=== PATIENT | female | born 1945 | race Caucasian/White ===

== ENCOUNTER 2018-05-23 17:19 | Emergency (ER) | payer MEDICARE, MEDICAID, SELFPAY ==
[2018-05-23 17:25] VITALS: BP 197/94; PULSE 89; RESP 16; TEMP 37; O2SAT 95
--- NOTE | 2018-05-23 18:04 | ED.GENADUL_ITS ---
Disposition Clinical Impression: Abscess of groin, left Disposition: HOME Condition: Stable Instructions: Abscess (ED) Additional Instructions: Leave the left groin dressing in place. If it becomes wet, dry the area and replace with dry gauze and tape. Do not remove the packing inside. Return to the emergency department in 2 days for wound check and packing removal. Take the antibiotics until finished. Return to the emergency department any time if you develop fever, worsening pain , redness or swelling or red streaking in your leg. Prescriptions: Clindamycin [Cleocin] 450 mg PO TID 7 Days cap Medical Decision Making - Medical Decision Making 73-year-old female presents with left groin abscess for 5 days. Admits to a similar history 1 year ago status post catheterization. She states this area completely healed since last year. Area appears fluctuant approximately 2 x 3 cm in the left groin. She has no fever or abdominal tenderness. She appears nontoxic. Will perform an I&D and start antibiotics. Area anesthetized with 8 cc of lidocaine 2% without epi. An approximately 1 cm incision was made in the center of abscess with minimal amount of pus expressed. The approximately 1cm area of pus noted in center of abscess prior to incision is more jelly like and not liquid - this was removed with excision leaving a circular hole in center of incision. Small amount of blood expressed. Area was irrigated with normal saline, packed with 1/4inch iodoform and covered gauze dressing. Pt was given dose of clindamycin here and prescription for home. Pt was instructed to return to the ER in 2 days for wound check and packing removal. She was instructed to return immediately to the ER at any time with signs of worsening infection such as fever, chills, red streaking. History of Present Illness - General Chief complaint: RashLesion Stated complaint: ABSCESS IN GROIN AREA Time Seen by Provider: 05/23/18 17:22 Source: patient Mode of arrival: ambulatory Limitations: no limitations - History of Present Illness Initial comments: Patient is a 73-year-old female presents with left groin abscess with the past 5 days. Patient has a similar episode one year ago after a catheterization through her left groin. She denies any recent antibiotics. She saw her PCP today for this and advised to come to the ED if she may need incision and drainage. She denies known fever or abdominal pain. - Related Data Fluticasone Propionate [Flovent 110MCG] 1 puff IH BID #3 inhaler 09/12/17 Mirtazapine 30 mg PO HS #90 tab-cap 09/12/17 Rosuvastatin [Crestor] 40 mg PO DAILY #90 tab-cap 09/12/17 Ferrous Sulfate [Feosol] 325 mg PO BID #60 tab-cap 09/16/17 Proventil Hfa 1 - 2 puff IH Q6H PRN #3 inhaler 09/16/17 Quetiapine Fumarate 12.5 mg PO DAILY #45 tab-cap 12/03/17 Potassium Chloride 20 meq PO DAILY #90 tab-cap 01/16/18 Apixaban [Eliquis] 5 mg PO BID #60 tab 03/31/18 Clopidogrel Bisulfate [Clopidogrel] 75 mg PO DAILY #90 tab-cap 03/31/18 Metoprolol Succinate 100 mg PO DAILY #90 tab-cap 03/31/18 Pantoprazole Sodium 40 mg PO BID #60 tab-cap 03/31/18 Losartan/Hydrochlorothiazide [Losartan-Hctz 100-12.5 mg Tab] 1 tab-cap PO DAILY #90 tab-cap 04/15/18 Clindamycin [Cleocin] 450 mg PO TID 7 Days cap 05/23/18 Allergies Allergy/AdvReac Type Severity Reaction Status Date / Time lactose AdvReac Severe DIARRHEA Unverified 05/23/18 17:27 mold, mildew AdvReac Unknown ?cough Uncoded 05/23/18 17:27 Review of Systems Constitutional: denies: chills, fever Eyes: denies: eye pain ENT: denies: ear pain, dental pain Respiratory: denies: cough, shortness of breath Cardiovascular: denies: chest pain, dyspnea on exertion Gastrointestinal: denies: abdominal pain, nausea, vomiting Genitourinary: denies: urgency, dysuria, frequency Musculoskeletal: denies: back pain Skin: lesions. denies: rash Neurological: denies: headache, weakness, numbness Past Medical History - Past Medical History Medical history: CAD, COPD, GERD, hyperlipidemia, hypertension hep C, lung ca s/p lobectomy, peripheral vascular disease, NSTEMI, GI bleed Surgical history: other (L lung lobectomy 2013?) Family history: CAD/LA (mother), cancer (mother) - Social History Smoking status: never smoker Alcohol use: none (Former history of heavy alcohol abuse, quit 10 years ago) Drug use: none General Exam - General Limitations: no limitations General appearance: alert, in no apparent distress - Eye Eye exam: Present: EOMI - Respiratory Respiratory exam: Present: normal lung sounds bilaterally. Absent: respiratory distress, wheezes, rales, rhonchi, stridor - Cardiovascular Cardiovascular Exam: Present: regular rate, normal rhythm. Absent: bradycardia , tachycardia - GI/Abdominal GI/Abdominal exam: Present: soft, normal bowel sounds. Absent: distended, tenderness, guarding, rebound, rigid - Neurological Exam Neurological exam: Present: alert, oriented X3 - Psychiatric Psychiatric exam: Present: normal affect - Skin Skin exam: Present: other (Approximately 3 x 2 cm tender fluctuant abscess noted to left groin. There appears to be a draining center with yellow pus. No induration or surrounding erythema extending from abscess.) Course Vital Signs - 24 hr 05/23/18 17:25 Temperature 98.6 F Pulse 89 Respiratory 16 Rate Blood Pressure 197/94 Pulse Oximetry 95 Procedures - Abscess I/D Site: Other (Left groin) Side (if applicable): Left Local Anesthetic: Lidocaine 2% Amount of Anesthesia Used (mL): 8 Technique: Incised with #11 Blade Amount of Fluid: 2 Irrigation: Yes Packing used?: Iodoform
[2018-05-23] MEDS: Clindamycin 150 MG CAP 450 MG PO (18:28)
[2018-05-23] MEDS: Acetaminophen 325 MG TAB 650 MG PO (19:30)
== END 2018-05-23 19:31 | disposition home or self-care (01) ==
PROVIDERS: Emergency Provider Physician Assistant; PCP Family Medicine
DX: L02.214 Cutaneous abscess of groin (principal); J44.9 Chronic obstructive pulmonary disease, unspecified; I10 Essential (primary) hypertension
CPT/HCPCS: 10061 ×2

== ENCOUNTER 2018-05-25 13:22 | Emergency (ER) | payer MEDICARE, MEDICAID, SELFPAY ==
[2018-05-25 13:28] VITALS: BP 116/65; PULSE 68; RESP 18; TEMP 36.5; O2SAT 100
--- NOTE | 2018-05-25 14:56 | ED.GENADUL_ITS ---
Disposition Clinical Impression: Abscess of groin, left, Visit for wound check Disposition: HOME Condition: Stable Instructions: Abscess (ED) Additional Instructions: Follow-up with your scheduled appointment with your primary care doctor on Saturday for reevaluation of your left groin abscess. Continue wet to dry dressings in your left groin twice daily. Take the antibiotics until finished. Return immediately to the emergency department any worsening or new concerning symptoms such as fever, increased pain redness or swelling. Medical Decision Making - Medical Decision Making 73yo F here for wound check and packing removal for L groin abscess. Pt feels better. No fever. Packing was removed. Area appears to be improving but where the gelatinous area of pus in center was removed 2 days ago, there is a hole. The edges appear clean. Pt had a previous cath in this area 1 year ago complicated by abscess after. I suspect the center may have been scar tissue that then recently became infected. Area was covered with wet to dressings and tape. Will not repack wound. Seems to be healing from center and improving. Informed pt that she will likely have another scar. Pt has a f/u appt with her pcp in 3 days. She is instructed to have him evaluate this area for another wound check. Pt instructed to return here with any worsening symptoms such as fever and red streaking. History of Present Illness - General Chief complaint: Recheck Stated complaint: RECHECK Time Seen by Provider: 05/25/18 13:35 Source: patient Mode of arrival: ambulatory Limitations: no limitations - History of Present Illness Initial comments: Pt was seen here 2 days ago for a L groin abscess and is here today for wound check and packing removal. Pt states the pain is improved and she denies fever and otherwise has been feeling better. She is taking the antibiotics as directed. - Related Data Fluticasone Propionate [Flovent 110MCG] 1 puff IH BID #3 inhaler 09/12/17 Mirtazapine 30 mg PO HS #90 tab-cap 09/12/17 Rosuvastatin [Crestor] 40 mg PO DAILY #90 tab-cap 09/12/17 Ferrous Sulfate [Feosol] 325 mg PO BID #60 tab-cap 09/16/17 Proventil Hfa 1 - 2 puff IH Q6H PRN #3 inhaler 09/16/17 Quetiapine Fumarate 12.5 mg PO DAILY #45 tab-cap 12/03/17 Potassium Chloride 20 meq PO DAILY #90 tab-cap 01/16/18 Apixaban [Eliquis] 5 mg PO BID #60 tab 03/31/18 Clopidogrel Bisulfate [Clopidogrel] 75 mg PO DAILY #90 tab-cap 03/31/18 Metoprolol Succinate 100 mg PO DAILY #90 tab-cap 03/31/18 Pantoprazole Sodium 40 mg PO BID #60 tab-cap 03/31/18 Losartan/Hydrochlorothiazide [Losartan-Hctz 100-12.5 mg Tab] 1 tab-cap PO DAILY #90 tab-cap 04/15/18 Clindamycin [Cleocin] 450 mg PO TID 7 Days cap 05/23/18 Allergies Allergy/AdvReac Type Severity Reaction Status Date / Time lactose AdvReac Severe DIARRHEA Unverified 05/25/18 13:33 mold, mildew AdvReac Unknown ?cough Uncoded 05/25/18 13:33 Review of Systems Constitutional: denies: chills, fever Eyes: denies: eye pain ENT: denies: ear pain, dental pain Respiratory: denies: cough, shortness of breath Cardiovascular: denies: chest pain, dyspnea on exertion Gastrointestinal: denies: abdominal pain, nausea, vomiting Genitourinary: denies: urgency, dysuria, frequency Musculoskeletal: denies: back pain Skin: denies: rash, lesions Neurological: denies: headache, weakness, numbness Past Medical History - Past Medical History Medical history: CAD, COPD, GERD, hyperlipidemia, hypertension hep C, lung ca s/p lobectomy, peripheral vascular disease, NSTEMI, GI bleed Surgical history: other (L lung lobectomy 2013?) Family history: CAD/CO (mother), cancer (mother) - Social History Smoking status: former smoker Alcohol use: none (Former history of heavy alcohol abuse, quit 10 years ago) Drug use: none General Exam - General Limitations: no limitations General appearance: alert, in no apparent distress - Eye Eye exam: Present: EOMI - Neck Neck exam: Present: normal inspection - Respiratory Respiratory exam: Present: normal lung sounds bilaterally. Absent: respiratory distress, wheezes, rales, rhonchi, stridor - Cardiovascular Cardiovascular Exam: Present: regular rate, normal rhythm. Absent: bradycardia , tachycardia - GI/Abdominal GI/Abdominal exam: Present: soft, normal bowel sounds. Absent: distended, tenderness, guarding, rebound, rigid - Neurological Exam Neurological exam: Present: alert, oriented X3 - Psychiatric Psychiatric exam: Present: normal affect - Skin Skin exam: Present: other (L groin with area of induration with significant improvement of erythema. The center area notes a hole where previous hardened pus was removed. There is no fluctuance. ) Course Vital Signs - 24 hr 05/25/18 13:28 Temperature 97.7 F Pulse 68 Respiratory 18 Rate Blood Pressure 116/65 Pulse Oximetry 100
[2018-05-25 15:35] VITALS: BP 189/75; PULSE 83; RESP 18; TEMP 36.5; O2SAT 93
== END 2018-05-25 15:37 | disposition home or self-care (01) ==
PROVIDERS: Emergency Provider Physician Assistant; PCP Family Medicine
DX: L02.214 Cutaneous abscess of groin (principal); Z48.01 Encounter for change or removal of surgical wound dressing
CPT/HCPCS: 99281 ×2

== ENCOUNTER 2018-06-25 01:47 | Outpatient (CLI) | payer MEDICARE, MEDICAID, SELFPAY | END 2018-06-25 02:07 | PROVIDERS: PCP Family Medicine; Visit Provider Family Medicine | DX: B19.20 Unspecified viral hepatitis C without hepatic coma (principal) | CPT/HCPCS: 36415; 87522 ==

== ENCOUNTER 2018-09-10 13:26 | Inpatient (IN) | payer MEDICARE, MEDICAID, SELFPAY ==
[2018-09-10] VITALS (95 sets, daily range): BP systolic 102–165; BP diastolic 47–105; PULSE 71–132; RESP 14–33; TEMP 36.6–37.2; O2SAT 79–99
[2018-09-10] MEDS: Normal Saline 1,000 ML 1000 ML IV ×3 (14:00→16:34)
[2018-09-10 14:41] LABS: HCT 33.2 % (36.0-46.0); HGB 11.1 g/dL (12.0-15.5); Lactate-non-spesis 1.9 mmol/L (0.6-1.4); Mean Corp. HGB Concentration 33.4 g/dL (32.0-36.0); Mean Corpuscular Hemoglobin 30.9 pg (27.0-33.0); Mean Corpuscular Volume 92.5 fL (80-95); Mean Platelet Volume 9.8 fL (8.0-11.0); Platelet Count 296 x1000/uL (130-400); RBC 3.59 m/cumm (4.00-5.20); RBC Distribution Width 14.2 % (11.7-14.6); White Blood Cell Count 20.02 k/cumm (4.4-10.8)
[2018-09-10 15:03] LABS: Absolute Neutrophil Count 18.02 k/cumm (1.2-6.7)
[2018-09-10 15:04] LABS: ALT 16 U/L (12-78); AST 18 U/L (15-37); Albumin 3.3 g/dL (3.4-5.0); Alkaline Phosphatase 72 U/L (46-116); Anion Gap 11.9 mmol/L (3-11); BUN 24 mg/dL (7-18); Bilirubin, Total 0.4 mg/dL (0.2-1.0); CO2 26.1 mmol/L (21.0-32.0); CREATININE 2.04 mg/dL (0.55-1.02); Calcium 9.2 mg/dL (8.5-10.1); Chloride 96 mmol/L (98-107); Diff Comment Manual Differential; Estimated GFR 24.01 (mL/min/1.73m2); Glucose 114 mg/dL (70-100); Lipase 102 U/L (73-393); RBC Morphology Normal; Sodium 134 mmol/L (136-145); Total Protein 7.2 g/dL (6.4-8.2)
[2018-09-10 15:06] LABS: Troponin I 0.17 ng/mL (0.00-0.06)
--- NOTE | 2018-09-10 15:09 | ED.GENADUL_ITS ---
Discharge Plan Disposition Patient Disposition: [facility] INPATIENT Condition: Good Discharge Details Chief Complaint: Nausea/Vomit/Diar Clinical Impression: Acute kidney injury, Proctocolitis, Acute non-ST elevation myocardial infarction (NSTEMI), Acute dehydration, Acute hypokalemia, Diarrhea Primary Care Provider: Dharmesh Huizar ED Provider: Stephen Baxter Home Meds and New Rx's Prescriptions: No Action mirtazapine 30 MG tablet 30 mg PO HS Qty: 90 RF: 3 fluticasone [Flovent HFA] 12 GM HFA aerosol inhaler 1 puff Inhalation BID Qty: 3 RF: 3 ferrous sulfate [Feosol] 325 MG tablet 325 mg PO BID Qty: 60 RF: 3 PROVENTIL HFA 18 GM HFA.AER.AD 1 - 2 puff Inhalation Q6H PRN Qty: 3 RF: 3 quetiapine 25 MG tablet 12.5 mg PO DAILY Qty: 45 RF: 3 potassium chloride 20 MEQ tablet extended release 20 meq PO DAILY Qty: 90 RF: 3 metoprolol succinate 100 MG tablet extended release 24 hr 100 mg PO DAILY Qty: 90 RF: 3 clopidogrel 75 MG tablet 75 mg PO DAILY Qty: 90 RF: 3 pantoprazole 40 MG tablet,delayed release (DR/EC) 40 mg PO BID Qty: 60 RF: 11 apixaban [Eliquis] 5 MG tablet 5 mg PO BID Qty: 60 RF: 11 losartan-hydrochlorothiazide 1 EACH tablet 1 tab-cap PO DAILY Qty: 90 RF: 3 rosuvastatin [Crestor] 40 mg tablet 40 mg PO DAILY Qty: 90 RF: 3 losartan 50 mg Tablet 50 mg PO DAILY RF: 0 chlorthalidone 25 mg Tablet 25 mg PO DAILY RF: 0 aspirin 81 mg Tablet,Chewable 81 mg PO DAILY RF: 0 oxycodone 5 mg Tablet 5 tab PO PRN PRNRF: 0 cholecalciferol (vitamin D3) 50,000 unit Capsule 50,000 unit PO DIRECTED RF: 0 cyanocobalamin (vitamin B-12) 1,000 mcg Capsule 1,000 mcg PO DAILY RF: 0 Medical Decision Making This is a pleasant 73-year-old female with a past medical history of being a vasculopath, A. fib, Eliquis use, who presents today for 3 days of vomiting and diarrhea. She has no red flags of foreign travel, or other sick contacts however she did have a fever reported by EMS however she is afebrile here. Physical exam demonstrates mild tenderness throughout the abdomen and notably dry mucous membranes with notable tachycardia, most likely secondary to dehydration. And concerned for potential gastritis versus mesenteric ischemia with her history of being a vasculopath. We will get a CT angios to evaluate for any acute component, rehydrate, perform a cardiac workup as well for an atypical ACS presentation. EKG 13: 36 Rate 134, sinus tachycardia ME 88, QTc 475, QRS 92, sinus tachycardia, no significant ST elevations or depressions, no T wave inversions. Patient's laboratory workup has returned demonstrates a notably elevated white count. As well as a significant acute kidney injury. Because of this will not be able to do the CT angiogram. We will get a CT scan of the chest abdomen pelvis without contrast to evaluate for acute infectious etiology. CT scan returned and demonstrates evidence of proctocolitis, no other acute abnormalities in the chest abdomen or pelvis. Patient does demonstrate mild to moderate hypokalemia as well. We have given her oral, IV potassium as well as oral magnesium. EKG showed evidence of tachycardia, but no ST changes. Patient 's initial troponin came back at 0.17, and then repeat troponin came back at 0.13, with a notable decline. I did contact [facility] cardiology and discussed the case with Dr. Ordoñez, [facility] currently has no room, and their recommendation is serial troponins, and outpatient stress test for further evaluation. They do not recommend starting heparin, however they do recommend continuing the aspirin and Eliquis. Patient did have a notable improvement of her tachycardia with 2 L of rehydration. Because of the patient's evidence of proctocolitis on CT scan we will start Cipro and Flagyl. With normalizing vital signs, notable dehydration with acute kidney injury, as well as evidence of an end STEMI, I feel that she does warrant inpatient admission. I did contact Dr. Francisco, and discussed the case with him. He agrees with the assessment and plan I have extensively reviewed the treatment plan with the patient. I have addressed all patient concerns at this time. I have also discussed the plan with the admitting physician and they agree with the current assessment and plan and have agreed to assume responsibility for the patient. All parties demonstrate verbal understanding and agreement with our assessment and plan at this time. FINDINGS: Lungs: Prominent reticular markings within the superior segment of the left lower lobe and posterior right lower lobe likely chronic interstitial disease. Diffuse bilateral pulmonary emphysema. Pleural space: Normal. No pneumothorax. No pleural effusion. Heart: Coronary atherosclerosis. Findings suggestive of left atrial and left ventricular enlargement. Aorta: Atherosclerosis of the thoracic aorta and great vessels. Great vessels off aortic arch: Left subclavian endoluminal stent graft. Lymph nodes: Unremarkable. No enlarged lymph nodes. Bones/joints: Unremarkable. No acute fracture. Soft tissues: Unremarkable. IMPRESSION: No acute abnormality. ABDOMEN: Liver: Unremarkable. No mass. Gallbladder and bile ducts: Calcified stones within the gallbladder. Pancreas: Unremarkable. No ductal dilation. Spleen: Unremarkable. No splenomegaly. Adrenals: Normal. No mass. Kidneys and ureters: Severe atrophy of the right kidney with compensatory hypertrophy of the left kidney. No renal stone or hydronephrosis. Stomach and bowel: Generalized wall thickening of the mid and distal sigmoid colon and rectum suspicious for proctocolitis. No surrounding inflammatory changes identified. No bowel obstruction. Appendix: No evidence of appendicitis. PELVIS: Bladder: Unremarkable as visualized. Reproductive: Unremarkable as visualized. ABDOMEN and PELVIS: Intraperitoneal space: No free air. No significant fluid collection. Bones/joints: Degenerative spondylosis of the lumbar spine. Soft tissues: Unremarkable. Vasculature: Femoral-femoral artery bypass graft. Severe atherosclerosis of the abdominal aorta and iliac arteries. No aneurysm. Right common and external iliac endoluminal stent graft. Lymph nodes: No enlarged lymph nodes. IMPRESSION: 1. Findings suspicious for mild proctocolitis. 2. No other acute abnormality. HPI General Date/Time Provider Initiated Documentation: 09/10/18 13:38 . HPI Narrative: This is a pleasant 73-year-old female with a past medical history of being a vasculopath, on Eliquis also has atrial fibrillation , recent femoral stenting, as well as hypertension, high cholesterol. Patient presents today for vomiting and diarrhea. She states that over the last 3 days she has had multiple episodes of vomiting and diarrhea. She denies any blood in her emesis or her stool. She denies any dark or tarry stool. She denies any recent foreign travel, any other sick contacts, or any new foods. Upon EMS arrival they did note a temperature of 101 Fahrenheit however she is afebrile here. Patient admits to mild cramping in her abdomen, but denies any severe pain. Pain and cramping appears to be constant. No aggravating or relieving factors. She has not taken any of her medications for the last 3 days because of her vomiting. She denies any associated chest pain, shortness of breath, arm or neck pain. She denies any other associated symptoms. She denies any other complaints at this time. She denies any current IV or illicit drug use. Related Data Home Medications Medication Instructions Recorded Confirmed fluticasone [Flovent HFA] 1 puff INHALATION BID #3 inhaler 09/12/17 09/10/18 mirtazapine 30 mg PO HS #90 tab-cap 09/12/17 09/10/18 ferrous sulfate [Feosol] 325 mg PO BID #60 tab-cap 09/16/17 09/10/18 quetiapine 12.5 mg PO DAILY #45 tab-cap 12/03/17 09/10/18 potassium chloride 20 meq PO DAILY #90 tab-cap 01/16/18 09/10/18 apixaban [Eliquis] 5 mg PO BID #60 tab 03/31/18 09/10/18 clopidogrel 75 mg PO DAILY #90 tab-cap 03/31/18 07/22/18 metoprolol succinate 100 mg PO DAILY #90 tab-cap 03/31/18 09/10/18 pantoprazole 40 mg PO BID #60 tab-cap 03/31/18 09/10/18 losartan-hydrochlorothiazide 1 tab-cap PO DAILY #90 tab-cap 04/15/18 07/22/18 rosuvastatin 40 mg tablet 40 mg PO DAILY #90 tab-cap 08/13/18 09/10/18 aspirin 81 mg PO DAILY 09/10/18 09/10/18 chlorthalidone 25 mg PO DAILY 09/10/18 09/10/18 cholecalciferol (vitamin D3) 50,000 unit PO DIRECTED 09/10/18 09/10/18 cyanocobalamin (vitamin B-12) 1,000 mcg PO DAILY 09/10/18 09/10/18 losartan 50 mg PO DAILY 09/10/18 09/10/18 oxycodone 5 tab PO PRN PRN 09/10/18 09/10/18 Previous Rx's Medication Instructions Recorded fluticasone [Flovent HFA] 1 puff INHALATION BID #3 inhaler 09/12/17 mirtazapine 30 mg PO HS #90 tab-cap 09/12/17 ferrous sulfate [Feosol] 325 mg PO BID #60 tab-cap 09/16/17 quetiapine 12.5 mg PO DAILY #45 tab-cap 12/03/17 potassium chloride 20 meq PO DAILY #90 tab-cap 01/16/18 apixaban [Eliquis] 5 mg PO BID #60 tab 03/31/18 clopidogrel 75 mg PO DAILY #90 tab-cap 03/31/18 metoprolol succinate 100 mg PO DAILY #90 tab-cap 03/31/18 pantoprazole 40 mg PO BID #60 tab-cap 03/31/18 losartan-hydrochlorothiazide 1 tab-cap PO DAILY #90 tab-cap 04/15/18 rosuvastatin 40 mg tablet 40 mg PO DAILY #90 tab-cap 08/13/18 Allergies Allergy/AdvReac Type Severity Reaction Status Date / Time chlorthalidone Allergy Intermediate chest pain Unverified 07/22/18 15:15 lactose AdvReac Severe DIARRHEA Unverified 07/22/18 15:15 mold, mildew AdvReac Unknown ?cough Uncoded 07/22/18 15:15 General Stated Complaint: Nausea/Vomit/Diar ENZO: 2 Review of Systems Review of Systems All systems reviewed & are unremarkable except as noted in HPI and below PFSH Family History Mother Essential hypertension Personal history of malignant neoplasm Heart disease Hyperlipidemia Cerebrovascular accident Father Personal history of malignant neoplasm Brother Personal history of malignant neoplasm Grandfather No problems noted. Grandfather No problems noted. Grandmother No problems noted. Grandmother No problems noted. Medical History ASCVD (arteriosclerotic cardiovascular disease) Alcohol abuse COPD (chronic obstructive pulmonary disease) Essential hypertension Non-ST elevation [place] (NSTEMI) PVD (peripheral vascular disease) Peptic reflux disease SVT (supraventricular tachycardia) Smoker Viral hepatitis C Vitamin D deficiency Social History Smoking/Tobacco Use Status: Former Tobacco Use Surgical History PROCEDURES Exam Narrative Exam Narrative: General appearance: NAD, conversant, no acute distress, no toxic ENT/Neck: FROM, supple, extremely dry mucous membranes Lungs: Clear to auscultation, no wheezes rales or rhonchi CV: Tachycardic, no MRGs; normal carotid upstroke and amplitude without bruits Abdomen: Soft, nondistended, no guarding or rebound. Mild tenderness throughout. Bowel sounds are present. No pain out of proportion. Extremities: No peripheral edema or digital cyanosis, radial pulses +2 bilaterally Skin: no rash, lesions or ulcers Psych: Alert and oriented to person, place and time Course Vital Signs Temperature 36.7 C 09/10/18 13:29 Pulse 129 H 09/10/18 13:29 Respiratory Rate 18 09/10/18 13:29 Pulse Oximetry 94 L 09/10/18 13:29 Temperature 36.7 C 09/10/18 13:29 Pulse 129 H 09/10/18 13:29 Respiratory Rate 18 09/10/18 13:29 Pulse Oximetry 94 L 09/10/18 13:29 Oxygen Delivery Method Room Air 09/10/18 13:29 Oxygen Flow Rate 0 09/10/18 13:29 Pain Level 4 09/10/18 13:29 Lab/Test Results Lab/Test Results: 09/10/18 14:27 Blood Blood Culture - Pending 09/10/18 13:42 Blood Blood Culture - Pending Laboratory Tests Range/Units 09/10/18 14:27 Lactate (0.6-1.4) mmol/L 1.9 H
--- NOTE | 2018-09-10 15:14 | DI.CT_ITS ---
SYMPTOM/DIAGNOSIS: VOMITING, DIARRHEA CT CHEST/ABDOMEN/PELVIS: 09/10 CT examination of the chest, abdomen and pelvis was performed without contrast administration. There are severe pulmonary emphysematous changes which are predominantly central lobular. Tracheobronchial tree is grossly intact. Nonspecific minimal areas of atelectasis and/or scarring may be present particularly in the right lung base. No gross consolidation or mass seen. There is increased prominence of pre-tracheal lymph nodes in comparison with previous chest CT of 07/17/17, largest pretracheal node is about 20 mm in diameter. A 19 mm left axillary lymph node is also noted which was not present on the previous examination. Additionally, although the right hilum is difficult to evaluate fully without contrast administration, there is the possibility of right hilar mass or adenopathy. Left hilum is unremarkable in appearance. No pleural effusion seen. Left subclavian stent graft noted. Liver and spleen are grossly unremarkable in appearance. There is cholelithiasis. There may be gallbladder wall thickening. No biliary dilatation seen. The pancreas is grossly unremarkable. Atrophy of right kidney noted with compensatory hypertrophy left kidney. Abdominal aorta is of normal diameter. Femoral artery bypass graft noted. Severe atherosclerosis of abdominal aorta and iliac arteries noted. Right common and external iliacs graft noted. There is no gross abdominal or pelvic adenopathy seen. However, there is increased size of a sheng-aortic node since the previous examination which now measures about 12 mm in diameter. This is a nonspecific finding. There is apparent wall thickening of the rectum and sigmoid raising the possibility of proctitis or colitis. Please correlate clinically. No evidence of obstruction. No other focal bowel pathology identified. CONCLUSION: 1. Increased prominence of lymph nodes in mediastinum, question increasing right hilar prominence/adenopathy since the previous CT of 07/17/17. The possibility of neoplastic disease would have to be raised. 2. Increased size of left axillary node with abnormal rounded contour, 19 mm. 3. Increased prominence of para aortic lymph nodes, nonspecific 4. Question colitis involving rectosigmoid. Please correlate clinically. Follow up chest CT with contrast administration recommended. Alternatively PET CT may be considered.
[2018-09-10] MEDS: Breeza Beverage 473 ML BTL PO ×2 (15:27→15:28)
[2018-09-10] MEDS: Aspirin 81 MG CHEW 324 MG CH (15:35)
[2018-09-10] MEDS: POTASSIUM CHLORIDE 20 MEQ/100 ML BAG 50 MEQ IVPB (15:45)
[2018-09-10] MEDS: Metoprolol 5 MG/5 ML VIAL 10 MG IVP (16:29)
[2018-09-10 17:49] LABS: Troponin I 0.13 ng/mL (0.00-0.06)
--- NOTE | 2018-09-10 19:03 | DI.VRAD_ITS ---
EXAM: CT Chest Without Contrast EXAM DATE/TIME: 09/10/2018 5:11 PM CLINICAL HISTORY: 73 years old, female; Signs and symptoms; Nausea and vomiting; Prior surgery; Patient HX: Vomiting, diarrhea TECHNIQUE: Axial computed tomography images of the chest without intravenous contrast. Coronal and sagittal reformatted images were created and reviewed. COMPARISON: CT ABD PELVIS WITH CONTRAST 05/23/2017 10:12 PM FINDINGS: Lungs: Prominent reticular markings within the superior segment of the left lower lobe and posterior right lower lobe likely chronic interstitial disease. Diffuse bilateral pulmonary emphysema. Pleural space: Normal. No pneumothorax. No pleural effusion. Heart: Coronary atherosclerosis. Findings suggestive of left atrial and left ventricular enlargement. Aorta: Atherosclerosis of the thoracic aorta and great vessels. Great vessels off aortic arch: Left subclavian endoluminal stent graft. Lymph nodes: Unremarkable. No enlarged lymph nodes. Bones/joints: Unremarkable. No acute fracture. Soft tissues: Unremarkable. IMPRESSION: No acute abnormality. EXAM: CT Abdomen and Pelvis Without Intravenous Contrast EXAM DATE/TIME: 09/10/2018 5:11 PM CLINICAL HISTORY: 73 years old, female; Signs and symptoms; Nausea and vomiting; Prior surgery; Patient HX: Vomiting, diarrhea TECHNIQUE: Axial computed tomography images of the abdomen and pelvis without intravenous contrast. Coronal and sagittal reformatted images were created and reviewed. COMPARISON: CT ABD PELVIS WITH CONTRAST 05/23/2017 10:12 PM FINDINGS: Lower thorax: No acute findings. ABDOMEN: Liver: Unremarkable. No mass. Gallbladder and bile ducts: Calcified stones within the gallbladder. Pancreas: Unremarkable. No ductal dilation. Spleen: Unremarkable. No splenomegaly. Adrenals: Normal. No mass. Kidneys and ureters: Severe atrophy of the right kidney with compensatory hypertrophy of the left kidney. No renal stone or hydronephrosis. Stomach and bowel: Generalized wall thickening of the mid and distal sigmoid colon and rectum suspicious for proctocolitis. No surrounding inflammatory changes identified. No bowel obstruction. Appendix: No evidence of appendicitis. PELVIS: Bladder: Unremarkable as visualized. Reproductive: Unremarkable as visualized. ABDOMEN and PELVIS: Intraperitoneal space: No free air. No significant fluid collection. Bones/joints: Degenerative spondylosis of the lumbar spine. Soft tissues: Unremarkable. Vasculature: Femoral-femoral artery bypass graft. Severe atherosclerosis of the abdominal aorta and iliac arteries. No aneurysm. Right common and external iliac endoluminal stent graft. Lymph nodes: No enlarged lymph nodes. IMPRESSION: 1. Findings suspicious for mild proctocolitis. 2. No other acute abnormality. Dictated and Authenticated by: Joe Ross MD. Ordering:YA GREER MD
[2018-09-10] MEDS: CIPROFLOXACIN 400 MG/200 ML BAG 200 MG IVPB (19:26)
[2018-09-10] MEDS: MetroNIDAZOLE 500 MG/100 ML BAG 100 MG IVPB (19:26)
[2018-09-10] MEDS: Magnesium Oxide 400 MG TAB PO (19:26)
[2018-09-10] MEDS: Potassium Chloride 20 MEQ TABCR 40 MEQ PO (19:26)
[2018-09-10] MEDS: Normal Saline Flush 10 ML SYR IVP (20:58)
[2018-09-10] MEDS: Apixaban 5 MG TAB PO (21:16)
[2018-09-10 21:20] LABS: Bilirubin Negative (Negative); Blood Trace-intact (Negative); Clarity Clear; Glucose Negative (Negative); Ketones Negative (Negative); Leukocyte Esterase Small (Negative); Nitrite Negative (Negative); Specific Gravity <= 1.005 (1.005-1.025); Urobilinogen 0.2 EU/dL (Up TO 0.2); pH 5.5 (5-8)
[2018-09-10 21:27] LABS: Bacteria Negative HPF (Negative); C & S Indicated? Yes; Casts Negative LPF (Negative); Crystals Negative HPF (Negative); Epithelial Cells Negative HPF (Negative); Mucus Negative (Negative); Other Cells Negative (Negative); RBC Negative (0-2)
--- NOTE | 2018-09-10 21:56 | W.PM.HP.N ---
Date of service: 09/10/18 Time of Service: 21:56 Assessment and Plan (1) Enterocolitis: Current visit: Yes Status: Acute continue iv fluid hydration overnight, monitoring her urinary output, replace her electrolytes and repeat her labs in the a.m. continue w/ cipro at renal adjusted doses and flagyl pending results of stool cultures, and c. diff studies; advance diet as tolerated. if worsening abdominal pains then would have to consider ischemic bowel particularly w/ her PAD and abrupt stoppage of her Plavix and Apixaban. (2) Dehydration: Current visit: Yes Status: Acute as above. GLORIA was worsened by poor oral intake along w/ use of her diuretic and losartan although she says she has not been able to keep any meds down for 3 days d/t nausea and vomiting (3) Acute kidney injury (nontraumatic): Current visit: Yes Status: Acute rehydration w/ iv fluids along w/ electrolyte replacement. if no improvement then proceed w/ renal U.S. and check urinary sediment for casts to suggest ATN (4) Hypokalemia: Current visit: Yes Status: Acute continue iv and po replacement. check magnesium level and replace as needed. monitor repeat labs in the a.m. (5) Coronary artery disease: Current visit: No Status: Chronic no ischemic chest pain. troponins are mildly elevated but not at threshold for MD. I suspect she had demand ischemia. Her reports from [facility] indicate her last cath was 12/28/2015 and showed non-hemodynamically significant CAD(lm 10%, LAD long prox 30% calcified, LCX prox 20%, RCA prox and mid calcified 40%). I have resumed her Plavix and Apixaban (at renal adjusted dosing, although this will need to be uptitrated to 5 mg BID once she has renal recovery. She was not on ASA at home despite this being listed as one of her meds. I reviewed her [facility] record and they have her off ASA but continued w/ Plavix and Apixaban. She should continue her Toprol XL for her HTN as well as her CAD. She should cont. her Crestor for her HLD and her CAD and her PAD. (6) Essential hypertension: Current visit: No Status: Chronic hold losartan and chlorthalidone for now d/t GLORIA. cont. Toprol XL 100 mg daily. I corrected her losartan dosing. Her office records just recorded losartan/HCTZ one daily but gave no dosing. Her [facility] records from earlier this month (Aug.21/2018) has her on losartan 50 mg two daily (100 mg daily) and chlorthalidone 25 mg daily. No HCTZ is listed. (7) Peptic reflux disease: Current visit: No Status: Chronic cont. her Protonix at her current dose of 40 mg bid although this should be considered for de-escalation. History of Present Illness Chief Complaint: nausea, vomiting, diarrhea Narrative: 73 yr old female w/ severe PAD, COPD, HTN, CAD (hemodynamically non-obstructive), depression, HLD, HCV, lung CA (s/p lobectomy), PSVT, NSTEMI, PUD, GERD, OA, alcohol abuse who presents to the ER today w/3 days of nausea, vomiting and diarrhea and crampy abdominal pain. No associated fevers, foreign travel or ill contacts. No melena nor hematochezia or hematemesis. Evaluation in the ER by Dr. Baxter revealed diffuse abdominal tenderness and dry mucous membrained and tachycardia. Workup in the ER included elevated WBC 20,000 w/ left shift, stable mild anemia (Hb 11.1), azotemia (BUN 24, creatinine 2.0), normal LFT and normal lipase and mildly elevated lactate 1.9, unremarkable UA. Troponin was mildly elevated at 0.17 w/ repeat level 3 hrs later down to 0.13. EKG demonstrated sinus tachycardia at 76 bpm w/ nonspecific inferolateral ST depression similar to prior EKG's but more prominent compared to one in February 13, 2018. Stool was sent for C diff and stool culture. She underwent CT chest, abdomen and pelvis (non-contrast). Chest CT showed no acute findings. CT of abdomen and pelvis suggested mild proctocolitis. Treatment in the ER included 2 liters of NS, Ciprofloxacin 400 mg and Flagyl 500 mg. Patient is now admitted for treatment of dehydration and GLORIA d/t colits and demand ischemia. Stool has been sent for C. diff screening and stool cultrures and O&P. Of note patient has not taken any of her meds for 3 days d/t nausea and vomiting (including her metoprolol and apixaban and plavix). Review of Systems Constitutional Denies chills, Denies fever(s) and Reports poor appetite Eyes Reports system reviewed and no additional complaints, except as docu ENT Reports system reviewed and no additional complaints, except as docu Cardiovascular Denies chest pain, Denies edema, Denies claudication, Denies palpitations and Denies dyspnea Respiratory Reports system reviewed and no additional complaints, except as docu and Denies dyspnea Gastrointestinal Reports abdominal pain, Denies melena, Denies hematochezia, Reports cramping, Reports diarrhea, Reports nausea, Reports vomiting and Denies hematemesis Comments: crampy diffuse Genitourinary Reports system reviewed and no additional complaints, except as docu Musculoskeletal Reports system reviewed and no additional complaints, except as docu Integumentary/Breasts Reports system reviewed and no additional complaints, except as docu Neurologic Reports system reviewed and no additional complaints, except as docu Psychiatric Reports system reviewed and no additional complaints, except as docu Endocrine Reports system reviewed and no additional complaints, except as docu and Denies palpitations Hematologic/Lymphatic Reports system reviewed and no additional complaints, except as docu Allergic/Immunologic Reports system reviewed and no additional complaints, except as docu PFSH Family History Mother Essential hypertension Personal history of malignant neoplasm Heart disease Hyperlipidemia Cerebrovascular accident Father Personal history of malignant neoplasm Brother Personal history of malignant neoplasm Grandfather No problems noted. Grandfather No problems noted. Grandmother No problems noted. Grandmother No problems noted. Medical History ASCVD (arteriosclerotic cardiovascular disease) Alcohol abuse COPD (chronic obstructive pulmonary disease) Essential hypertension Non-ST elevation MD (NSTEMI) PVD (peripheral vascular disease) Peptic reflux disease SVT (supraventricular tachycardia) Smoker Viral hepatitis C Vitamin D deficiency Social History Smoking/Tobacco Use Status: Former Tobacco Use Surgical History History of angioplasty of peripheral vessel (Resolved 08/20/18) PROCEDURES Meds Home Medications Medication Instructions Recorded Confirmed Type fluticasone [Flovent HFA] 1 puff INHALATION BID #3 inhaler 09/12/17 09/10/18 Rx mirtazapine 30 mg PO HS #90 tab-cap 09/12/17 09/10/18 Rx Proventil Hfa 1 - 2 puff INHALATION Q6H PRN #3 09/16/17 09/10/18 Clinic inhaler ferrous sulfate [Feosol] 325 mg PO BID #60 tab-cap 09/16/17 09/10/18 Rx quetiapine 12.5 mg PO DAILY #45 tab-cap 12/03/17 09/10/18 Rx potassium chloride 20 meq PO DAILY #90 tab-cap 01/16/18 09/10/18 Rx apixaban [Eliquis] 5 mg PO BID #60 tab 03/31/18 09/10/18 Rx clopidogrel 75 mg PO DAILY #90 tab-cap 03/31/18 07/22/18 Rx metoprolol succinate 100 mg PO DAILY #90 tab-cap 03/31/18 09/10/18 Rx pantoprazole 40 mg PO BID #60 tab-cap 03/31/18 09/10/18 Rx rosuvastatin 40 mg tablet 40 mg PO DAILY #90 tab-cap 08/13/18 09/10/18 Rx chlorthalidone 25 mg PO DAILY 09/10/18 09/10/18 History cholecalciferol (vitamin D3) 50,000 unit PO DIRECTED 09/10/18 09/10/18 History cyanocobalamin (vitamin B-12) 1,000 mcg PO DAILY 09/10/18 09/10/18 History losartan 100 mg PO DAILY 09/10/18 09/10/18 History Allergies Allergy/AdvReac Type Severity Reaction Status Date / Time chlorthalidone Allergy Intermediate chest pain Unverified 07/22/18 15:15 lactose AdvReac Severe DIARRHEA Unverified 07/22/18 15:15 mold, mildew AdvReac Unknown ?cough Uncoded 07/22/18 15:15 Exam Const General: cooperative, comfortable, no acute distress, well developed and well groomed Nutritional Appearance: average body habitus Orientation: alert, awake and oriented x3 HENMT Mouth: other (dry mucous membranes) Neck Neck: normal visual inspection, full ROM, no lymphadenopathy and trachea midline Thyroid: thyroid normal Carotids: bruit on the left and other (scar over right supraclavicular area at base of neck) Chest Chest: normal inspection of the chest Resp Effort & Inspection: normal respiratory effort and able to speak in complete sentences Auscultation: clear to auscultation bilaterally Cardio Jugular venous pressure: no JVD Palpation: normal PMI Rate: regular rate Rhythm: regular rhythm Heart Sounds: S1 normal, S2 normal, normal, physiologic split S2, no gallops, no murmurs and no rubs Bruits: no abdominal aortic bruits and no carotid bruits Pulses: posterior tibial pulses present bilaterally 1+ and diminished and dorsalis pedis pulses present bilaterally 1+ and diminished GI Inspection: normal to inspection Palpation: soft, no guarding, no hepatomegaly, no pulsatile masses and tender in the epigastrum; with no rebound tenderness Percussion: normal to percussion Rectal Exam - female: deferred Skin General skin exam: no rashes or lesions noted Neuro General: alert, awake, oriented x3, moves all extremities and no focal motor deficits Cognition: normal cognition Speech: speech normal Motor: muscle tone normal throughout, strength 5/5 throughout and no movement abnormalities noted Sensory Exam: no sensory deficits noted Extrem General: normal to inspection, full ROM, normal capillary refill, no joint enlargement, no clubbing, cyanosis or edema, no pedal edema and no calf tenderness Psych Appearance: grossly normal and well kempt Mental Status: mental status grossly normal Speech and Movement: speech and movement normal Mood: congruent mood Affect: normal affect Attitude: cooperative Thought Process: normal Thought Content: normal Insight: insight good Judgment: judgment good Results Imaging Abdomen CT scan report/results: report reviewed (FINDINGS: Lower thorax: No acute findings. ABDOMEN: Liver: Unremarkable. No mass. Gallbladder and bile ducts: Calcified stones within the gallbladder. Pancreas: Unremarkable. No ductal dilation. Spleen: Unremarkable. No splenomegaly. Adrenals: Normal. No mass. Kidneys and ureters: ) CT scan - chest: report reviewed (FINDINGS: Lungs: Prominent reticular markings within the superior segment of the left lower lobe and posterior right lower lobe likely chronic interstitial disease. Diffuse bilateral pulmonary emphysema. Pleural space: Normal. No pneumothorax. No pleural effusion. Heart: Coronary atheroscl) Labs : 09/10/18 14:27 09/10/18 14:27 Laboratory Results - last 24 hr 09/10/18 09/10/18 09/10/18 14:27 14:27 14:27 WBC 20.02 H RBC 3.59 L Hgb 11.1 L Hct 33.2 L MCV 92.5 MCH 30.9 MCHC 33.4 RDW 14.2 Plt Count 296 MPV 9.8 Immature Gran % 0.0 Neutrophils % 90.0 Lymphocytes % 5.0 Monocytes % 5.0 Eosinophils % 0.0 Basophils % 0.0 Absolute Neutrophils 18.02 H Absolute Lymphocytes 1.00 L Absolute Monocytes 1.00 H Absolute Eosinophils 0.00 Absolute Basophils 0.00 Differential Comment Manual differential RBC Morphology Normal PT INR APTT Sodium 134 L Potassium 3.0 L Chloride 96 L Carbon Dioxide 26.1 Anion Gap 11.9 H BUN 24 H Creatinine 2.04 H Estimated GFR/1.73 m2 24.01 Glucose 114 H Lactate 1.9 H Calcium 9.2 Total Bilirubin 0.4 AST 18 ALT 16 Alkaline Phosphatase 72 Troponin I 0.17 H Total Protein 7.2 Albumin 3.3 L Lipase 102 Urine Color Urine Clarity Urine pH Ur Specific [place] Urine Protein Urine Ketones Urine Blood Urine Nitrite Urine Bilirubin Urine Urobilinogen Ur Leukocyte Esterase Urine RBC Urine WBC Ur Epithelial Cells Urine Crystals Urine Bacteria Urine Casts Urine Mucus Urine Other Ur Culture Indicated? Urine Glucose 09/10/18 09/10/18 09/10/18 14:27 17:20 21:00 WBC RBC Hgb Hct MCV MCH MCHC RDW Plt Count MPV Immature Gran % Neutrophils % Lymphocytes % Monocytes % Eosinophils % Basophils % Absolute Neutrophils Absolute Lymphocytes Absolute Monocytes Absolute Eosinophils Absolute Basophils Differential Comment RBC Morphology PT 10.0 INR 1.0 APTT 23.0 Sodium Potassium Chloride Carbon Dioxide Anion Gap BUN Creatinine Estimated GFR/1.73 m2 Glucose Lactate Calcium Total Bilirubin AST ALT Alkaline Phosphatase Troponin I 0.13 H Total Protein Albumin Lipase Urine Color Yellow Urine Clarity Clear Urine pH 5.5 Ur Specific [place] <= 1.005 Urine Protein Negative Urine Ketones Negative Urine Blood Trace-intact H Urine Nitrite Negative Urine Bilirubin Negative Urine Urobilinogen 0.2 Ur Leukocyte Esterase Small H Urine RBC Negative Urine WBC 10-20 Ur Epithelial Cells Negative Urine Crystals Negative Urine Bacteria Negative Urine Casts Negative Urine Mucus Negative Urine Other Negative Ur Culture Indicated? Yes Urine Glucose Negative Last Vital Signs Temp 36.6 C 09/10/18 20:34 Pulse 91 H 09/10/18 20:34 Resp 18 09/10/18 20:34 BP 114/64 09/10/18 20:34 Pulse Ox 95 09/10/18 20:34
[2018-09-10] MEDS: Mirtazapine 15 MG TAB 30 MG PO (21:57)
--- NOTE | 2018-09-10 22:04 | HPE_ITS ---
Date of service: 09/10/18 Time of Service: 21:56 Assessment and Plan (1) Enterocolitis: Current visit: Yes Status: Acute continue iv fluid hydration overnight, monitoring her urinary output, replace her electrolytes and repeat her labs in the a.m. continue w/ cipro at renal adjusted doses and flagyl pending results of stool cultures, and c. diff studies; advance diet as tolerated. if worsening abdominal pains then would have to consider ischemic bowel particularly w/ her PAD and abrupt stoppage of her Plavix and Apixaban. (2) Dehydration: Current visit: Yes Status: Acute as above. GLORIA was worsened by poor oral intake along w/ use of her diuretic and losartan although she says she has not been able to keep any meds down for 3 days d/t nausea and vomiting (3) Acute kidney injury (nontraumatic): Current visit: Yes Status: Acute rehydration w/ iv fluids along w/ electrolyte replacement. if no improvement then proceed w/ renal U.S. and check urinary sediment for casts to suggest ATN (4) Hypokalemia: Current visit: Yes Status: Acute continue iv and po replacement. check magnesium level and replace as needed. monitor repeat labs in the a.m. (5) Coronary artery disease: Current visit: No Status: Chronic no ischemic chest pain. troponins are mildly elevated but not at threshold for [place]. I suspect she had demand ischemia. [place] [facility] 12/28/2015 and showed non-hemodynamically significant CAD(lm 10%, LAD long prox 30% calcified, LCX prox 20%, RCA prox and mid calcified 40%). I have resumed her Plavix and Apixaban (at renal adjusted dosing , although this will need to be uptitrated to 5 mg BID once she has renal recovery. She was not on ASA at home despite this being listed as one of her meds. I reviewed [place] [facility] [place] have her off ASA but continued w/ Plavix and Apixaban. She should continue her Toprol XL for her HTN as well as her CAD. She should cont. her Crestor for her HLD and her CAD and her PAD. (6) Essential hypertension: Current visit: No Status: Chronic hold losartan and chlorthalidone for now d/t GLORIA. cont. Toprol XL 100 mg daily. I corrected her losartan dosing. Her office records just recorded losartan/HCTZ one daily but gave no dosing. [place] [facility] [place] earlier this month (Aug.21/2018) has her on losartan 50 mg two daily (100 mg daily) and chlorthalidone 25 mg daily. No HCTZ is listed. (7) Peptic reflux disease: Current visit: No Status: Chronic cont. her Protonix at her current dose of 40 mg bid although this should be considered for de-escalation. History of Present Illness Chief Complaint: nausea, vomiting, diarrhea Narrative: 73 yr old female w/ severe PAD, COPD, HTN, CAD (hemodynamically non- obstructive), depression, HLD, HCV, lung CA (s/p lobectomy), PSVT, NSTEMI, PUD, GERD, OA, alcohol abuse who presents to the ER today w/3 days of nausea, vomiting and diarrhea and crampy abdominal pain. No associated fevers, foreign travel or ill contacts. No melena nor hematochezia or hematemesis. Evaluation in the ER by Dr. Baxter revealed diffuse abdominal tenderness and dry mucous membrained and tachycardia. Workup in the ER included elevated WBC 20,000 w/ left shift, stable mild anemia (Hb 11.1), azotemia (BUN 24, creatinine 2.0), normal LFT and normal lipase and mildly elevated lactate 1.9, unremarkable UA. Troponin was mildly elevated at 0.17 w/ repeat level 3 hrs later down to 0.13. EKG demonstrated sinus tachycardia at 76 bpm w/ nonspecific inferolateral ST depression similar to prior EKG's but more prominent compared to one in February 13, 2018. Stool was sent for C diff and stool culture. She underwent CT chest, abdomen and pelvis (non-contrast). Chest CT showed no acute findings. CT of abdomen and pelvis suggested mild proctocolitis. Treatment in the ER included 2 liters of NS, Ciprofloxacin 400 mg and Flagyl 500 mg. Patient is now admitted for treatment of dehydration and GLORIA d/t colits and demand ischemia. Stool has been sent for C. diff screening and stool cultrures and O&P. Of note patient has not taken any of her meds for 3 days d/t nausea and vomiting (including her metoprolol and apixaban and plavix). Review of Systems Constitutional Denies chills, Denies fever(s) and Reports poor appetite Eyes Reports system reviewed and no additional complaints, except as docu ENT Reports system reviewed and no additional complaints, except as docu Cardiovascular Denies chest pain, Denies edema, Denies claudication, Denies palpitations and Denies dyspnea Respiratory Reports system reviewed and no additional complaints, except as docu and Denies dyspnea Gastrointestinal Reports abdominal pain, Denies melena, Denies hematochezia, Reports cramping, Reports diarrhea, Reports nausea, Reports vomiting and Denies hematemesis Comments: crampy diffuse Genitourinary Reports system reviewed and no additional complaints, except as docu Musculoskeletal Reports system reviewed and no additional complaints, except as docu Integumentary/Breasts Reports system reviewed and no additional complaints, except as docu Neurologic Reports system reviewed and no additional complaints, except as docu Psychiatric Reports system reviewed and no additional complaints, except as docu Endocrine Reports system reviewed and no additional complaints, except as docu and Denies palpitations Hematologic/Lymphatic Reports system reviewed and no additional complaints, except as docu Allergic/Immunologic Reports system reviewed and no additional complaints, except as docu PFSH Family History Mother Essential hypertension Personal history of malignant neoplasm Heart disease Hyperlipidemia Cerebrovascular accident Father Personal history of malignant neoplasm Brother Personal history of malignant neoplasm Grandfather No problems noted. Grandfather No problems noted. Grandmother No problems noted. Grandmother No problems noted. Medical History ASCVD (arteriosclerotic cardiovascular disease) Alcohol abuse COPD (chronic obstructive pulmonary disease) Essential hypertension Non-ST elevation [place] (NSTEMI) PVD (peripheral vascular disease) Peptic reflux disease SVT (supraventricular tachycardia) Smoker Viral hepatitis C Vitamin D deficiency Social History Smoking/Tobacco Use Status: Former Tobacco Use Surgical History History of angioplasty of peripheral vessel (Resolved 08/20/18) PROCEDURES Meds Home Medications Medication Instructions Recorded Confirmed Type fluticasone [Flovent HFA] 1 puff INHALATION BID #3 inhaler 09/12/17 09/10/18 Rx mirtazapine 30 mg PO HS #90 tab-cap 09/12/17 09/10/18 Rx Proventil Hfa 1 - 2 puff INHALATION Q6H PRN #3 09/16/17 09/10/18 Clinic inhaler ferrous sulfate [Feosol] 325 mg PO BID #60 tab-cap 09/16/17 09/10/18 Rx quetiapine 12.5 mg PO DAILY #45 tab-cap 12/03/17 09/10/18 Rx potassium chloride 20 meq PO DAILY #90 tab-cap 01/16/18 09/10/18 Rx apixaban [Eliquis] 5 mg PO BID #60 tab 03/31/18 09/10/18 Rx clopidogrel 75 mg PO DAILY #90 tab-cap 03/31/18 07/22/18 Rx metoprolol succinate 100 mg PO DAILY #90 tab-cap 03/31/18 09/10/18 Rx pantoprazole 40 mg PO BID #60 tab-cap 03/31/18 09/10/18 Rx rosuvastatin 40 mg tablet 40 mg PO DAILY #90 tab-cap 08/13/18 09/10/18 Rx chlorthalidone 25 mg PO DAILY 09/10/18 09/10/18 History cholecalciferol (vitamin D3) 50,000 unit PO DIRECTED 09/10/18 09/10/18 History cyanocobalamin (vitamin B-12) 1,000 mcg PO DAILY 09/10/18 09/10/18 History losartan 100 mg PO DAILY 09/10/18 09/10/18 History Allergies Allergy/AdvReac Type Severity Reaction Status Date / Time chlorthalidone Allergy Intermediate chest pain Unverified 07/22/18 15:15 lactose AdvReac Severe DIARRHEA Unverified 07/22/18 15:15 mold, mildew AdvReac Unknown ?cough Uncoded 07/22/18 15:15 Exam Const General: cooperative, comfortable, no acute distress, well developed and well groomed Nutritional Appearance: average body habitus Orientation: alert, awake and oriented x3 HENMT Mouth: other (dry mucous membranes) Neck Neck: normal visual inspection, full ROM, no lymphadenopathy and trachea midline Thyroid: thyroid normal Carotids: bruit on the left and other (scar over right supraclavicular area at base of neck) Chest Chest: normal inspection of the chest Resp Effort & Inspection: normal respiratory effort and able to speak in complete sentences Auscultation: clear to auscultation bilaterally Cardio Jugular venous pressure: no JVD Palpation: normal PMI Rate: regular rate Rhythm: regular rhythm Heart Sounds: S1 normal, S2 normal, normal, physiologic split S2, no gallops, no murmurs and no rubs Bruits: no abdominal aortic bruits and no carotid bruits Pulses: posterior tibial pulses present bilaterally 1+ and diminished and dorsalis pedis pulses present bilaterally 1+ and diminished GI Inspection: normal to inspection Palpation: soft, no guarding, no hepatomegaly, no pulsatile masses and tender in the epigastrum; with no rebound tenderness Percussion: normal to percussion Rectal Exam - female: deferred Skin General skin exam: no rashes or lesions noted Neuro General: alert, awake, oriented x3, moves all extremities and no focal motor deficits Cognition: normal cognition Speech: speech normal Motor: muscle tone normal throughout, strength 5/5 throughout and no movement abnormalities noted Sensory Exam: no sensory deficits noted Extrem General: normal to inspection, full ROM, normal capillary refill, no joint enlargement, no clubbing, cyanosis or edema, no pedal edema and no calf tenderness Psych Appearance: grossly normal and well kempt Mental Status: mental status grossly normal Speech and Movement: speech and movement normal Mood: congruent mood Affect: normal affect Attitude: cooperative Thought Process: normal Thought Content: normal Insight: insight good Judgment: judgment good Results Imaging Abdomen CT scan report/results: report reviewed (FINDINGS: Lower thorax: No acute findings. ABDOMEN: Liver: Unremarkable. No mass. Gallbladder and bile ducts: Calcified stones within the gallbladder. Pancreas: Unremarkable. No ductal dilation. Spleen: Unremarkable. No splenomegaly. Adrenals: Normal. No mass. Kidneys and ureters: ) CT scan - chest: report reviewed ( FINDINGS: Lungs: Prominent reticular markings within the superior segment of the left lower lobe and posterior right lower lobe likely chronic interstitial disease. Diffuse bilateral pulmonary emphysema. Pleural space: Normal. No pneumothorax. No pleural effusion. Heart: Coronary atheroscl) Labs : 09/10/18 14:27 09/10/18 14:27 Laboratory Results - last 24 hr 09/10/18 09/10/18 09/10/18 14:27 14:27 14:27 WBC 20.02 H RBC 3.59 L Hgb 11.1 L Hct 33.2 L MCV 92.5 MCH 30.9 MCHC 33.4 RDW 14.2 Plt Count 296 MPV 9.8 Immature Gran % 0.0 Neutrophils % 90.0 Lymphocytes % 5.0 Monocytes % 5.0 Eosinophils % 0.0 Basophils % 0.0 Absolute Neutrophils 18.02 H Absolute Lymphocytes 1.00 L Absolute Monocytes 1.00 H Absolute Eosinophils 0.00 Absolute Basophils 0.00 Differential Comment Manual differential RBC Morphology Normal PT INR APTT Sodium 134 L Potassium 3.0 L Chloride 96 L Carbon Dioxide 26.1 Anion Gap 11.9 H BUN 24 H Creatinine 2.04 H Estimated GFR/1.73 m2 24.01 Glucose 114 H Lactate 1.9 H Calcium 9.2 Total Bilirubin 0.4 AST 18 ALT 16 Alkaline Phosphatase 72 Troponin I 0.17 H Total Protein 7.2 Albumin 3.3 L Lipase 102 Urine Color Urine Clarity Urine pH Ur Specific [place] Urine Protein Urine Ketones Urine Blood Urine Nitrite Urine Bilirubin Urine Urobilinogen Ur Leukocyte Esterase Urine RBC Urine WBC Ur Epithelial Cells Urine Crystals Urine Bacteria Urine Casts Urine Mucus Urine Other Ur Culture Indicated? Urine Glucose 09/10/18 09/10/18 09/10/18 14:27 17:20 21:00 WBC RBC Hgb Hct MCV MCH MCHC RDW Plt Count MPV Immature Gran % Neutrophils % Lymphocytes % Monocytes % Eosinophils % Basophils % Absolute Neutrophils Absolute Lymphocytes Absolute Monocytes Absolute Eosinophils Absolute Basophils Differential Comment RBC Morphology PT 10.0 INR 1.0 APTT 23.0 Sodium Potassium Chloride Carbon Dioxide Anion Gap BUN Creatinine Estimated GFR/1.73 m2 Glucose Lactate Calcium Total Bilirubin AST ALT Alkaline Phosphatase Troponin I 0.13 H Total Protein Albumin Lipase Urine Color Yellow Urine Clarity Clear Urine pH 5.5 Ur Specific [place] <= 1.005 Urine Protein Negative Urine Ketones Negative Urine Blood Trace-intact H Urine Nitrite Negative Urine Bilirubin Negative Urine Urobilinogen 0.2 Ur Leukocyte Esterase Small H Urine RBC Negative Urine WBC 10-20 Ur Epithelial Cells Negative Urine Crystals Negative Urine Bacteria Negative Urine Casts Negative Urine Mucus Negative Urine Other Negative Ur Culture Indicated? Yes Urine Glucose Negative Last Vital Signs Temp 36.6 C 09/10/18 20:34 Pulse 91 H 09/10/18 20:34 Resp 18 09/10/18 20:34 BP 114/64 09/10/18 20:34 Pulse Ox 95 09/10/18 20:34
[2018-09-10 22:23] LABS: Lactate-non-spesis 2.8 mmol/L (0.6-1.4)
--- NOTE | 2018-09-10 22:25 | NUR.NOTE ---
Nursing Note: At 20:15 hrs., Patient brought up by ER staff to room 217, admitted with presenting problems of diarrhea and vomiting started 3 days ago. Alert and oriented . Has occasional cough with yellowish thick sputum in scanty amount as reported. Lung sounds with crackles on lower bases. Unable to lie down flat, had difficulty breathing. 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
[2018-09-10 22:42] LABS: Troponin I 0.11 ng/mL (0.00-0.06)
[2018-09-10] MEDS: Clopidogrel 75 MG TAB PO (23:55)
[2018-09-11 00:02] VITALS: BP 128/67; PULSE 93; PULSE 97; RESP 16; TEMP 36.4; O2SAT 91
[2018-09-11] MEDS: Normal Saline Flush 10 ML SYR IVP ×3 (02:03→15:35)
[2018-09-11] MEDS: MetroNIDAZOLE 500 MG/100 ML BAG 100 MG IVPB ×3 (02:03→20:32)
[2018-09-11 04:11] VITALS: BP 136/84; PULSE 116; RESP 17; TEMP 36.2; O2SAT 94
[2018-09-11 07:27] LABS: Abs Immature Grans 0.03 k/cumm (0.0-0.09); Absolute Basophil Count 0.02 k/cumm (0.0-0.2); Absolute Eosinophil Count 0.21 k/cumm (0.0-0.7); Absolute Lymphocyte Count 0.91 k/cumm (1.2-3.4); Absolute Monocyte Count 1.12 k/cumm (0.11-0.7); Basophils % 0.2; Eosinophils % 2.4; HGB 9.6 g/dL (12.0-15.5); Immature Grans % 0.3; Lymphocytes % 10.4; Mean Corp. HGB Concentration 33.1 g/dL (32.0-36.0); Mean Corpuscular Hemoglobin 30.5 pg (27.0-33.0); Mean Corpuscular Volume 92.1 fL (80-95); Mean Platelet Volume 9.7 fL (8.0-11.0); Monocytes % 12.8; Neutrophils % 73.9; Platelet Count 210 x1000/uL (130-400); RBC 3.15 m/cumm (4.00-5.20); White Blood Cell Count 8.73 k/cumm (4.4-10.8)
[2018-09-11 07:31] VITALS: PULSE 98
[2018-09-11 07:32] LABS: Absolute Neutrophil Count 6.45 k/cumm (1.2-6.7)
[2018-09-11 07:44] LABS: Anion Gap 8.8 mmol/L (3-11); BUN 14 mg/dL (7-18); CO2 25.2 mmol/L (21.0-32.0); CREATININE 0.93 mg/dL (0.55-1.02); Calcium 8.2 mg/dL (8.5-10.1); Chloride 103 mmol/L (98-107); Estimated GFR 59.43 (mL/min/1.73m2); Glucose 110 mg/dL (70-100); Sodium 137 mmol/L (136-145)
[2018-09-11 08:07] LABS: Magnesium 1.7 mg/dL (1.8-2.4)
[2018-09-11] MEDS: Mometasone 220 MCG 14 DOSE INHALER 1 PUFF IH ×2 (08:07→20:02)
[2018-09-11] MEDS: Pantoprazole 40 MG TABCR PO ×2 (08:56→20:04)
[2018-09-11] MEDS: Potassium Chloride 20 MEQ TABCR PO (08:56)
[2018-09-11] MEDS: Clopidogrel 75 MG TAB PO (08:56)
[2018-09-11] MEDS: Metoprolol CR 100 MG TABCR PO (08:56)
[2018-09-11 09:50] LABS: Anion Gap 11.8 mmol/L (3-11); BUN 12 mg/dL (7-18); CO2 22.2 mmol/L (21.0-32.0); CREATININE 1.09 mg/dL (0.55-1.02); Calcium 8.4 mg/dL (8.5-10.1); Chloride 100 mmol/L (98-107); Estimated GFR 49.48 (mL/min/1.73m2); Glucose 121 mg/dL (70-100); Potassium 3.3 mmol/L (3.5-5.1); Sodium 134 mmol/L (136-145)
[2018-09-11] MEDS: MAGNESIUM SULFATE 1 GM/100 ML BAG IVPB (10:15)
[2018-09-11] MEDS: Ferrous Sulfate 325 MG TAB PO ×2 (10:17→20:04)
[2018-09-11] MEDS: QUEtiapine 25 MG TAB 12.5 MG PO (10:18)
[2018-09-11] MEDS: Cyanocobalamin 500 MCG TAB 1000 MCG PO (10:18)
[2018-09-11] MEDS: Potassium Chloride 20 MEQ TABCR 40 MEQ PO ×2 (10:20→15:33)
[2018-09-11 11:31] VITALS: BP 149/82; PULSE 89; RESP 18; TEMP 37.1; O2SAT 95
[2018-09-11] MEDS: POTASSIUM CHLORIDE 10 MEQ/100 ML BAG 100 MEQ IVPB (11:35)
--- NOTE | 2018-09-11 11:43 | PHARADMIT ---
Addendum entered by Tip Lee III 09/12/18 16:03: Pharmacy Note Subjective No MD note yet today. No diarrhea Objective VS-OK Lytes,SCr,H&H, WBC,Plts-OK BM 09/10 Wgt- 56.3 kg Assessment Cipro Flagyl IV continue for now. Head lice treated with Lindane. Plan Thought was to possibly send her home today. Original Note: Admission Pharmacy Clinical Review DIARRHEA, ? Colitis, (h/o Vascular disease, smoke) Code Status DNR/DNI Current Weight Wgt- 56.1 kg Renally Cleared and Narrow Therapeutic Index Meds CrCl~ 34 mL/min Meds-OK QTc Value / Action Taken QTc-475 (Cipro, Flagyl, Seroquel, Protonix) BP Control, Fever BP- 149/82 Tmax- 37.1C Electrolytes reviewed Na- 134 K+3.3 Mag-1.7 DVT Prophylaxis Apixaban Opiate Usage / Scheduled Bowel Regimen Ordered No Yes Plt/SCr for Heparin / Enoxaparin Plts-210 SCr-1.09 INR for Warfarin inr-1.0 H/H stable, WBC/Bands H&H- 9.6/29.0 WBC- 8.73 Antibiotic appropriateness Cipro IV Flagyl-IV Cultures and Sensitivities Blood- pending, Urine- Gram+ Surgical ABX d/c within 24 hr na DM control / Insulin Dosing BG- 121 Heart Failure (Check EF%) (ROMEL's, B-Block, Diuretics) Toprol-XL, IV to PO Switch No Home Meds Reviewed Yes Home Meds Not Ordered Losartan, Flovent subst ASMNAEX Comments
[2018-09-11] MEDS: CIPROFLOXACIN 400 MG/200 ML BAG 200 MG IVPB (13:31)
--- NOTE | 2018-09-11 13:48 | W.PM.PROGNOT ---
Date of Service Date of service: 09/11/18 Time of Service: 13:49 Assessment and Plan (1) Enterocolitis: Current visit: Yes Status: Acute CT with mild proctocolitis. C. Diff negative with stool cultures pending. Appears to be improving with antibiotic therapy and IVFs, but still significantly symptomatic. Renal function improved - monitor electrolytes and readjust renaly dosed Cipro. Advance diet as tolerated. if worsening abdominal pains then would have to consider ischemic bowel particularly w history of PAD and abrupt stoppage of her Plavix and Apixaban (Patient intolerant at home), but current labs without evidence of significant acidosis or anion gap. (2) Dehydration: Current visit: Yes Status: Acute as above. GLORIA was worsened by poor oral intake along w concurrent use of home thiazide and ARB, both currently on hold. Appears improved. (3) Acute kidney injury (nontraumatic): Current visit: Yes Status: Acute Vastly improved with IVF resuscitation. Continue to hold thiazide and ARB. Monitor creatinine and lytes carefully. (4) Coronary artery disease: Current visit: No Status: Chronic Minimal elevation in troponin that appears equivocal and downtrended likely represents demand ischemia. Patient with a C 12/2015 showing nonobstructive CAD (LM 10%, LAD long prox 30% calcified, LCX prox 20%, RCA prox and mid calcified 40%). Continue antiplatet therapy and anticoagulation, high potency statin, and BB therapy. (5) Essential hypertension: Current visit: No Status: Chronic Continue BB. ARB and Thiazide on hold as above. (6) Peptic reflux disease: Current visit: No Status: Chronic Continue home PPI therapy. (7) Pediculosis: Current visit: Yes Status: Acute Head lice noted by nursing. Attempt treatment with topical Lindane - contact precautions in place. (8) DVT prophylaxis: Current visit: Yes Status: Acute On chronic anticoagulation with apixaban. Subjective Interval history since last seen: 73 yr old woman with a past medical history significant for severe PAD, Non-obstructive CAD, COPD, HTN, HCV, lung CA s/p lobectomy, PSVT, NSTEMI, PUD, GERD, and former alcohol abuse admitted from [facility] Emergency Department on 09/10 with a diagnosis of Colitis. Mrs. Arrington presented to the ED with 3 days of nausea, vomiting and diarrhea, along with crampy abdominal pain. No associated fevers were reported, along with no foreign travel or ill contacts. Evaluation in the ER revealed evidence of diffuse abdominal tenderness, elevated WBC 20,000 w/ left shift, stable mild anemia, Acute Kidney Injury, mildly elevated lactate, tachycardia and Dry Mucous Membranes. She was however noted to have normal LFT and lipase. Patient's Troponin was mildly elevated at 0.17 and quickly downtrended. Her urinalysis showed a potential UTI, but with culture results so far with <10,000 colonies/ml of a mixed gram positive gayla. CT of her abdomen and pelvis suggested mild proctocolitis. She was referred for admission for further evaluation and treatment. The patient was admitted and started on antibiotic therapy. Stool was negative for C. diff, and stool culture are pending at this time. Her blood cultures are also pending. She has received IVFs as well. Today she reports perhaps mild improvement in her symptoms - her leukocytosis has resolved, as has her GLORIA. She is tolerating her diet but has some nausea associated with it. Per nursing report the patient has been noted to have head lice. No overnight events reported. She remains afebrile. Exam Narrative Exam Narrative: General: Patient appears comfortable sitting up in bed, AAOX3, NAD. Neck: Supple CV: Regular, nontachycardic, S1S2, No rubs, murmurs, or gallops. Pulmonary: Clear to auscultation bilaterally, no crackles, wheezing, or rhonchi Abdomen: + Bowel Sounds - mildly hyperactive, soft, nondistended. Mild tenderness in the LLQ Vascular: No lower extremity edema Psych: Normal mood and affect. Objective Objective Clinical Data: Abnormal lab results 09/10/18 09/10/18 09/10/18 Range/Units 14:27 14:27 14:27 WBC 20.02 H (4.4-10.8) k/cumm RBC 3.59 L (4.00-5.20) m/cumm Hgb 11.1 L (12.0-15.5) g/dL Hct 33.2 L (36.0-46.0) % Absolute Neutrophils 18.02 H (1.2-6.7) k/cumm Absolute Lymphocytes 1.00 L (1.2-3.4) k/cumm Absolute Monocytes 1.00 H (0.11-0.7) k/cumm Sodium 134 L (136-145) mmol/L Potassium 3.0 L (3.5-5.1) mmol/L Chloride 96 L (98-107) mmol/L Anion Gap 11.9 H (3-11) mmol/L BUN 24 H (7-18) mg/dL Creatinine 2.04 H (0.55-1.02) mg/dL Glucose 114 H (70-100) mg/dL Lactate 1.9 H (0.6-1.4) mmol/L Calcium (8.5-10.1) mg/dL Magnesium (1.8-2.4) mg/dL Troponin I 0.17 H (0.00-0.06) ng/mL Albumin 3.3 L (3.4-5.0) g/dL Urine Blood (Negative) Ur Leukocyte Esterase (Negative) 09/10/18 09/10/18 09/10/18 Range/Units 17:20 21:00 22:15 WBC (4.4-10.8) k/cumm RBC (4.00-5.20) m/cumm Hgb (12.0-15.5) g/dL Hct (36.0-46.0) % Absolute Neutrophils (1.2-6.7) k/cumm Absolute Lymphocytes (1.2-3.4) k/cumm Absolute Monocytes (0.11-0.7) k/cumm Sodium (136-145) mmol/L Potassium (3.5-5.1) mmol/L Chloride (98-107) mmol/L Anion Gap (3-11) mmol/L BUN (7-18) mg/dL Creatinine (0.55-1.02) mg/dL Glucose (70-100) mg/dL Lactate (0.6-1.4) mmol/L Calcium (8.5-10.1) mg/dL Magnesium (1.8-2.4) mg/dL Troponin I 0.13 H 0.11 H (0.00-0.06) ng/mL Albumin (3.4-5.0) g/dL Urine Blood Trace-intact H (Negative) Ur Leukocyte Esterase Small H (Negative) 09/10/18 09/11/18 09/11/18 Range/Units 22:15 07:03 07:03 WBC (4.4-10.8) k/cumm RBC 3.15 L (4.00-5.20) m/cumm Hgb 9.6 L (12.0-15.5) g/dL Hct 29.0 L (36.0-46.0) % Absolute Neutrophils (1.2-6.7) k/cumm Absolute Lymphocytes 0.91 L (1.2-3.4) k/cumm Absolute Monocytes 1.12 H (0.11-0.7) k/cumm Sodium (136-145) mmol/L Potassium 3.0 L (3.5-5.1) mmol/L Chloride (98-107) mmol/L Anion Gap (3-11) mmol/L BUN (7-18) mg/dL Creatinine (0.55-1.02) mg/dL Glucose 110 H (70-100) mg/dL Lactate 2.8 H (0.6-1.4) mmol/L Calcium 8.2 L (8.5-10.1) mg/dL Magnesium (1.8-2.4) mg/dL Troponin I 0.10 H (0.00-0.06) ng/mL Albumin (3.4-5.0) g/dL Urine Blood (Negative) Ur Leukocyte Esterase (Negative) 09/11/18 09/11/18 Range/Units 07:03 09:14 WBC (4.4-10.8) k/cumm RBC (4.00-5.20) m/cumm Hgb (12.0-15.5) g/dL Hct (36.0-46.0) % Absolute Neutrophils (1.2-6.7) k/cumm Absolute Lymphocytes (1.2-3.4) k/cumm Absolute Monocytes (0.11-0.7) k/cumm Sodium 134 L (136-145) mmol/L Potassium 3.3 L (3.5-5.1) mmol/L Chloride (98-107) mmol/L Anion Gap 11.8 H (3-11) mmol/L BUN (7-18) mg/dL Creatinine 1.09 H (0.55-1.02) mg/dL Glucose 121 H (70-100) mg/dL Lactate (0.6-1.4) mmol/L Calcium 8.4 L (8.5-10.1) mg/dL Magnesium 1.7 L (1.8-2.4) mg/dL Troponin I (0.00-0.06) ng/mL Albumin (3.4-5.0) g/dL Urine Blood (Negative) Ur Leukocyte Esterase (Negative) Vital Signs Temperature 37.1 C 09/11/18 11:31 Temperature Source Tympanic 09/11/18 11:31 Pulse 89 09/11/18 11:31 Pulse Rhythm Irregular 09/11/18 09:18 Pulse 97 H 09/10/18 20:00 Respiratory Rate 18 09/11/18 11:31 Respiratory Effort Non-Labored 09/11/18 09:18 Respiratory Depth Normal 09/11/18 09:18 Respiratory Pattern Normal 09/11/18 09:18 Blood Pressure 149/82 H 09/11/18 11:31 Blood Pressure Mean 74 09/10/18 19:46 Pulse Oximetry 95 09/11/18 11:31 Oxygen Delivery Method Room Air 09/11/18 11:31 Oxygen Flow Rate 0 09/11/18 11:31 Pain Level 2 09/10/18 20:34 Intake & Output 09/10/18 09/11/18 09/11/18 23:59 11:59 23:59 Intake Total 3350 / 3350 1093.334 / 1093.334 Output Total 300 / 300 950 / 950 Balance 3050 / 3050 143.334 / 143.334 Weight 56.336 kg 56.1 kg Intake: IV 3350 / 3350 853.334 / 853.334 Oral 240 / 240 Output: Urine 300 / 300 950 / 950 Other: Urine Color Yellow Urine Appearance Cloudy Urine Odor Normal Comment mixed with liquidy stools. Stool Size Small Stool Characteristics Soft Formed Emesis Description None Voiding Methods Toilet Laboratory Results WBC 8.73 k/cumm (4.4-10.8) D 09/11/18 07:03 RBC 3.15 m/cumm (4.00-5.20) L 09/11/18 07:03 Hgb 9.6 g/dL (12.0-15.5) L 09/11/18 07:03 Hct 29.0 % (36.0-46.0) L 09/11/18 07:03 MCV 92.1 fL (80-95) 09/11/18 07:03 MCH 30.5 pg (27.0-33.0) 09/11/18 07:03 MCHC 33.1 g/dL (32.0-36.0) 09/11/18 07:03 RDW 14.0 % (11.7-14.6) 09/11/18 07:03 Plt Count 210 x1000/uL (130-400) 09/11/18 07:03 MPV 9.7 fL (8.0-11.0) 09/11/18 07:03 Immature Gran % 0.3 09/11/18 07:03 Neutrophils % 73.9 09/11/18 07:03 Lymphocytes % 10.4 09/11/18 07:03 Monocytes % 12.8 09/11/18 07:03 Eosinophils % 2.4 09/11/18 07:03 Basophils % 0.2 09/11/18 07:03 Absolute Neutrophils 6.45 k/cumm (1.2-6.7) 09/11/18 07:03 Absolute Lymphocytes 0.91 k/cumm (1.2-3.4) L 09/11/18 07:03 Absolute Monocytes 1.12 k/cumm (0.11-0.7) H 09/11/18 07:03 Absolute Eosinophils 0.21 k/cumm (0.0-0.7) 09/11/18 07:03 Absolute Basophils 0.02 k/cumm (0.0-0.2) 09/11/18 07:03 Differential Comment Manual differential 09/10/18 14:27 RBC Morphology Normal 09/10/18 14:27 PT 10.0 sec (9.3-10.8) 09/10/18 14:27 INR 1.0 (1.0-3.5) 09/10/18 14:27 APTT 23.0 sec (21.0-31.4) 09/10/18 14:27 Sodium 134 mmol/L (136-145) L 09/11/18 09:14 Potassium 3.3 mmol/L (3.5-5.1) L 09/11/18 09:14 Chloride 100 mmol/L (98-107) 11/29/18 09:14 Carbon Dioxide 22.2 mmol/L (21.0-32.0) 09/11/18 09:14 Anion Gap 11.8 mmol/L (3-11) H 09/11/18 09:14 BUN 12 mg/dL (7-18) 09/11/18 09:14 Creatinine 1.09 mg/dL (0.55-1.02) H 09/11/18 09:14 Estimated GFR/1.73 m2 49.48 (mL/min/1.73m2) 09/11/18 09:14 Glucose 121 mg/dL (70-100) H 09/11/18 09:14 Lactate 2.8 mmol/L (0.6-1.4) H 09/10/18 22:15 Calcium 8.4 mg/dL (8.5-10.1) L 09/11/18 09:14 Magnesium 1.7 mg/dL (1.8-2.4) L 09/11/18 07:03 Total Bilirubin 0.4 mg/dL (0.2-1.0) 09/10/18 14:27 AST 18 U/L (15-37) 09/10/18 14:27 ALT 16 U/L (12-78) 09/10/18 14:27 Alkaline Phosphatase 72 U/L (46-116) 09/10/18 14:27 Troponin I 0.10 ng/mL (0.00-0.06) H 09/11/18 07:03 Total Protein 7.2 g/dL (6.4-8.2) 09/10/18 14:27 Albumin 3.3 g/dL (3.4-5.0) L 09/10/18 14:27 Lipase 102 U/L (73-393) 09/10/18 14:27 Urine Color Yellow (Yellow) 09/10/18 21:00 Urine Clarity Clear 09/10/18 21:00 Urine pH 5.5 (5-8) 09/10/18 21:00 Ur Specific [place] <= 1.005 (1.005-1.025) 09/10/18 21:00 Urine Protein Negative mg/dL (Negative) 09/10/18 21:00 Urine Ketones Negative mg/dL (Negative) 09/10/18 21:00 Urine Blood Trace-intact (Negative) H 09/10/18 21:00 Urine Nitrite Negative (Negative) 09/10/18 21:00 Urine Bilirubin Negative (Negative) 09/10/18 21:00 Urine Urobilinogen 0.2 EU/dL (Up TO 0.2) 09/10/18 21:00 Ur Leukocyte Esterase Small (Negative) H 09/10/18 21:00 Urine RBC Negative (0-2) 09/10/18 21:00 Urine WBC 10-20 HPF (0-5) 09/10/18 21:00 Ur Epithelial Cells Negative HPF (Negative) 09/10/18 21:00 Urine Crystals Negative HPF (Negative) 09/10/18 21:00 Urine Bacteria Negative HPF (Negative) 09/10/18 21:00 Urine Casts Negative LPF (Negative) 09/10/18 21:00 Urine Mucus Negative (Negative) 09/10/18 21:00 Urine Other Negative (Negative) 09/10/18 21:00 Ur Culture Indicated? Yes 09/10/18 21:00 Urine Glucose Negative mg/dL (Negative) 09/10/18 21:00
[2018-09-11 15:00] VITALS: PULSE 91
[2018-09-11] MEDS: Acetaminophen 325 MG TAB 650 MG PO ×2 (15:32→23:14)
[2018-09-11] MEDS: Ondansetron 4 MG/2 ML VIAL IVP (15:35)
--- NOTE | 2018-09-11 16:47 | PDOC.CMIN ---
Care Management Initial Assess REASON FOR HOSPITALIZATION:: Diarrhea PAST MEDICAL HISTORY/PAST SURGICAL HISTORY:: CAD, hypoxemic respiratory failure, cardiomyopathy, CHF, HTN, hyperlipidemia, severe carotid atherosclerosis, subclavian arterial stenosis, COPD, lung Ca, iron deficiency anemia, hep A/B/C, depression. Surgical: cardiac catheterization, R iliac stent, R carotid endarterectomy, s/p L upper lobectomy for lung Ca, cervical biopsy, EGD, ORIF cervical fx. PREVIOUS FUNCTIONAL STATUS/SOCIAL/FAMILY SUPPORTS:: Resides with her son Juan and his Kenia. Joselin is able to care for herself with assistance from her family she states she is independent with ADL's. She states that she no longer has any home services. CURRENT FUNCTIONAL STATUS:: Joselin was out of the room when CM attempted to meet with her. CM will continue to attempt to connect with Joselin. ADVANCE DIRECTIVES:: On file at [facility] agent Kanu (son) Has patient been provided with information about the portal?: Yes Did the patient sign up for the portal?: No CODE STATUS:: DNR/DNI INSURANCE COVERAGE / FINANCIAL ISSUES:: Medicare CURRENT HOME/COMMUNITY SERVICES/EQUIPMENT:: FWW, cane, shower chair. PRIMARY CARE PHYSICIAN:: Dr. Dharmesh Huizar POTENTIAL DISCHARGE NEEDS:: Follow-up appointment with primary care provider, treatment for head lice, evaluation for further needs PATIENT/FAMILY EDUCATION NEEDS:: Discharge instructions, Asked Me Three and self-management discussion. ANTICIPATED BARRIERS TO DISCHARGE:: No identified barriers at this time. TRANSPORTATION:: Via private vehicle with her son. PLAN:: Joselin will return home when ready per MD. Undetermined level of services at this time; CM will monitor clinical status and support discharge planning considerations. Joselin will transport via private vehicle with her son.
--- NOTE | 2018-09-11 16:55 | INITIAL_ITS ---
Care Management Initial Assess REASON FOR HOSPITALIZATION:: Diarrhea PAST MEDICAL HISTORY/PAST SURGICAL HISTORY:: CAD, hypoxemic respiratory failure , cardiomyopathy, CHF, HTN, hyperlipidemia, severe carotid atherosclerosis, subclavian arterial stenosis, COPD, lung Ca, iron deficiency anemia, hep A/B/C, depression. Surgical: cardiac catheterization, R iliac stent, R carotid endarterectomy, s/p L upper lobectomy for lung Ca, cervical biopsy, EGD, ORIF cervical fx. PREVIOUS FUNCTIONAL STATUS/SOCIAL/FAMILY SUPPORTS:: Resides with her son Juan and his Kenia. Joselin is able to care for herself with assistance from her family she states she is independent with ADL's. She states that she no longer has any home services. CURRENT FUNCTIONAL STATUS:: Joselin was out of the room when CM attempted to meet with her. CM will continue to attempt to connect with Joselin. ADVANCE DIRECTIVES:: On file at [facility] agent Kanu (son) Has patient been provided with information about the portal?: Yes Did the patient sign up for the portal?: No CODE STATUS:: DNR/DNI INSURANCE COVERAGE / FINANCIAL ISSUES:: Medicare CURRENT HOME/COMMUNITY SERVICES/EQUIPMENT:: FWW, cane, shower chair. PRIMARY CARE PHYSICIAN:: Dr. Dharmesh Huizar POTENTIAL DISCHARGE NEEDS:: Follow-up appointment with primary care provider, treatment for head lice, evaluation for further needs PATIENT/FAMILY EDUCATION NEEDS:: Discharge instructions, Asked Me Three and self-management discussion. ANTICIPATED BARRIERS TO DISCHARGE:: No identified barriers at this time. TRANSPORTATION:: Via private vehicle with her son. PLAN:: Joselin will return home when ready per MD. Undetermined level of services at this time; CM will monitor clinical status and support discharge planning considerations. Joselin will transport via private vehicle with her son.
[2018-09-11] MEDS: POTASSIUM CHLORIDE 10 MEQ/100 ML BAG 50 MEQ IVPB (18:36)
[2018-09-11 20:00] VITALS: BP 137/77; PULSE 81; RESP 18; TEMP 36.2; O2SAT 81
[2018-09-11] MEDS: ROSUVASTATIN 20 MG TAB 40 MG PO (20:04)
[2018-09-11] MEDS: Apixaban 5 MG TAB PO (20:04)
[2018-09-11] MEDS: Mirtazapine 15 MG TAB 30 MG PO (21:57)
[2018-09-12] VITALS (7 sets, daily range): BP systolic 118–171; BP diastolic 61–92; PULSE 73–94; RESP 16–19; TEMP 36.3–38; O2SAT 93–97
[2018-09-12] MEDS: Normal Saline Flush 10 ML SYR IVP ×2 (01:58→20:10)
[2018-09-12] MEDS: MetroNIDAZOLE 500 MG/100 ML BAG 100 MG IVPB ×4 (02:28→20:10)
[2018-09-12] MEDS: CIPROFLOXACIN 400 MG/200 ML BAG 200 MG IVPB ×2 (02:30→13:54)
--- NOTE | 2018-09-12 03:16 | NUR.NOTE ---
Nursing Note:, Pt received happy after hair treatment done by day shift and good shower. Saline lock on right arm was leaking and skin vey sensitive. charge coordinator put new IV site on left wrist but when flushed she cried out of pain. Unable to run IVFluid of D5LR w/ K. Waited and Nurse gas well drilling manager inserted midline on left upper arm, hooked up with IVF and observed, site with visible bloody discharge and appears swollen. Flushed and pt cried that burning sensation on the site. RN rechecked the sites and measured, education was provided by LEEANN ZEE and good insight on it. Will continue to observe.Call lights within reach.
[2018-09-12 07:46] LABS: Abs Immature Grans 0.02 k/cumm (0.0-0.09); Absolute Basophil Count 0.03 k/cumm (0.0-0.2); Absolute Eosinophil Count 0.23 k/cumm (0.0-0.7); Absolute Lymphocyte Count 1.07 k/cumm (1.2-3.4); Absolute Monocyte Count 1.38 k/cumm (0.11-0.7); Absolute Neutrophil Count 3.89 k/cumm (1.2-6.7); Basophils % 0.5; Eosinophils % 3.5; HCT 28.8 % (36.0-46.0); HGB 9.1 g/dL (12.0-15.5); Immature Grans % 0.3; Lymphocytes % 16.2; Mean Corp. HGB Concentration 31.6 g/dL (32.0-36.0); Mean Corpuscular Hemoglobin 29.8 pg (27.0-33.0); Mean Corpuscular Volume 94.4 fL (80-95); Mean Platelet Volume 9.7 fL (8.0-11.0); Monocytes % 20.8; Neutrophils % 58.7; Platelet Count 219 x1000/uL (130-400); RBC 3.05 m/cumm (4.00-5.20); RBC Distribution Width 14.3 % (11.7-14.6); White Blood Cell Count 6.62 k/cumm (4.4-10.8)
[2018-09-12 08:00] LABS: Anion Gap 6.2 mmol/L (3-11); BUN 7 mg/dL (7-18); CO2 27.8 mmol/L (21.0-32.0); CREATININE 0.83 mg/dL (0.55-1.02); Calcium 7.9 mg/dL (8.5-10.1); Chloride 103 mmol/L (98-107); Glucose 96 mg/dL (70-100); Potassium 3.7 mmol/L (3.5-5.1); Sodium 137 mmol/L (136-145)
[2018-09-12] MEDS: Apixaban 5 MG TAB PO ×2 (08:53→20:09)
[2018-09-12] MEDS: Potassium Chloride 20 MEQ TABCR PO (08:53)
[2018-09-12] MEDS: Metoprolol CR 100 MG TABCR PO (08:53)
[2018-09-12] MEDS: QUEtiapine 25 MG TAB 12.5 MG PO (08:53)
[2018-09-12] MEDS: Pantoprazole 40 MG TABCR PO ×2 (08:53→20:08)
[2018-09-12] MEDS: Ferrous Sulfate 325 MG TAB PO ×2 (08:54→20:08)
[2018-09-12] MEDS: Cyanocobalamin 500 MCG TAB 1000 MCG PO (08:54)
[2018-09-12] MEDS: Clopidogrel 75 MG TAB PO (08:54)
[2018-09-12] MEDS: Mometasone 220 MCG 14 DOSE INHALER 1 PUFF IH ×2 (11:02→21:05)
--- NOTE | 2018-09-12 14:41 | PDOC.CMPRO ---
Care Management Progress Note S/O: Joselin shared concerns around having lice at [facility] and feeling guilty around this. She processed difficulties around managing the ongoing issue and reported she felt the three teenagers living with her were re-infecting her home. She reports her son, Kanu and Kenia Houston are attempting to clean the home again. CM provided validation to Joselin for her struggles. Joselin reported not feeling confident about returning home tomorrow and reported she was still struggling with nausea and diarrhea; CM encouraged Joselni to discuss this with the provider as well. CM will continue to follow. A: 73 year old female admitted to [facility] for diarrhea P: Joselin will return home when ready per MD. Undetermined level of services at this time; CM will monitor clinical status and support discharge planning considerations. Joselin will transport via private vehicle with her son.
--- NOTE | 2018-09-12 15:10 | CMPROGNOTE_ITS ---
Care Management Progress Note S/O: Joselin shared concerns around having lice at [facility] and feeling guilty around this. She processed difficulties around managing the ongoing issue and reported she felt the three teenagers living with her were re-infecting her home. She reports her son, Kanu and Kenia Houston are attempting to clean the home again. CM provided validation to Joselin for her struggles. Joselin reported not feeling confident about returning home tomorrow and reported she was still struggling with nausea and diarrhea; CM encouraged Joselin to discuss this with the provider as well. CM will continue to follow. A: 73 year old female admitted to [facility] for diarrhea P: Joselin will return home when ready per MD. Undetermined level of services at this time; CM will monitor clinical status and support discharge planning considerations. Joselin will transport via private vehicle with her son.
--- NOTE | 2018-09-12 15:24 | PT.INNT ---
Date of service: 09/12/18 Time of Service: 15:24 PT Notes PHYSICAL THERAPY NOTE 09/12/18 PT Consult received, chart reviewed, attempted to see patient for PT eval, pt in bed, refused, wanting to rest. Agreeable to consult in am Jeannie Julio PT
[2018-09-12] MEDS: Acetaminophen 325 MG TAB 650 MG PO (17:03)
--- NOTE | 2018-09-12 18:15 | W.PM.PROGNOT ---
Date of Service Date of service: 09/12/18 Time of Service: 18:21 Assessment and Plan (1) Enterocolitis: Current visit: Yes Status: Acute CT with mild proctocolitis. C. Diff negative with stool cultures pending. Appears to be improving with antibiotic therapy and IVFs, with mild residual nausea remaining. Renal function improved. Advanced diet as tolerated. if worsening abdominal pains then would have to consider ischemic bowel particularly w history of PAD and abrupt stoppage of her Plavix and Apixaban (Patient intolerant at home), but current labs without evidence of significant acidosis or anion gap. Mild drop again in hemoglobin may be related to GI blood loss in setting of mild but acute colitis. Monitor carefully. (2) Dehydration: Current visit: Yes Status: Acute as above. GLORIA was worsened by poor oral intake along w concurrent use of home thiazide and ARB, both currently on hold. Appears improved. (3) Acute kidney injury (nontraumatic): Current visit: Yes Status: Acute Vastly improved with IVF resuscitation. Continue to hold thiazide and ARB. Monitor creatinine and lytes carefully. (4) Coronary artery disease: Current visit: No Status: Chronic Minimal elevation in troponin that appears equivocal and downtrended likely represents demand ischemia. Patient with a C 12/2015 showing nonobstructive CAD (LM 10%, LAD long prox 30% calcified, LCX prox 20%, RCA prox and mid calcified 40%). Continue antiplatet therapy and anticoagulation, high potency statin, and BB therapy. (5) Essential hypertension: Current visit: No Status: Chronic Continue BB. ARB and Thiazide on hold as above. (6) Peptic reflux disease: Current visit: No Status: Chronic Continue home PPI therapy. (7) Pediculosis: Current visit: Yes Status: Acute Head lice noted by nursing. S/p treatment with topical Lindane - contact precautions in place. (8) Chronic obstructive lung disease: Current visit: No Status: Chronic With mild but pronounced wheezing this morning. Initiate oral prednisone and ensure duoneb therapy. (9) DVT prophylaxis: Current visit: Yes Status: Acute On chronic anticoagulation with apixaban. Subjective Interval history since last seen: 73 yr old woman with a past medical history significant for severe PAD, Non-obstructive CAD, COPD, HTN, HCV, lung CA s/p lobectomy, PSVT, NSTEMI, PUD, GERD, and former alcohol abuse admitted from [facility] Emergency Department on 09/10 with a diagnosis of Colitis. Mrs. Arrington presented to the ED with 3 days of nausea, vomiting and diarrhea, along with crampy abdominal pain. No associated fevers were reported, along with no foreign travel or ill contacts. Evaluation in the ER revealed evidence of diffuse abdominal tenderness, elevated WBC 20,000 w/ left shift, stable mild anemia, Acute Kidney Injury, mildly elevated lactate, tachycardia and Dry Mucous Membranes. She was however noted to have normal LFT and lipase. Patient's Troponin was mildly elevated at 0.17 and quickly downtrended. Her urinalysis showed a potential UTI, but with culture results so far with <10,000 colonies/ml of a mixed gram positive gayla. CT of her abdomen and pelvis suggested mild proctocolitis. She was referred for admission for further evaluation and treatment. The patient was admitted and started on antibiotic therapy. Stool was negative for C. diff, and stool culture are pending at this time. Her blood cultures are also pending. She has received IVFs as well. Today she reports vast improvement in her symptoms - her leukocytosis has resolved, as has her GLORIA, and her diarrhea has resolved as well. She is tolerating her diet but has some mild but continued nausea associated with it. Her hemoglobin has dropped mildly again this morning.Per nursing report the patient has been noted to have head lice, now treated. No overnight events reported. She remains afebrile. Exam Narrative Exam Narrative: General: Patient appears comfortable sitting up in bed, AAOX3, NAD. Neck: Supple CV: Regular, nontachycardic, S1S2, No rubs, murmurs, or gallops. Pulmonary: Clear to auscultation bilaterally, mild but diffuse wheezing. Abdomen: + Bowel Sounds, soft, nondistended. No further abdominal tenderness by exam today Vascular: No lower extremity edema Psych: Normal mood and affect. Objective Objective Clinical Data: Abnormal lab results 09/12/18 09/12/18 Range/Units 06:50 06:50 RBC 3.05 L (4.00-5.20) m/cumm Hgb 9.1 L (12.0-15.5) g/dL Hct 28.8 L (36.0-46.0) % MCHC 31.6 L (32.0-36.0) g/dL Absolute Lymphocytes 1.07 L (1.2-3.4) k/cumm Absolute Monocytes 1.38 H (0.11-0.7) k/cumm Calcium 7.9 L (8.5-10.1) mg/dL Vital Signs Temperature 38.0 C H 09/12/18 17:52 Temperature Source Tympanic 09/12/18 17:52 Pulse 85 09/12/18 17:52 Pulse Rhythm Irregular 09/12/18 11:16 Pulse 97 H 09/10/18 20:00 Respiratory Rate 18 09/12/18 17:52 Respiratory Effort Non-Labored 09/12/18 11:16 Respiratory Depth Normal 09/12/18 11:16 Respiratory Pattern Normal 09/12/18 11:16 Blood Pressure 152/74 H 09/12/18 17:52 Blood Pressure Mean 74 09/10/18 19:46 Pulse Oximetry 97 09/12/18 17:52 Oxygen Delivery Method Room Air 09/12/18 17:52 Oxygen Flow Rate 0 09/12/18 17:52 Pain Level 0 09/12/18 18:03 Intake & Output 09/11/18 09/12/18 09/12/18 23:59 11:59 23:59 Intake Total 283.333 / 262.494 6135.333 / 6761.729 5345.25 / 1036.25 Output Total 450 / 450 500 / 500 Balance -166.667 / -166.667 893.333 / 515.384 0772.25 / 1036.25 Weight 56.3 kg Intake: IV 283.333 / 283.333 673.333 / 051.575 8782.25 / 1036.25 Oral 720 / 720 Output: Urine 450 / 450 500 / 500 Other: Urine Color Yellow Pale Yellow Urine Appearance Clear Voiding Methods Toilet Toilet Toilet Laboratory Results WBC 6.62 k/cumm (4.4-10.8) 09/12/18 06:50 RBC 3.05 m/cumm (4.00-5.20) L 09/12/18 06:50 Hgb 9.1 g/dL (12.0-15.5) L 09/12/18 06:50 Hct 28.8 % (36.0-46.0) L 09/12/18 06:50 MCV 94.4 fL (80-95) 09/12/18 06:50 MCH 29.8 pg (27.0-33.0) 09/12/18 06:50 MCHC 31.6 g/dL (32.0-36.0) L 09/12/18 06:50 RDW 14.3 % (11.7-14.6) 09/12/18 06:50 Plt Count 219 x1000/uL (130-400) 09/12/18 06:50 MPV 9.7 fL (8.0-11.0) 09/12/18 06:50 Immature Gran % 0.3 09/12/18 06:50 Neutrophils % 58.7 09/12/18 06:50 Lymphocytes % 16.2 09/12/18 06:50 Monocytes % 20.8 09/12/18 06:50 Eosinophils % 3.5 09/12/18 06:50 Basophils % 0.5 09/12/18 06:50 Absolute Neutrophils 3.89 k/cumm (1.2-6.7) 09/12/18 06:50 Absolute Lymphocytes 1.07 k/cumm (1.2-3.4) L 09/12/18 06:50 Absolute Monocytes 1.38 k/cumm (0.11-0.7) H 09/12/18 06:50 Absolute Eosinophils 0.23 k/cumm (0.0-0.7) 09/12/18 06:50 Absolute Basophils 0.03 k/cumm (0.0-0.2) 09/12/18 06:50 Differential Comment Manual differential 09/10/18 14:27 RBC Morphology Normal 09/10/18 14:27 PT 10.0 sec (9.3-10.8) 09/10/18 14:27 INR 1.0 (1.0-3.5) 09/10/18 14:27 APTT 23.0 sec (21.0-31.4) 09/10/18 14:27 Sodium 137 mmol/L (136-145) 09/12/18 06:50 Potassium 3.7 mmol/L (3.5-5.1) 09/12/18 06:50 Chloride 103 mmol/L (98-107) 09/12/18 06:50 Carbon Dioxide 27.8 mmol/L (21.0-32.0) 09/12/18 06:50 Anion Gap 6.2 mmol/L (3-11) 09/12/18 06:50 BUN 7 mg/dL (7-18) 09/12/18 06:50 Creatinine 0.83 mg/dL (0.55-1.02) 09/12/18 06:50 Estimated GFR/1.73 m2 >= 60.00 (mL/min/1.73m2) 09/12/18 06:50 Glucose 96 mg/dL (70-100) 09/12/18 06:50 Lactate 2.8 mmol/L (0.6-1.4) H 09/10/18 22:15 Calcium 7.9 mg/dL (8.5-10.1) L 09/12/18 06:50 Magnesium 2.0 mg/dL (1.8-2.4) 09/12/18 06:50 Total Bilirubin 0.4 mg/dL (0.2-1.0) 09/10/18 14:27 AST 18 U/L (15-37) 09/10/18 14:27 ALT 16 U/L (12-78) 09/10/18 14:27 Alkaline Phosphatase 72 U/L (46-116) 09/10/18 14:27 Troponin I 0.10 ng/mL (0.00-0.06) H 09/11/18 07:03 Total Protein 7.2 g/dL (6.4-8.2) 09/10/18 14:27 Albumin 3.3 g/dL (3.4-5.0) L 09/10/18 14:27 Lipase 102 U/L (73-393) 09/10/18 14:27 Urine Color Yellow (Yellow) 09/10/18 21:00 Urine Clarity Clear 09/10/18 21:00 Urine pH 5.5 (5-8) 09/10/18 21:00 Ur Specific [place] <= 1.005 (1.005-1.025) 09/10/18 21:00 Urine Protein Negative mg/dL (Negative) 09/10/18 21:00 Urine Ketones Negative mg/dL (Negative) 09/10/18 21:00 Urine Blood Trace-intact (Negative) H 09/10/18 21:00 Urine Nitrite Negative (Negative) 09/10/18 21:00 Urine Bilirubin Negative (Negative) 09/10/18 21:00 Urine Urobilinogen 0.2 EU/dL (Up TO 0.2) 09/10/18 21:00 Ur Leukocyte Esterase Small (Negative) H 09/10/18 21:00 Urine RBC Negative (0-2) 09/10/18 21:00 Urine WBC 10-20 HPF (0-5) 09/10/18 21:00 Ur Epithelial Cells Negative HPF (Negative) 09/10/18 21:00 Urine Crystals Negative HPF (Negative) 09/10/18 21:00 Urine Bacteria Negative HPF (Negative) 09/10/18 21:00 Urine Casts Negative LPF (Negative) 09/10/18 21:00 Urine Mucus Negative (Negative) 09/10/18 21:00 Urine Other Negative (Negative) 09/10/18 21:00 Ur Culture Indicated? Yes 09/10/18 21:00 Urine Glucose Negative mg/dL (Negative) 09/10/18 21:00 Stool Source (see note) 09/10/18 19:41 Cryptosporidium/Giardia (see note) 09/10/18 19:41 Parasite Rprt Status (see note) 09/10/18 19:41
--- NOTE | 2018-09-12 18:28 | PGE_ITS ---
Date of Service Date of service: 09/12/18 Time of Service: 18:21 Assessment and Plan (1) Enterocolitis: Current visit: Yes Status: Acute CT with mild proctocolitis. C. Diff negative with stool cultures pending. Appears to be improving with antibiotic therapy and IVFs, with mild residual nausea remaining. Renal function improved. Advanced diet as tolerated. if worsening abdominal pains then would have to consider ischemic bowel particularly w history of PAD and abrupt stoppage of her Plavix and Apixaban ( Patient intolerant at home), but current labs without evidence of significant acidosis or anion gap. Mild drop again in hemoglobin may be related to GI blood loss in setting of mild but acute colitis. Monitor carefully. (2) Dehydration: Current visit: Yes Status: Acute as above. GLORIA was worsened by poor oral intake along w concurrent use of home thiazide and ARB, both currently on hold. Appears improved. (3) Acute kidney injury (nontraumatic): Current visit: Yes Status: Acute Vastly improved with IVF resuscitation. Continue to hold thiazide and ARB. Monitor creatinine and lytes carefully. (4) Coronary artery disease: Current visit: No Status: Chronic Minimal elevation in troponin that appears equivocal and downtrended likely represents demand ischemia. Patient with a C 12/2015 showing nonobstructive CAD (LM 10%, LAD long prox 30% calcified, LCX prox 20%, RCA prox and mid calcified 40%). Continue antiplatet therapy and anticoagulation, high potency statin, and BB therapy. (5) Essential hypertension: Current visit: No Status: Chronic Continue BB. ARB and Thiazide on hold as above. (6) Peptic reflux disease: Current visit: No Status: Chronic Continue home PPI therapy. (7) Pediculosis: Current visit: Yes Status: Acute Head lice noted by nursing. S/p treatment with topical Lindane - contact precautions in place. (8) Chronic obstructive lung disease: Current visit: No Status: Chronic With mild but pronounced wheezing this morning. Initiate oral prednisone and ensure duoneb therapy. (9) DVT prophylaxis: Current visit: Yes Status: Acute On chronic anticoagulation with apixaban. Subjective Interval history since last seen: 73 yr old woman with a past medical history significant for severe PAD, Non-obstructive CAD, COPD, HTN, HCV, lung CA s/p lobectomy, PSVT, NSTEMI, PUD, GERD, and former alcohol abuse admitted from [facility] Emergency Department on 09/10 with a diagnosis of Colitis. Mrs. Arrington presented to the ED with 3 days of nausea, vomiting and diarrhea, along with crampy abdominal pain. No associated fevers were reported, along with no foreign travel or ill contacts. Evaluation in the ER revealed evidence of diffuse abdominal tenderness, elevated WBC 20,000 w/ left shift, stable mild anemia, Acute Kidney Injury, mildly elevated lactate, tachycardia and Dry Mucous Membranes. She was however noted to have normal LFT and lipase. Patient' s Troponin was mildly elevated at 0.17 and quickly downtrended. Her urinalysis showed a potential UTI, but with culture results so far with <10,000 colonies/ ml of a mixed gram positive gayla. CT of her abdomen and pelvis suggested mild proctocolitis. She was referred for admission for further evaluation and treatment. The patient was admitted and started on antibiotic therapy. Stool was negative for C. diff, and stool culture are pending at this time. Her blood cultures are also pending. She has received IVFs as well. Today she reports vast improvement in her symptoms - her leukocytosis has resolved, as has her GLORIA, and her diarrhea has resolved as well. She is tolerating her diet but has some mild but continued nausea associated with it. Her hemoglobin has dropped mildly again this morning.Per nursing report the patient has been noted to have head lice, now treated. No overnight events reported. She remains afebrile. Exam Narrative Exam Narrative: General: Patient appears comfortable sitting up in bed, AAOX3, NAD. Neck: Supple CV: Regular, nontachycardic, S1S2, No rubs, murmurs, or gallops. Pulmonary: Clear to auscultation bilaterally, mild but diffuse wheezing. Abdomen: + Bowel Sounds, soft, nondistended. No further abdominal tenderness by exam today Vascular: No lower extremity edema Psych: Normal mood and affect. Objective Objective Clinical Data: Abnormal lab results 09/12/18 09/12/18 Range/Units 06:50 06:50 RBC 3.05 L (4.00-5.20) m/cumm Hgb 9.1 L (12.0-15.5) g/dL Hct 28.8 L (36.0-46.0) % MCHC 31.6 L (32.0-36.0) g/dL Absolute Lymphocytes 1.07 L (1.2-3.4) k/cumm Absolute Monocytes 1.38 H (0.11-0.7) k/cumm Calcium 7.9 L (8.5-10.1) mg/dL Vital Signs Temperature 38.0 C H 09/12/18 17:52 Temperature Source Tympanic 09/12/18 17:52 Pulse 85 09/12/18 17:52 Pulse Rhythm Irregular 09/12/18 11:16 Pulse 97 H 09/10/18 20:00 Respiratory Rate 18 09/12/18 17:52 Respiratory Effort Non-Labored 09/12/18 11:16 Respiratory Depth Normal 09/12/18 11:16 Respiratory Pattern Normal 09/12/18 11:16 Blood Pressure 152/74 H 09/12/18 17:52 Blood Pressure Mean 74 09/10/18 19:46 Pulse Oximetry 97 09/12/18 17:52 Oxygen Delivery Method Room Air 09/12/18 17:52 Oxygen Flow Rate 0 09/12/18 17:52 Pain Level 0 09/12/18 18:03 Intake & Output 09/11/18 09/12/18 09/12/18 23:59 11:59 23:59 Intake Total 283.333 / 820.049 4613.333 / 6514.419 8917.25 / 1036.25 Output Total 450 / 450 500 / 500 Balance -166.667 / -166.667 893.333 / 890.619 1150.25 / 1036.25 Weight 56.3 kg Intake: IV 283.333 / 283.333 673.333 / 181.036 0362.25 / 1036.25 Oral 720 / 720 Output: Urine 450 / 450 500 / 500 Other: Urine Color Yellow Pale Yellow Urine Appearance Clear Voiding Methods Toilet Toilet Toilet Laboratory Results WBC 6.62 k/cumm (4.4-10.8) 09/12/18 06:50 RBC 3.05 m/cumm (4.00-5.20) L 09/12/18 06:50 Hgb 9.1 g/dL (12.0-15.5) L 09/12/18 06:50 Hct 28.8 % (36.0-46.0) L 09/12/18 06:50 MCV 94.4 fL (80-95) 09/12/18 06:50 MCH 29.8 pg (27.0-33.0) 09/12/18 06:50 MCHC 31.6 g/dL (32.0-36.0) L 09/12/18 06:50 RDW 14.3 % (11.7-14.6) 09/12/18 06:50 Plt Count 219 x1000/uL (130-400) 09/12/18 06:50 MPV 9.7 fL (8.0-11.0) 09/12/18 06:50 Immature Gran % 0.3 09/12/18 06:50 Neutrophils % 58.7 09/12/18 06:50 Lymphocytes % 16.2 09/12/18 06:50 Monocytes % 20.8 09/12/18 06:50 Eosinophils % 3.5 09/12/18 06:50 Basophils % 0.5 09/12/18 06:50 Absolute Neutrophils 3.89 k/cumm (1.2-6.7) 09/12/18 06:50 Absolute Lymphocytes 1.07 k/cumm (1.2-3.4) L 09/12/18 06:50 Absolute Monocytes 1.38 k/cumm (0.11-0.7) H 09/12/18 06:50 Absolute Eosinophils 0.23 k/cumm (0.0-0.7) 09/12/18 06:50 Absolute Basophils 0.03 k/cumm (0.0-0.2) 09/12/18 06:50 Differential Comment Manual differential 09/10/18 14:27 RBC Morphology Normal 09/10/18 14:27 PT 10.0 sec (9.3-10.8) 09/10/18 14:27 INR 1.0 (1.0-3.5) 09/10/18 14:27 APTT 23.0 sec (21.0-31.4) 09/10/18 14:27 Sodium 137 mmol/L (136-145) 09/12/18 06:50 Potassium 3.7 mmol/L (3.5-5.1) 09/12/18 06:50 Chloride 103 mmol/L (98-107) 09/12/18 06:50 Carbon Dioxide 27.8 mmol/L (21.0-32.0) 09/12/18 06:50 Anion Gap 6.2 mmol/L (3-11) 09/12/18 06:50 BUN 7 mg/dL (7-18) 09/12/18 06:50 Creatinine 0.83 mg/dL (0.55-1.02) 09/12/18 06:50 Estimated GFR/1.73 m2 >= 60.00 (mL/min/1.73m2) 09/12/18 06:50 Glucose 96 mg/dL (70-100) 09/12/18 06:50 Lactate 2.8 mmol/L (0.6-1.4) H 09/10/18 22:15 Calcium 7.9 mg/dL (8.5-10.1) L 09/12/18 06:50 Magnesium 2.0 mg/dL (1.8-2.4) 09/12/18 06:50 Total Bilirubin 0.4 mg/dL (0.2-1.0) 09/10/18 14:27 AST 18 U/L (15-37) 09/10/18 14:27 ALT 16 U/L (12-78) 09/10/18 14:27 Alkaline Phosphatase 72 U/L (46-116) 09/10/18 14:27 Troponin I 0.10 ng/mL (0.00-0.06) H 09/11/18 07:03 Total Protein 7.2 g/dL (6.4-8.2) 09/10/18 14:27 Albumin 3.3 g/dL (3.4-5.0) L 09/10/18 14:27 Lipase 102 U/L (73-393) 09/10/18 14:27 Urine Color Yellow (Yellow) 09/10/18 21:00 Urine Clarity Clear 09/10/18 21:00 Urine pH 5.5 (5-8) 09/10/18 21:00 Ur Specific [place] <= 1.005 (1.005-1.025) 09/10/18 21:00 Urine Protein Negative mg/dL (Negative) 09/10/18 21:00 Urine Ketones Negative mg/dL (Negative) 09/10/18 21:00 Urine Blood Trace-intact (Negative) H 09/10/18 21:00 Urine Nitrite Negative (Negative) 09/10/18 21:00 Urine Bilirubin Negative (Negative) 09/10/18 21:00 Urine Urobilinogen 0.2 EU/dL (Up TO 0.2) 09/10/18 21:00 Ur Leukocyte Esterase Small (Negative) H 09/10/18 21:00 Urine RBC Negative (0-2) 09/10/18 21:00 Urine WBC 10-20 HPF (0-5) 09/10/18 21:00 Ur Epithelial Cells Negative HPF (Negative) 09/10/18 21:00 Urine Crystals Negative HPF (Negative) 09/10/18 21:00 Urine Bacteria Negative HPF (Negative) 09/10/18 21:00 Urine Casts Negative LPF (Negative) 09/10/18 21:00 Urine Mucus Negative (Negative) 09/10/18 21:00 Urine Other Negative (Negative) 09/10/18 21:00 Ur Culture Indicated? Yes 09/10/18 21:00 Urine Glucose Negative mg/dL (Negative) 09/10/18 21:00 Stool Source (see note) 09/10/18 19:41 Cryptosporidium/Giardia (see note) 09/10/18 19:41 Parasite Rprt Status (see note) 09/10/18 19:41
[2018-09-12] MEDS: ROSUVASTATIN 20 MG TAB 40 MG PO (20:09)
[2018-09-12] MEDS: predniSONE 20 MG TAB 40 MG PO (20:09)
[2018-09-12] MEDS: Mirtazapine 15 MG TAB 30 MG PO (21:41)
[2018-09-13] MEDS: MetroNIDAZOLE 500 MG/100 ML BAG 100 MG IVPB ×4 (01:08→19:42)
[2018-09-13] MEDS: CIPROFLOXACIN 400 MG/200 ML BAG 200 MG IVPB ×2 (01:10→15:06)
[2018-09-13 03:42] VITALS: BP 138/66; PULSE 77; RESP 18; TEMP 36.8; O2SAT 96
[2018-09-13 08:00] VITALS: BP 167/86; PULSE 82; RESP 20; TEMP 35.9; O2SAT 95
[2018-09-13 08:01] LABS: Abs Immature Grans 0.03 k/cumm (0.0-0.09); Absolute Basophil Count 0.01 k/cumm (0.0-0.2); Absolute Monocyte Count 0.79 k/cumm (0.11-0.7); Anion Gap 7.7 mmol/L (3-11); BUN 5 mg/dL (7-18); Basophils % 0.1; CO2 26.3 mmol/L (21.0-32.0); CREATININE 0.75 mg/dL (0.55-1.02); Calcium 8.6 mg/dL (8.5-10.1); Chloride 104 mmol/L (98-107); Glucose 155 mg/dL (70-100); HCT 30.6 % (36.0-46.0); HGB 9.7 g/dL (12.0-15.5); Immature Grans % 0.4; Magnesium 1.8 mg/dL (1.8-2.4); Mean Corp. HGB Concentration 31.7 g/dL (32.0-36.0); Mean Corpuscular Hemoglobin 29.8 pg (27.0-33.0); Mean Corpuscular Volume 94.2 fL (80-95); Mean Platelet Volume 9.7 fL (8.0-11.0); Monocytes % 11.4; Neutrophils % 75.1; Platelet Count 262 x1000/uL (130-400); Potassium 3.8 mmol/L (3.5-5.1); RBC 3.25 m/cumm (4.00-5.20); Sodium 138 mmol/L (136-145); White Blood Cell Count 6.93 k/cumm (4.4-10.8)
--- NOTE | 2018-09-13 08:19 | PT.INIE ---
Date of service: 09/13/18 Time of Service: 08:30 PT Notes Inpatient Physical Therapy Evaluation Date: 09/13/18 Referring Doctor: Dr. Seth Stephen PT Orders: PT CONSULT: Mangae/follow per spec. - weakness Precautions: Lice, fall risk Patient Profile/Admitting Diagnosis: enterocolitis, dehydration, acute kidney injury, hypokalemia PMHX: [PAD, COPD, CAD, CHF, HTN, atherosclerosis, right iliac stent, right endartectomy, lung cancer s/p lobectomy, hyperlipidemia, iron deficiency anemia, Hep A/B/C, depression, ORIF cervical fracture Social History/Home Situation: lives with son. 10 steps with rail bilaterally to enter. Equipment Owned/DME: F[employer], cane, shower chair Subjective: I'm feeling much better today. I think I'm going home today or tomorrow. Patient sitting up on side of bed eating breakfast. PAtient reports that she has walked to the bathroom earlier in the morning. Objective: General Observation: IV antecubital fossa left upper extremity. Mental Status: A & O x3 Pain: 0/10 ROM: Right Upper Extremity: WFL Left Upper Extremity: WFL Right Lower Extremity: WFL Left Lower Extremity: WFL Strength: Right Upper Extremity: 4/5 throughout shoulder flexion, abduction, internal and external rotation. 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 Able to do SLR with no lag Left Lower Extremity: Hip flexion, quads and hamstring 4+/5, hip abduction 4/5, ankle inversion and eversion 4/5, PF and DF 5/5. Able to do SLR with no lag Sensation: Reports intact sensation to light touch bilateral UE and LE. Bed Mobility/Transfers: Supine - Sit: Independent Sit to Stand: Independent no device Stand to Sit: Independent no device Bed Mobility: Independent Sit to Supine: Independent Gait: Patient ambulated 100 feet x2 with supervision and no assistive device with supervision. Required one rest in standing on return walk to her room. Returned to bed and she assumed a supine position with HOB 40 degrees. She negotiated five stairs x2 with use of railing with supervision. Balance: Static Sitting: Good Dynamic Sitting: Good Static Standing: Good Dynamic Standing: Good Special Tests: Mobility Limitations Standardized Measure [facility] AM-PAC 6 clicks Basic Mobility Inpatient Short Form: Raw Score: 24 Standardized Score: 61.14 CMS Score: 0% [facility] Modifier: Informed Consent/Education: Patient instructed in purpose of PT consult and plan of care. Assessment: Patient is a 73 year old female referred to physical therapy services with the diagnosis of enterocolitis, dehydration, hypokalemia and acute kidney injury. Patient presents with no significant impairments requiring PT. She is independent with functional mobility, gait and has good strength. She is not a fall risk and can ambulte with no assistive device. She does not require skilled PT at this time. AMPAC score 0%. Patient is [place] a x Low [id number] History: as per PMH Examination: see above Presentation: uncomplicated Decision Making: low. AMPAC score CMS Score: 0% Plan of Care/Treatment Plan: Patient does not require PT services at this time. DISCHARGE RECOMMENDATIONS: Discharge to home. TREATMENT CODE/TIME: 30 minutes IE. 8:30 G Codes in the area mobility of walking and moving around: current status [id number] ; projected status GP [id number]. Discharge status (if discharging) GP [id number] .
--- NOTE | 2018-09-13 08:24 | IN_ITS ---
Date of service: 09/13/18 Time of Service: 08:30 PT Notes Inpatient Physical Therapy Evaluation Date: 09/13/18 Referring Doctor: Dr. Seth Stephen PT Orders: PT CONSULT: Mangae/follow per spec. - weakness Precautions: Lice, fall risk Patient Profile/Admitting Diagnosis: enterocolitis, dehydration, acute kidney injury, hypokalemia PMHX: [PAD, COPD, CAD, CHF, HTN, atherosclerosis, right iliac stent, right endartectomy, lung cancer s/p lobectomy, hyperlipidemia, iron deficiency anemia , Hep A/B/C, depression, ORIF cervical fracture Social History/Home Situation: lives with son. 10 steps with rail bilaterally to enter. Equipment Owned/DME: FWW, cane, shower chair Subjective: I'm feeling much better today. I think I'm going home today or tomorrow. Patient sitting up on side of bed eating breakfast. PAtient reports that she has walked to the bathroom earlier in the morning. Objective: General Observation: IV antecubital fossa left upper extremity. Mental Status: A & O x3 Pain: 0/10 ROM: Right Upper Extremity: WFL Left Upper Extremity: WFL Right Lower Extremity: WFL Left Lower Extremity: WFL Strength: Right Upper Extremity: 4/5 throughout shoulder flexion, abduction, internal and external rotation. Bicep and tricep 5/5, visual education teacher WNL Left Upper Extremity: 4/5 throughout shoulder flexion, abduction, internal and external rotation. Bicep and tricep 5/5, visual education teacher WNL Right Lower Extremity: Hip flexion, quads and hamstring 4+/5, hip abduction 4/5 , ankle inversion and eversion 4/5, PF and DF 5/5. Able to do SLR with no lag Left Lower Extremity: Hip flexion, quads and hamstring 4+/5, hip abduction 4/5, ankle inversion and eversion 4/5, PF and DF 5/5. Able to do SLR with no lag Sensation: Reports intact sensation to light touch bilateral UE and LE. Bed Mobility/Transfers: Supine - Sit: Independent Sit to Stand: Independent no device Stand to Sit: Independent no device Bed Mobility: Independent Sit to Supine: Independent Gait: Patient ambulated 100 feet x2 with supervision and no assistive device with supervision. Required one rest in standing on return walk to her room. Returned to bed and she assumed a supine position with HOB 40 degrees. She negotiated five stairs x2 with use of railing with supervision. Balance: Static Sitting: Good Dynamic Sitting: Good Static Standing: Good Dynamic Standing: Good Special Tests: Mobility Limitations Standardized Measure [facility] AM-PAC 6 clicks Basic Mobility Inpatient Short Form: Raw Score: 24 Standardized Score: 61.14 CMS Score: 0% [facility] Modifier: Informed Consent/Education: Patient instructed in purpose of PT consult and plan of care. Assessment: Patient is a 73 year old female referred to physical therapy services with the diagnosis of enterocolitis, dehydration, hypokalemia and acute kidney injury. Patient presents with no significant impairments requiring PT. She is independent with functional mobility, gait and has good strength. She is not a fall risk and can ambulte with no assistive device. She does not require skilled PT at this time. AMPAC score 0%. Patient is [place] [id number] History: as per PMH Examination: see above Presentation: uncomplicated Decision Making: low. AMPAC score CMS Score: 0% Plan of Care/Treatment Plan: Patient does not require PT services at this time. DISCHARGE RECOMMENDATIONS: Discharge to home. TREATMENT CODE/TIME: 30 minutes IE. 8:30 G Codes in the area mobility of walking and moving around: current status [id number] ; projected status GP [id number]. Discharge status (if discharging) GP [id number] .
[2018-09-13] MEDS: predniSONE 20 MG TAB 40 MG PO ×2 (09:29→19:42)
[2018-09-13] MEDS: QUEtiapine 25 MG TAB 12.5 MG PO (09:29)
[2018-09-13] MEDS: Metoprolol CR 100 MG TABCR PO (09:29)
[2018-09-13] MEDS: Cyanocobalamin 500 MCG TAB 1000 MCG PO (09:29)
[2018-09-13] MEDS: Pantoprazole 40 MG TABCR PO ×2 (09:29→19:42)
[2018-09-13] MEDS: Apixaban 5 MG TAB PO ×2 (09:29→19:42)
[2018-09-13] MEDS: Clopidogrel 75 MG TAB PO (09:29)
[2018-09-13] MEDS: Ferrous Sulfate 325 MG TAB PO ×2 (09:29→19:42)
[2018-09-13] MEDS: Potassium Chloride 20 MEQ TABCR PO (09:29)
[2018-09-13] MEDS: Mometasone 220 MCG 14 DOSE INHALER 1 PUFF IH ×2 (09:34→19:40)
[2018-09-13 11:04] VITALS: BP 191/92; PULSE 76; RESP 20; TEMP 36.1; O2SAT 97
[2018-09-13 11:27] LABS: Bilirubin Negative (Negative); Blood Trace-intact (Negative); Clarity Clear; Glucose 250 mg/dL (Negative); Ketones Negative (Negative); Leukocyte Esterase Negative (Negative); Nitrite Negative (Negative); Specific Gravity 1.025 (1.005-1.025); Urobilinogen 0.2 EU/dL (Up TO 0.2)
--- NOTE | 2018-09-13 11:32 | PDOC.CMPRO ---
- If Service Date Differs Date of service: 09/13/18 Time of Service: 11:32 Care Management Progress Note S/O:Joselin is lying in bed when this senior grant writer visits this morning, she is pleasant and receptive to discussion. Joselin states that she has worked with physical therapy today and feels as though this went well. CM discussed DC planning with Joselin and the possibility of home health assisting with cleaning the home due to the lice. Joselin was receptive to this idea, though states that she believes her family is cleaning the home at this time. A: 73 year old female admitted to [facility] for diarrhea P: Joselin will return home when ready per MD. Undetermined level of services at this time; CM will monitor clinical status and support discharge planning considerations. Joselin will transport via private vehicle with her son.
--- NOTE | 2018-09-13 11:49 | CMPROGNOTE_ITS ---
- If Service Date Differs Date of service: 09/13/18 Time of Service: 11:32 Care Management Progress Note S/O:Joselin is lying in bed when this investigative writer visits this morning, she is pleasant and receptive to discussion. Joselin states that she has worked with physical therapy today and feels as though this went well. CM discussed DC planning with Joselin and the possibility of home health assisting with cleaning the home due to the lice. Joselin was receptive to this idea, though states that she believes her family is cleaning the home at this time. A: 73 year old female admitted to [facility] for diarrhea P: Joselin will return home when ready per MD. Undetermined level of services at this time; CM will monitor clinical status and support discharge planning considerations. Joselin will transport via private vehicle with her son.
[2018-09-13] MEDS: Acetaminophen 325 MG TAB 650 MG PO (11:54)
[2018-09-13 13:16] LABS: WBC Negative HPF (0-5)
[2018-09-13 13:17] LABS: Bacteria Rare HPF (Negative); C & S Indicated? C&S Done As Ordered; Casts Negative LPF (Negative); Crystals Few Amorphous HPF (Negative); Epithelial Cells Rare HPF (Negative); Mucus Negative (Negative); RBC 0-2 (0-2)
[2018-09-13] MEDS: Ondansetron 4 MG/2 ML VIAL IVP ×2 (14:44→19:44)
[2018-09-13] MEDS: Normal Saline Flush 10 ML SYR IVP ×3 (14:45→19:44)
[2018-09-13 15:30] VITALS: BP 180/88; PULSE 78; RESP 20; TEMP 35.9; O2SAT 96
--- NOTE | 2018-09-13 17:59 | W.PM.PROGNOT ---
Date of Service Date of service: 09/13/18 Time of Service: 15:40 Assessment and Plan (1) Enterocolitis: Current visit: Yes Status: Acute Improving with cipro/flagyl - noted a temp of 38.0 today. Continue to monitor. Continue IVF. n (2) Dehydration: Current visit: Yes Status: Acute GLORIA resolved. Continue IVF. (3) Acute kidney injury (nontraumatic): Current visit: Yes Status: Acute Resolved. Hold ARB/diuretics for now. (4) Coronary artery disease: Current visit: No Status: Chronic With mild demand ischemia on this admission. No ischemic workup indicated at this time. Continue rosuvastatin, plavix, beta blockers. Patient with a LHC 12/2015 showing nonobstructive CAD (LM 10%, LAD long prox 30% calcified, LCX prox 20%, RCA prox and mid calcified 40%). (5) Essential hypertension: Current visit: No Status: Chronic Continue BB. ARB and Thiazide on hold due to GLORIA. Will start norvasc for now - eventually with hopes to transition back to ARB/Thiazide. (6) Peptic reflux disease: Current visit: No Status: Chronic Continue home PPI therapy. (7) Pediculosis: Current visit: Yes Status: Acute s/p topical Lindane - contact precautions in place. Recurrent with likely reservoir at home (?grandson). Home health is being considered to help fix the situation at home. (8) Chronic obstructive lung disease: Current visit: No Status: Chronic Wheezing resolved with prednisone therapy. Continue duoneb. Depending on respiratory exam tomorrow, may be able to stop prednisone. (9) DVT prophylaxis: Current visit: Yes Status: Acute On therapeutic eliquis. Subjective Interval history since last seen: Had nausea earlier today, but already feels better. Denies dizziness, chest pain, shortness of breath. Abdominal pain better. Stools are getting firmer. Exam Narrative Exam Narrative: General: A&Ox3, NAD HEENT: EOMI, MMM Heart: RRR, tachycardic Lungs: CTAB Abdomen: Soft, nontender, nondistended Extremities: no e/c/c BLE's. Objective Objective Clinical Data: Abnormal lab results 09/13/18 09/13/18 09/13/18 Range/Units 07:10 07:10 11:15 RBC 3.25 L (4.00-5.20) m/cumm Hgb 9.7 L (12.0-15.5) g/dL Hct 30.6 L (36.0-46.0) % MCHC 31.7 L (32.0-36.0) g/dL Absolute Lymphocytes 0.90 L (1.2-3.4) k/cumm Absolute Monocytes 0.79 H (0.11-0.7) k/cumm BUN 5 L (7-18) mg/dL Glucose 155 H (70-100) mg/dL Urine Blood Trace-intact H (Negative) Urine Glucose 250 H (Negative) mg/dL Vital Signs Temperature 35.9 C L 09/13/18 15:30 Temperature Source Tympanic 09/13/18 15:30 Pulse 78 09/13/18 15:30 Pulse Rhythm Regular 09/13/18 15:56 Pulse 97 H 09/10/18 20:00 Respiratory Rate 20 09/13/18 15:30 Respiratory Effort Non-Labored 09/13/18 15:56 Respiratory Depth Normal 09/13/18 15:56 Respiratory Pattern Normal 09/13/18 15:56 Blood Pressure 180/88 H 09/13/18 15:30 Blood Pressure Mean 74 09/10/18 19:46 Pulse Oximetry 96 09/13/18 15:30 Oxygen Delivery Method Room Air 09/13/18 15:30 Oxygen Flow Rate 0 09/13/18 15:30 Pain Level 0 09/13/18 15:30 Comment 09/13/18 15:30 Intake & Output 09/12/18 09/13/18 09/13/18 23:59 11:59 23:59 Intake Total 1640.00 / 1640.00 992.5 / 992.5 Output Total 300 / 300 Balance 1640.00 / 1640.00 692.5 / 692.5 Weight 56 kg Intake: IV 1400.00 / 1400.00 552.5 / 552.5 Oral 240 / 240 440 / 440 Output: Urine 300 / 300 Other: Urine Color Yellow [place] Urine Appearance Clear Cloudy Cloudy Urine Odor Normal Comment Void x1 in the toilet. Voiding Methods Toilet Toilet Laboratory Results WBC 6.93 k/cumm (4.4-10.8) 09/13/18 07:10 RBC 3.25 m/cumm (4.00-5.20) L 09/13/18 07:10 Hgb 9.7 g/dL (12.0-15.5) L 09/13/18 07:10 Hct 30.6 % (36.0-46.0) L 09/13/18 07:10 MCV 94.2 fL (80-95) 09/13/18 07:10 MCH 29.8 pg (27.0-33.0) 09/13/18 07:10 MCHC 31.7 g/dL (32.0-36.0) L 09/13/18 07:10 RDW 14.0 % (11.7-14.6) 09/13/18 07:10 Plt Count 262 x1000/uL (130-400) 09/13/18 07:10 MPV 9.7 fL (8.0-11.0) 09/13/18 07:10 Immature Gran % 0.4 09/13/18 07:10 Neutrophils % 75.1 09/13/18 07:10 Lymphocytes % 13.0 09/13/18 07:10 Monocytes % 11.4 09/13/18 07:10 Eosinophils % 0.0 09/13/18 07:10 Basophils % 0.1 09/13/18 07:10 Absolute Neutrophils 5.20 k/cumm (1.2-6.7) 09/13/18 07:10 Absolute Lymphocytes 0.90 k/cumm (1.2-3.4) L 09/13/18 07:10 Absolute Monocytes 0.79 k/cumm (0.11-0.7) H 09/13/18 07:10 Absolute Eosinophils 0.00 k/cumm (0.0-0.7) 09/13/18 07:10 Absolute Basophils 0.01 k/cumm (0.0-0.2) 09/13/18 07:10 Differential Comment Manual differential 09/10/18 14:27 RBC Morphology Normal 09/10/18 14:27 PT 10.0 sec (9.3-10.8) 09/10/18 14:27 INR 1.0 (1.0-3.5) 09/10/18 14:27 APTT 23.0 sec (21.0-31.4) 09/10/18 14:27 Sodium 138 mmol/L (136-145) 09/13/18 07:10 Potassium 3.8 mmol/L (3.5-5.1) 09/13/18 07:10 Chloride 104 mmol/L (98-107) 09/13/18 07:10 Carbon Dioxide 26.3 mmol/L (21.0-32.0) 09/13/18 07:10 Anion Gap 7.7 mmol/L (3-11) 09/13/18 07:10 BUN 5 mg/dL (7-18) L 09/13/18 07:10 Creatinine 0.75 mg/dL (0.55-1.02) 09/13/18 07:10 Estimated GFR/1.73 m2 >= 60.00 (mL/min/1.73m2) 09/13/18 07:10 Glucose 155 mg/dL (70-100) H 09/13/18 07:10 Lactate 2.8 mmol/L (0.6-1.4) H 09/10/18 22:15 Calcium 8.6 mg/dL (8.5-10.1) 09/13/18 07:10 Magnesium 1.8 mg/dL (1.8-2.4) 09/13/18 07:10 Total Bilirubin 0.4 mg/dL (0.2-1.0) 09/10/18 14:27 AST 18 U/L (15-37) 09/10/18 14:27 ALT 16 U/L (12-78) 09/10/18 14:27 Alkaline Phosphatase 72 U/L (46-116) 09/10/18 14:27 Troponin I 0.10 ng/mL (0.00-0.06) H 09/11/18 07:03 Total Protein 7.2 g/dL (6.4-8.2) 09/10/18 14:27 Albumin 3.3 g/dL (3.4-5.0) L 09/10/18 14:27 Lipase 102 U/L (73-393) 09/10/18 14:27 Urine Color Yellow (Yellow) 09/13/18 11:15 Urine Clarity Clear 09/13/18 11:15 Urine pH 7.0 (5-8) 09/13/18 11:15 Ur Specific [place] 1.025 (1.005-1.025) 09/13/18 11:15 Urine Protein Negative mg/dL (Negative) 09/13/18 11:15 Urine Ketones Negative mg/dL (Negative) 09/13/18 11:15 Urine Blood Trace-intact (Negative) H 09/13/18 11:15 Urine Nitrite Negative (Negative) 09/13/18 11:15 Urine Bilirubin Negative (Negative) 09/13/18 11:15 Urine Urobilinogen 0.2 EU/dL (Up TO 0.2) 09/13/18 11:15 Ur Leukocyte Esterase Negative (Negative) 09/13/18 11:15 Urine RBC 0-2 (0-2) 09/13/18 11:15 Urine WBC Negative HPF (0-5) 09/13/18 11:15 Ur Epithelial Cells Rare HPF (Negative) 09/13/18 11:15 Urine Crystals Few amorphous HPF (Negative) 09/13/18 11:15 Urine Bacteria Rare HPF (Negative) 09/13/18 11:15 Urine Casts Negative LPF (Negative) 09/13/18 11:15 Urine Mucus Negative (Negative) 09/13/18 11:15 Urine Other Negative (Negative) 09/10/18 21:00 Ur Culture Indicated? C&s done as ordered 09/13/18 11:15 Urine Glucose 250 mg/dL (Negative) H 09/13/18 11:15 Stool Source (see note) 09/10/18 19:41 Cryptosporidium/Giardia (see note) 09/10/18 19:41 Parasite Rprt Status (see note) 09/10/18 19:41
[2018-09-13] MEDS: amLODIPine 5 MG TAB PO (18:23)
[2018-09-13] MEDS: ROSUVASTATIN 20 MG TAB 40 MG PO (19:42)
[2018-09-13 20:07] VITALS: BP 170/77; PULSE 73; RESP 18; TEMP 35.9; O2SAT 94
[2018-09-13] MEDS: Mirtazapine 15 MG TAB 30 MG PO (21:49)
[2018-09-13 23:49] VITALS: BP 182/83; PULSE 77; RESP 19; TEMP 36.2; O2SAT 97
[2018-09-14] MEDS: CIPROFLOXACIN 400 MG/200 ML BAG 200 MG IVPB ×2 (01:20→14:17)
[2018-09-14] MEDS: MetroNIDAZOLE 500 MG/100 ML BAG 100 MG IVPB ×4 (03:00→20:09)
[2018-09-14 04:00] VITALS: BP 177/74; PULSE 76; RESP 18; TEMP 36.6; O2SAT 95
[2018-09-14 07:09] LABS: Abs Immature Grans 0.08 k/cumm (0.0-0.09); Absolute Basophil Count 0.01 k/cumm (0.0-0.2); Absolute Lymphocyte Count 0.91 k/cumm (1.2-3.4); Absolute Neutrophil Count 9.28 k/cumm (1.2-6.7); Basophils % 0.1; HCT 28.3 % (36.0-46.0); HGB 9.1 g/dL (12.0-15.5); Immature Grans % 0.7; Lymphocytes % 8.3; Mean Corp. HGB Concentration 32.2 g/dL (32.0-36.0); Mean Corpuscular Hemoglobin 30.2 pg (27.0-33.0); Mean Platelet Volume 9.7 fL (8.0-11.0); Monocytes % 6.4; Neutrophils % 84.5; Platelet Count 304 x1000/uL (130-400); RBC 3.01 m/cumm (4.00-5.20); RBC Distribution Width 14.1 % (11.7-14.6); White Blood Cell Count 10.98 k/cumm (4.4-10.8)
[2018-09-14 07:25] LABS: Anion Gap 7.9 mmol/L (3-11); BUN 8 mg/dL (7-18); CO2 28.1 mmol/L (21.0-32.0); CREATININE 0.66 mg/dL (0.55-1.02); Calcium 8.4 mg/dL (8.5-10.1); Chloride 105 mmol/L (98-107); Glucose 150 mg/dL (70-100); Magnesium 1.7 mg/dL (1.8-2.4); Potassium 3.5 mmol/L (3.5-5.1); Sodium 141 mmol/L (136-145)
[2018-09-14 08:09] VITALS: BP 177/88; PULSE 81; RESP 16; TEMP 35.9; O2SAT 96
[2018-09-14] MEDS: Mometasone 220 MCG 14 DOSE INHALER 1 PUFF IH ×2 (08:53→20:05)
[2018-09-14] MEDS: QUEtiapine 25 MG TAB 12.5 MG PO (08:59)
[2018-09-14] MEDS: amLODIPine 5 MG TAB PO (08:59)
[2018-09-14] MEDS: Pantoprazole 40 MG TABCR PO ×2 (08:59→20:05)
[2018-09-14] MEDS: Cyanocobalamin 500 MCG TAB 1000 MCG PO (08:59)
[2018-09-14] MEDS: Clopidogrel 75 MG TAB PO (08:59)
[2018-09-14] MEDS: Apixaban 5 MG TAB PO ×2 (08:59→20:06)
[2018-09-14] MEDS: Ferrous Sulfate 325 MG TAB PO ×2 (08:59→20:06)
[2018-09-14] MEDS: Potassium Chloride 20 MEQ TABCR PO (08:59)
[2018-09-14] MEDS: Metoprolol CR 100 MG TABCR PO (08:59)
[2018-09-14] MEDS: predniSONE 20 MG TAB 40 MG PO (09:00)
[2018-09-14] MEDS: Acetaminophen 325 MG TAB 650 MG PO ×3 (09:05→18:39)
[2018-09-14] MEDS: MAGNESIUM SULFATE 1 GM/100 ML BAG IVPB (10:11)
[2018-09-14] MEDS: Magnesium Chloride 64 MG TABCR PO ×2 (10:11→20:06)
[2018-09-14] MEDS: Losartan 50 MG TAB 100 MG PO (10:12)
[2018-09-14 11:27] VITALS: BP 166/80; PULSE 88; RESP 24; TEMP 35.7; O2SAT 95
--- NOTE | 2018-09-14 12:33 | CMPROGNOTE_ITS ---
- If Service Date Differs Date of service: 09/14/18 Time of Service: 12:31 Care Management Progress Note S/O: Joselin is sitting up in her chair when this marine underwriter visits this morning. CM discussed DC plans with Joselin and she states that she is hopeful to return home soon. CM discussed home health RN services with Joselin again this morning , she states that she believes having home health to assist with Lice treatment would be beneficial, however she would like to speak with her DIL first, as they are working on treating the home and other family members at this time. A: 73 year old female admitted to [facility] for diarrhea P: Joselin will return home when ready per MD, ? home health RN services. CM will monitor clinical status and support discharge planning considerations. Joselin will transport via private vehicle with her son.
--- NOTE | 2018-09-14 13:09 | W.PM.PROGNOT ---
Date of Service Date of service: 09/14/18 Time of Service: 13:09 Assessment and Plan (1) Enterocolitis: Current visit: Yes Status: Acute Continues to improve on cipro/flagyl. Afebrile. Can likely be discharged home tomorrow to complete antibiotics. (2) Dehydration: Current visit: Yes Status: Acute GLORIA resolved. D/c IVF. (3) Acute kidney injury (nontraumatic): Current visit: Yes Status: Acute Resolved. Resume ARB. D/c IVF. (4) Coronary artery disease: Current visit: No Status: Chronic With mild demand ischemia on this admission. No ischemic workup indicated at this time. Continue rosuvastatin, plavix, beta blockers. Follow up as outpatient. Patient with a C 12/2015 showing nonobstructive CAD (LM 10%, LAD long prox 30% calcified, LCX prox 20%, RCA prox and mid calcified 40%). (5) Essential hypertension: Current visit: No Status: Chronic Continue BB and norvasc. ARB resumed. IVF d/c'ed. Prednisone dose decreased. (6) Peptic reflux disease: Current visit: No Status: Chronic Continue home PPI therapy. (7) Pediculosis: Current visit: Yes Status: Acute s/p topical Lindane. Continue contact precautions in the hospital. Recurrent bouts are likely due to a reservoir at home (?grandson). Home health on discharge help evaluate the situation at home. (8) Chronic obstructive lung disease: Current visit: No Status: Chronic Wheezing resolved with prednisone therapy. Continue duoneb. Decrease prednisone to 40 mg PO daily today. Would not taper on discharge. (9) DVT prophylaxis: Current visit: Yes Status: Acute On therapeutic eliquis. Subjective Interval history since last seen: Ms Arrington states she feels better today. She describes almost no nausea, and her stools are getting firmer. She states that her breathing is not quite back to normal and she has a dry cough, but it is better. She denies dizziness, chest pain, abdominal pain. She feels she will be ready to go home tomorrow. Exam Narrative Exam Narrative: General: A&Ox3, NAD HEENT: EOMI, MMM Heart: RRR, tachycardic Lungs: coarse breah sounds B Abdomen: Soft, nontender, nondistended Extremities: no e/c/c BLE's. Objective Objective Clinical Data: Abnormal lab results 09/13/18 09/14/18 09/14/18 Range/Units 11:15 06:47 06:47 WBC 10.98 H D (4.4-10.8) k/cumm RBC 3.01 L (4.00-5.20) m/cumm Hgb 9.1 L (12.0-15.5) g/dL Hct 28.3 L (36.0-46.0) % Absolute Neutrophils 9.28 H (1.2-6.7) k/cumm Absolute Lymphocytes 0.91 L (1.2-3.4) k/cumm Glucose 150 H (70-100) mg/dL Calcium 8.4 L (8.5-10.1) mg/dL Magnesium 1.7 L (1.8-2.4) mg/dL Urine Blood Trace-intact H (Negative) Urine Glucose 250 H (Negative) mg/dL Vital Signs Temperature 35.7 C L 09/14/18 11:27 Temperature Source Tympanic 09/14/18 11:27 Pulse 88 09/14/18 11:27 Pulse Rhythm Regular 09/14/18 09:24 Pulse 97 H 09/10/18 20:00 Respiratory Rate 24 09/14/18 11:27 Respiratory Effort Non-Labored 09/14/18 09:24 Respiratory Depth Normal 09/14/18 09:24 Respiratory Pattern Normal 09/14/18 09:24 Blood Pressure 166/80 H 09/14/18 11:27 Blood Pressure Mean 74 09/10/18 19:46 Pulse Oximetry 95 09/14/18 11:27 Oxygen Delivery Method Room Air 09/14/18 11:27 Oxygen Flow Rate 0 09/14/18 11:27 Pain Level 4 09/14/18 11:27 Comment 09/14/18 11:27 Intake & Output 09/13/18 09/14/18 09/14/18 23:59 11:59 23:59 Intake Total 640 / 640 963 / 963 Output Total 1100 / 1100 1250 / 1250 Balance -460 / -460 -287 / -287 Weight 55.3 kg Intake: IV 400 / 400 300 / 300 Oral 240 / 240 663 / 663 Output: Urine 1100 / 1100 1250 / 1250 Other: Urine Color Yellow St[place] Urine Appearance Clear Clear Urine Odor Normal Normal Comment per pT x2 Stool Size Moderate Stool Characteristics Soft Voiding Methods Toilet Toilet Laboratory Results WBC 10.98 k/cumm (4.4-10.8) H D 09/14/18 06:47 RBC 3.01 m/cumm (4.00-5.20) L 09/14/18 06:47 Hgb 9.1 g/dL (12.0-15.5) L 09/14/18 06:47 Hct 28.3 % (36.0-46.0) L 09/14/18 06:47 MCV 94.0 fL (80-95) 09/14/18 06:47 MCH 30.2 pg (27.0-33.0) 09/14/18 06:47 MCHC 32.2 g/dL (32.0-36.0) 09/14/18 06:47 RDW 14.1 % (11.7-14.6) 09/14/18 06:47 Plt Count 304 x1000/uL (130-400) 09/14/18 06:47 MPV 9.7 fL (8.0-11.0) 09/14/18 06:47 Immature Gran % 0.7 09/14/18 06:47 Neutrophils % 84.5 09/14/18 06:47 Lymphocytes % 8.3 09/14/18 06:47 Monocytes % 6.4 09/14/18 06:47 Eosinophils % 0.0 09/14/18 06:47 Basophils % 0.1 09/14/18 06:47 Absolute Neutrophils 9.28 k/cumm (1.2-6.7) H 09/14/18 06:47 Absolute Lymphocytes 0.91 k/cumm (1.2-3.4) L 09/14/18 06:47 Absolute Monocytes 0.70 k/cumm (0.11-0.7) 09/14/18 06:47 Absolute Eosinophils 0.00 k/cumm (0.0-0.7) 09/14/18 06:47 Absolute Basophils 0.01 k/cumm (0.0-0.2) 09/14/18 06:47 Differential Comment Manual differential 09/10/18 14:27 RBC Morphology Normal 09/10/18 14:27 PT 10.0 sec (9.3-10.8) 09/10/18 14:27 INR 1.0 (1.0-3.5) 09/10/18 14:27 APTT 23.0 sec (21.0-31.4) 09/10/18 14:27 Sodium 141 mmol/L (136-145) 09/14/18 06:47 Potassium 3.5 mmol/L (3.5-5.1) 09/14/18 06:47 Chloride 105 mmol/L (98-107) 09/14/18 06:47 Carbon Dioxide 28.1 mmol/L (21.0-32.0) 09/14/18 06:47 Anion Gap 7.9 mmol/L (3-11) 09/14/18 06:47 BUN 8 mg/dL (7-18) 09/14/18 06:47 Creatinine 0.66 mg/dL (0.55-1.02) 09/14/18 06:47 Estimated GFR/1.73 m2 >= 60.00 (mL/min/1.73m2) 09/14/18 06:47 Glucose 150 mg/dL (70-100) H 09/14/18 06:47 Lactate 2.8 mmol/L (0.6-1.4) H 09/10/18 22:15 Calcium 8.4 mg/dL (8.5-10.1) L 09/14/18 06:47 Magnesium 1.7 mg/dL (1.8-2.4) L 09/14/18 06:47 Total Bilirubin 0.4 mg/dL (0.2-1.0) 09/10/18 14:27 AST 18 U/L (15-37) 09/10/18 14:27 ALT 16 U/L (12-78) 09/10/18 14:27 Alkaline Phosphatase 72 U/L (46-116) 09/10/18 14:27 Troponin I 0.10 ng/mL (0.00-0.06) H 09/11/18 07:03 Total Protein 7.2 g/dL (6.4-8.2) 09/10/18 14:27 Albumin 3.3 g/dL (3.4-5.0) L 09/10/18 14:27 Lipase 102 U/L (73-393) 09/10/18 14:27 Urine Color Yellow (Yellow) 09/13/18 11:15 Urine Clarity Clear 09/13/18 11:15 Urine pH 7.0 (5-8) 09/13/18 11:15 Ur Specific [place] 1.025 (1.005-1.025) 09/13/18 11:15 Urine Protein Negative mg/dL (Negative) 09/13/18 11:15 Urine Ketones Negative mg/dL (Negative) 09/13/18 11:15 Urine Blood Trace-intact (Negative) H 09/13/18 11:15 Urine Nitrite Negative (Negative) 09/13/18 11:15 Urine Bilirubin Negative (Negative) 09/13/18 11:15 Urine Urobilinogen 0.2 EU/dL (Up TO 0.2) 09/13/18 11:15 Ur Leukocyte Esterase Negative (Negative) 09/13/18 11:15 Urine RBC 0-2 (0-2) 09/13/18 11:15 Urine WBC Negative HPF (0-5) 09/13/18 11:15 Ur Epithelial Cells Rare HPF (Negative) 09/13/18 11:15 Urine Crystals Few amorphous HPF (Negative) 09/13/18 11:15 Urine Bacteria Rare HPF (Negative) 09/13/18 11:15 Urine Casts Negative LPF (Negative) 09/13/18 11:15 Urine Mucus Negative (Negative) 09/13/18 11:15 Urine Other Negative (Negative) 09/10/18 21:00 Ur Culture Indicated? C&s done as ordered 09/13/18 11:15 Urine Glucose 250 mg/dL (Negative) H 09/13/18 11:15 Stool Source (see note) 09/10/18 19:41 Cryptosporidium/Giardia (see note) 09/10/18 19:41 Parasite Rprt Status (see note) 09/10/18 19:41
[2018-09-14 17:05] VITALS: BP 163/75; PULSE 72; RESP 18; TEMP 35.8; O2SAT 95
[2018-09-14 19:30] VITALS: BP 158/74; PULSE 68; RESP 18; TEMP 35.6; O2SAT 93
[2018-09-14] MEDS: Lidocaine 5% Patch 1 PATCH TP (20:01)
[2018-09-14] MEDS: Normal Saline Flush 10 ML SYR IVP (20:03)
[2018-09-14] MEDS: ROSUVASTATIN 20 MG TAB 40 MG PO (20:06)
[2018-09-14] MEDS: Normal Saline 500 ML IV (20:09)
[2018-09-14] MEDS: Mirtazapine 15 MG TAB 30 MG PO (20:21)
[2018-09-15] MEDS: Normal Saline Flush 10 ML SYR IVP ×2 (01:40→07:40)
[2018-09-15] MEDS: CIPROFLOXACIN 400 MG/200 ML BAG 200 MG IVPB (01:40)
[2018-09-15 01:43] VITALS: BP 178/80; PULSE 70; RESP 18; TEMP 35.8; O2SAT 93
[2018-09-15] MEDS: MetroNIDAZOLE 500 MG/100 ML BAG 100 MG IVPB ×2 (02:54→07:41)
[2018-09-15 04:39] VITALS: BP 155/67; PULSE 67; RESP 16; TEMP 35.8; O2SAT 93
[2018-09-15 07:11] LABS: Abs Immature Grans 0.09 k/cumm (0.0-0.09); Absolute Basophil Count 0.01 k/cumm (0.0-0.2); Absolute Eosinophil Count 0.18 k/cumm (0.0-0.7); Absolute Lymphocyte Count 1.36 k/cumm (1.2-3.4); Absolute Monocyte Count 1.71 k/cumm (0.11-0.7); Absolute Neutrophil Count 8.41 k/cumm (1.2-6.7); Basophils % 0.1; Eosinophils % 1.5; HCT 31.3 % (36.0-46.0); HGB 9.8 g/dL (12.0-15.5); Immature Grans % 0.8; Lymphocytes % 11.6; Mean Corp. HGB Concentration 31.3 g/dL (32.0-36.0); Mean Corpuscular Hemoglobin 29.7 pg (27.0-33.0); Mean Corpuscular Volume 94.8 fL (80-95); Mean Platelet Volume 9.7 fL (8.0-11.0); Monocytes % 14.5; Neutrophils % 71.5; Platelet Count 359 x1000/uL (130-400); RBC Distribution Width 14.5 % (11.7-14.6); White Blood Cell Count 11.76 k/cumm (4.4-10.8)
[2018-09-15 07:20] LABS: Anion Gap 6.7 mmol/L (3-11); BUN 12 mg/dL (7-18); CO2 29.3 mmol/L (21.0-32.0); CREATININE 0.75 mg/dL (0.55-1.02); Calcium 8.3 mg/dL (8.5-10.1); Chloride 106 mmol/L (98-107); Glucose 91 mg/dL (70-100); Potassium 3.7 mmol/L (3.5-5.1); Sodium 142 mmol/L (136-145)
[2018-09-15] MEDS: Mometasone 220 MCG 14 DOSE INHALER 1 PUFF IH (07:29)
[2018-09-15 07:35] VITALS: BP 180/90; PULSE 78; RESP 18; TEMP 36.5; O2SAT 95
[2018-09-15] MEDS: Acetaminophen 325 MG TAB 650 MG PO (07:39)
[2018-09-15] MEDS: Losartan 50 MG TAB 100 MG PO (09:18)
[2018-09-15] MEDS: Metoprolol CR 100 MG TABCR PO (09:18)
[2018-09-15] MEDS: Magnesium Chloride 64 MG TABCR PO (09:18)
[2018-09-15] MEDS: Potassium Chloride 20 MEQ TABCR PO (09:18)
[2018-09-15] MEDS: Clopidogrel 75 MG TAB PO (09:18)
[2018-09-15] MEDS: QUEtiapine 25 MG TAB 12.5 MG PO (09:18)
[2018-09-15] MEDS: amLODIPine 5 MG TAB PO (09:18)
[2018-09-15] MEDS: Cyanocobalamin 500 MCG TAB 1000 MCG PO (09:19)
[2018-09-15] MEDS: Pantoprazole 40 MG TABCR PO (09:19)
[2018-09-15] MEDS: Ferrous Sulfate 325 MG TAB PO (09:19)
[2018-09-15] MEDS: Apixaban 5 MG TAB PO (09:19)
[2018-09-15] MEDS: predniSONE 20 MG TAB 40 MG PO (09:21)
[2018-09-15] MEDS: Patch Removal 1 EACH TP (09:52)
--- NOTE | 2018-09-15 11:13 | DSE_ITS ---
Date of service: 09/15/18 Time of Service: 11:09 DS: Diagnosis Discharge Diagnosis (1) Enterocolitis: Status: Acute (2) Dehydration: Status: Acute (3) Acute kidney injury (nontraumatic): Status: Acute (4) Coronary artery disease: Status: Chronic (5) Essential hypertension: Status: Chronic (6) Peptic reflux disease: Status: Chronic (7) Pediculosis: Status: Acute (8) Chronic obstructive lung disease: Status: Chronic (9) DVT prophylaxis: Status: Acute Discharge Plan Disposition Patient Disposition: HOME Condition: Good Discharge Details Reason For Visit: DIARRHEA Admit Date/Time: 09/12/18 10:26 Admit Provider: Juan Francisco Attending Provider: Juan Francisco Primary Care Provider: Dharmesh Huizar Hospital Course Hospital Course: Joselin is a 73-year-old woman with severe PAD, COPD, hypertension, nonobstructive coronary artery disease, depression, hyperlipidemia, HCV, lung cancer status post lobectomy, PSVT, and STEMI, PUD, GERD, OA, alcohol abuse who presented to the emergency department on 09/12/2018 with 3 days of ongoing nausea, vomiting, diarrhea and crampy abdominal pain. Workup in the ER showed leukocytosis with a white blood cell count of 20,000 and evidence of left shift , stable mild anemia, azotemia, normal LFTs and normal lipase, mildly elevated lactate of 1.9 and unremarkable UA. Troponin was mildly elevated at 0.17, however repeat was down to 0.13. Twelve-lead EKG showed normal sinus rhythm with a heart rate of 76 bpm and nonspecific inferolateral ST depression similar to past EKGs. CT of the chest, abdomen and pelvis showed no acute findings. She was admitted to the hospitalist service for further management of acute onset diarrhea/colitis. She was started on ciprofloxacin and Flagyl and is tolerated well. Has complete resolution of her diarrhea. Has no further complaints of abdominal discomfort. Is eating and drinking well. Was treated for pediculosis again this admission. Family is currently declining home health. Developed wheezing that responded well to prednisone therapy. Will be discharged home today with 5 days of antibiotics to complete a 10-day course Home Meds and New Rx's Prescriptions: New prednisone 20 mg Tablet 40 mg PO DAILY 2 Days Qty: 2 RF: 0 lidocaine [Lidoderm] 5 % Adhesive Patch,Medicated 1 patch Topical HS 30 Days Qty: 30 RF: 0 magnesium chloride [Mag 64] 64 mg Tablet,Delayed Release (Dr/Ec) 64 mg PO BID 30 Days Qty: 60 RF: 0 Patch Removal [Remove Patch] 1 ea Topical DAILY@1000 Qty: 0 RF: 0 amlodipine 5 mg Tablet 5 mg PO DAILY 30 Days Qty: 30 RF: 0 ciprofloxacin HCl 500 mg tablet 500 mg PO BID 5 Days Qty: 10 RF: 0 metronidazole [Flagyl] 500 mg tablet 500 mg PO TID 5 Days Qty: 15 RF: 0 Continue mirtazapine 30 MG tablet 30 mg PO HS Qty: 90 RF: 3 fluticasone [Flovent HFA] 12 GM HFA aerosol inhaler 1 puff Inhalation BID Qty: 3 RF: 3 ferrous sulfate [Feosol] 325 MG tablet 325 mg PO BID Qty: 60 RF: 3 PROVENTIL HFA 18 GM HFA.AER.AD 1 - 2 puff Inhalation Q6H PRN Qty: 3 RF: 3 quetiapine 25 MG tablet 12.5 mg PO DAILY Qty: 45 RF: 3 potassium chloride 20 MEQ tablet extended release 20 meq PO DAILY Qty: 90 RF: 3 metoprolol succinate 100 MG tablet extended release 24 hr 100 mg PO DAILY Qty: 90 RF: 3 clopidogrel 75 MG tablet 75 mg PO DAILY Qty: 90 RF: 3 pantoprazole 40 MG tablet,delayed release (DR/EC) 40 mg PO BID Qty: 60 RF: 11 apixaban [Eliquis] 5 MG tablet 5 mg PO BID Qty: 60 RF: 11 rosuvastatin [Crestor] 40 mg tablet 40 mg PO DAILY Qty: 90 RF: 3 losartan 50 mg Tablet 100 mg PO DAILY RF: 0 chlorthalidone 25 mg Tablet 25 mg PO DAILY RF: 0 cholecalciferol (vitamin D3) 50,000 unit Capsule 50,000 unit PO DIRECTED RF: 0 cyanocobalamin (vitamin B-12) 1,000 mcg Capsule 1,000 mcg PO DAILY RF: 0 Discharge Instructions Instructions: Pediculosis (DC), Acute Diarrhea (GEN) Stand Alone Forms: Nursing Discharge Form Referrals: Dharmesh Huizar [Primary Care Provider] - Activity:: Activity as Tolerated Equipment/Supplies:: No Equipment Needed Diet:: As Tolerated Discharge Orders Discharge Orders: Discharge Order (Routine); Ordered 09/15/18 Ordered By: Brenda Bassett Exam Narrative Exam Narrative: General: 73 yo female. Pleasant and cooperative. A&Ox3 , NAD. HEENT: NC/AT. Conjunctiva clear, sclera non-icteric. EOMI, MMM. Oropharynx clear. Heart: RRR, tachycardic Lungs: Chest expansion symmetrical, respirations unlabored. Scattered expiratory wheezing, overall diminished. Abdomen: Soft, nontender, nondistended Extremities: no e/c/c BLE's. DS: Data Vitals/I&O Vitals and I&O: Vital Signs Temperature 36.5 C 09/15/18 07:35 Temperature Source Tympanic 09/15/18 07:35 Pulse 78 09/15/18 07:35 Pulse Rhythm Regular 09/15/18 07:35 Pulse 97 H 09/10/18 20:00 Respiratory Rate 18 09/15/18 07:35 Respiratory Effort Non-Labored 09/15/18 07:35 Respiratory Depth Normal 09/15/18 07:35 Respiratory Pattern Normal 09/15/18 07:35 Blood Pressure 180/90 H 09/15/18 07:35 Blood Pressure Mean 74 09/10/18 19:46 Pulse Oximetry 95 09/15/18 07:35 Oxygen Delivery Method Room Air 09/15/18 07:35 Oxygen Flow Rate 0 09/15/18 07:35 Pain Level 7 09/15/18 07:39 Comment 09/14/18 11:27 Intake & Output 09/14/18 09/14/18 09/15/18 11:59 23:59 11:59 Intake Total 1063 / 1063 1183.335 / 1183.335 460 / 460 Output Total 1250 / 1250 Balance -187 / -187 1183.335 / 1183.335 460 / 460 Weight 55.3 kg 57.8 kg Intake: IV 400 / 400 943.335 / 943.335 460 / 460 Oral 663 / 663 240 / 240 Output: Urine 1250 / 1250 Other: Urine Color Straw Urine Appearance Clear Urine Odor Normal Comment per pT x2 pt voiding independently in the bathroom Void x1 per Pt. Stool Size Moderate Small Stool Characteristics Soft Soft Formed Brown Voiding Methods Toilet Toilet Toilet Labs on day of discharge: Labs from last 24 hours 09/15/18 09/15/18 06:30 06:30 WBC 11.76 H RBC 3.30 L Hgb 9.8 L Hct 31.3 L MCV 94.8 MCH 29.7 MCHC 31.3 L RDW 14.5 Plt Count 359 MPV 9.7 Immature Gran % 0.8 Neutrophils % 71.5 Lymphocytes % 11.6 Monocytes % 14.5 Eosinophils % 1.5 Basophils % 0.1 Absolute Neutrophils 8.41 H Absolute Lymphocytes 1.36 Absolute Monocytes 1.71 H Absolute Eosinophils 0.18 Absolute Basophils 0.01 Sodium 142 Potassium 3.7 Chloride 106 Carbon Dioxide 29.3 Anion Gap 6.7 BUN 12 Creatinine 0.75 Estimated GFR/1.73 m2 >= 60.00 Glucose 91 D Calcium 8.3 L Magnesium 2.0 Preliminary micro results at discharge 09/10/18 15:45 Blood Culture - Preliminary Blood NO GROWTH 96 HOURS 09/10/18 14:27 Blood Culture - Preliminary Blood NO GROWTH 96 HOURS PFS ASCVD (arteriosclerotic cardiovascular disease) Alcohol abuse COPD (chronic obstructive pulmonary disease) Essential hypertension Non-ST elevation [place] (NSTEMI) PVD (peripheral vascular disease) Peptic reflux disease SVT (supraventricular tachycardia) Smoker Viral hepatitis C Vitamin D deficiency Family History Mother Essential hypertension Personal history of malignant neoplasm Heart disease Hyperlipidemia Cerebrovascular accident Father Personal history of malignant neoplasm Brother Personal history of malignant neoplasm Grandfather No problems noted. Grandfather No problems noted. Grandmother No problems noted. Grandmother No problems noted. History of angioplasty of peripheral vessel (Resolved 08/20/18) PROCEDURES Family History Mother Essential hypertension Personal history of malignant neoplasm Heart disease Hyperlipidemia Cerebrovascular accident Father Personal history of malignant neoplasm Brother Personal history of malignant neoplasm Grandfather No problems noted. Grandfather No problems noted. Grandmother No problems noted. Grandmother No problems noted. Medical History ASCVD (arteriosclerotic cardiovascular disease) Alcohol abuse COPD (chronic obstructive pulmonary disease) Essential hypertension Non-ST elevation [place] (NSTEMI) PVD (peripheral vascular disease) Peptic reflux disease SVT (supraventricular tachycardia) Smoker Viral hepatitis C Vitamin D deficiency Social History Smoking/Tobacco Use Status: Former Tobacco Use Surgical History History of angioplasty of peripheral vessel (Resolved 08/20/18) PROCEDURES Social History Smoking/Tobacco Use Status: Former Tobacco Use
--- NOTE | 2018-09-15 11:14 | PDOC.CMDIS ---
- If Service Date Differs Date of service: 09/15/18 Time of Service: 11:14 LACE Index Scoring Tool - Questions: Length of Stay (in days): 4 - 6 Acuity (Admit via E.D.?): Yes Comorbidities: Previous M.I., Chronic Pulmonary Disease E.D. Visits: 4 - Answers: Total Score: 14 Risk of Readmission: High Risk Care Management Discharge Reason for Hospitalization: Diarrhea Discharge Plan: Joselin will discharge home when medically ready per MD. Anticipate patient will discharge with no services and follow up with her PCP. Joselin will transport via private vehicle with her daughter in , . Patient/Family Education Needs: Discharge education, any limitations, and follow up plan of care. Ask Me Three discussion.
[2018-09-15] MEDS: Bacitracin 1 PACKET (12:00)
== END 2018-09-15 13:05 | disposition home or self-care (01) | DRG 392 ==
LOC: ER 19:38 → MS 20:13
PROVIDERS: Internal Medicine; Admitting Provider Internal Medicine; Emergency Provider Student in an Organized Health Care Education/Training Program; PCP Family Medicine; Visit Provider Internal Medicine
DX: K52.9 Noninfective gastroenteritis and colitis, unspecified; I47.1 Supraventricular tachycardia; I73.9 Peripheral vascular disease, unspecified; E78.5 Hyperlipidemia, unspecified; D50.9 Iron deficiency anemia, unspecified; F32.9 Major depressive disorder, single episode, unspecified; Z87.891 Personal history of nicotine dependence
CPT/HCPCS: 36415; 36569; 71250; 80048; 80053; 83690; 87040; 87329; 93005; 94640; 96361; 96365; 96366; 96367; 96368; 96375; 97161; 99220; 99232; 99233; 99239; 99285; 74176; 81003; 81015; 83605; 83735; 84484; 85025; 85610; 85730; 87086; 87324; 93010; 99226; G0378; J0744; J2405; J3475; J3480; J3490; J7512

== ENCOUNTER 2018-09-22 06:13 | Inpatient (IN) | payer MEDICARE, MEDICAID, SELFPAY ==
[2018-09-22] VITALS (34 sets, daily range): BP systolic 98–209; BP diastolic 54–116; PULSE 60–125; RESP 14–32; TEMP 36.4–38; O2SAT 80–97
--- NOTE | 2018-09-22 06:41 | DI.RAD_ITS ---
SYMPTOM/DIAGNOSIS: COUGH PA AND LATERAL CHEST: Comparison is made with 13 Feb 2018. The heart size is normal. The aorta is mildly tortuous The lungs appear hyperinflated. The lungs appear clear. A left subclavian artery stent is again noted. There are old left upper rib fractures. IMPRESSION: COPD, no acute abnormality.
[2018-09-22] MEDS: Lactated Ringers 1,000 ML 1000 ML IV (07:15)
--- NOTE | 2018-09-22 07:24 | ED.GENADUL_ITS ---
Discharge Plan Disposition Patient Disposition: [facility] INPATIENT Discharge Details Chief Complaint: Nausea/Vomit/Diar Clinical Impression: Acute hypokalemia, Hypomagnesemia, Diarrhea Reason For Visit: GM Primary Care Provider: Dharmesh Huizar ED Provider: Evaristo Burns Home Meds and New Rx's Prescriptions: No Action mirtazapine 30 MG tablet 30 mg PO HS Qty: 90 RF: 3 fluticasone [Flovent HFA] 12 GM HFA aerosol inhaler 1 puff Inhalation BID Qty: 3 RF: 3 ferrous sulfate [Feosol] 325 MG tablet 325 mg PO BID Qty: 60 RF: 3 PROVENTIL HFA 18 GM HFA.AER.AD 1 - 2 puff Inhalation Q6H PRN Qty: 3 RF: 3 quetiapine 25 MG tablet 12.5 mg PO DAILY Qty: 45 RF: 3 potassium chloride 20 MEQ tablet extended release 20 meq PO DAILY Qty: 90 RF: 3 metoprolol succinate 100 MG tablet extended release 24 hr 100 mg PO DAILY Qty: 90 RF: 3 clopidogrel 75 MG tablet 75 mg PO DAILY Qty: 90 RF: 3 pantoprazole 40 MG tablet,delayed release (DR/EC) 40 mg PO BID Qty: 60 RF: 11 apixaban [Eliquis] 5 MG tablet 5 mg PO BID Qty: 60 RF: 11 rosuvastatin [Crestor] 40 mg tablet 40 mg PO DAILY Qty: 90 RF: 3 losartan 50 mg Tablet 100 mg PO DAILY RF: 0 chlorthalidone 25 mg Tablet 25 mg PO DAILY RF: 0 cholecalciferol (vitamin D3) 50,000 unit Capsule 50,000 unit PO DIRECTED RF: 0 cyanocobalamin (vitamin B-12) 1,000 mcg Capsule 1,000 mcg PO DAILY RF: 0 lidocaine [Lidoderm] 5 % Adhesive Patch,Medicated 1 patch Topical HS 30 Days Qty: 30 RF: 0 magnesium chloride [Mag 64] 64 mg Tablet,Delayed Release (Dr/Ec) 64 mg PO BID 30 Days Qty: 60 RF: 0 Patch Removal [Remove Patch] 1 ea Topical DAILY@1000 Qty: 0 RF: 0 metronidazole 500 mg Tablet 500 mg PO TID RF: 0 ciprofloxacin HCl 500 mg Tablet 500 mg PO BID RF: 0 Medical Decision Making 7:00 --73-year-old female recently discharged after being treated for colitis, here with nausea, diarrhea and generalized weakness. Abdominal exam benign. Patient tachycardic and appears dehydrated on initial exam. Plan to continue normal saline liter from EMS and will give an additional liter of LR. Consider C. difficile. I will send C. difficile screen on her stool sample. ECG reviewed and interpreted by me: Sinus tachycardia 112 bpm, PACs noted, I disagree with computer read of atrial flutter/fibrillation. Consider atypical presentation of ACS. Will check trop. Patient has had recent cough. She is saturating well in no respiratory distress and is afebrile. Will check chest x-ray. 8:06 -- Hypomag noted. Moderate hypokalemia noted. Will give mag IV 2g and then replace potassium Patient reassessed and remains tachycardic despite 2L crystaloid. Will continue IVF. Plan to admit. Hospitalist paged. 8:12 -- Spoke with Dr. Stephen who will admit. Discussed case presentation, diagnostics and ED treatment. Requests bridging orders to floor on telemetry. cxr pending at time of admission. cdiff negative. HPI General Mode of arrival: EMS . Date/Time Provider Initiated Documentation: 09/22/18 06:23 . Limitations to Documentation: no limitations . Information obtained by: patient and EMS . HPI Narrative: 73-year-old female with history of COPD, hypertension, coronary artery disease, PAD, hyperlipidemia, lung cancer status post lobectomy, PSVT, GERD, recently admitted for diarrhea and colitis, discharged on Cipro and Flagyl , presents today with chief complaint of nausea. Patient notes severe nausea with no modifiers over the past 24 hours. She has associated loose stool over this time. She notes she feels sick to her stomach. She denies pain. She does have associated generalized weakness. She also notes some cough. No fevers. Patient notes she has not eaten or drinking anything for a couple days and has not taken her medications -including prescribed antibiotics - for 2 days. Related Data Home Medications Medication Instructions Recorded Confirmed fluticasone [Flovent HFA] 1 puff INHALATION BID #3 inhaler 09/12/17 09/22/18 mirtazapine 30 mg PO HS #90 tab-cap 09/12/17 09/22/18 ferrous sulfate [Feosol] 325 mg PO BID #60 tab-cap 09/16/17 09/22/18 quetiapine 12.5 mg PO DAILY #45 tab-cap 12/03/17 09/22/18 potassium chloride 20 meq PO DAILY #90 tab-cap 01/16/18 09/22/18 apixaban [Eliquis] 5 mg PO BID #60 tab 03/31/18 09/22/18 clopidogrel 75 mg PO DAILY #90 tab-cap 03/31/18 09/22/18 metoprolol succinate 100 mg PO DAILY #90 tab-cap 03/31/18 09/22/18 pantoprazole 40 mg PO BID #60 tab-cap 03/31/18 09/22/18 rosuvastatin 40 mg tablet 40 mg PO DAILY #90 tab-cap 08/13/18 09/22/18 chlorthalidone 25 mg PO DAILY 09/10/18 09/10/18 cholecalciferol (vitamin D3) 50,000 unit PO DIRECTED 09/10/18 09/22/18 cyanocobalamin (vitamin B-12) 1,000 mcg PO DAILY 09/10/18 09/22/18 losartan 100 mg PO DAILY 09/10/18 09/22/18 Patch Removal [Remove Patch] 1 ea TOPICAL DAILY@1000 #0 09/15/18 09/22/18 lidocaine [Lidoderm] 1 patch TOPICAL HS 30 Days #30 each 09/15/18 09/22/18 magnesium chloride [Mag 64] 64 mg PO BID 30 Days #60 tab 09/15/18 09/22/18 ciprofloxacin HCl 500 mg PO BID 09/22/18 09/22/18 metronidazole 500 mg PO TID 09/22/18 09/22/18 Previous Rx's Medication Instructions Recorded fluticasone [Flovent HFA] 1 puff INHALATION BID #3 inhaler 09/12/17 mirtazapine 30 mg PO HS #90 tab-cap 09/12/17 ferrous sulfate [Feosol] 325 mg PO BID #60 tab-cap 09/16/17 quetiapine 12.5 mg PO DAILY #45 tab-cap 12/03/17 potassium chloride 20 meq PO DAILY #90 tab-cap 01/16/18 apixaban [Eliquis] 5 mg PO BID #60 tab 03/31/18 clopidogrel 75 mg PO DAILY #90 tab-cap 03/31/18 metoprolol succinate 100 mg PO DAILY #90 tab-cap 03/31/18 pantoprazole 40 mg PO BID #60 tab-cap 03/31/18 rosuvastatin 40 mg tablet 40 mg PO DAILY #90 tab-cap 08/13/18 Patch Removal [Remove Patch] 1 ea TOPICAL DAILY@1000 #0 09/15/18 lidocaine [Lidoderm] 1 patch TOPICAL HS 30 Days #30 each 09/15/18 magnesium chloride [Mag 64] 64 mg PO BID 30 Days #60 tab 09/15/18 Allergies Allergy/AdvReac Type Severity Reaction Status Date / Time chlorthalidone Allergy Intermediate chest pain Unverified 09/22/18 06:29 lactose AdvReac Severe DIARRHEA Unverified 09/22/18 06:29 mold, mildew AdvReac Unknown ?cough Uncoded 09/22/18 06:29 General Stated Complaint: Nausea/Vomit/Diar ENZO: 3 Review of Systems Review of Systems All systems reviewed & are unremarkable except as noted in HPI and below PFSH ASCVD (arteriosclerotic cardiovascular disease) Alcohol abuse COPD (chronic obstructive pulmonary disease) Essential hypertension Non-ST elevation [place] (NSTEMI) PVD (peripheral vascular disease) Peptic reflux disease SVT (supraventricular tachycardia) Smoker Viral hepatitis C Vitamin D deficiency Family History Mother Essential hypertension Personal history of malignant neoplasm Heart disease Hyperlipidemia Stroke Father Personal history of malignant neoplasm Brother Personal history of malignant neoplasm Grandfather No problems noted. Grandfather No problems noted. Grandmother No problems noted. Grandmother No problems noted. History of angioplasty of peripheral vessel (Resolved 08/20/18) PROCEDURES Family History Mother Essential hypertension Personal history of malignant neoplasm Heart disease Hyperlipidemia Stroke Father Personal history of malignant neoplasm Brother Personal history of malignant neoplasm Grandfather No problems noted. Grandfather No problems noted. Grandmother No problems noted. Grandmother No problems noted. Medical History ASCVD (arteriosclerotic cardiovascular disease) Alcohol abuse COPD (chronic obstructive pulmonary disease) Essential hypertension Non-ST elevation [place] (NSTEMI) PVD (peripheral vascular disease) Peptic reflux disease SVT (supraventricular tachycardia) Smoker Viral hepatitis C Vitamin D deficiency Social History Smoking/Tobacco Use Status: Former Tobacco Use Surgical History History of angioplasty of peripheral vessel (Resolved 08/20/18) PROCEDURES Social History Smoking/Tobacco Use Status: Former Tobacco Use Exam Const General: cooperative and no acute distress HENMT Head: normocephalic Mouth: mucous membranes dry Eyes Conjunctivae: normal conjunctivae Sclera: normal sclerae Neck Neck: trachea midline Resp Auscultation: no rales, rhonchi lower bilaterally and no wheezes Cardio Jugular venous pressure: no JVD Rate: regular rate and not tachycardic Rhythm: regular rhythm GI Palpation: soft, not firm, no guarding, no masses, not rigid and nontender Skin General skin exam: no rashes or lesions noted Neuro General: alert, awake, oriented x3 and tone normal Extrem General: no edema Psych Appearance: grossly normal Mental Status: mental status grossly normal Speech and Movement: speech and movement normal Course Vital Signs Temperature 36.6 C 09/22/18 06:22 Pulse 116 H 09/22/18 06:22 Respiratory Rate 32 H 09/22/18 06:22 Blood Pressure 187/99 H 09/22/18 06:22 Pulse Oximetry 95 09/22/18 06:22 Temperature 36.6 C 09/22/18 06:22 Temperature Source Skin 09/22/18 06:22 Pulse 116 H 09/22/18 06:22 Respiratory Rate 32 H 09/22/18 06:22 Respiratory Effort Non-Labored 09/22/18 06:27 Blood Pressure 187/99 H 09/22/18 06:22 Pulse Oximetry 95 09/22/18 06:22 Oxygen Delivery Method Room Air 09/22/18 06:22 Oxygen Flow Rate 0 09/22/18 06:22
[2018-09-22 07:27] LABS: Abs Immature Grans 0.04 k/cumm (0.0-0.09); Absolute Basophil Count 0.03 k/cumm (0.0-0.2); Absolute Eosinophil Count 0.15 k/cumm (0.0-0.7); Absolute Lymphocyte Count 1.06 k/cumm (1.2-3.4); Absolute Neutrophil Count 7.52 k/cumm (1.2-6.7); Basophils % 0.3; Eosinophils % 1.4; HCT 33.1 % (36.0-46.0); HGB 10.9 g/dL (12.0-15.5); Immature Grans % 0.4; Lymphocytes % 9.9; Mean Corp. HGB Concentration 32.9 g/dL (32.0-36.0); Mean Corpuscular Hemoglobin 29.7 pg (27.0-33.0); Mean Corpuscular Volume 90.2 fL (80-95); Mean Platelet Volume 9.4 fL (8.0-11.0); Monocytes % 17.8; Neutrophils % 70.2; Platelet Count 327 x1000/uL (130-400); RBC 3.67 m/cumm (4.00-5.20); RBC Distribution Width 13.4 % (11.7-14.6)
[2018-09-22 07:43] LABS: ALT 16 U/L (12-78); AST 19 U/L (15-37); Albumin 2.8 g/dL (3.4-5.0); Alkaline Phosphatase 59 U/L (46-116); Anion Gap 12.6 mmol/L (3-11); BUN 4 mg/dL (7-18); Bilirubin, Total 0.4 mg/dL (0.2-1.0); CO2 24.4 mmol/L (21.0-32.0); CREATININE 0.68 mg/dL (0.55-1.02); Calcium 7.8 mg/dL (8.5-10.1); Chloride 99 mmol/L (98-107); Glucose 132 mg/dL (70-100); Magnesium 1.5 mg/dL (1.8-2.4); Sodium 136 mmol/L (136-145); Total Protein 6.7 g/dL (6.4-8.2); Troponin I 0.06 ng/mL (0.00-0.06)
[2018-09-22 07:48] LABS: Potassium 2.6 mmol/L (3.5-5.1)
[2018-09-22 08:00] LABS: Diff Comment Diff Reviewed; RBC Morphology Normal
[2018-09-22] MEDS: Normal Saline 1,000 ML 200 ML IV (08:34)
[2018-09-22] MEDS: MAGNESIUM SULFATE 2 GM/50 ML BAG IVPB (08:35)
[2018-09-22] MEDS: POTASSIUM CHLORIDE 20 MEQ/100 ML BAG 50 MEQ IVPB (10:58)
[2018-09-22] MEDS: POTASSIUM CHLORIDE/D5-0.9%NACL 1,000 ML 125 MEQ IV (14:08)
[2018-09-22] MEDS: Potassium Chloride 20 MEQ TABCR 40 MEQ PO ×2 (14:09→20:50)
[2018-09-22] MEDS: Acetaminophen 325 MG TAB PO (14:09)
[2018-09-22] MEDS: Normal Saline Flush 10 ML SYR IVP (14:38)
[2018-09-22] MEDS: Ondansetron 4 MG/2 ML VIAL IVP (14:38)
[2018-09-22] MEDS: Chlorthalidone 25 MG TAB PO (15:24)
[2018-09-22] MEDS: Losartan 50 MG TAB 100 MG PO (15:25)
[2018-09-22] MEDS: ROSUVASTATIN 20 MG TAB 40 MG PO (15:25)
[2018-09-22] MEDS: Metoprolol CR 100 MG TABCR PO (15:25)
[2018-09-22] MEDS: Clopidogrel 75 MG TAB PO (15:33)
[2018-09-22] MEDS: QUEtiapine 25 MG TAB 12.5 MG PO (15:33)
[2018-09-22] MEDS: Mylanta Suspension 30 ML CUP PO (15:36)
--- NOTE | 2018-09-22 15:43 | W.PM.HP.N ---
Date of service: 09/22/18 Time of Service: 15:44 Assessment and Plan (1) Diarrhea: Current visit: Yes Status: Acute Recent CT with mild proctocolitis. C. Diff negative and stool cultures at that time pending. Appeared to improve with antibiotic therapy and IVFs. Current presentation appears to be slightly different in that the patient is not ill appearing, lacking leukocytosis, Lactic Acidosis, or evidence of significant dehydration. Given recent antibiotic therapy will check C.Diff by PCR despite negative current result. Last stool studies negative for infection. Potential for ischemic bowel particularly w history of PAD and abrupt stoppage of her Plavix and Apixaban (Patient intolerant at home), but current labs without evidence of significant acidosis or anion gap, and exam inconsistent with diagnosis. Surgery consulted for potential Flex Sig vs. Colonoscopy. Continue IVFs, anti-emetics. (2) Pediculosis: Current visit: Yes Status: Acute Head lice noted by nursing. S/p treatment with topical Lindane - contact precautions in place. (3) Coronary artery disease: Current visit: No Status: Chronic Noted. Patient with a [facility] 12/2015 showing nonobstructive CAD (LM 10%, LAD long prox 30% calcified, LCX prox 20%, RCA prox and mid calcified 40%). Asymptomatic with current troponin negative. Continue Clopidogrel, BB, high potency statin. Also on Apixiban given underlying Afib. (4) PVD (peripheral vascular disease): Current visit: Yes Status: Chronic Continue Plavix, statin. Also on BB and ARB. (5) Atrial fibrillation: Current visit: Yes Status: Chronic Current rate is uncontrolled as patient has been off her medications for 2-3 days. Reinitiate BB, maintain on telemetry, and continue anticoagulation with apixaban. (6) Chronic obstructive lung disease: Current visit: Yes Status: Chronic Noted. Appears quiescent. Duonebs prn. (7) Essential hypertension: Current visit: Yes Status: Chronic Elevated due to noncompliance with home medication due to nausea. Reinitiate ARB, BB and evaluate. (8) Hyperlipidemia: Current visit: Yes Status: Chronic Continue Rosuvastatin. (9) DVT prophylaxis: Current visit: Yes Status: Acute On anticoagulation with Apixaban. PPI therapy as well given history of PUD and GERD. History of Present Illness Chief Complaint: Diarrhea, Nausea Narrative: 73 yr old woman with just recently hospitalized on 09/10 to 09/15 at [facility] and treated for colitis, presents to [facility] Emergency Department today with complaint of recurrence of diarrhea and nausea. Ms. Arrington has a history significant for severe PAD, Non-obstructive CAD, COPD, HTN, HCV, lung CA s/p lobectomy, PSVT, NSTEMI, PUD, GERD, and former alcohol abuse. She had previously presented to the ED in late August with 3 days of nausea, vomiting and diarrhea, along with crampy abdominal pain. No associated fevers were reported at that time. Evaluation at that time was relevant for diffuse abdominal tenderness, elevated WBC, Acute Kidney Injury, mildly elevated lactate, and tachycardia. A subsequent CT of her abdomen and pelvis suggested a rectosigmoid colitis. Of note, the patient also had evidence of some abnormal lymph nodes in the mediastinum, right hilum, and Left Axilla raising the possibility of neoplastic disease. Following her admission she was started on antibiotic therapy. Stool was negative for C. diff, and stool culture were negative as well. As her symptoms improved significantly she was discharged to complete her antibiotic course. The patient then reports recurrence of diarrhea with one day of antibiotics left at home, approximately 3 days prior to her presentation here. She reports only a few bouts daily of diarrhea, but describes it as 'liquid'. She is referred for admission for further evaluation and treatment. Review of Systems Review of Systems All systems reviewed & are unremarkable except as noted in HPI and below PFSH ASCVD (arteriosclerotic cardiovascular disease) Alcohol abuse COPD (chronic obstructive pulmonary disease) Essential hypertension Non-ST elevation [place] (NSTEMI) PVD (peripheral vascular disease) Peptic reflux disease SVT (supraventricular tachycardia) Smoker Viral hepatitis C Vitamin D deficiency Family History Mother Essential hypertension Personal history of malignant neoplasm Heart disease Hyperlipidemia Stroke Father Personal history of malignant neoplasm Brother Personal history of malignant neoplasm Grandfather No problems noted. Grandfather No problems noted. Grandmother No problems noted. Grandmother No problems noted. History of angioplasty of peripheral vessel (Resolved 08/20/18) PROCEDURES Family History Mother Essential hypertension Personal history of malignant neoplasm Heart disease Hyperlipidemia Stroke Father Personal history of malignant neoplasm Brother Personal history of malignant neoplasm Grandfather No problems noted. Grandfather No problems noted. Grandmother No problems noted. Grandmother No problems noted. Medical History ASCVD (arteriosclerotic cardiovascular disease) Alcohol abuse COPD (chronic obstructive pulmonary disease) Essential hypertension Non-ST elevation [place] (NSTEMI) PVD (peripheral vascular disease) Peptic reflux disease SVT (supraventricular tachycardia) Smoker Viral hepatitis C Vitamin D deficiency Social History Smoking/Tobacco Use Status: Former Tobacco Use Surgical History History of angioplasty of peripheral vessel (Resolved 08/20/18) PROCEDURES Social History Smoking/Tobacco Use Status: Former Tobacco Use Meds Home Medications Medication Instructions Recorded Confirmed Type fluticasone [Flovent HFA] 1 puff INHALATION BID #3 inhaler 09/12/17 09/22/18 Rx mirtazapine 30 mg PO HS #90 tab-cap 09/12/17 09/22/18 Rx Proventil Hfa 1 - 2 puff INHALATION Q6H PRN #3 09/16/17 09/22/18 Clinic inhaler ferrous sulfate [Feosol] 325 mg PO BID #60 tab-cap 09/16/17 09/22/18 Rx quetiapine 12.5 mg PO DAILY #45 tab-cap 12/03/17 09/22/18 Rx potassium chloride 20 meq PO DAILY #90 tab-cap 01/16/18 09/22/18 Rx apixaban [Eliquis] 5 mg PO BID #60 tab 03/31/18 09/22/18 Rx clopidogrel 75 mg PO DAILY #90 tab-cap 03/31/18 09/22/18 Rx metoprolol succinate 100 mg PO DAILY #90 tab-cap 03/31/18 09/22/18 Rx pantoprazole 40 mg PO BID #60 tab-cap 03/31/18 09/22/18 Rx rosuvastatin 40 mg tablet 40 mg PO DAILY #90 tab-cap 08/13/18 09/22/18 Rx chlorthalidone 25 mg PO DAILY 09/10/18 09/10/18 History cholecalciferol (vitamin D3) 50,000 unit PO DIRECTED 09/10/18 09/22/18 History cyanocobalamin (vitamin B-12) 1,000 mcg PO DAILY 09/10/18 09/22/18 History losartan 100 mg PO DAILY 09/10/18 09/22/18 History Patch Removal [Remove Patch] 1 ea TOPICAL DAILY@1000 #0 09/15/18 09/22/18 Rx lidocaine [Lidoderm] 1 patch TOPICAL HS 30 Days #30 each 09/15/18 09/22/18 Rx magnesium chloride [Mag 64] 64 mg PO BID 30 Days #60 tab 09/15/18 09/22/18 Rx ciprofloxacin HCl 500 mg PO BID 09/22/18 09/22/18 History metronidazole 500 mg PO TID 09/22/18 09/22/18 History Allergies Allergy/AdvReac Type Severity Reaction Status Date / Time chlorthalidone Allergy Intermediate chest pain Unverified 09/22/18 06:29 lactose AdvReac Severe DIARRHEA Unverified 09/22/18 06:29 mold, mildew AdvReac Unknown ?cough Uncoded 09/22/18 06:29 Exam Narrative Exam Narrative: General: Patient appears comfortable, AAOX3, NAD Neck: Supple CV: Irregular and tachycardic, S1S2, No rubs, murmurs, or gallops. Pulmonary: Clear to auscultation bilaterally, no crackles, wheezing, or rhonchi Abdomen: + Bowel Sounds, soft, nontender, nondistended at time of exam. Vascular: No lower extremity edema Neurologic: CN II-XII grossly intact. No focal deficits. Psych: Normal mood and affect. Results Imaging Chest x-ray: report reviewed Additional studies: Exam(s) a RAD:XR chest 2V PA & lateral SYMPTOM/DIAGNOSIS: COUGH PA AND LATERAL CHEST: Comparison is made with 13 Feb 2018. The heart size is normal. The aorta is mildly tortuous The lungs appear hyperinflated. The lungs appear clear. A left subclavian artery stent is again noted. There are old left upper rib fractures. IMPRESSION: COPD, no acute abnormality. Labs : 09/22/18 07:15 09/22/18 07:15 Laboratory Results - last 24 hr 09/22/18 09/22/18 07:15 07:15 WBC 10.70 RBC 3.67 L Hgb 10.9 L Hct 33.1 L MCV 90.2 MCH 29.7 MCHC 32.9 RDW 13.4 Plt Count 327 MPV 9.4 Immature Gran % 0.4 Neutrophils % 70.2 Lymphocytes % 9.9 Monocytes % 17.8 Eosinophils % 1.4 Basophils % 0.3 Absolute Neutrophils 7.52 H Absolute Lymphocytes 1.06 L Absolute Monocytes 1.90 H Absolute Eosinophils 0.15 Absolute Basophils 0.03 Differential Comment Diff reviewed RBC Morphology Normal Sodium 136 Potassium 2.6 L* Chloride 99 Carbon Dioxide 24.4 Anion Gap 12.6 H BUN 4 L Creatinine 0.68 Estimated GFR/1.73 m2 >= 60.00 Glucose 132 H Calcium 7.8 L Magnesium 1.5 L Total Bilirubin 0.4 AST 19 ALT 16 Alkaline Phosphatase 59 Troponin I 0.06 Total Protein 6.7 Albumin 2.8 L Last Vital Signs Temp 37.2 C 09/22/18 13:45 Pulse 117 H 09/22/18 15:38 Resp 17 09/22/18 13:45 BP 191/116 H 09/22/18 13:45 Pulse Ox 97 09/22/18 13:45
--- NOTE | 2018-09-22 15:57 | SCONE_ITS ---
Date of service: 09/22/18 Time of Service: 15:55 Assessment and Plan (1) Diarrhea: Current visit: Yes Status: Acute A\\ Mrs. Arrington is a pleasant 73 year old female who was recently treated for presumed infectious colitis and was re-admitted for mild nausea and continued liquid stools. She is only having two BM's per day. No blood. This may be post-infectious diarrhea but other diagnosis could be inflammatory vs ischemic colitis. P\\ Flexible sigmoidoscopy tomorrow with biopsies to rule out inflammatory vs ischemic colitis. Risks, benefits and complications were reviewed with the patient. Complications include but are not limited to bleeding, pain, perforation, and adverse reaction to the medications. Questions were entertained and answered to their satisfaction and they wished to proceed. No guarantees were given or implied. History of Present Illness Chief Complaint: Diarrhea, colitis Narrative: I was asked by Dr. Stephen to see this 73 yr old woman who was readmitted to [facility] after recently being hospitalized on 09/10 to 09/15 at [facility] and treated for colitis. She presented to [facility] Emergency Department today with complaint of recurrence of diarrhea and nausea. Ms. Arrington has a history significant for severe PAD, Non-obstructive CAD, COPD, HTN, HCV, lung CA s/p lobectomy, PSVT, NSTEMI, PUD, GERD, and former alcohol abuse. She had previously presented to the ED in late August with 3 days of nausea, vomiting and diarrhea, along with crampy abdominal pain. No associated fevers were reported at that time. Evaluation at that time was relevant for diffuse abdominal tenderness, elevated WBC, Acute Kidney Injury, mildly elevated lactate, and tachycardia. A subsequent CT of her abdomen and pelvis suggested a rectosigmoid colitis. Of note, the patient also had evidence of some abnormal lymph nodes in the mediastinum, right hilum, and Left Axilla raising the possibility of neoplastic disease. On her prior admission she was started on antibiotic therapy. Stool was negative for C. diff, and stool culture were negative as well. As her symptoms improved significantly she was discharged to complete her antibiotic course. The patient then reports recurrence of diarrhea with one day of antibiotics left at home, . Her blood cultures are also pending. She has received IVFs as well. Today she reports vast improvement in her symptoms - her leukocytosis has resolved, as has her GLORIA, and her diarrhea has resolved as well. She is tolerating her diet but has some mild but continued nausea associated with it. Consults Consult date: 09/22/18 Requesting physician: Seth Stephen Review of Systems Constitutional Reports system reviewed and no additional complaints, except as docu and Denies fever(s) Cardiovascular Reports system reviewed and no additional complaints, except as docu Respiratory Reports system reviewed and no additional complaints, except as docu Gastrointestinal Reports as per HPI Genitourinary Reports system reviewed and no additional complaints, except as docu PFSH Vitamin D deficiency (Chronic 09/07/14) Vitamin B 12 deficiency (Chronic 09/10/14) Viral hepatitis C (Chronic) SVT (supraventricular tachycardia) (Chronic 01/10/16) Peptic reflux disease (Chronic) Hyperlipidemia (Chronic) Essential hypertension (Chronic 07/27/13) Chronic obstructive lung disease (Chronic) ASCVD (arteriosclerotic cardiovascular disease) (Chronic) Anemia (Chronic) PVD (peripheral vascular disease) (Chronic) Atrial fibrillation (Chronic) ASCVD (arteriosclerotic cardiovascular disease) Alcohol abuse COPD (chronic obstructive pulmonary disease) Essential hypertension Non-ST elevation [place] (NSTEMI) PVD (peripheral vascular disease) Peptic reflux disease SVT (supraventricular tachycardia) Smoker Viral hepatitis C Vitamin D deficiency Family History Mother Essential hypertension Personal history of malignant neoplasm Heart disease Hyperlipidemia Stroke Father Personal history of malignant neoplasm Brother Personal history of malignant neoplasm Grandfather No problems noted. Grandfather No problems noted. Grandmother No problems noted. Grandmother No problems noted. History of angioplasty of peripheral vessel (Resolved 08/20/18) PROCEDURES Family History Mother Essential hypertension Personal history of malignant neoplasm Heart disease Hyperlipidemia Stroke Father Personal history of malignant neoplasm Brother Personal history of malignant neoplasm Grandfather No problems noted. Grandfather No problems noted. Grandmother No problems noted. Grandmother No problems noted. Medical History ASCVD (arteriosclerotic cardiovascular disease) Alcohol abuse COPD (chronic obstructive pulmonary disease) Essential hypertension Non-ST elevation [place] (NSTEMI) PVD (peripheral vascular disease) Peptic reflux disease SVT (supraventricular tachycardia) Smoker Viral hepatitis C Vitamin D deficiency Social History Smoking/Tobacco Use Status: Former Tobacco Use Surgical History History of angioplasty of peripheral vessel (Resolved 08/20/18) PROCEDURES Social History Smoking/Tobacco Use Status: Former Tobacco Use Exam Const General: cooperative, healthy appearing, comfortable and no acute distress Eyes Pupils: PERRL Resp Effort & Inspection: normal respiratory effort Auscultation: clear to auscultation bilaterally Cardio Rate: regular rate Rhythm: regular rhythm Heart Sounds: no gallops, no murmurs and no rubs GI Inspection: normal to inspection Palpation: soft, no hepatosplenomegaly and tender (mild suprapubic tenderness. No guarding or rebound) Auscultation: normal bowel sounds Rectal Exam - female: deferred Results Last Vital Signs Temp 99.0 F 09/22/18 13:45 Pulse 117 H 09/22/18 15:38 Resp 17 09/22/18 13:45 BP 191/116 H 09/22/18 13:45 Pulse Ox 97 09/22/18 13:45 Labs : 09/22/18 07:15 09/22/18 07:15 Laboratory Results - last 24 hr 09/22/18 09/22/18 07:15 07:15 WBC 10.70 RBC 3.67 L Hgb 10.9 L Hct 33.1 L MCV 90.2 MCH 29.7 MCHC 32.9 RDW 13.4 Plt Count 327 MPV 9.4 Immature Gran % 0.4 Neutrophils % 70.2 Lymphocytes % 9.9 Monocytes % 17.8 Eosinophils % 1.4 Basophils % 0.3 Absolute Neutrophils 7.52 H Absolute Lymphocytes 1.06 L Absolute Monocytes 1.90 H Absolute Eosinophils 0.15 Absolute Basophils 0.03 Differential Comment Diff reviewed RBC Morphology Normal Sodium 136 Potassium 2.6 L* Chloride 99 Carbon Dioxide 24.4 Anion Gap 12.6 H BUN 4 L Creatinine 0.68 Estimated GFR/1.73 m2 >= 60.00 Glucose 132 H Calcium 7.8 L Magnesium 1.5 L Total Bilirubin 0.4 AST 19 ALT 16 Alkaline Phosphatase 59 Troponin I 0.06 Total Protein 6.7 Albumin 2.8 L
[2018-09-22] MEDS: Apixaban 5 MG TAB PO (20:44)
[2018-09-22] MEDS: Ferrous Sulfate 325 MG TAB PO (20:45)
[2018-09-22] MEDS: Pantoprazole 40 MG TABCR PO (20:46)
[2018-09-22] MEDS: Mirtazapine 15 MG TAB 30 MG PO (22:29)
[2018-09-22] MEDS: Magnesium Chloride 64 MG TABCR PO (22:29)
[2018-09-22] MEDS: Lidocaine 5% Patch 1 PATCH TP (22:30)
[2018-09-23] VITALS (12 sets, daily range): BP systolic 125–168; BP diastolic 64–87; PULSE 68–93; RESP 17–20; TEMP 37.2–38.2; O2SAT 94–98
[2018-09-23] MEDS: Acetaminophen 325 MG TAB PO ×3 (00:11→22:45)
[2018-09-23] MEDS: POTASSIUM CHLORIDE/D5-0.9%NACL 1,000 ML 125 MEQ IV ×2 (05:20→12:49)
[2018-09-23] MEDS: Mometasone 220 MCG 14 DOSE INHALER 1 PUFF IH (08:21)
[2018-09-23 08:31] LABS: Abs Immature Grans 0.02 k/cumm (0.0-0.09); Absolute Basophil Count 0.03 k/cumm (0.0-0.2); Absolute Eosinophil Count 0.43 k/cumm (0.0-0.7); Absolute Lymphocyte Count 1.08 k/cumm (1.2-3.4); Absolute Monocyte Count 1.32 k/cumm (0.11-0.7); Basophils % 0.4; Eosinophils % 5.9; HCT 33.2 % (36.0-46.0); HGB 10.1 g/dL (12.0-15.5); Immature Grans % 0.3; Lymphocytes % 14.8; Mean Corp. HGB Concentration 30.4 g/dL (32.0-36.0); Mean Corpuscular Hemoglobin 28.4 pg (27.0-33.0); Mean Corpuscular Volume 93.3 fL (80-95); Mean Platelet Volume 9.7 fL (8.0-11.0); Monocytes % 18.1; Neutrophils % 60.5; Platelet Count 319 x1000/uL (130-400); RBC 3.56 m/cumm (4.00-5.20); RBC Distribution Width 14.2 % (11.7-14.6); White Blood Cell Count 7.28 k/cumm (4.4-10.8)
[2018-09-23 08:39] LABS: Anion Gap 5.4 mmol/L (3-11); BUN 4 mg/dL (7-18); CO2 25.6 mmol/L (21.0-32.0); CREATININE 0.79 mg/dL (0.55-1.02); Calcium 8.2 mg/dL (8.5-10.1); Chloride 111 mmol/L (98-107); Glucose 113 mg/dL (70-100); Magnesium 1.9 mg/dL (1.8-2.4); Potassium 4.9 mmol/L (3.5-5.1); Sodium 142 mmol/L (136-145)
[2018-09-23] MEDS: Cyanocobalamin 500 MCG TAB 1000 MCG PO (09:31)
[2018-09-23] MEDS: Potassium Chloride 20 MEQ TABCR PO (09:31)
[2018-09-23] MEDS: ROSUVASTATIN 20 MG TAB 40 MG PO (09:31)
[2018-09-23] MEDS: Ferrous Sulfate 325 MG TAB PO ×2 (09:32→19:33)
[2018-09-23] MEDS: Metoprolol CR 100 MG TABCR PO (09:32)
[2018-09-23] MEDS: Losartan 50 MG TAB 100 MG PO (09:33)
[2018-09-23] MEDS: Pantoprazole 40 MG TABCR PO ×2 (09:33→19:33)
[2018-09-23] MEDS: Lidocaine Patch Removal 1 EACH TP (10:49)
--- NOTE | 2018-09-23 11:03 | PHARADMIT ---
Addendum entered by Tip Lee III 10/02/18 14:42: Pharmacy Note Subjective MD notes that patients nausea continues despite reduction of meds. Further tests ordred to determine cause, ? undiagnosed malignancy, adrenal issue Head CT ordered Objective VS-OK Temp-37.3C K+3.2 Na-132 Diarrhea neg for C-diff. Assessment Levaquin IV changes to Rocephin IV for CAP Plan MD will contact [facility] Original Note: Addendum entered by Rosario Montoya 09/30/18 14:28: Pharmacy Note Subjective attempt to place a midline was unsuccessful today per anesthesia note; pt still nauseous but not complaining of pain per morning report Objective BP-146/78 HR-111 other VS okay K+2.8 Cl-96 Assessment levofloxacin continues (day #2), metronidazole discontinued PO potassium increased from 20 mEq daily to 20 mEq TID Plan continue to watch VS, labs and for med changes Original Note: Addendum entered by Rosario Montoya 09/29/18 17:12: Pharmacy Note Subjective pt not feeling well today per CM note Objective VS-okay no labs Assessment ciprofloxacin changed to levofloxacin (dosing is okay based on Crcl w/adjusted body weight) metronidazole continues (day#2) another dose of Lindane was given today PRN ondansetron order was discontinued Plan continue to watch VS, labs and for med changes Original Note: Addendum entered by Rosario Montoya 09/28/18 12:57: Pharmacy Note Subjective Objective BP-144/81 HR-94 Tmax-37.6 this morning WBC-6.75(down) Assessment IV cipro and metronidazole ordered empirically for infectious colitis 1 time dose of PO ondansetron given Pt's QTc was 497 09/22/18- has cipro and ondansetron ordered, MD aware Plan continue to watch VS, labs and for med changes Original Note: Addendum entered by Rosario Montoya 09/27/18 14:14: Pharmacy Note Subjective pt had a fever overnight per morning report Tmax-39.1 Objective HR-92 other VS okay K+3.3 WBC-10.99 Assessment no med changes so far today clopidogrel still on hold Plan continue to watch VS, labs and for med changes Original Note: Addendum entered by Selma Draper 09/26/18 13:36: Pharmacy Note Subjective EGD today Objective vs ok, Mag 1.5, H/H up to 11.3/34.7, Cdiff - by PCR, awaiting stool culture Assessment apixaban and clopidogrel continue on hold, IV mag bolus ordered Plan expect apixaban and clopidogrel to restart after EGD, watch for labs Original Note: Addendum entered by Tip Lee III 09/25/18 14:36: Pharmacy Note Subjective flexible sigmoidoscopy ordered for later today. [facility] discovered Apixaban was given this morning. Procedure stopped for today Objective VS-OK Lytes,SCr, Plts-OK H&H-up 10.5/33.2 Assessment Apixaban and Plavix back on hold. Plan RESCHEDULING OF PROCEDURE Original Note: Addendum entered by Selma Draper 09/24/18 12:47: Pharmacy Note Subjective flexible sigmoidoscopy ordered for today. pt is now reporting intermittent non compliance with home antibiotic regimen Objective vs ok, Mag 1.5 Assessment Mag bolus ordered, apixaban and clopidogrel continue on hold, vit D3, mometasone, albuterol from home list ordered, lindane shampoo used on 09/22 Plan follow labs, med changes, Original Note: Admission Pharmacy Clinical Review Hypomagnesium, Hypokalemia, Colitis Code Status DNR/DNI Current Weight 56.699 kg Renally Cleared and Narrow Therapeutic Index Meds Crcl ~46.32 mL/min; current meds are okay QTc Value / Action Taken QTc 497; current QT prolonging meds = mirtazapine, ondansetron, cipro (completed course 09/21) BP Control, Fever BP 135/68 tmax 37.8 C Electrolytes reviewed Cl 111 DVT Prophylaxis Eliquis ordered but on hold Opiate Usage / Scheduled Bowel Regimen Ordered n/a Plt/SCr for Heparin / Enoxaparin n/a INR for Warfarin n/a H/H stable, WBC/Bands H/H 10.1/33.2 WBC 7.28 Antibiotic appropriateness n/a Cultures and Sensitivities cdiff negative, lactoferrin pending Surgical ABX d/c within 24 hr n/a DM control / Insulin Dosing BG 113 n/a Heart Failure (Check EF%) (ROMEL's, B-Block, Diuretics) Losartan, metoprolol succ, IV to PO Switch n/a Home Meds Reviewed -combination of oral potassium chloride and seroquel not recommended due to delayed gastric emptying causes by anticholinergic agents -separate admin of cipro from iron and magnesium -combination of clopidogrel and pantoprazole may decrease effectiveness of clopidogrel -[employer] depressants: mirtazepine and quetiapine -risk of increased toxicity of rosuvastatin in combo with clopidogrel Home Meds Not Ordered cholecalciferol 50,000u; flovent, asmanex, and proventil inhalers; clindamycin, metronidazole, and cipro but most likely completed courses Comments quetiapine on hold due to drug interactions eliquis and clopidogrel are on hold due to OR tomorrow finished course of cipro 09/21 prior to this admission
[2018-09-23] MEDS: Mylanta Suspension 30 ML CUP PO (11:09)
[2018-09-23] MEDS: Magnesium Chloride 64 MG TABCR PO ×2 (12:19→21:04)
--- NOTE | 2018-09-23 15:35 | PDOC.CMIN ---
- If Service Date Differs Date of service: 09/23/18 Time of Service: 15:35 Care Management Initial Assess REASON FOR HOSPITALIZATION:: Watery stool, hypomagnesium, hypokalemia, and colitis. PAST MEDICAL HISTORY/PAST SURGICAL HISTORY:: CAD, hypoxemic respiratory failure, cardiomyopathy, CHF, HTN, hyperlipidemia, severe carotid atherosclerosis, subclavian arterial stenosis, COPD, lung Ca, iron deficiency anemia, hep A/B/C, depression. Surgical: cardiac catheterization, R iliac stent, R carotid endarterectomy, s/p L upper lobectomy for lung Ca, cervical biopsy, EGD, ORIF cervical fx. PREVIOUS FUNCTIONAL STATUS/SOCIAL/FAMILY SUPPORTS:: Resides with her son Juan and his Kenia. Joselin is able to care for herself with assistance from her family she states she is independent with ADL's. She states that she no longer has any home services. ADVANCE DIRECTIVES:: On file at [facility] agent Kanu (son) Has patient been provided with information about the portal?: Yes Did the patient sign up for the portal?: No CODE STATUS:: DNR/DNI INSURANCE COVERAGE / FINANCIAL ISSUES:: Medicare CURRENT HOME/COMMUNITY SERVICES/EQUIPMENT:: FWW, Cane, Shower chair and cane. PRIMARY CARE PHYSICIAN:: POTENTIAL DISCHARGE NEEDS:: Follow-up appointment scheduled with primary care prior to discharge. Bee reports that she does have a appointment scheduled on Saturday of this week with her primary care. PATIENT/FAMILY EDUCATION NEEDS:: Discharge education, limitations, medication management, follow-up plan of care, ask me 3 education and self-management. ANTICIPATED BARRIERS TO DISCHARGE:: Patient states she has difficulty taking her medications related to GI upset. Education related to medication management ongoing prior to discharge. TRANSPORTATION:: Via private car with family at time of discharge PLAN:: Joselin will have a sigmoid scope on Saturday with Dr. Skinner. Anticipate cystoscopy will be discharged home when medically ready per provider. She has declined home health services. CM to continue to provide support to patient, family, care team ongoing discharge planning. Readmission - Within the Past 30 Days Yes or No: Y - Date of First Admission Date of 1st Admission: 09/15/18 - Date of this Admission Date of Admission: 09/22/18 This admission was: Through ED - Office Visit Since 1st Admission Have you seen your PCP in the office since discharge?: No Had an appointment Been Scheduled?: Yes Date of Scheduled Appointment: 09/26/18 Describe barriers for scheduling or getting an appointment: Hospital discharge appointment scheduled prior to [facility] discharge last admission - I. Interview patient and/or Family Difficulty reaching your doctor or getting an office appt?: No Have you had trouble purchasing/ or taking medication?: Yes Describe barriers fpr purchasing or taking medication: Patient states I was unable to take my antibiotic due to stomach upset. Last time I had to take antibiotic I was on Carafate to protect my stomach. Have you had trouble with getting meals at home?: No Did you feel ready for discharge when you left the last time: Yes Were services received that you thought were set up on disch: No Why weren't services received?: Patient declined home health services that was suggested during her last admission If patient did not receive services, were there orders at: No Did you call your physician beore you came to the ED?: No Did your physician tell you to come in?: No How do you think you became sick enough to come back?: Patient states, I was doing fine for a few days and then all of a sudden started to have loose bowel movements and nausea. - ED visits How many ED visits in the past 12 months: 6 - Assessment for Readmission Summary of readmission circumstances, based upon interviews: Sincerely states she was ready to be discharged home upon her last discharge. She reports that she had difficulty taking her antibiotic due to stomach upset she reports she missed several doses. Patient was discharged home without home health services although it was recommended at last time of discharge she declined. Patient reports in the past that she was on Carafate when she was on medications that caused her upset stomach and that was helpful. Patient did not contact primary care prior to coming to the emergency room, in hindsight she feels that that would have been helpful.
[2018-09-23 17:12] LABS: Bilirubin Negative (Negative); Blood Trace-intact (Negative); Clarity Clear; Glucose Negative (Negative); Ketones Negative (Negative); Leukocyte Esterase Negative (Negative); Nitrite Negative (Negative); Specific Gravity 1.015 (1.005-1.025); Urobilinogen 0.2 EU/dL (Up TO 0.2)
--- NOTE | 2018-09-23 17:46 | PGE_ITS ---
Date of Service Date of service: 09/23/18 Time of Service: 17:42 Assessment and Plan (1) Diarrhea: Current visit: Yes Status: Acute Recent CT with mild proctocolitis. C. Diff negative and stool cultures at that time pending. Appeared to improve with antibiotic therapy and IVFs. Current presentation appears to be slightly different in that the patient is not ill appearing, lacking leukocytosis, Lactic Acidosis, or evidence of significant dehydration. Given recent antibiotic therapy will check C.Diff by PCR despite negative current result. Last stool studies negative for infection. Potential for ischemic bowel particularly w history of PAD and abrupt stoppage of her Plavix and Apixaban (Patient intolerant at home), but current labs without evidence of significant acidosis or anion gap, and exam inconsistent with diagnosis. Surgery consulted for potential Flex Sig vs. Colonoscopy - NPO after midnight tonight for testing tomorrow. Continue IVFs, anti-emetics. (2) Pediculosis: Current visit: Yes Status: Acute Head lice noted again by nursing. S/p treatment with topical Lindane - contact precautions in place. (3) Coronary artery disease: Current visit: No Status: Chronic Noted. Patient with a [facility] 12/2015 showing nonobstructive CAD (LM 10%, LAD long prox 30% calcified, LCX prox 20%, RCA prox and mid calcified 40%). Asymptomatic with current troponin negative. Continue Clopidogrel, BB, high potency statin. Also on Apixiban given underlying Afib. (4) PVD (peripheral vascular disease): Current visit: Yes Status: Chronic Continue Plavix, statin. Also on BB and ARB. (5) Atrial fibrillation: Current visit: Yes Status: Chronic Initial rate uncontrolled as patient had been off her medications for 2-3 days. Reinitiated BB with good control currently. Maintain on telemetry, and continue anticoagulation with apixaban. (6) Chronic obstructive lung disease: Current visit: Yes Status: Chronic Noted. Appears quiescent. Duonebs prn. (7) Essential hypertension: Current visit: Yes Status: Chronic Elevated due to noncompliance with home medication due to nausea. Reinitiate ARB, BB and evaluate. (8) Hyperlipidemia: Current visit: Yes Status: Chronic Continue Rosuvastatin. (9) DVT prophylaxis: Current visit: Yes Status: Acute On anticoagulation with Apixaban. PPI therapy as well given history of PUD and GERD. Subjective Interval history since last seen: 73 yr old woman with just recently hospitalized on 09/10 to 09/15 at [facility] and treated for colitis, admitted from [facility] Emergency Department on 09/22 with complaint of recurrence of diarrhea and nausea. Ms. Arrington has a history significant for severe PAD, Non-obstructive CAD, COPD, HTN, HCV, lung CA s/p lobectomy, PSVT, NSTEMI, PUD, GERD, and former alcohol abuse. She had previously presented to the ED in late August with 3 days of nausea, vomiting and diarrhea, along with crampy abdominal pain. No associated fevers were reported at that time. Evaluation at that time was relevant for diffuse abdominal tenderness, elevated WBC, Acute Kidney Injury, mildly elevated lactate, and tachycardia. A subsequent CT of her abdomen and pelvis suggested a rectosigmoid colitis. Of note, the patient also had evidence of some abnormal lymph nodes in the mediastinum, right hilum, and Left Axilla raising the possibility of neoplastic disease. Following her admission she was started on antibiotic therapy. Stool was negative for C. diff, and stool culture were negative as well. As her symptoms improved significantly she was discharged to complete her antibiotic course. The patient then reported recurrence of diarrhea with one day of antibiotics left at home, approximately 3 days prior to her presentation here. However, further questioning reveals that she had been intermittently noncompliant with her antibiotics at home. She reported only a few bouts daily of diarrhea, currently 3-4 times, but describes them as 'liquid'. Her C. Diff was checked and negative, with PCR ordered and pending. She is scheduled for a flexible Sigmoidoscopy tomorrow morning via Surgery. No other events reported. She remains febirle. Exam Narrative Exam Narrative: General: Patient appears comfortable, AAOX3, NAD Neck: Supple CV: Irregular and tachycardic, S1S2, No rubs, murmurs, or gallops. Pulmonary: Clear to auscultation bilaterally, no crackles, wheezing, or rhonchi Abdomen: + Bowel Sounds, soft, nontender, nondistended at time of exam. Vascular: No lower extremity edema Psych: Normal mood and affect. Objective Objective Clinical Data: Abnormal lab results 09/23/18 09/23/18 Range/Units 08:05 08:05 RBC 3.56 L (4.00-5.20) m/cumm Hgb 10.1 L (12.0-15.5) g/dL Hct 33.2 L (36.0-46.0) % MCHC 30.4 L (32.0-36.0) g/dL Absolute Lymphocytes 1.08 L (1.2-3.4) k/cumm Absolute Monocytes 1.32 H (0.11-0.7) k/cumm Chloride 111 H (98-107) mmol/L BUN 4 L (7-18) mg/dL Glucose 113 H (70-100) mg/dL Calcium 8.2 L (8.5-10.1) mg/dL Vital Signs Temperature 37.2 C 09/23/18 17:00 Temperature Source Tympanic 09/23/18 17:00 Pulse 73 09/23/18 17:00 Pulse Rhythm Regular 09/23/18 17:00 Pulse 113 H 09/22/18 09:20 Respiratory Rate 20 09/23/18 17:00 Respiratory Effort Non-Labored 09/23/18 17:00 Respiratory Depth Normal 09/23/18 17:00 Respiratory Pattern Normal 09/23/18 17:00 Blood Pressure 125/64 09/23/18 17:00 Blood Pressure Mean 117 09/22/18 09:16 Pulse Oximetry 96 09/23/18 17:00 Oxygen Delivery Method Room Air 09/23/18 17:00 Oxygen Flow Rate 0 09/23/18 17:00 Pain Level 0 09/23/18 17:00 Comment 09/22/18 17:46 Intake & Output 09/22/18 09/23/18 09/23/18 23:59 11:59 23:59 Intake Total 3410 / 3410 760 / 760 1175.417 / 1175.417 Output Total 1400 / 1400 800 / 800 700 / 700 Balance 2009 / 2009 -40 / -40 475.417 / 475.417 Intake: IV 2120 / 2120 935.417 / 935.417 Oral 1290 / 1290 760 / 760 240 / 240 Output: Urine 1400 / 1400 800 / 800 700 / 700 Other: Urine Color Yellow Yellow Yellow Urine Appearance Clear Sediment Clear Urine Odor None Normal None Comment Void x1 in the toilet. Stool Size Small Moderate Stool Characteristics Soft Soft Formed Voiding Methods Toilet Toilet Toilet Laboratory Results WBC 7.28 k/cumm (4.4-10.8) D 09/23/18 08:05 RBC 3.56 m/cumm (4.00-5.20) L 09/23/18 08:05 Hgb 10.1 g/dL (12.0-15.5) L 09/23/18 08:05 Hct 33.2 % (36.0-46.0) L 09/23/18 08:05 MCV 93.3 fL (80-95) 09/23/18 08:05 MCH 28.4 pg (27.0-33.0) 09/23/18 08:05 MCHC 30.4 g/dL (32.0-36.0) L 09/23/18 08:05 RDW 14.2 % (11.7-14.6) 09/23/18 08:05 Plt Count 319 x1000/uL (130-400) 09/23/18 08:05 MPV 9.7 fL (8.0-11.0) 09/23/18 08:05 Immature Gran % 0.3 09/23/18 08:05 Neutrophils % 60.5 09/23/18 08:05 Lymphocytes % 14.8 09/23/18 08:05 Monocytes % 18.1 09/23/18 08:05 Eosinophils % 5.9 09/23/18 08:05 Basophils % 0.4 09/23/18 08:05 Absolute Neutrophils 4.40 k/cumm (1.2-6.7) 09/23/18 08:05 Absolute Lymphocytes 1.08 k/cumm (1.2-3.4) L 09/23/18 08:05 Absolute Monocytes 1.32 k/cumm (0.11-0.7) H 09/23/18 08:05 Absolute Eosinophils 0.43 k/cumm (0.0-0.7) 09/23/18 08:05 Absolute Basophils 0.03 k/cumm (0.0-0.2) 09/23/18 08:05 Differential Comment Diff reviewed 09/22/18 07:15 RBC Morphology Normal 09/22/18 07:15 Sodium 142 mmol/L (136-145) 09/23/18 08:05 Potassium 4.9 mmol/L (3.5-5.1) D 09/23/18 08:05 Chloride 111 mmol/L (98-107) H 09/23/18 08:05 Carbon Dioxide 25.6 mmol/L (21.0-32.0) 09/23/18 08:05 Anion Gap 5.4 mmol/L (3-11) 09/23/18 08:05 BUN 4 mg/dL (7-18) L 09/23/18 08:05 Creatinine 0.79 mg/dL (0.55-1.02) 09/23/18 08:05 Estimated GFR/1.73 m2 >= 60.00 (mL/min/1.73m2) 09/23/18 08:05 Glucose 113 mg/dL (70-100) H 09/23/18 08:05 Calcium 8.2 mg/dL (8.5-10.1) L 09/23/18 08:05 Magnesium 1.9 mg/dL (1.8-2.4) 09/23/18 08:05 Total Bilirubin 0.4 mg/dL (0.2-1.0) 09/22/18 07:15 AST 19 U/L (15-37) 09/22/18 07:15 ALT 16 U/L (12-78) 09/22/18 07:15 Alkaline Phosphatase 59 U/L (46-116) 09/22/18 07:15 Troponin I 0.06 ng/mL (0.00-0.06) 09/22/18 07:15 Total Protein 6.7 g/dL (6.4-8.2) 09/22/18 07:15 Albumin 2.8 g/dL (3.4-5.0) L 09/22/18 07:15 Objective Narrative Objective Narrative: C Difficile Screen Final 09/22/18-1687 C Difficile Antigen Negative C Difficile Toxin Negative Interpretation Negative for toxigenic Clostridium difficile
[2018-09-23] MEDS: Normal Saline 1,000 ML 75 ML IV (18:11)
[2018-09-23 19:21] LABS: Bacteria Rare HPF (Negative); C & S Indicated? No; Casts Negative LPF (Negative); Crystals Negative HPF (Negative); Epithelial Cells Rare HPF (Negative); Mucus Negative (Negative); Other Cells Negative (Negative); RBC 0-2 (0-2); WBC Negative HPF (0-5)
[2018-09-23] MEDS: Lidocaine 5% Patch 1 PATCH TP (21:05)
[2018-09-23] MEDS: Mirtazapine 15 MG TAB 30 MG PO (22:45)
[2018-09-24] VITALS (12 sets, daily range): BP systolic 119–175; BP diastolic 66–84; PULSE 68–82; RESP 18–19; TEMP 37–38.2; O2SAT 94–96
[2018-09-24] MEDS: Normal Saline 1,000 ML 75 ML IV (06:07)
[2018-09-24 07:16] LABS: Abs Immature Grans 0.03 k/cumm (0.0-0.09); Absolute Basophil Count 0.04 k/cumm (0.0-0.2); Absolute Eosinophil Count 0.43 k/cumm (0.0-0.7); Absolute Lymphocyte Count 1.06 k/cumm (1.2-3.4); Absolute Monocyte Count 1.12 k/cumm (0.11-0.7); Absolute Neutrophil Count 3.87 k/cumm (1.2-6.7); Basophils % 0.6; Eosinophils % 6.6; HCT 31.6 % (36.0-46.0); HGB 9.7 g/dL (12.0-15.5); Immature Grans % 0.5; Lymphocytes % 16.2; Mean Corp. HGB Concentration 30.7 g/dL (32.0-36.0); Mean Corpuscular Hemoglobin 28.7 pg (27.0-33.0); Mean Corpuscular Volume 93.5 fL (80-95); Mean Platelet Volume 9.7 fL (8.0-11.0); Monocytes % 17.1; Platelet Count 270 x1000/uL (130-400); RBC 3.38 m/cumm (4.00-5.20); RBC Distribution Width 14.5 % (11.7-14.6); White Blood Cell Count 6.55 k/cumm (4.4-10.8)
[2018-09-24 07:28] LABS: Anion Gap 6.7 mmol/L (3-11); BUN 2 mg/dL (7-18); CO2 25.3 mmol/L (21.0-32.0); CREATININE 0.73 mg/dL (0.55-1.02); Calcium 8.5 mg/dL (8.5-10.1); Chloride 106 mmol/L (98-107); Glucose 86 mg/dL (70-100); Magnesium 1.5 mg/dL (1.8-2.4); Potassium 4.6 mmol/L (3.5-5.1); Sodium 138 mmol/L (136-145)
[2018-09-24] MEDS: Mometasone 220 MCG 14 DOSE INHALER 1 PUFF IH (08:36)
[2018-09-24] MEDS: Potassium Chloride 20 MEQ TABCR PO (08:39)
[2018-09-24] MEDS: Metoprolol CR 100 MG TABCR PO (08:39)
[2018-09-24] MEDS: ROSUVASTATIN 20 MG TAB 40 MG PO (08:39)
[2018-09-24] MEDS: Pantoprazole 40 MG TABCR PO ×2 (08:39→19:58)
[2018-09-24] MEDS: Cyanocobalamin 500 MCG TAB 1000 MCG PO (08:40)
[2018-09-24] MEDS: Losartan 50 MG TAB 100 MG PO (08:40)
[2018-09-24] MEDS: Ferrous Sulfate 325 MG TAB PO ×2 (08:40→19:58)
[2018-09-24] MEDS: MAGNESIUM SULFATE 1 GM/100 ML BAG IVPB (09:00)
[2018-09-24] MEDS: Lidocaine Patch Removal 1 EACH TP (10:05)
[2018-09-24] MEDS: Magnesium Chloride 64 MG TABCR PO ×2 (10:05→21:23)
[2018-09-24] MEDS: Acetaminophen 325 MG TAB PO (13:27)
--- NOTE | 2018-09-24 13:40 | PDOC.CMPRO ---
- If Service Date Differs Date of service: 09/24/18 Time of Service: 13:40 Care Management Progress Note S/O: CM met with the Pt at the bedside she is currently NPO for procedure this afternoon. Plan will be for her to return home when medically stable per provider. She continues to receive antibiotics. A:Watery stool, hypomagnesium, hypokalemia, and colitis. P: Joselin will be discharged home when medically ready per provider. Her family to transport home when medically ready. CM to review resources [facility] and community connections to assist with resources in the community r/t chronic lice.
--- NOTE | 2018-09-24 14:52 | W.PM.PROGNOT ---
Date of Service Date of service: 09/24/18 Time of Service: 14:53 Assessment and Plan (1) Diarrhea: Current visit: Yes Status: Acute Recent CT with mild proctocolitis. C. Diff negative and stool cultures at that time negative. Appeared to improve with antibiotic therapy and IVFs. Current presentation appears to be slightly different in that the patient is not ill appearing, lacking leukocytosis, Lactic Acidosis, or evidence of significant dehydration. Given recent antibiotic therapy will check C.Diff by PCR despite negative current result - still pending. Last stool studies negative for infection. Potential for ischemic bowel particularly w history of PAD and abrupt stoppage of her Plavix and Apixaban (Patient intolerant at home), but current labs without evidence of significant acidosis or anion gap, and exam inconsistent with diagnosis. Surgery consulted - for Flex Sig later today. Continue IVFs, anti-emetics, and await results of testing. Patient remains febrile with CXR and urinalysis negative. (2) Pediculosis: Current visit: Yes Status: Acute Head lice noted again by nursing. S/p treatment with topical Lindane - contact precautions in place. (3) Coronary artery disease: Current visit: No Status: Chronic Noted. Patient with a C 12/2015 showing nonobstructive CAD (LM 10%, LAD long prox 30% calcified, LCX prox 20%, RCA prox and mid calcified 40%). Asymptomatic with current troponin negative. Continue Clopidogrel, BB, high potency statin. Also on Apixiban given underlying Afib - currently on hold for procedure. (4) PVD (peripheral vascular disease): Current visit: Yes Status: Chronic Continue Plavix, statin. Also on BB and ARB. (5) Atrial fibrillation: Current visit: Yes Status: Chronic Initial rate uncontrolled as patient had been off her medications for 2-3 days. Reinitiated BB with good control currently. Maintain on telemetry, and continue anticoagulation with apixaban once clear following scheduled procedure. (6) Chronic obstructive lung disease: Current visit: Yes Status: Chronic Noted. Appears quiescent. Duonebs prn. (7) Essential hypertension: Current visit: Yes Status: Chronic Elevated due to noncompliance with home medication due to nausea. Reinitiate ARB, BB and evaluate. (8) Hyperlipidemia: Current visit: Yes Status: Chronic Continue Rosuvastatin. (9) DVT prophylaxis: Current visit: Yes Status: Acute On anticoagulation with Apixaban - on hold as above. PPI therapy as well given history of PUD and GERD. Subjective Interval history since last seen: 73 yr old woman with just recently hospitalized on 09/10 to 09/15 at [facility] and treated for colitis, admitted from [facility] Emergency Department on 09/22 with complaint of recurrence of diarrhea and nausea. Ms. Arrington has a history significant for severe PAD, Non-obstructive CAD, COPD, HTN, HCV, lung CA s/p lobectomy, PSVT, NSTEMI, PUD, GERD, and former alcohol abuse. She had previously presented to the ED in late August with 3 days of nausea, vomiting and diarrhea, along with crampy abdominal pain. No associated fevers were reported at that time. Evaluation at that time was relevant for diffuse abdominal tenderness, elevated WBC, Acute Kidney Injury, mildly elevated lactate, and tachycardia. A subsequent CT of her abdomen and pelvis suggested a rectosigmoid colitis. Of note, the patient also had evidence of some abnormal lymph nodes in the mediastinum, right hilum, and Left Axilla raising the possibility of neoplastic disease. Following her admission she was started on antibiotic therapy. Stool was negative for C. diff, and stool culture were negative as well. As her symptoms improved significantly she was discharged to complete her antibiotic course. The patient then reported recurrence of diarrhea with one day of antibiotics left at home, approximately 3 days prior to her presentation here. However, further questioning reveals that she had been intermittently noncompliant with her antibiotics at home. She reported only a few bouts daily of diarrhea, currently 3-4 times, but describes them as 'liquid'. Her C. Diff was checked and negative, with PCR ordered and still pending. She is scheduled for a flexible Sigmoidoscopy later this afternoon by Surgery. No other events reported. She remains febirle. Exam Narrative Exam Narrative: General: Patient appears comfortable, AAOX3, NAD Neck: Supple CV: Irregular, not tachycardic, S1S2, No rubs, murmurs, or gallops. Pulmonary: Clear to auscultation bilaterally, no crackles, wheezing, or rhonchi Abdomen: + Bowel Sounds, soft, nontender, nondistended at time of exam. Vascular: No lower extremity edema Psych: Normal mood and affect. Objective Objective Clinical Data: Abnormal lab results 09/23/18 09/24/18 09/24/18 Range/Units 14:45 06:40 06:40 RBC 3.38 L (4.00-5.20) m/cumm Hgb 9.7 L (12.0-15.5) g/dL Hct 31.6 L (36.0-46.0) % MCHC 30.7 L (32.0-36.0) g/dL Absolute Lymphocytes 1.06 L (1.2-3.4) k/cumm Absolute Monocytes 1.12 H (0.11-0.7) k/cumm BUN 2 L (7-18) mg/dL Magnesium 1.5 L (1.8-2.4) mg/dL Urine Blood Trace-intact H (Negative) Vital Signs Temperature 38.2 C H 09/24/18 13:27 Temperature Source Tympanic 09/24/18 13:15 Pulse 80 09/24/18 13:15 Pulse Rhythm Regular 09/24/18 08:40 Pulse 113 H 09/22/18 09:20 Respiratory Rate 18 09/24/18 13:15 Respiratory Effort Non-Labored 09/24/18 08:40 Respiratory Depth Normal 09/24/18 08:40 Respiratory Pattern Normal 09/24/18 08:40 Blood Pressure 152/80 H 09/24/18 13:15 Blood Pressure Mean 117 09/22/18 09:16 Pulse Oximetry 94 L 09/24/18 13:15 Oxygen Delivery Method Room Air 09/24/18 13:15 Oxygen Flow Rate 0 09/24/18 13:15 Pain Level 0 09/24/18 08:40 Comment 09/22/18 17:46 Intake & Output 09/23/18 09/24/18 09/24/18 23:59 11:59 23:59 Intake Total 3013.417 / 3013.417 1236.25 / 1236.25 Output Total 1500 / 1500 1000 / 1000 1300 / 1300 Balance 1513.417 / 1513.417 236.25 / 236.25 -1300 / -1300 Intake: IV 2533.417 / 2533.417 1111.25 / 1111.25 Oral 480 / 480 125 / 125 Output: Urine 1500 / 1500 1000 / 1000 1300 / 1300 Other: Urine Color Yellow Yellow Yellow Urine Appearance Clear Clear Clear Urine Odor Normal Normal Comment mixed with stool Stool Size Small Stool Characteristics Liquid Voiding Methods Bedside Commode Bedside Commode Bedside Commode Laboratory Results WBC 6.55 k/cumm (4.4-10.8) 09/24/18 06:40 RBC 3.38 m/cumm (4.00-5.20) L 09/24/18 06:40 Hgb 9.7 g/dL (12.0-15.5) L 09/24/18 06:40 Hct 31.6 % (36.0-46.0) L 09/24/18 06:40 MCV 93.5 fL (80-95) 09/24/18 06:40 MCH 28.7 pg (27.0-33.0) 09/24/18 06:40 MCHC 30.7 g/dL (32.0-36.0) L 09/24/18 06:40 RDW 14.5 % (11.7-14.6) 09/24/18 06:40 Plt Count 270 x1000/uL (130-400) 09/24/18 06:40 MPV 9.7 fL (8.0-11.0) 09/24/18 06:40 Immature Gran % 0.5 09/24/18 06:40 Neutrophils % 59.0 09/24/18 06:40 Lymphocytes % 16.2 09/24/18 06:40 Monocytes % 17.1 09/24/18 06:40 Eosinophils % 6.6 09/24/18 06:40 Basophils % 0.6 09/24/18 06:40 Absolute Neutrophils 3.87 k/cumm (1.2-6.7) 09/24/18 06:40 Absolute Lymphocytes 1.06 k/cumm (1.2-3.4) L 09/24/18 06:40 Absolute Monocytes 1.12 k/cumm (0.11-0.7) H 09/24/18 06:40 Absolute Eosinophils 0.43 k/cumm (0.0-0.7) 09/24/18 06:40 Absolute Basophils 0.04 k/cumm (0.0-0.2) 09/24/18 06:40 Differential Comment Diff reviewed 09/22/18 07:15 RBC Morphology Normal 09/22/18 07:15 Sodium 138 mmol/L (136-145) 09/24/18 06:40 Potassium 4.6 mmol/L (3.5-5.1) 09/24/18 06:40 Chloride 106 mmol/L (98-107) 09/24/18 06:40 Carbon Dioxide 25.3 mmol/L (21.0-32.0) 09/24/18 06:40 Anion Gap 6.7 mmol/L (3-11) 09/24/18 06:40 BUN 2 mg/dL (7-18) L 09/24/18 06:40 Creatinine 0.73 mg/dL (0.55-1.02) 09/24/18 06:40 Estimated GFR/1.73 m2 >= 60.00 (mL/min/1.73m2) 09/24/18 06:40 Glucose 86 mg/dL (70-100) 09/24/18 06:40 Calcium 8.5 mg/dL (8.5-10.1) 09/24/18 06:40 Magnesium 1.5 mg/dL (1.8-2.4) L 09/24/18 06:40 Total Bilirubin 0.4 mg/dL (0.2-1.0) 09/22/18 07:15 AST 19 U/L (15-37) 09/22/18 07:15 ALT 16 U/L (12-78) 09/22/18 07:15 Alkaline Phosphatase 59 U/L (46-116) 09/22/18 07:15 Troponin I 0.06 ng/mL (0.00-0.06) 09/22/18 07:15 Total Protein 6.7 g/dL (6.4-8.2) 09/22/18 07:15 Albumin 2.8 g/dL (3.4-5.0) L 09/22/18 07:15 Urine Color Yellow (Yellow) 09/23/18 14:45 Urine Clarity Clear 09/23/18 14:45 Urine pH 6.0 (5-8) 09/23/18 14:45 Ur Specific [place] 1.015 (1.005-1.025) 09/23/18 14:45 Urine Protein Negative mg/dL (Negative) 09/23/18 14:45 Urine Ketones Negative mg/dL (Negative) 09/23/18 14:45 Urine Blood Trace-intact (Negative) H 09/23/18 14:45 Urine Nitrite Negative (Negative) 09/23/18 14:45 Urine Bilirubin Negative (Negative) 09/23/18 14:45 Urine Urobilinogen 0.2 EU/dL (Up TO 0.2) 09/23/18 14:45 Ur Leukocyte Esterase Negative (Negative) 09/23/18 14:45 Urine RBC 0-2 (0-2) 09/23/18 14:45 Urine WBC Negative HPF (0-5) 09/23/18 14:45 Ur Epithelial Cells Rare HPF (Negative) 09/23/18 14:45 Urine Crystals Negative HPF (Negative) 09/23/18 14:45 Urine Bacteria Rare HPF (Negative) 09/23/18 14:45 Urine Casts Negative LPF (Negative) 09/23/18 14:45 Urine Mucus Negative (Negative) 09/23/18 14:45 Urine Other Negative (Negative) 09/23/18 14:45 Ur Culture Indicated? No 09/23/18 14:45 Urine Glucose Negative mg/dL (Negative) 09/23/18 14:45
[2018-09-24] MEDS: Mirtazapine 15 MG TAB 30 MG PO (21:23)
[2018-09-24] MEDS: Lidocaine 5% Patch 1 PATCH TP (21:25)
--- NOTE | 2018-09-25 00:40 | NUR.NOTE ---
Nursing Note: 7P to 7A shift: Pt remains on bed, alert and oriented x 3. Denied of unbearable pain when asked. Instructed for NPO after midnight. During HS med pass, she refused lidocaine patch but education provided and with poor insight. Pt stated that she no more pain. Apixaban po held for procedure to be done today. Call lights within reach.
[2018-09-25 07:10] VITALS: PULSE 73
[2018-09-25 07:37] LABS: Abs Immature Grans 0.02 k/cumm (0.0-0.09); Absolute Basophil Count 0.05 k/cumm (0.0-0.2); Absolute Eosinophil Count 0.33 k/cumm (0.0-0.7); Absolute Lymphocyte Count 1.33 k/cumm (1.2-3.4); Absolute Monocyte Count 1.23 k/cumm (0.11-0.7); Absolute Neutrophil Count 4.72 k/cumm (1.2-6.7); Basophils % 0.7; Eosinophils % 4.3; HCT 33.2 % (36.0-46.0); HGB 10.5 g/dL (12.0-15.5); Immature Grans % 0.3; Lymphocytes % 17.3; Mean Corp. HGB Concentration 31.6 g/dL (32.0-36.0); Mean Corpuscular Hemoglobin 28.8 pg (27.0-33.0); Mean Platelet Volume 9.8 fL (8.0-11.0); Neutrophils % 61.4; Platelet Count 327 x1000/uL (130-400); RBC 3.65 m/cumm (4.00-5.20); RBC Distribution Width 13.9 % (11.7-14.6); White Blood Cell Count 7.68 k/cumm (4.4-10.8)
[2018-09-25 07:43] LABS: Anion Gap 12.3 mmol/L (3-11); BUN 6 mg/dL (7-18); CO2 24.7 mmol/L (21.0-32.0); CREATININE 0.65 mg/dL (0.55-1.02); Calcium 8.8 mg/dL (8.5-10.1); Chloride 100 mmol/L (98-107); Glucose 90 mg/dL (70-100); Magnesium 1.7 mg/dL (1.8-2.4); Potassium 4.1 mmol/L (3.5-5.1); Sodium 137 mmol/L (136-145)
[2018-09-25 07:45] VITALS: O2SAT 95
[2018-09-25 07:46] VITALS: BP 138/78; PULSE 81; RESP 16; TEMP 37; O2SAT 95
[2018-09-25] MEDS: Mometasone 220 MCG 14 DOSE INHALER 1 PUFF IH (08:14)
[2018-09-25] MEDS: Clopidogrel 75 MG TAB PO (09:40)
[2018-09-25] MEDS: Ferrous Sulfate 325 MG TAB PO ×2 (09:40→19:49)
[2018-09-25] MEDS: Normal Saline Flush 10 ML SYR IVP (09:40)
[2018-09-25] MEDS: ROSUVASTATIN 20 MG TAB 40 MG PO (09:40)
[2018-09-25] MEDS: Pantoprazole 40 MG TABCR PO ×2 (09:40→19:49)
[2018-09-25] MEDS: Magnesium Chloride 64 MG TABCR PO ×2 (09:41→21:23)
[2018-09-25] MEDS: Losartan 50 MG TAB 100 MG PO (09:41)
[2018-09-25] MEDS: Chlorthalidone 25 MG TAB PO (09:41)
[2018-09-25] MEDS: Cyanocobalamin 500 MCG TAB 1000 MCG PO (09:41)
[2018-09-25] MEDS: Metoprolol CR 100 MG TABCR PO (09:42)
[2018-09-25] MEDS: Apixaban 5 MG TAB PO (09:42)
[2018-09-25] MEDS: Potassium Chloride 20 MEQ TABCR PO (09:42)
[2018-09-25] MEDS: Lidocaine Patch Removal 1 EACH TP (09:43)
[2018-09-25 10:42] LABS: Result Negative; Specimen Description Feces
[2018-09-25 11:00] VITALS: BP 155/78; PULSE 79; RESP 16; TEMP 36.6; O2SAT 96
--- NOTE | 2018-09-25 12:01 | W.PM.PROGNOT ---
Date of Service Date of service: 09/25/18 Time of Service: 12:02 Assessment and Plan (1) Diarrhea: Current visit: Yes Status: Acute Recent CT from last hospitalization with mild proctocolitis. C. Diff negative and stool cultures at that time negative. Appeared to improve with antibiotic therapy and IVFs. Current presentation appears to be slightly different in that the patient is not ill appearing, lacking leukocytosis, Lactic Acidosis, or evidence of significant dehydration. Given recent antibiotic therapy checked C.Diff by PCR - now resulting as negative. Last stool studies negative for infection. Potential for ischemic bowel particularly w history of PAD and abrupt stoppage of her Plavix and Apixaban (Patient intolerant at home), but current labs without evidence of significant acidosis or anion gap, and exam inconsistent with diagnosis. Surgery consulted - for Flex Sig scheduled for later today. Continue IVFs, anti-emetics, and await results of testing. Patient remains febrile, with last fever of 38.2 yesterday afternoon. CXR and urinalysis negative for infection. (2) Pediculosis: Current visit: Yes Status: Acute Head lice noted by nursing again this hospitalization. S/p treatment with topical Lind[place] - contact precautions in place. (3) Coronary artery disease: Current visit: No Status: Chronic Noted. Patient with a [facility] 12/2015 showing nonobstructive CAD (LM 10%, LAD long prox 30% calcified, LCX prox 20%, RCA prox and mid calcified 40%). Asymptomatic with current troponin negative. Continue Clopidogrel, BB, high potency statin. Also on Apixiban given underlying Afib - currently on hold for procedure. (4) PVD (peripheral vascular disease): Current visit: Yes Status: Chronic Continue Plavix (on hold as above), statin. Also on BB and ARB. (5) Atrial fibrillation: Current visit: Yes Status: Chronic Initial rate uncontrolled as patient had been off her medications for 2-3 days. Reinitiated BB with good subsequent control. Continue anticoagulation with apixaban once clear following scheduled procedure. (6) Chronic obstructive lung disease: Current visit: Yes Status: Chronic Noted. Appears quiescent. Duonebs prn. (7) Essential hypertension: Current visit: Yes Status: Chronic Elevated due to noncompliance with home medication due to nausea. Reinitiated ARB, BB with good results. (8) Hyperlipidemia: Current visit: Yes Status: Chronic Continue Rosuvastatin. (9) DVT prophylaxis: Current visit: Yes Status: Acute On anticoagulation with Apixaban - on hold as above. PPI therapy as well given history of PUD and GERD. Ensure scd's. Subjective Interval history since last seen: 73 yr old woman with just recently hospitalized on 09/10 to 09/15 at [facility] and treated for colitis, admitted from [facility] Emergency Department on 09/22 with complaint of recurrence of diarrhea and nausea. Ms. Arrington has a history significant for severe PAD, Non-obstructive CAD, COPD, HTN, HCV, lung CA s/p lobectomy, PSVT, NSTEMI, PUD, GERD, and former alcohol abuse. She had previously presented to the ED in late August with 3 days of nausea, vomiting and diarrhea, along with crampy abdominal pain. No associated fevers were reported at that time. Evaluation at that time was relevant for diffuse abdominal tenderness, elevated WBC, Acute Kidney Injury, mildly elevated lactate, and tachycardia. A subsequent CT of her abdomen and pelvis suggested a rectosigmoid colitis. Of note, the patient also had evidence of some abnormal lymph nodes in the mediastinum, right hilum, and Left Axilla raising the possibility of neoplastic disease. Following her admission she was started on antibiotic therapy. Stool was negative for C. diff, and stool culture were negative as well. As her symptoms improved significantly she was discharged to complete her antibiotic course. The patient then reported recurrence of diarrhea with one day of antibiotics left at home, approximately 3 days prior to her presentation here. However, further questioning reveals that she had been intermittently noncompliant with her antibiotics at home. She reported only a few bouts daily of diarrhea, currently 3-4 times, but describes them as 'liquid'. Her C. Diff was checked and negative, with PCR ordered and still pending. She is scheduled for a flexible Sigmoidoscopy later this afternoon by Surgery. No other events reported. She remains febirle. Exam Narrative Exam Narrative: General: Patient appears comfortable, AAOX3, NAD Neck: Supple CV: Irregular, not tachycardic, S1S2, No rubs, murmurs, or gallops. Pulmonary: Clear to auscultation bilaterally, no crackles, wheezing, or rhonchi Abdomen: + Bowel Sounds, soft, nontender, nondistended at time of exam. Vascular: No lower extremity edema Psych: Normal mood and affect. Objective Objective Clinical Data: Abnormal lab results 09/25/18 09/25/18 Range/Units 07:00 07:00 RBC 3.65 L (4.00-5.20) m/cumm Hgb 10.5 L (12.0-15.5) g/dL Hct 33.2 L (36.0-46.0) % MCHC 31.6 L (32.0-36.0) g/dL Absolute Monocytes 1.23 H (0.11-0.7) k/cumm Anion Gap 12.3 H (3-11) mmol/L BUN 6 L (7-18) mg/dL Magnesium 1.7 L (1.8-2.4) mg/dL Vital Signs Temperature 37 C 09/25/18 07:46 Temperature Source Temporal Artery Scan 09/25/18 07:46 Pulse 81 09/25/18 07:46 Pulse Rhythm Regular 09/24/18 20:31 Pulse 113 H 09/22/18 09:20 Respiratory Rate 16 09/25/18 07:46 Respiratory Effort Non-Labored 09/24/18 20:31 Respiratory Depth Normal 09/24/18 20:31 Respiratory Pattern Normal 09/24/18 20:31 Blood Pressure 138/78 09/25/18 07:46 Blood Pressure Mean 117 09/22/18 09:16 Pulse Oximetry 95 09/25/18 07:46 Oxygen Delivery Method Room Air 09/25/18 07:46 Oxygen Flow Rate 0 09/25/18 07:46 Pain Level 0 09/25/18 07:46 Comment 09/22/18 17:46 Intake & Output 09/24/18 09/25/18 09/25/18 23:59 11:59 23:59 Intake Total 100 / 1561.25 225 / 225 Output Total 1300 / 2300 Balance -1200 / -738.75 225 / 225 Intake: IV 100 / 1211.25 Oral 225 / 225 Output: Urine 1300 / 2300 Other: Urine Color Yellow Urine Appearance Clear Urine Odor Normal Voiding Methods Bedside Commode Laboratory Results WBC 7.68 k/cumm (4.4-10.8) 09/25/18 07:00 RBC 3.65 m/cumm (4.00-5.20) L 09/25/18 07:00 Hgb 10.5 g/dL (12.0-15.5) L 09/25/18 07:00 Hct 33.2 % (36.0-46.0) L 09/25/18 07:00 MCV 91.0 fL (80-95) 09/25/18 07:00 MCH 28.8 pg (27.0-33.0) 09/25/18 07:00 MCHC 31.6 g/dL (32.0-36.0) L 09/25/18 07:00 RDW 13.9 % (11.7-14.6) 09/25/18 07:00 Plt Count 327 x1000/uL (130-400) 09/25/18 07:00 MPV 9.8 fL (8.0-11.0) 09/25/18 07:00 Immature Gran % 0.3 09/25/18 07:00 Neutrophils % 61.4 09/25/18 07:00 Lymphocytes % 17.3 09/25/18 07:00 Monocytes % 16.0 09/25/18 07:00 Eosinophils % 4.3 09/25/18 07:00 Basophils % 0.7 09/25/18 07:00 Absolute Neutrophils 4.72 k/cumm (1.2-6.7) 09/25/18 07:00 Absolute Lymphocytes 1.33 k/cumm (1.2-3.4) 09/25/18 07:00 Absolute Monocytes 1.23 k/cumm (0.11-0.7) H 09/25/18 07:00 Absolute Eosinophils 0.33 k/cumm (0.0-0.7) 09/25/18 07:00 Absolute Basophils 0.05 k/cumm (0.0-0.2) 09/25/18 07:00 Differential Comment Diff reviewed 09/22/18 07:15 RBC Morphology Normal 09/22/18 07:15 Sodium 137 mmol/L (136-145) 09/25/18 07:00 Potassium 4.1 mmol/L (3.5-5.1) 09/25/18 07:00 Chloride 100 mmol/L (98-107) 09/25/18 07:00 Carbon Dioxide 24.7 mmol/L (21.0-32.0) 09/25/18 07:00 Anion Gap 12.3 mmol/L (3-11) H 09/25/18 07:00 BUN 6 mg/dL (7-18) L 09/25/18 07:00 Creatinine 0.65 mg/dL (0.55-1.02) 09/25/18 07:00 Estimated GFR/1.73 m2 >= 60.00 (mL/min/1.73m2) 09/25/18 07:00 Glucose 90 mg/dL (70-100) 09/25/18 07:00 Calcium 8.8 mg/dL (8.5-10.1) 09/25/18 07:00 Magnesium 1.7 mg/dL (1.8-2.4) L 09/25/18 07:00 Total Bilirubin 0.4 mg/dL (0.2-1.0) 09/22/18 07:15 AST 19 U/L (15-37) 09/22/18 07:15 ALT 16 U/L (12-78) 09/22/18 07:15 Alkaline Phosphatase 59 U/L (46-116) 09/22/18 07:15 Troponin I 0.06 ng/mL (0.00-0.06) 09/22/18 07:15 Total Protein 6.7 g/dL (6.4-8.2) 09/22/18 07:15 Albumin 2.8 g/dL (3.4-5.0) L 09/22/18 07:15 Urine Color Yellow (Yellow) 09/23/18 14:45 Urine Clarity Clear 09/23/18 14:45 Urine pH 6.0 (5-8) 09/23/18 14:45 Ur Specific [place] 1.015 (1.005-1.025) 09/23/18 14:45 Urine Protein Negative mg/dL (Negative) 09/23/18 14:45 Urine Ketones Negative mg/dL (Negative) 09/23/18 14:45 Urine Blood Trace-intact (Negative) H 09/23/18 14:45 Urine Nitrite Negative (Negative) 09/23/18 14:45 Urine Bilirubin Negative (Negative) 09/23/18 14:45 Urine Urobilinogen 0.2 EU/dL (Up TO 0.2) 09/23/18 14:45 Ur Leukocyte Esterase Negative (Negative) 09/23/18 14:45 Urine RBC 0-2 (0-2) 09/23/18 14:45 Urine WBC Negative HPF (0-5) 09/23/18 14:45 Ur Epithelial Cells Rare HPF (Negative) 09/23/18 14:45 Urine Crystals Negative HPF (Negative) 09/23/18 14:45 Urine Bacteria Rare HPF (Negative) 09/23/18 14:45 Urine Casts Negative LPF (Negative) 09/23/18 14:45 Urine Mucus Negative (Negative) 09/23/18 14:45 Urine Other Negative (Negative) 09/23/18 14:45 Ur Culture Indicated? No 09/23/18 14:45 Urine Glucose Negative mg/dL (Negative) 09/23/18 14:45 Stl C.difficile Tox PCR Negative 09/22/18 07:05 C.difficile Tox Source Feces 09/22/18 07:05
--- NOTE | 2018-09-25 13:28 | PDOC.CMPRO ---
- If Service Date Differs Date of service: 09/25/18 Time of Service: 13:28 Care Management Progress Note S/O: Joselin is doing well this afternoon, she will be going for a a flex sigmoidoscopy today. Joselin was previously on telemetry which has been discontinued at this time. No change in plan. A:Watery stool, hypomagnesium, hypokalemia, and colitis. P: Joselin will be discharged home when medically ready per provider. Her family to transport home when medically ready. CM to review resources COA and community connections to assist with resources in the community r/t chronic lice.
[2018-09-25 16:05] VITALS: BP 117/64; PULSE 77; RESP 18; TEMP 36.7; O2SAT 97
[2018-09-25] MEDS: Mirtazapine 15 MG TAB 30 MG PO (21:23)
[2018-09-25] MEDS: Lidocaine 5% Patch 1 PATCH TP (21:23)
[2018-09-25 23:31] VITALS: BP 147/72; PULSE 77; RESP 20; TEMP 37.5; O2SAT 93
[2018-09-26] VITALS (12 sets, daily range): BP systolic 114–153; BP diastolic 72–84; PULSE 71–91; RESP 17–28; TEMP 36.7–39.1; O2SAT 92–100
[2018-09-26 07:16] LABS: Abs Immature Grans 0.03 k/cumm (0.0-0.09); Absolute Basophil Count 0.07 k/cumm (0.0-0.2); Absolute Eosinophil Count 0.27 k/cumm (0.0-0.7); Absolute Monocyte Count 1.45 k/cumm (0.11-0.7); Absolute Neutrophil Count 4.88 k/cumm (1.2-6.7); Basophils % 0.9; Eosinophils % 3.4; HCT 34.7 % (36.0-46.0); HGB 11.3 g/dL (12.0-15.5); Immature Grans % 0.4; Lymphocytes % 16.3; Mean Corp. HGB Concentration 32.6 g/dL (32.0-36.0); Mean Corpuscular Hemoglobin 29.1 pg (27.0-33.0); Mean Corpuscular Volume 89.4 fL (80-95); Mean Platelet Volume 9.4 fL (8.0-11.0); Monocytes % 18.1; Neutrophils % 60.9; Platelet Count 344 x1000/uL (130-400); RBC 3.88 m/cumm (4.00-5.20); RBC Distribution Width 13.6 % (11.7-14.6)
[2018-09-26 07:21] LABS: Anion Gap 12.7 mmol/L (3-11); BUN 9 mg/dL (7-18); CO2 26.3 mmol/L (21.0-32.0); CREATININE 0.72 mg/dL (0.55-1.02); Calcium 8.9 mg/dL (8.5-10.1); Chloride 96 mmol/L (98-107); Glucose 100 mg/dL (70-100); Magnesium 1.5 mg/dL (1.8-2.4); Potassium 3.4 mmol/L (3.5-5.1); Sodium 135 mmol/L (136-145)
[2018-09-26] MEDS: Pantoprazole 40 MG TABCR PO ×2 (07:42→19:20)
[2018-09-26] MEDS: Metoprolol CR 100 MG TABCR PO (07:42)
[2018-09-26] MEDS: Chlorthalidone 25 MG TAB PO (07:42)
[2018-09-26] MEDS: ROSUVASTATIN 20 MG TAB 40 MG PO (07:42)
[2018-09-26] MEDS: Losartan 50 MG TAB 100 MG PO (07:43)
[2018-09-26] MEDS: MAGNESIUM SULFATE 2 GM/50 ML BAG IVPB (09:45)
--- NOTE | 2018-09-26 10:16 | W.PM.PROGNOT ---
Date of Service Date of service: 09/26/18 Time of Service: 10:17 Assessment and Plan (1) Enterocolitis: Current visit: No Status: Acute 73 y/o female with a history of diarrhea, ? rectosigmoid colitis on recent CT. Chart reviewed. Discussed with Dr. Skinner. Awaiting flex sig with biopsies to rule out IBD. Anticoagulation now on hold. Reviewed procedure for flex sig with patient. Risks, benefits, and alternatives including but not limited to risks with anesthesia sedation, bleeding, biopsy, perforation, and possible additional procedures all discussed. All questions answered. Patient wishes to proceed. Subjective Interval history since last seen: Patient denies any complaints this am. Had an enema yesterday with results. No BM today. Exam Const General: cooperative, comfortable and no acute distress Orientation: alert and oriented x3 Resp Effort & Inspection: normal respiratory effort and able to speak in complete sentences Objective Objective Clinical Data: Abnormal lab results 09/26/18 09/26/18 Range/Units 06:50 06:50 RBC 3.88 L (4.00-5.20) m/cumm Hgb 11.3 L (12.0-15.5) g/dL Hct 34.7 L (36.0-46.0) % Absolute Monocytes 1.45 H (0.11-0.7) k/cumm Sodium 135 L (136-145) mmol/L Potassium 3.4 L (3.5-5.1) mmol/L Chloride 96 L (98-107) mmol/L Anion Gap 12.7 H (3-11) mmol/L Magnesium 1.5 L (1.8-2.4) mg/dL Vital Signs Temperature 37.2 C 09/26/18 07:29 Temperature Source Tympanic 09/26/18 07:29 Pulse 81 09/26/18 07:29 Pulse Rhythm Regular 09/25/18 20:02 Pulse 113 H 09/22/18 09:20 Respiratory Rate 18 09/26/18 07:29 Respiratory Effort Non-Labored 09/25/18 20:02 Respiratory Depth Normal 09/25/18 20:02 Respiratory Pattern Normal 09/25/18 20:02 Blood Pressure 153/80 H 09/26/18 07:29 Blood Pressure Mean 117 09/22/18 09:16 Pulse Oximetry 94 L 09/26/18 07:29 Oxygen Delivery Method Room Air 09/26/18 07:29 Oxygen Flow Rate 0 09/26/18 07:29 Pain Level 5 09/26/18 07:29 Comment 09/26/18 07:29 Intake & Output 09/25/18 09/25/18 09/26/18 11:59 23:59 11:59 Intake Total 225 / 225 Output Total 1400 / 1400 Balance 225 / -1175 -1400 / -1175 Intake: Oral 225 / 225 Output: Urine 1400 / 1400 Other: Urine Color Pale Urine Appearance Clear Comment in comode Stool Characteristics Liquid Liquid Voiding Methods Bedside Commode Laboratory Results WBC 8.00 k/cumm (4.4-10.8) 09/26/18 06:50 RBC 3.88 m/cumm (4.00-5.20) L 09/26/18 06:50 Hgb 11.3 g/dL (12.0-15.5) L 09/26/18 06:50 Hct 34.7 % (36.0-46.0) L 09/26/18 06:50 MCV 89.4 fL (80-95) 09/26/18 06:50 MCH 29.1 pg (27.0-33.0) 09/26/18 06:50 MCHC 32.6 g/dL (32.0-36.0) 09/26/18 06:50 RDW 13.6 % (11.7-14.6) 09/26/18 06:50 Plt Count 344 x1000/uL (130-400) 09/26/18 06:50 MPV 9.4 fL (8.0-11.0) 09/26/18 06:50 Immature Gran % 0.4 09/26/18 06:50 Neutrophils % 60.9 09/26/18 06:50 Lymphocytes % 16.3 09/26/18 06:50 Monocytes % 18.1 09/26/18 06:50 Eosinophils % 3.4 09/26/18 06:50 Basophils % 0.9 09/26/18 06:50 Absolute Neutrophils 4.88 k/cumm (1.2-6.7) 09/26/18 06:50 Absolute Lymphocytes 1.30 k/cumm (1.2-3.4) 09/26/18 06:50 Absolute Monocytes 1.45 k/cumm (0.11-0.7) H 09/26/18 06:50 Absolute Eosinophils 0.27 k/cumm (0.0-0.7) 09/26/18 06:50 Absolute Basophils 0.07 k/cumm (0.0-0.2) 09/26/18 06:50 Differential Comment Diff reviewed 09/22/18 07:15 RBC Morphology Normal 09/22/18 07:15 Sodium 135 mmol/L (136-145) L 09/26/18 06:50 Potassium 3.4 mmol/L (3.5-5.1) L 09/26/18 06:50 Chloride 96 mmol/L (98-107) L 09/26/18 06:50 Carbon Dioxide 26.3 mmol/L (21.0-32.0) 09/26/18 06:50 Anion Gap 12.7 mmol/L (3-11) H 09/26/18 06:50 BUN 9 mg/dL (7-18) 09/26/18 06:50 Creatinine 0.72 mg/dL (0.55-1.02) 09/26/18 06:50 Estimated GFR/1.73 m2 >= 60.00 (mL/min/1.73m2) 09/26/18 06:50 Glucose 100 mg/dL (70-100) 09/26/18 06:50 Calcium 8.9 mg/dL (8.5-10.1) 09/26/18 06:50 Magnesium 1.5 mg/dL (1.8-2.4) L 09/26/18 06:50 Total Bilirubin 0.4 mg/dL (0.2-1.0) 09/22/18 07:15 AST 19 U/L (15-37) 09/22/18 07:15 ALT 16 U/L (12-78) 09/22/18 07:15 Alkaline Phosphatase 59 U/L (46-116) 09/22/18 07:15 Troponin I 0.06 ng/mL (0.00-0.06) 09/22/18 07:15 Total Protein 6.7 g/dL (6.4-8.2) 09/22/18 07:15 Albumin 2.8 g/dL (3.4-5.0) L 09/22/18 07:15 Urine Color Yellow (Yellow) 09/23/18 14:45 Urine Clarity Clear 09/23/18 14:45 Urine pH 6.0 (5-8) 09/23/18 14:45 Ur Specific [place] 1.015 (1.005-1.025) 09/23/18 14:45 Urine Protein Negative mg/dL (Negative) 09/23/18 14:45 Urine Ketones Negative mg/dL (Negative) 09/23/18 14:45 Urine Blood Trace-intact (Negative) H 09/23/18 14:45 Urine Nitrite Negative (Negative) 09/23/18 14:45 Urine Bilirubin Negative (Negative) 09/23/18 14:45 Urine Urobilinogen 0.2 EU/dL (Up TO 0.2) 09/23/18 14:45 Ur Leukocyte Esterase Negative (Negative) 09/23/18 14:45 Urine RBC 0-2 (0-2) 09/23/18 14:45 Urine WBC Negative HPF (0-5) 09/23/18 14:45 Ur Epithelial Cells Rare HPF (Negative) 09/23/18 14:45 Urine Crystals Negative HPF (Negative) 09/23/18 14:45 Urine Bacteria Rare HPF (Negative) 09/23/18 14:45 Urine Casts Negative LPF (Negative) 09/23/18 14:45 Urine Mucus Negative (Negative) 09/23/18 14:45 Urine Other Negative (Negative) 09/23/18 14:45 Ur Culture Indicated? No 09/23/18 14:45 Urine Glucose Negative mg/dL (Negative) 09/23/18 14:45 Stl C.difficile Tox PCR Negative 09/22/18 07:05 C.difficile Tox Source Feces 09/22/18 07:05
[2018-09-26] MEDS: Lidocaine Patch Removal 1 EACH TP (10:54)
--- NOTE | 2018-09-26 11:45 | BOWEL_PTH ---
PATIENT: ADOLFO AGGARWAL LOC: U#:[id number] AGE/SX: 73/F ROOM: RE09/22/[address]: Vlad Morrow : 1945 BED: A DIS: 10/03/2018 SPEC #: [id number] RECD: 09/26/18 12:52 STATUS: BAR REBarrett #: [id number] ESTHER: 09/26/18 11:[address]: Seth Stephen DEPT: Surgical Specimen RECD BY: Myrna Iverson ENTERED: 09/26/18 12:54 SP TYPE: Bowel OTHR DR: THU Jeff MD Patrick Fitzpatrick, DO [place], Patricia Kaplin, Aviva W Annick Kaufman, MD [place], Kevin Terry Larsen, DO Pham, Quynhanh H Deane Rankin, MD [place], Russell G Mitchell J. Sullivan, MD Tissues: 1 - BIOPSY BOWEL Procedures: GROSS AND MICRO LEVEL 4 Comments: [id number]
--- NOTE | 2018-09-26 12:36 | ROE_ITS ---
Date of service: 09/26/18 Time of Service: 12:34 Operative Note DATE OF PROCEDURE: 09/26/18 PRE-OP DIAGNOSIS: Colitis POST-OP DIAGNOSIS: same PROCEDURE: Flexible sigmoidoscopy with biopsies SURGEON: Noam Zhang ANESTHESIA: MAC ESTIMATED BLOOD LOSS: 1 PATHOLOGY: other (Random rectosigmoid biopsies) COMPLICATIONS: None Patient was transported to: PACU Patient's condition: stable Indications: 73 y/o female admitted with diarrhea and findings on CT suggestive of rectosigmoid colitis. Patient presents at this time for a flexible sigmoidoscopy. Endoscopic proceudre with risks, benefits, and alternatives discussed with patient and informed consent obtained prior to endoscopy. Findings: Residual loose, solid stool in rectal vault and sigmoid colon. Minimal mucosal erythema. Random biopsies obtained. Procedure Description: Patient was brought to the operating room and placed in the left lateral decubitus position. Patient was placed under monitored anesthesia care. Time out performed per protocol. Digital rectal exam performed. No hemorrhoids or masses noted. Normal rectal tone. Colonoscope was introduced and advanced up to 40 cm. There was still a large amount of soft, loose, solid green stool in the rectosigmoid colon. This was irrigated to inspect the underlying mucosa. A small polyp could be missed due to the residual stool but no obvious polyps or masses seen. There was minimal erythema of the mucosa. Random biopsies of the mucosa from 40 cm to the rectum were ob tained as the scope was withdrawn. The scope was retroflexed in the distal rectum. No anorectal abnormality noted. Scope was straightened and withdrawn. The patient tolerated the procedure well, was awakened from anesthesia, and transferred to recovery in satisfactory condition.
[2018-09-26] MEDS: POTASSIUM CHLORIDE 10 MEQ/100 ML BAG 100 MEQ IVPB (12:42)
--- NOTE | 2018-09-26 13:47 | PDOC.CMPRO ---
- If Service Date Differs Date of service: 09/26/18 Time of Service: 13:47 Care Management Progress Note S/O: Joselin is lying in bed this morning when this proposal lead writer visits. She reports feeling well this morning. Joselin is scheduled to have a flex sigmoidoscopy today. Her C Diff PCR came back as negative as of this morning. Joselin's plan remains unchanged at this time. A:Watery stool, hypomagnesium, hypokalemia, and colitis. P: Joselin will be discharged home when medically ready per provider. Her family to transport home when medically ready. CM to review resources COA and community connections to assist with resources in the community r/t chronic lice.
--- NOTE | 2018-09-26 13:55 | CMPROGNOTE_ITS ---
- If Service Date Differs Date of service: 09/26/18 Time of Service: 13:47 Care Management Progress Note S/O: Joselin is lying in bed this morning when this staff writer visits. She reports feeling well this morning. Joselin is scheduled to have a flex sigmoidoscopy today. Her C Diff PCR came back as negative as of this morning. Joselin's plan remains unchanged at this time. A:Watery stool, hypomagnesium, hypokalemia, and colitis. P: Joselin will be discharged home when medically ready per provider. Her family to transport home when medically ready. CM to review resources COA and community connections to assist with resources in the community r/t chronic lice.
[2018-09-26] MEDS: POTASSIUM CHLORIDE 10 MEQ/100 ML BAG 50 MEQ IVPB ×2 (14:46→17:25)
[2018-09-26] MEDS: Mylanta Suspension 30 ML CUP PO (14:53)
--- NOTE | 2018-09-26 16:15 | PGE_ITS ---
Date of Service Date of service: 09/26/18 Time of Service: 16:10 Assessment and Plan (1) Diarrhea: Current visit: Yes Status: Acute Recent CT from last hospitalization with mild proctocolitis. C. Diff negative and stool cultures at that time negative. Appeared to improve with antibiotic therapy and IVFs. Current presentation appears to be slightly different in that the patient is not ill appearing, lacking leukocytosis, Lactic Acidosis, or evidence of significant dehydration. Given recent antibiotic therapy checked C.Diff by PCR - now resulting as negative. Last stool studies negative for infection. Potential for ischemic bowel particularly w history of PAD and abrupt stoppage of her Plavix and Apixaban (Patient intolerant at home), but current labs without evidence of si gnificant acidosis or anion gap, and exam inconsistent with diagnosis. Surgery consulted - Flex Sig with minimal erythema, biopsied. Patient had been febrile until 2 days ago, with last fever of 38.2 in the afternoon /. CXR and urinalysis negative for infection. Unsure of etiology of diarrhea, but appears vastly improved. Patient at this time reporting 1-2 movements a day. Discussed discharge home with follow-up with surgery for review of pathology/biopsy, but patient prefers to wait until tomorrow. Also reports ongoing nausea - something she has been experiencing for 'months'. May benefit from outpatient GI follow-up as well. (2) Abnormal CT scan, chest: Current visit: Yes Status: Acute Evidence of potential mediastinal lymphadenopathy with potentially increasing right hilar adenopathy raising potential for neoplastic disease. Needs follow-up and further evaluation as an outpatient. (3) Pediculosis: Current visit: Yes Status: Acute Head lice noted by nursing again this hospitalization. S/p treatment with topical Lindane - contact precautions in place. (4) Coronary artery disease: Current visit: No Status: Chronic Noted. Patient with a [facility] 12/2015 showing nonobstructive CAD (LM 10%, LAD long prox 30% calcified, LCX prox 20%, RCA prox and mid calcified 40%). Asymptomatic with current troponin negative. Continue Clopidogrel, BB, high potency statin. Also on Apixiban given underlying Afib - currently on hold for procedure. (5) PVD (peripheral vascular disease): Current visit: Yes Status: Chronic Continue Plavix (on hold as above), statin. Also on BB and ARB. (6) Atrial fibrillation: Current visit: Yes Status: Chronic Initial rate uncontrolled as patient had been off her medications for 2-3 days. Reinitiated BB with good subsequent control. Continue anticoagulation with apixaban once clear following scheduled procedure. (7) Chronic obstructive lung disease: Current visit: Yes Status: Chronic Noted. Appears quiescent. Duonebs prn. (8) Essential hypertension: Current visit: Yes Status: Chronic Elevated due to noncompliance with home medication due to nausea. Reinitiated ARB, BB with good results. (9) Hyperlipidemia: Current visit: Yes Status: Chronic Continue Rosuvastatin. (10) DVT prophylaxis: Current visit: Yes Status: Acute On anticoagulation with Apixaban - resume tomorrow morning. PPI therapy as well given history of PUD and GERD. Subjective Interval history since last seen: 73 yr old woman with just recently hospitalized on 09/10 to 09/15 at [facility] and treated for colitis, admitted from [facility] Emergency Department on 09/22 with complaint of recurrence of diarrhea and nausea. Ms. Arrington has a history significant for severe PAD, Non-obstructive CAD, COPD, HTN, HCV, lung CA s/p lobectomy, PSVT, NSTEMI, PUD, GERD, and former alcohol abuse. She had previously presented to the ED in late August with 3 days of nausea, vomiting and diarrhea, along with crampy abdominal pain. No associated fevers were reported at that time. Evaluation at that time was relevant for diffuse abdominal tenderness, elevated WBC, Acute Kidney Injury, mildly elevated lactate, and tachycardia. A subsequent CT of her abdomen and pelvis suggested a rectosigmoid colitis. Of note, the patient also had evidence of some abnormal lymph nodes in the mediastinum, right hilum, and Left Axilla raising the possibility of neoplastic disease. Following her prior admission she was started on antibiotic therapy. Stool was negative for C. diff, and stool culture were negative as well. As her symptoms improved significantly she was discharged to complete her antibiotic course. The patient then reported recurrence of diarrhea with one day of antibiotics left at home, approximately 3 days prior to her presentation here. However, further questioning revealed that she had been intermittently noncompliant with her antibiotics at home. She reported only a few bouts daily of diarrhea, currently 3-4 times, but describes them as 'liquid'. Her C. Diff was checked and negative, with PCR ordered and negative as well. Her fecal leukocytes were positive. She underwent a flexible Sigmoidoscopy this morning. No other events reported. She remains febirle. Exam Narrative Exam Narrative: General: Patient appears comfortable, AAOX3, NAD Neck: Supple CV: Irregular, not tachycardic, S1S2, No rubs, murmurs, or gallops. Pulmonary: Clear to auscultation bilaterally, no crackles, wheezing, or rhonchi Abdomen: + Bowel Sounds, soft, nontender, nondistended at time of exam. Vascular: No lower extremity edema Psych: Normal mood and affect. Objective Objective Clinical Data: Abnormal lab results 09/26/18 09/26/18 Range/Units 06:50 06:50 RBC 3.88 L (4.00-5.20) m/cumm Hgb 11.3 L (12.0-15.5) g/dL Hct 34.7 L (36.0-46.0) % Absolute Monocytes 1.45 H (0.11-0.7) k/cumm Sodium 135 L (136-145) mmol/L Potassium 3.4 L (3.5-5.1) mmol/L Chloride 96 L (98-107) mmol/L Anion Gap 12.7 H (3-11) mmol/L Magnesium 1.5 L (1.8-2.4) mg/dL Vital Signs Temperature 36.7 C 09/26/18 12:50 Temperature Source Tympanic 09/26/18 12:50 Pulse 71 09/26/18 12:50 Pulse Rhythm Regular 09/26/18 10:59 Pulse 113 H 09/22/18 09:20 Respiratory Rate 17 09/26/18 12:50 Respiratory Effort 09/26/18 10:59 Respiratory Depth Normal 09/26/18 10:59 Respiratory Pattern Normal 09/26/18 10:59 Blood Pressure 135/80 09/26/18 12:50 Blood Pressure Mean 117 09/22/18 09:16 Pulse Oximetry 96 09/26/18 12:50 Oxygen Delivery Method Room Air 09/26/18 12:50 Oxygen Flow Rate 0 09/26/18 12:50 Pain Level 1 09/26/18 12:19 Comment 09/26/18 12:19 Intake & Output 09/25/18 09/26/18 09/26/18 23:59 11:59 23:59 Intake Total 100 / 100 Output Total 1400 / 1400 400 / 400 Balance -1400 / -1175 -400 / -300 100 / -300 Intake: IV 100 / 100 Output: Urine 1400 / 1400 400 / 400 Other: Urine Color Pale Yellow Urine Appearance Clear Clear Urine Odor None Comment in comode Stool Size Moderate Stool Characteristics Liquid Soft Voiding Methods Bedside Commode Bedside Commode Laboratory Results WBC 8.00 k/cumm (4.4-10.8) 09/26/18 06:50 RBC 3.88 m/cumm (4.00-5.20) L 09/26/18 06:50 Hgb 11.3 g/dL (12.0-15.5) L 09/26/18 06:50 Hct 34.7 % (36.0-46.0) L 09/26/18 06:50 MCV 89.4 fL (80-95) 09/26/18 06:50 MCH 29.1 pg (27.0-33.0) 09/26/18 06:50 MCHC 32.6 g/dL (32.0-36.0) 09/26/18 06:50 RDW 13.6 % (11.7-14.6) 09/26/18 06:50 Plt Count 344 x1000/uL (130-400) 09/26/18 06:50 MPV 9.4 fL (8.0-11.0) 09/26/18 06:50 Immature Gran % 0.4 09/26/18 06:50 Neutrophils % 60.9 09/26/18 06:50 Lymphocytes % 16.3 09/26/18 06:50 Monocytes % 18.1 09/26/18 06:50 Eosinophils % 3.4 09/26/18 06:50 Basophils % 0.9 09/26/18 06:50 Absolute Neutrophils 4.88 k/cumm (1.2-6.7) 09/26/18 06:50 Absolute Lymphocytes 1.30 k/cumm (1.2-3.4) 09/26/18 06:50 Absolute Monocytes 1.45 k/cumm (0.11-0.7) H 09/26/18 06:50 Absolute Eosinophils 0.27 k/cumm (0.0-0.7) 09/26/18 06:50 Absolute Basophils 0.07 k/cumm (0.0-0.2) 09/26/18 06:50 Differential Comment Diff reviewed 09/22/18 07:15 RBC Morphology Normal 09/22/18 07:15 Sodium 135 mmol/L (136-145) L 09/26/18 06:50 Potassium 3.4 mmol/L (3.5-5.1) L 09/26/18 06:50 Chloride 96 mmol/L (98-107) L 09/26/18 06:50 Carbon Dioxide 26.3 mmol/L (21.0-32.0) 09/26/18 06:50 Anion Gap 12.7 mmol/L (3-11) H 09/26/18 06:50 BUN 9 mg/dL (7-18) 09/26/18 06:50 Creatinine 0.72 mg/dL (0.55-1.02) 09/26/18 06:50 Estimated GFR/1.73 m2 >= 60.00 (mL/min/1.73m2) 09/26/18 06:50 Glucose 100 mg/dL (70-100) 09/26/18 06:50 Calcium 8.9 mg/dL (8.5-10.1) 09/26/18 06:50 Magnesium 1.5 mg/dL (1.8-2.4) L 09/26/18 06:50 Total Bilirubin 0.4 mg/dL (0.2-1.0) 09/22/18 07:15 AST 19 U/L (15-37) 09/22/18 07:15 ALT 16 U/L (12-78) 09/22/18 07:15 Alkaline Phosphatase 59 U/L (46-116) 09/22/18 07:15 Troponin I 0.06 ng/mL (0.00-0.06) 09/22/18 07:15 Total Protein 6.7 g/dL (6.4-8.2) 09/22/18 07:15 Albumin 2.8 g/dL (3.4-5.0) L 09/22/18 07:15 Urine Color Yellow (Yellow) 09/23/18 14:45 Urine Clarity Clear 09/23/18 14:45 Urine pH 6.0 (5-8) 09/23/18 14:45 Ur Specific [place] 1.015 (1.005-1.025) 09/23/18 14:45 Urine Protein Negative mg/dL (Negative) 09/23/18 14:45 Urine Ketones Negative mg/dL (Negative) 09/23/18 14:45 Urine Blood Trace-intact (Negative) H 09/23/18 14:45 Urine Nitrite Negative (Negative) 09/23/18 14:45 Urine Bilirubin Negative (Negative) 09/23/18 14:45 Urine Urobilinogen 0.2 EU/dL (Up TO 0.2) 09/23/18 14:45 Ur Leukocyte Esterase Negative (Negative) 09/23/18 14:45 Urine RBC 0-2 (0-2) 09/23/18 14:45 Urine WBC Negative HPF (0-5) 09/23/18 14:45 Ur Epithelial Cells Rare HPF (Negative) 09/23/18 14:45 Urine Crystals Negative HPF (Negative) 09/23/18 14:45 Urine Bacteria Rare HPF (Negative) 09/23/18 14:45 Urine Casts Negative LPF (Negative) 09/23/18 14:45 Urine Mucus Negative (Negative) 09/23/18 14:45 Urine Other Negative (Negative) 09/23/18 14:45 Ur Culture Indicated? No 09/23/18 14:45 Urine Glucose Negative mg/dL (Negative) 09/23/18 14:45 Stl C.difficile Tox PCR Negative 09/22/18 07:05 C.difficile Tox Source Feces 09/22/18 07:05
[2018-09-26] MEDS: Acetaminophen 325 MG TAB PO (17:43)
--- NOTE | 2018-09-26 18:53 | NUR.NOTE ---
Nursing Note: patient appears to be more relaxed, the shivering has stopped, abdomen is still the same size, patient still c/o just cramping at this time. temperature had reduced to 38 with the administration of the Tylenol. She felt that she was breathing heavy but was reassured that her sat was improving and her rate of respiration had decreased, this in itself comforted the patient, next shift will be updated
[2018-09-26] MEDS: Ferrous Sulfate 325 MG TAB PO (19:21)
[2018-09-26] MEDS: POTASSIUM CHLORIDE 10 MEQ/100 ML BAG IVPB (19:24)
[2018-09-26] MEDS: Mirtazapine 15 MG TAB 30 MG PO (21:39)
[2018-09-26] MEDS: Lidocaine 5% Patch 1 PATCH TP (21:40)
[2018-09-26] MEDS: Magnesium Chloride 64 MG TABCR PO (21:40)
--- NOTE | 2018-09-26 22:41 | NUR.NOTE ---
Nursing Note: 7P to 7A shift: Pt received fully awake on bed. with Temp of 39.1. Cold compress and ice pack applied on forehead and arms.Iv Potassium rate adjusted to 5cc/hr with NS drip running due to burning sensation on IV site. Temp rechecked after an hour was 37.9. Has mild abdominal pain, refused to get pain med, lidoderm patch applied on the back as scheduled. Pt had semi liquid moderate amount of stools. Continue to monitor.
[2018-09-27 07:11] LABS: Anion Gap 9.5 mmol/L (3-11); BUN 10 mg/dL (7-18); CO2 27.5 mmol/L (21.0-32.0); CREATININE 0.69 mg/dL (0.55-1.02); Calcium 8.7 mg/dL (8.5-10.1); Chloride 99 mmol/L (98-107); Glucose 88 mg/dL (70-100); Magnesium 2.1 mg/dL (1.8-2.4); Potassium 3.3 mmol/L (3.5-5.1); Sodium 136 mmol/L (136-145)
[2018-09-27 07:17] LABS: Abs Immature Grans 0.02 k/cumm (0.0-0.09); Absolute Basophil Count 0.03 k/cumm (0.0-0.2); Absolute Eosinophil Count 0.11 k/cumm (0.0-0.7); Absolute Monocyte Count 1.16 k/cumm (0.11-0.7); Basophils % 0.3; HCT 34.1 % (36.0-46.0); Immature Grans % 0.2; Mean Corp. HGB Concentration 32.3 g/dL (32.0-36.0); Mean Corpuscular Hemoglobin 28.9 pg (27.0-33.0); Mean Corpuscular Volume 89.5 fL (80-95); Mean Platelet Volume 9.7 fL (8.0-11.0); Monocytes % 10.6; Neutrophils % 77.9; Platelet Count 335 x1000/uL (130-400); RBC 3.81 m/cumm (4.00-5.20); RBC Distribution Width 13.6 % (11.7-14.6); White Blood Cell Count 10.99 k/cumm (4.4-10.8)
[2018-09-27 07:35] LABS: Absolute Neutrophil Count 8.56 k/cumm (1.2-6.7)
[2018-09-27 08:21] VITALS: BP 106/74; PULSE 92; RESP 20; TEMP 37; O2SAT 93
[2018-09-27] MEDS: Ferrous Sulfate 325 MG TAB PO ×2 (08:52→20:38)
[2018-09-27] MEDS: Pantoprazole 40 MG TABCR PO ×2 (08:52→20:37)
[2018-09-27] MEDS: Apixaban 5 MG TAB PO ×2 (08:52→20:37)
[2018-09-27] MEDS: ROSUVASTATIN 20 MG TAB 40 MG PO (08:52)
[2018-09-27] MEDS: Cyanocobalamin 500 MCG TAB 1000 MCG PO (08:53)
[2018-09-27] MEDS: Metoprolol CR 100 MG TABCR PO (08:53)
[2018-09-27] MEDS: Potassium Chloride 20 MEQ TABCR PO (08:53)
[2018-09-27] MEDS: Chlorthalidone 25 MG TAB PO (08:53)
[2018-09-27] MEDS: Losartan 50 MG TAB 100 MG PO (08:53)
[2018-09-27] MEDS: Mometasone 220 MCG 14 DOSE INHALER 1 PUFF IH (09:09)
[2018-09-27] MEDS: Magnesium Chloride 64 MG TABCR PO ×2 (11:30→22:19)
[2018-09-27] MEDS: Normal Saline Flush 10 ML SYR IVP (11:30)
[2018-09-27] MEDS: Lidocaine Patch Removal 1 EACH TP (11:31)
--- NOTE | 2018-09-27 13:50 | PGE_ITS ---
Date of Service Date of service: 09/27/18 Time of Service: 11:21 Assessment and Plan (1) Diarrhea: Current visit: Yes Status: Acute Recent CT from last hospitalization with mild proctocolitis. C. Diff negative and stool cultures at that time negative. Appeared to improve with antibiotic therapy and IVFs. Current presentation appears to be slightly different in that the patient is not ill appearing, lacking leukocytosis, Lactic Acidosis, or evidence of significant dehydration. Given recent antibiotic therapy checked C.Diff by PCR - now resulting as negative. Last stool studies negative for infection. Potential for ischemic bowel particularly w history of PAD and abrupt stoppage of her Plavix and Apixaban (Patient intolerant at home), but labs without evidence of significant acidosis or anion gap, and exam inconsistent with diagnosis. Surgery consulted - Flex Sig with minimal erythema, biopsied. Patient had been febrile until 09/24, now with recurrence of fevers just after the sigmoidoscopy with biopsies. CXR and urinalysis negative for infection at initial evaluation, now that the fever has resolved I do not think that repeating cultures or chest x-ray would be helpful. The procedure may have caused some local inflammation. Possibility of perforation must be considered, but given she has had weeks of pain and intermittent fevers before the procedure, I will monitor her to her clinically before repeating CT scan. Unsure of etiology of diarrhea. Symptoms appeared vastly improved for 2 days until after the procedure. Biopsies are pending, may help us with the diagnosis if this is a case of ulcerative or infectious colitis. For now, continue supportive care. If she is feeling better, we can discharge her home in the next few days. If not, we will continue diagnostic assessment. (2) Abnormal CT scan, chest: Current visit: Yes Status: Acute Evidence of potential mediastinal lymphadenopathy with potentially increasing right hilar adenopathy raising potential for neoplastic disease or other conditions such as sarcoidosis. Unclear with there is connection to recurrent colitis. Needs follow-up and further evaluation as an outpatient. (3) Pediculosis: Current visit: Yes Status: Acute Head lice noted by nursing again this hospitalization. S/p treatment with topical Lindane - contact precautions in place. (4) Coronary artery disease: Current visit: No Status: Chronic Noted. Patient with a C 12/2015 showing nonobstructive CAD (LM 10%, LAD long prox 30% calcified, LCX prox 20%, RCA prox and mid calcified 40%). Asymptomatic with current troponin negative. Continue Clopidogrel, BB, high potency statin. (5) PVD (peripheral vascular disease): Current visit: Yes Status: Chronic Continue Plavix, statin. Also on BB and ARB. (6) Atrial fibrillation: Current visit: Yes Status: Chronic Initial rate uncontrolled as patient had been off her medications for 2-3 days. Reinitiated BB with good subsequent control. Continue anticoagulation with apixaban. (7) Chronic obstructive lung disease: Current visit: Yes Status: Chronic Noted. Appears quiescent. Duonebs prn. (8) Essential hypertension: Current visit: Yes Status: Chronic Initially elevated due to noncompliance with home medication due to nausea. Reinitiated ARB, BB with good results, well controlled. (9) Hyperlipidemia: Current visit: Yes Status: Chronic Continue Rosuvastatin. (10) DVT prophylaxis: Current visit: Yes Status: Acute On anticoagulation with Apixaban. PPI therapy as well given history of PUD and GERD. Subjective Patient reports: still having pain, voiding w/o difficulty and fever; denies vomiting and shortness of breath Interval history since last seen: 24 hours: Sigmoidoscopy with biopsies performed by Dr. Zhang 09/26 Per nursing, patient had fever last night after procedure up to 39.1 C in the evening. Not since. Patient states she feels about the same. She confirms she felt feverish last night after the procedure, but has not had any fevers today. She continues to have some left-sided abdominal pain and bloating. She did have soft stool this morning without blood. He is urinating normally without pain. She denies shortness of breath, though does have intermittent wet sounding cough that is not new. She ate this morning, but not much. Exam Narrative Exam Narrative: General: Patient appears comfortable, AAOX3, NAD CV: Irregular, not tachycardic, S1S2, No rubs, murmurs, or gallops. Pulmonary: Clear to auscultation bilaterally, no crackles, wheezing, or rhonchi Abdomen: + Hypoactive sounds, soft, nondistended at time of exam, but diffusely tender to deep palpation, more so in the left lower quadrant. Vascular: No lower extremity edema Psych: Normal mood and affect. Objective Objective Clinical Data: Abnormal lab results 09/27/18 09/27/18 Range/Units 06:38 06:38 WBC 10.99 H D (4.4-10.8) k/cumm RBC 3.81 L (4.00-5.20) m/cumm Hgb 11.0 L (12.0-15.5) g/dL Hct 34.1 L (36.0-46.0) % Absolute Neutrophils 8.56 H (1.2-6.7) k/cumm Absolute Lymphocytes 1.10 L (1.2-3.4) k/cumm Absolute Monocytes 1.16 H (0.11-0.7) k/cumm Potassium 3.3 L (3.5-5.1) mmol/L Vital Signs Temperature 37 C 09/27/18 08:21 Temperature Source Temporal Artery Scan 09/27/18 08:21 Pulse 92 H 09/27/18 08:21 Pulse Rhythm Regular 09/26/18 19:51 Pulse 113 H 09/22/18 09:20 Respiratory Rate 20 09/27/18 08:21 Respiratory Effort 09/27/18 10:41 Respiratory Depth Normal 09/27/18 10:41 Respiratory Pattern Normal 09/27/18 10:41 Blood Pressure 106/74 09/27/18 08:21 Blood Pressure Mean 117 09/22/18 09:16 Pulse Oximetry 93 L 09/27/18 08:21 Oxygen Delivery Method Room Air 09/27/18 08:21 Oxygen Flow Rate 0 09/27/18 08:21 Pain Level 1 09/26/18 12:19 Comment 09/26/18 16:43 Intake & Output 09/26/18 09/27/18 09/27/18 23:59 11:59 23:59 Intake Total 200 / 200 Output Total 575 / 975 1100 / 1100 Balance -375 / -775 -1100 / -1100 Intake: IV 200 / 200 Output: Urine 575 / 975 1100 / 1100 Other: Urine Color Yellow [place] Urine Appearance Clear Clear Urine Odor None Comment in the hat when assesed this morning Stool Size Moderate Small Stool Characteristics Foamy Soft Voiding Methods Toilet Toilet Laboratory Results WBC 10.99 k/cumm (4.4-10.8) H D 09/27/18 06:38 RBC 3.81 m/cumm (4.00-5.20) L 09/27/18 06:38 Hgb 11.0 g/dL (12.0-15.5) L 09/27/18 06:38 Hct 34.1 % (36.0-46.0) L 09/27/18 06:38 MCV 89.5 fL (80-95) 09/27/18 06:38 MCH 28.9 pg (27.0-33.0) 09/27/18 06:38 MCHC 32.3 g/dL (32.0-36.0) 09/27/18 06:38 RDW 13.6 % (11.7-14.6) 09/27/18 06:38 Plt Count 335 x1000/uL (130-400) 09/27/18 06:38 MPV 9.7 fL (8.0-11.0) 09/27/18 06:38 Immature Gran % 0.2 09/27/18 06:38 Neutrophils % 77.9 09/27/18 06:38 Lymphocytes % 10.0 09/27/18 06:38 Monocytes % 10.6 09/27/18 06:38 Eosinophils % 1.0 09/27/18 06:38 Basophils % 0.3 09/27/18 06:38 Absolute Neutrophils 8.56 k/cumm (1.2-6.7) H 09/27/18 06:38 Absolute Lymphocytes 1.10 k/cumm (1.2-3.4) L 09/27/18 06:38 Absolute Monocytes 1.16 k/cumm (0.11-0.7) H 09/27/18 06:38 Absolute Eosinophils 0.11 k/cumm (0.0-0.7) 09/27/18 06:38 Absolute Basophils 0.03 k/cumm (0.0-0.2) 09/27/18 06:38 Differential Comment Diff reviewed 09/22/18 07:15 RBC Morphology Normal 09/22/18 07:15 Sodium 136 mmol/L (136-145) 09/27/18 06:38 Potassium 3.3 mmol/L (3.5-5.1) L 09/27/18 06:38 Chloride 99 mmol/L (98-107) 09/27/18 06:38 Carbon Dioxide 27.5 mmol/L (21.0-32.0) 09/27/18 06:38 Anion Gap 9.5 mmol/L (3-11) 09/27/18 06:38 BUN 10 mg/dL (7-18) 09/27/18 06:38 Creatinine 0.69 mg/dL (0.55-1.02) 09/27/18 06:38 Estimated GFR/1.73 m2 >= 60.00 (mL/min/1.73m2) 09/27/18 06:38 Glucose 88 mg/dL (70-100) 09/27/18 06:38 Calcium 8.7 mg/dL (8.5-10.1) 09/27/18 06:38 Magnesium 2.1 mg/dL (1.8-2.4) 09/27/18 06:38 Total Bilirubin 0.4 mg/dL (0.2-1.0) 09/22/18 07:15 AST 19 U/L (15-37) 09/22/18 07:15 ALT 16 U/L (12-78) 09/22/18 07:15 Alkaline Phosphatase 59 U/L (46-116) 09/22/18 07:15 Troponin I 0.06 ng/mL (0.00-0.06) 09/22/18 07:15 Total Protein 6.7 g/dL (6.4-8.2) 09/22/18 07:15 Albumin 2.8 g/dL (3.4-5.0) L 09/22/18 07:15 Urine Color Yellow (Yellow) 09/23/18 14:45 Urine Clarity Clear 09/23/18 14:45 Urine pH 6.0 (5-8) 09/23/18 14:45 Ur Specific [place] 1.015 (1.005-1.025) 09/23/18 14:45 Urine Protein Negative mg/dL (Negative) 09/23/18 14:45 Urine Ketones Negative mg/dL (Negative) 09/23/18 14:45 Urine Blood Trace-intact (Negative) H 09/23/18 14:45 Urine Nitrite Negative (Negative) 09/23/18 14:45 Urine Bilirubin Negative (Negative) 09/23/18 14:45 Urine Urobilinogen 0.2 EU/dL (Up TO 0.2) 09/23/18 14:45 Ur Leukocyte Esterase Negative (Negative) 09/23/18 14:45 Urine RBC 0-2 (0-2) 09/23/18 14:45 Urine WBC Negative HPF (0-5) 09/23/18 14:45 Ur Epithelial Cells Rare HPF (Negative) 09/23/18 14:45 Urine Crystals Negative HPF (Negative) 09/23/18 14:45 Urine Bacteria Rare HPF (Negative) 09/23/18 14:45 Urine Casts Negative LPF (Negative) 09/23/18 14:45 Urine Mucus Negative (Negative) 09/23/18 14:45 Urine Other Negative (Negative) 09/23/18 14:45 Ur Culture Indicated? No 09/23/18 14:45 Urine Glucose Negative mg/dL (Negative) 09/23/18 14:45 Stl C.difficile Tox PCR Negative 09/22/18 07:05 C.difficile Tox Source Feces 09/22/18 07:05
--- NOTE | 2018-09-27 15:46 | PDOC.CMPRO ---
Care Management Progress Note S/O: Joselin is lying in bed and has been sipping liquids. She has been afebrile and expects to go home tomorrow. Remains on contact precautions for head lice. She has been treated again with topical Lindane. Joselin's plan remains unchanged at this time. A: 73 yo female admitted for hypomagnesium, hypokalemia,colitis. P: Joselin will be discharged home when medically ready per provider. Her family to transport home when medically ready. She lives with her son and DIL.
[2018-09-27 16:01] VITALS: BP 141/73; PULSE 84; RESP 16; TEMP 37; O2SAT 93
[2018-09-27 20:42] VITALS: BP 132/72; PULSE 86; RESP 18; TEMP 37.6; O2SAT 96
[2018-09-27] MEDS: Acetaminophen 325 MG TAB PO (22:19)
[2018-09-27] MEDS: Mylanta Suspension 30 ML CUP PO (22:19)
[2018-09-27] MEDS: Lidocaine 5% Patch 1 PATCH TP (22:19)
[2018-09-27] MEDS: Mirtazapine 15 MG TAB 30 MG PO (22:19)
[2018-09-28 07:32] LABS: Abs Immature Grans 0.02 k/cumm (0.0-0.09); Absolute Basophil Count 0.05 k/cumm (0.0-0.2); Absolute Eosinophil Count 0.34 k/cumm (0.0-0.7); Absolute Lymphocyte Count 1.08 k/cumm (1.2-3.4); Absolute Monocyte Count 1.22 k/cumm (0.11-0.7); Absolute Neutrophil Count 4.04 k/cumm (1.2-6.7); Basophils % 0.7; HCT 34.9 % (36.0-46.0); HGB 11.2 g/dL (12.0-15.5); Immature Grans % 0.3; Mean Corp. HGB Concentration 32.1 g/dL (32.0-36.0); Mean Corpuscular Hemoglobin 28.8 pg (27.0-33.0); Mean Corpuscular Volume 89.7 fL (80-95); Mean Platelet Volume 9.4 fL (8.0-11.0); Monocytes % 18.1; Neutrophils % 59.9; Platelet Count 355 x1000/uL (130-400); RBC 3.89 m/cumm (4.00-5.20); RBC Distribution Width 13.4 % (11.7-14.6); White Blood Cell Count 6.75 k/cumm (4.4-10.8)
[2018-09-28 07:55] VITALS: BP 144/81; PULSE 94; RESP 18; TEMP 37.6; O2SAT 94
[2018-09-28 08:00] VITALS: BP 144/81; PULSE 94; RESP 18; O2SAT 94
[2018-09-28] MEDS: Clopidogrel 75 MG TAB PO (08:23)
[2018-09-28] MEDS: Apixaban 5 MG TAB PO ×2 (08:23→20:27)
[2018-09-28] MEDS: Metoprolol CR 100 MG TABCR PO (08:24)
[2018-09-28] MEDS: Cyanocobalamin 500 MCG TAB 1000 MCG PO (08:24)
[2018-09-28] MEDS: ROSUVASTATIN 20 MG TAB 40 MG PO (08:24)
[2018-09-28] MEDS: Chlorthalidone 25 MG TAB PO (08:24)
[2018-09-28] MEDS: Pantoprazole 40 MG TABCR PO ×2 (08:24→20:28)
[2018-09-28] MEDS: Ferrous Sulfate 325 MG TAB PO ×2 (08:24→20:27)
[2018-09-28] MEDS: Losartan 50 MG TAB 100 MG PO (08:24)
[2018-09-28] MEDS: Mometasone 220 MCG 14 DOSE INHALER 1 PUFF IH (08:35)
[2018-09-28] MEDS: Lidocaine Patch Removal 1 EACH TP (09:15)
[2018-09-28] MEDS: Mylanta Suspension 30 ML CUP PO (09:19)
[2018-09-28 10:45] VITALS: TEMP 36.8
--- NOTE | 2018-09-28 10:48 | PGE_ITS ---
Date of Service Date of service: 09/28/18 Time of Service: 10:46 Assessment and Plan (1) Enterocolitis: Current visit: No Status: Acute s/p flex sig with biopsies on 09/26/18. Fever, abd pain - ? related to procedure. Fever resolved. WBC ~11k post-procedure and normalized to 6.75 today. Abdomen mildly tender diffusely. Will check AXR to r/o free air/ perforation. Will follow-up. Subjective Interval history since last seen: Patient s/p flex sig with biopsies on 09/26/18. Patient had fevers in the evening on 09/26/18 and on 09/27/18. Afebrile today. Patient c/o feeling weak and tired. (+) nausea with reported emesis last night. Loose BM. c/o abdominal cramping. WBC - 6.75 this am. Exam Const General: cooperative, no acute distress and well developed Nutritional Appearance: well nourished Orientation: alert Resp Effort & Inspection: normal respiratory effort and able to speak in complete sentences GI Inspection: non-distended Palpation: soft, not firm, no guarding and tender (mildly tender diffusely) Auscultation: normal bowel sounds Skin General skin exam: no rashes or lesions noted and no jaundice Objective Objective Clinical Data: Abnormal lab results 09/28/18 Range/Units 07:05 RBC 3.89 L (4.00-5.20) m/cumm Hgb 11.2 L (12.0-15.5) g/dL Hct 34.9 L (36.0-46.0) % Absolute Lymphocytes 1.08 L (1.2-3.4) k/cumm Absolute Monocytes 1.22 H (0.11-0.7) k/cumm Vital Signs Temperature 36.8 C 09/28/18 10:45 Temperature Source Tympanic 09/27/18 20:42 Pulse 86 09/27/18 20:42 Pulse Rhythm Regular 09/28/18 08:33 Pulse 113 H 09/22/18 09:20 Respiratory Rate 18 09/27/18 20:42 Respiratory Effort 09/28/18 08:33 Respiratory Depth Normal 09/28/18 08:33 Respiratory Pattern Normal 09/28/18 08:33 Blood Pressure 132/72 09/27/18 20:42 Blood Pressure Mean 117 09/22/18 09:16 Pulse Oximetry 96 09/27/18 20:42 Oxygen Delivery Method Room Air 09/27/18 20:42 Oxygen Flow Rate 0 09/27/18 20:42 Pain Level 7 09/27/18 22:19 Comment 09/26/18 16:43 Intake & Output 09/27/18 09/27/18 09/28/18 11:59 23:59 11:59 Intake Total 850 / 850 Output Total 1100 / 1500 400 / 1500 Balance -1100 / -1500 -400 / -1500 850 / 850 Intake: Oral 850 / 850 Output: Urine 1100 / 1500 400 / 1500 Other: Urine Color Light Spring Light Spring Light [place] Urine Appearance Clear Clear Clear Urine Odor None Normal Normal Comment in the hat when assesed this morning Stool Size Small Stool Characteristics Soft Voiding Methods Toilet Toilet Toilet Laboratory Results WBC 6.75 k/cumm (4.4-10.8) D 09/28/18 07:05 RBC 3.89 m/cumm (4.00-5.20) L 09/28/18 07:05 Hgb 11.2 g/dL (12.0-15.5) L 09/28/18 07:05 Hct 34.9 % (36.0-46.0) L 09/28/18 07:05 MCV 89.7 fL (80-95) 09/28/18 07:05 MCH 28.8 pg (27.0-33.0) 09/28/18 07:05 MCHC 32.1 g/dL (32.0-36.0) 09/28/18 07:05 RDW 13.4 % (11.7-14.6) 09/28/18 07:05 Plt Count 355 x1000/uL (130-400) 09/28/18 07:05 MPV 9.4 fL (8.0-11.0) 09/28/18 07:05 Immature Gran % 0.3 09/28/18 07:05 Neutrophils % 59.9 09/28/18 07:05 Lymphocytes % 16.0 09/28/18 07:05 Monocytes % 18.1 09/28/18 07:05 Eosinophils % 5.0 09/28/18 07:05 Basophils % 0.7 09/28/18 07:05 Absolute Neutrophils 4.04 k/cumm (1.2-6.7) 09/28/18 07:05 Absolute Lymphocytes 1.08 k/cumm (1.2-3.4) L 09/28/18 07:05 Absolute Monocytes 1.22 k/cumm (0.11-0.7) H 09/28/18 07:05 Absolute Eosinophils 0.34 k/cumm (0.0-0.7) 09/28/18 07:05 Absolute Basophils 0.05 k/cumm (0.0-0.2) 09/28/18 07:05 Differential Comment Diff reviewed 09/22/18 07:15 RBC Morphology Normal 09/22/18 07:15 Sodium 136 mmol/L (136-145) 09/27/18 06:38 Potassium 3.3 mmol/L (3.5-5.1) L 09/27/18 06:38 Chloride 99 mmol/L (98-107) 09/27/18 06:38 Carbon Dioxide 27.5 mmol/L (21.0-32.0) 09/27/18 06:38 Anion Gap 9.5 mmol/L (3-11) 09/27/18 06:38 BUN 10 mg/dL (7-18) 09/27/18 06:38 Creatinine 0.69 mg/dL (0.55-1.02) 09/27/18 06:38 Estimated GFR/1.73 m2 >= 60.00 (mL/min/1.73m2) 09/27/18 06:38 Glucose 88 mg/dL (70-100) 09/27/18 06:38 Calcium 8.7 mg/dL (8.5-10.1) 09/27/18 06:38 Magnesium 2.1 mg/dL (1.8-2.4) 09/27/18 06:38 Total Bilirubin 0.4 mg/dL (0.2-1.0) 09/22/18 07:15 AST 19 U/L (15-37) 09/22/18 07:15 ALT 16 U/L (12-78) 09/22/18 07:15 Alkaline Phosphatase 59 U/L (46-116) 09/22/18 07:15 Troponin I 0.06 ng/mL (0.00-0.06) 09/22/18 07:15 Total Protein 6.7 g/dL (6.4-8.2) 09/22/18 07:15 Albumin 2.8 g/dL (3.4-5.0) L 09/22/18 07:15 Urine Color Yellow (Yellow) 09/23/18 14:45 Urine Clarity Clear 09/23/18 14:45 Urine pH 6.0 (5-8) 09/23/18 14:45 Ur Specific [place] 1.015 (1.005-1.025) 09/23/18 14:45 Urine Protein Negative mg/dL (Negative) 09/23/18 14:45 Urine Ketones Negative mg/dL (Negative) 09/23/18 14:45 Urine Blood Trace-intact (Negative) H 09/23/18 14:45 Urine Nitrite Negative (Negative) 09/23/18 14:45 Urine Bilirubin Negative (Negative) 09/23/18 14:45 Urine Urobilinogen 0.2 EU/dL (Up TO 0.2) 09/23/18 14:45 Ur Leukocyte Esterase Negative (Negative) 09/23/18 14:45 Urine RBC 0-2 (0-2) 09/23/18 14:45 Urine WBC Negative HPF (0-5) 09/23/18 14:45 Ur Epithelial Cells Rare HPF (Negative) 09/23/18 14:45 Urine Crystals Negative HPF (Negative) 09/23/18 14:45 Urine Bacteria Rare HPF (Negative) 09/23/18 14:45 Urine Casts Negative LPF (Negative) 09/23/18 14:45 Urine Mucus Negative (Negative) 09/23/18 14:45 Urine Other Negative (Negative) 09/23/18 14:45 Ur Culture Indicated? No 09/23/18 14:45 Urine Glucose Negative mg/dL (Negative) 09/23/18 14:45 Stl C.difficile Tox PCR Negative 09/22/18 07:05 C.difficile Tox Source Feces 09/22/18 07:05
--- NOTE | 2018-09-28 11:45 | DI.CT_ITS ---
SYMPTOM/DIAGNOSIS: CHEST, ABDOMEN AND PELVIC CT: ABDOMEN AND PELVIS: Comparison is made with 09/10/18 and 09/18/17. The liver is normal in size. No hepatic mass is seen. There is a stone seen within the gallbladder. No biliary ductal dilatation is seen. There are multiple hypodense lesions seen within the spleen, the largest measuring .8 cm. 100 haunsfield units are noted. The pancreas and spleen are unremarkable. There is again seen atrophy of the right kidney with compensatory hypertrophy of the left kidney. No suspicious renal mass, calculus or obstruction is identified. The urinary bladder is intact. The reproductive organs are unremarkable. The bowel shows no evidence of obstruction or inflammation. No findings to suggest an acute appendicitis are present. The abdominal aorta shows atherosclerosis but no aneurysmal dilatation. There is a femoral femoral artery bypass again noted. There has been no change in size of the retroperitoneal lymph nodes. No significant abdominal or pelvic adenopathy is appreciated. The bones show no acute abnormality. There is grade I spondylolisthesis of L 4 on L 5. IMPRESSION: 1. Multiple low attenuation lesions in the spleen. These are nonspecific. The differential considerations include infection, lymphoma, leukemia, hematomas or hemangiomas. Follow up is recommended. This may include MRI and/or ultrasound. CHEST: There is atherosclerosis of the thoracic aorta but no aneurysmal dilatation is seen. Heart size is within normal limits. No significant pericardial effusion is seen. Coronary artery calcifications are present. There is thoracic adenopathy present. Subcarinal mass measures 2.8 by 2.1 cm. In the right hilum, there is a 2.8 by 1.9 cm. mass. There are several small lymph nodes seen in the mediastinum including some calcified lymph nodes. No pleural effusion or pneumothorax is identified. Moderately severe emphysematous changes are present in the lungs. There is scarring or atelectasis seen in the lung bases. There is an area of consolidation involving the medial aspect of the right upper lobe. There is a 5 mm. nodule in the lateral aspect of the left lingula. No aggressive osseous lesion is identified. IMPRESSION: 1. 2.8 by 1.9 cm. right hilar mass. Neoplasm cannot be excluded. 2. Subcarinal soft tissue density measuring 2.8 by 2.1 cm. suspicious for metastatic disease. 3. Consolidation in the left upper lobe. This may represent atelectasis or pneumonia. 4. Pulmonary emphysema.
[2018-09-28] MEDS: Ondansetron O.D.T. 4 MG TABEF PO (11:55)
--- NOTE | 2018-09-28 12:29 | PGE_ITS ---
Date of Service Date of service: 09/28/18 Time of Service: 12:37 Assessment and Plan (1) Enterocolitis: Current visit: No Status: Acute Patient has had abdominal pain associated with fevers, diarrhea, and nausea and vomiting for the past several weeks. She has been diagnosed with colitis based on CT scan done 09/11/2018. Dr. Zhang from surgery performed a sigmoidoscopy, and saw only mild inflammation that was not consistent with ischemic colitis, ear infection, or ulcerative colitis. Biopsies are pending. Will studies for infection including C. difficile if not been fruitful. Her first admission, she did improve with ciprofloxacin and metronidazole. On this admission, she did improve for 2 days prior to the sigmoid endoscopy, but the symptoms have now returned and are significant. White blood cell count not consistent with severe active inflammation. After reviewing her history, I will recheck her liver function and lipase. I discussed the case with Dr. Zhang and will repeat the CT scan. See if we can get the chest as well as a follow-up scan including contrast was recommended to evaluate the mediastinal lymphadenopathy. Given her previous response, I think I will start her back on the metronidazole and ciprofloxacin empirically for infectious colitis. (2) Abnormal CT scan, chest: Current visit: Yes Status: Acute Repeat CT scan as above with contrast. (3) Pediculosis: Current visit: Yes Status: Acute Head lice noted by nursing again this hospitalization. S/p treatment with topical Lindane - contact precautions in place. (4) Coronary artery disease: Current visit: No Status: Chronic Noted. Patient with a [facility] 12/2015 showing nonobstructive CAD (LM 10%, LAD long prox 30% calcified, LCX prox 20%, RCA prox and mid calcified 40%). Asymptomatic with troponin negative admission. Continue Clopidogrel, BB, high potency statin. (5) PVD (peripheral vascular disease): Current visit: Yes Status: Chronic Continue Plavix, statin. Also on BB and ARB. (6) Atrial fibrillation: Current visit: Yes Status: Chronic Initial rate uncontrolled as patient had been off her medications for 2-3 days. Reinitiated BB with good subsequent control. Continue anticoagulation with apixaban. (7) Chronic obstructive lung disease: Current visit: Yes Status: Chronic Noted. Appears quiescent. Duonebs prn. (8) DVT prophylaxis: Current visit: Yes Status: Acute On anticoagulation with Apixaban. PPI therapy as well given history of PUD and GERD.
[2018-09-28] MEDS: Omnipaque 350 MG/ML 100 ML BTL IJ (13:08)
[2018-09-28] MEDS: MetroNIDAZOLE 500 MG/100 ML BAG 100 MG IVPB ×3 (13:26→23:47)
[2018-09-28] MEDS: Normal Saline Flush 10 ML SYR IVP ×3 (13:27→23:47)
--- NOTE | 2018-09-28 13:51 | DI.VRAD_ITS ---
EXAM: CT Chest With Contrast EXAM DATE/TIME: 09/28/2018 12:57 PM CLINICAL HISTORY: 73 years old, female; Pain; Abdominal pain; Generalized; Other: Evaluated mediastinal abnormalities; Patient HX: Abdominal pain, evaluated mediastinal abnormalities; Additional info: PT unable to finish oral contrast, causing nausea TECHNIQUE: Axial computed tomography images of the chest with intravenous contrast. Coronal and sagittal reformatted images were created and reviewed. COMPARISON: CT chest/abd/pel wo 09/10/2018 5:27 PM FINDINGS: Lungs: Consolidation in the medial aspect of the left upper lobe 3.4 x 1.5 x 4 cm. It was not present on the prior study September 10. Findings most likely represent atelectasis or pneumonia. Moderate panlobular emphysematous changes 5 mm nodule in the lingula. Mild opacities in the lower lobes may represent minimal atelectasis or pneumonia. Pleural space: Normal. No pneumothorax. No pleural effusion. Heart: Coronary artery calcifications may indicate coronary artery disease. There is calcification of the aortic valve annulus. There is calcification of the mitral valve annulus. Mediastinum: Subcarinal soft tissue density 2.8 x 2.1 cm. Right hilar mass 2.8 x 1.9 cm. Aorta: Normal. No aortic aneurysm. Lymph nodes: Pathologic post caval/precarinal node 2.2 x 1 cm. Multiple small nodes in the anterior mediastinum Bones/joints: Healed left rib fractures Soft tissues: Unremarkable. IMPRESSION: 1. Subcarinal soft tissue density 2.8 x 2.1 cm. rule out malignancy 2. Right hilar mass 2.8 x 1.9 cm. rule out malignancy 3. Pathologic post caval/precarinal node 2.2 x 1 cm. 4. Consolidation in the medial aspect of the left upper lobe 3.4 x 1.5 x 4 cm. It was not present on the prior study September 10. Findings most likely represent atelectasis or pneumonia. 5. Mild opacities in the lower lobes may represent minimal atelectasis or pneumonia. EXAM: CT Abdomen and Pelvis With Contrast EXAM DATE/TIME: 09/28/2018 12:57 PM CLINICAL HISTORY: 73 years old, female; Pain; Abdominal pain; Generalized; Other: Evaluated mediastinal abnormalities; Patient HX: Abdominal pain, evaluated mediastinal abnormalities; Additional info: PT unable to finish oral contrast, causing nausea TECHNIQUE: Axial computed tomography images of the abdomen and pelvis with intravenous contrast. Coronal and sagittal reformatted images were created and reviewed. COMPARISON: CT chest/abd/pel wo 09/10/2018 5:27 PM FINDINGS: Lower thorax: See report for CT chest ABDOMEN: Liver: Normal. No mass. Gallbladder and bile ducts: Gallstone in the gallbladder Pancreas: Pancreatic atrophy. Dilatation of the pancreatic duct Spleen: Multiple low attenuation areas in the spleen. Largest 8 mm. 100 Hounsfield units. Nonspecific lesion. Adrenals: Normal. No mass. Kidneys and ureters: Atrophy of the right kidney Stomach and bowel: Normal. No obstruction. No mucosal thickening. Appendix: No evidence of appendicitis. PELVIS: Bladder: Unremarkable as visualized. Reproductive: Vascular structures around the uterus may represent vascular congestion. ABDOMEN and PELVIS: Intraperitoneal space: Normal. No free air. No significant fluid collection. Bones/joints: No acute fracture. No dislocation. Soft tissues: Unremarkable. Vasculature: Bifemoral bypass Lymph nodes: Normal. No enlarged lymph nodes. IMPRESSION: Multiple low attenuation areas in the spleen. Largest 8 mm. 100 Hounsfield units. Nonspecific lesion. Differential includes hemangiomas, hematomas, infection, lymphoma/leukemia. Recommend further evaluation Dictated and Authenticated by: Filipe Alvarez MD. Ordering:SHERLY Santacruz MD
[2018-09-28] MEDS: CIPROFLOXACIN 400 MG/200 ML BAG 200 MG IVPB (15:06)
--- NOTE | 2018-09-28 17:04 | PDOC.CMPRO ---
Care Management Progress Note S/O: Joselin was not able to return home today. More tests will need to be completed. She is now completing day 7 in an acute level of care. A: 73 yo female admitted for hypomagnesium, hypokalemia, colitis and currently being treated for head lice. P: Return to home with Son, DIL and 4 grandchildren when medically cleared for discharge.
[2018-09-28 17:11] LABS: ALT 24 U/L (12-78); AST 31 U/L (15-37); Albumin 2.6 g/dL (3.4-5.0); Alkaline Phosphatase 99 U/L (46-116); Bilirubin, Total 0.2 mg/dL (0.2-1.0); Lipase 121 U/L (73-393); Total Protein 6.8 g/dL (6.4-8.2)
[2018-09-28 20:31] VITALS: BP 133/64; PULSE 81; RESP 17; TEMP 37.6; O2SAT 92
[2018-09-28] MEDS: Magnesium Chloride 64 MG TABCR PO (20:49)
[2018-09-28] MEDS: Mirtazapine 15 MG TAB 30 MG PO (20:49)
[2018-09-28] MEDS: Ondansetron 4 MG/2 ML VIAL IVP (22:00)
[2018-09-29] MEDS: CIPROFLOXACIN 400 MG/200 ML BAG 200 MG IVPB (01:48)
[2018-09-29 01:58] VITALS: BP 138/72; PULSE 88; RESP 18; TEMP 37.7; O2SAT 95
[2018-09-29] MEDS: MetroNIDAZOLE 500 MG/100 ML BAG 100 MG IVPB ×4 (06:10→23:28)
[2018-09-29] MEDS: Ondansetron 4 MG/2 ML VIAL IVP (06:49)
[2018-09-29] MEDS: Normal Saline Flush 10 ML SYR IVP ×5 (06:49→23:29)
[2018-09-29 07:57] VITALS: BP 126/77; PULSE 80; RESP 18; TEMP 36.6; O2SAT 99
[2018-09-29] MEDS: Pantoprazole 40 MG TABCR PO ×2 (08:02→20:59)
[2018-09-29] MEDS: Metoprolol CR 100 MG TABCR PO (08:03)
[2018-09-29] MEDS: Ferrous Sulfate 325 MG TAB PO ×2 (08:03→20:59)
[2018-09-29] MEDS: Acetaminophen 325 MG TAB PO (08:04)
[2018-09-29 08:35] VITALS: O2SAT 94
[2018-09-29] MEDS: Mometasone 220 MCG 14 DOSE INHALER 1 PUFF IH (08:35)
--- NOTE | 2018-09-29 08:53 | W.PM.PROGNOT ---
Date of Service Date of service: 09/29/18 Time of Service: 08:53 Assessment and Plan (1) Enterocolitis: Current visit: No Status: Acute s/p flex sig with biopsies on 09/26/18. Fever, abd pain - ? related to procedure. No lymphadenopathy on exam. She will need further evaluation for biospies of her CT scan findings from 09/28/18- soft tissue density and right hilar mass. Subjective Interval history since last seen: Mrs. Meyers reports that she is not feeling very well today. She reports that she not hungry and continues to have abdominal discomfort. Exam GI Palpation: soft, no guarding and nontender Skin General skin exam: no rashes or lesions noted Other: No lymphadenopathy Objective Objective Clinical Data: Abnormal lab results 09/28/18 Range/Units 16:35 Albumin 2.6 L (3.4-5.0) g/dL Vital Signs Temperature 36.6 C 09/29/18 07:57 Temperature Source Tympanic 09/29/18 07:57 Pulse 80 09/29/18 07:57 Pulse Rhythm Regular 09/28/18 21:16 Pulse 113 H 09/22/18 09:20 Respiratory Rate 18 09/29/18 07:57 Respiratory Effort 09/28/18 21:16 Respiratory Depth Normal 09/28/18 21:16 Respiratory Pattern Normal 09/28/18 21:16 Blood Pressure 126/77 09/29/18 07:57 Blood Pressure Mean 117 09/22/18 09:16 Pulse Oximetry 99 09/29/18 07:57 Oxygen Delivery Method Room Air 09/29/18 07:57 Oxygen Flow Rate 0 09/29/18 07:57 Pain Level 6 09/29/18 08:04 Comment 09/26/18 16:43 Intake & Output 09/28/18 09/28/18 09/29/18 11:59 23:59 11:59 Intake Total 850 / 1630 780 / 1630 540 / 540 Balance 850 / 1630 780 / 1630 540 / 540 Intake: IV 410 / 410 300 / 300 Oral 850 / 1220 370 / 1220 240 / 240 Other: Urine Color [place] Yellow Urine Appearance Clear Clear Urine Odor Normal Comment pt gets up to void AD MARCELA. Stool Size Moderate Stool Characteristics Brown Voiding Methods Toilet Toilet Toilet Laboratory Results WBC 6.75 k/cumm (4.4-10.8) D 09/28/18 07:05 RBC 3.89 m/cumm (4.00-5.20) L 09/28/18 07:05 Hgb 11.2 g/dL (12.0-15.5) L 09/28/18 07:05 Hct 34.9 % (36.0-46.0) L 09/28/18 07:05 MCV 89.7 fL (80-95) 09/28/18 07:05 MCH 28.8 pg (27.0-33.0) 09/28/18 07:05 MCHC 32.1 g/dL (32.0-36.0) 09/28/18 07:05 RDW 13.4 % (11.7-14.6) 09/28/18 07:05 Plt Count 355 x1000/uL (130-400) 09/28/18 07:05 MPV 9.4 fL (8.0-11.0) 09/28/18 07:05 Immature Gran % 0.3 09/28/18 07:05 Neutrophils % 59.9 09/28/18 07:05 Lymphocytes % 16.0 09/28/18 07:05 Monocytes % 18.1 09/28/18 07:05 Eosinophils % 5.0 09/28/18 07:05 Basophils % 0.7 09/28/18 07:05 Absolute Neutrophils 4.04 k/cumm (1.2-6.7) 09/28/18 07:05 Absolute Lymphocytes 1.08 k/cumm (1.2-3.4) L 09/28/18 07:05 Absolute Monocytes 1.22 k/cumm (0.11-0.7) H 09/28/18 07:05 Absolute Eosinophils 0.34 k/cumm (0.0-0.7) 09/28/18 07:05 Absolute Basophils 0.05 k/cumm (0.0-0.2) 09/28/18 07:05 Differential Comment Diff reviewed 09/22/18 07:15 RBC Morphology Normal 09/22/18 07:15 Sodium 136 mmol/L (136-145) 09/27/18 06:38 Potassium 3.3 mmol/L (3.5-5.1) L 09/27/18 06:38 Chloride 99 mmol/L (98-107) 09/27/18 06:38 Carbon Dioxide 27.5 mmol/L (21.0-32.0) 09/27/18 06:38 Anion Gap 9.5 mmol/L (3-11) 09/27/18 06:38 BUN 10 mg/dL (7-18) 09/27/18 06:38 Creatinine 0.69 mg/dL (0.55-1.02) 09/27/18 06:38 Estimated GFR/1.73 m2 >= 60.00 (mL/min/1.73m2) 09/27/18 06:38 Glucose 88 mg/dL (70-100) 09/27/18 06:38 Calcium 8.7 mg/dL (8.5-10.1) 09/27/18 06:38 Magnesium 2.1 mg/dL (1.8-2.4) 09/27/18 06:38 Total Bilirubin 0.2 mg/dL (0.2-1.0) 09/28/18 16:35 Conjugated Bilirubin 0.10 mg/dL (0.00-0.20) 09/28/18 16:35 AST 31 U/L (15-37) 09/28/18 16:35 ALT 24 U/L (12-78) 09/28/18 16:35 Alkaline Phosphatase 99 U/L (46-116) 09/28/18 16:35 Troponin I 0.06 ng/mL (0.00-0.06) 09/22/18 07:15 Total Protein 6.8 g/dL (6.4-8.2) 09/28/18 16:35 Albumin 2.6 g/dL (3.4-5.0) L 09/28/18 16:35 Lipase 121 U/L (73-393) 09/28/18 16:35 Urine Color Yellow (Yellow) 09/23/18 14:45 Urine Clarity Clear 09/23/18 14:45 Urine pH 6.0 (5-8) 09/23/18 14:45 Ur Specific [place] 1.015 (1.005-1.025) 09/23/18 14:45 Urine Protein Negative mg/dL (Negative) 09/23/18 14:45 Urine Ketones Negative mg/dL (Negative) 09/23/18 14:45 Urine Blood Trace-intact (Negative) H 09/23/18 14:45 Urine Nitrite Negative (Negative) 09/23/18 14:45 Urine Bilirubin Negative (Negative) 09/23/18 14:45 Urine Urobilinogen 0.2 EU/dL (Up TO 0.2) 09/23/18 14:45 Ur Leukocyte Esterase Negative (Negative) 09/23/18 14:45 Urine RBC 0-2 (0-2) 09/23/18 14:45 Urine WBC Negative HPF (0-5) 09/23/18 14:45 Ur Epithelial Cells Rare HPF (Negative) 09/23/18 14:45 Urine Crystals Negative HPF (Negative) 09/23/18 14:45 Urine Bacteria Rare HPF (Negative) 09/23/18 14:45 Urine Casts Negative LPF (Negative) 09/23/18 14:45 Urine Mucus Negative (Negative) 09/23/18 14:45 Urine Other Negative (Negative) 09/23/18 14:45 Ur Culture Indicated? No 09/23/18 14:45 Urine Glucose Negative mg/dL (Negative) 09/23/18 14:45 Stl C.difficile Tox PCR Negative 09/22/18 07:05 C.difficile Tox Source Feces 09/22/18 07:05
--- NOTE | 2018-09-29 10:49 | PDOC.CMPRO ---
- If Service Date Differs Date of service: 09/29/18 Time of Service: 10:49 Care Management Progress Note S/O: Joselin is lying in bed when this teletypewriter operator visits this morning. She states that she is not feeling well today, and that she spoke with the provider about this. Joselin's DIL Kenia called this morning requesting information as to Why isn't she getting better? Should she go to [facility]? CM connected with LEENAN Santana [facility], in regards to medical questions. A: 73 yo female admitted for hypomagnesium, hypokalemia, colitis and currently being treated for head lice. P: Return to home with Son, JOELLEN and 4 grandchildren when medically cleared for discharge.
[2018-09-29] MEDS: Metoclopramide 10 MG/2 ML VIAL IVP ×2 (10:51→21:07)
[2018-09-29] MEDS: LEVOFLOXACIN 750 MG/150 ML BAG 100 MG IVPB (11:02)
--- NOTE | 2018-09-29 11:03 | CMPROGNOTE_ITS ---
- If Service Date Differs Date of service: 09/29/18 Time of Service: 10:49 Care Management Progress Note S/O: Joselin is lying in bed when this check writer salesperson visits this morning. She states that she is not feeling well today, and that she spoke with the provider about this. Joselin's DIL Kenia called this morning requesting information as to Why isn't she getting better? Should she go to [facility] [place]? CM connected with LEEANN Santana CC, in regards to medical questions. A: 73 yo female admitted for hypomagnesium, hypokalemia, colitis and currently being treated for head lice. P: Return to home with Son, JOELLEN and 4 grandchildren when medically cleared for discharge.
[2018-09-29] MEDS: Potassium Chloride 20 MEQ TABCR PO (11:24)
[2018-09-29] MEDS: Chlorthalidone 25 MG TAB PO (11:24)
[2018-09-29] MEDS: Apixaban 5 MG TAB PO ×2 (11:24→20:59)
[2018-09-29] MEDS: Losartan 50 MG TAB 100 MG PO (11:24)
[2018-09-29] MEDS: Magnesium Chloride 64 MG TABCR PO ×2 (11:24→23:28)
[2018-09-29] MEDS: Clopidogrel 75 MG TAB PO (11:24)
[2018-09-29 15:49] VITALS: BP 124/63; PULSE 71; RESP 16; TEMP 36.9; O2SAT 98
--- NOTE | 2018-09-29 20:51 | PGE_ITS ---
Date of Service Date of service: 09/29/18 Time of Service: 14:45 Assessment and Plan (1) Enterocolitis: Current visit: No Status: Acute Patient has had abdominal pain associated with fevers, diarrhea, and nausea and vomiting for the past several weeks. She has been diagnosed with colitis based on CT scan done 09/11/2018. Dr. Zhang from surgery performed a sigmoidoscopy, and saw only mild inflammation that was not consistent with ischemic colitis, ear infection, or ulcerative colitis. Biopsies are pending. Studies for infection including C. difficile have been negative. Her first admission, she did improve with ciprofloxacin and metronidazole, so I restarted this yesterday but we have not seen an improvement. CT did not show abdominal pathology to explain her symptoms. It did show possible pulmonary infiltrate and pathologic lymph nodes in the chest. I have changed cipro to levofloxacin to cover possible lung infection. Use metronidazole for nausea to avoid QT prolongation I have to (2) Abnormal CT scan, chest: Current visit: Yes Status: Acute See above. She will need biopsy likely via bronchoscopy, but it is difficult to tie this to her presenting abdominal complaints. Will likely have to do this as an outpatient. (3) Pediculosis: Current visit: Yes Status: Acute Head lice noted by nursing again this hospitalization. S/p treatment with topical Lindane x 1, repeat today. Contact precautions in place. (4) Coronary artery disease: Current visit: No Status: Chronic Noted. Patient with a [facility] 12/2015 showing nonobstructive CAD (LM 10%, LAD long prox 30% calcified, LCX prox 20%, RCA prox and mid calcified 40%). Asymptomatic with troponin negative admission. Continue Clopidogrel, BB, high potency statin. (5) PVD (peripheral vascular disease): Current visit: Yes Status: Chronic Continue Plavix, statin. Also on BB and ARB. (6) Atrial fibrillation: Current visit: Yes Status: Chronic Initial rate uncontrolled as patient had been off her medications for 2-3 days. Reinitiated BB with good subsequent control. Continue anticoagulation with apixaban. (7) Chronic obstructive lung disease: Current visit: Yes Status: Chronic Noted. Appears quiescent. Duonebs prn. (8) DVT prophylaxis: Current visit: Yes Status: Acute On anticoagulation with Apixaban. PPI therapy as well given history of PUD and GERD. Subjective Patient reports: still having pain, voiding w/o difficulty and nausea; denies tolerating a regular diet, vomiting, shortness of breath and fever Interval history since last seen: 24 hr: CT chest/abd/pelvis repeated started on cipro and metronidazole for colitis Abdominal pain just as bad today. Still all over her abdomen. Pain a little worse with BMs. Had two watery BMs last night, none yet this morning. Exam Narrative Exam Narrative: General: Patient appears mildly uncomfortable, alert and neelima ented CV: Irregular, not tachycardic, S1S2, No rubs, murmurs, or gallops. Pulmonary: Clear to auscultation bilaterally, no crackles, wheezing, or rhonchi Abdomen: + bowel sounds, soft, nondistended. Still diffusely tender to deep palpation, more so in the left lower quadrant, no masses or organomegaly. Vascular: No lower extremity edema Psych: Normal mood and affect. Objective Objective Clinical Data: Vital Signs Temperature 36.9 C 09/29/18 15:49 Temperature Source Tympanic 09/29/18 15:49 Pulse 71 09/29/18 15:49 Pulse Rhythm Regular 09/29/18 08:55 Pulse 113 H 09/22/18 09:20 Respiratory Rate 16 09/29/18 15:49 Respiratory Effort 09/29/18 08:55 Respiratory Depth Normal 09/29/18 08:55 Respiratory Pattern Normal 09/29/18 08:55 Blood Pressure 124/63 09/29/18 15:49 Blood Pressure Mean 117 09/22/18 09:16 Pulse Oximetry 98 09/29/18 15:49 Oxygen Delivery Method Room Air 09/29/18 15:49 Oxygen Flow Rate 0 09/29/18 15:49 Pain Level 0 09/29/18 15:49 Comment 09/26/18 16:43 Intake & Output 09/28/18 09/29/18 09/29/18 23:59 11:59 23:59 Intake Total 780 / 1630 640 / 1240 600 / 1240 Balance 780 / 1630 640 / 1240 600 / 1240 Intake: IV 410 / 410 400 / 750 350 / 750 Oral 370 / 1220 240 / 490 250 / 490 Other: Urine Color Yellow Urine Appearance Clear Clear Comment pt gets up to void AD MARCELA. Stool Size Moderate Stool Characteristics Brown Voiding Methods Toilet Toilet Toilet Laboratory Results WBC 6.75 k/cumm (4.4-10.8) D 09/28/18 07:05 RBC 3.89 m/cumm (4.00-5.20) L 09/28/18 07:05 Hgb 11.2 g/dL (12.0-15.5) L 09/28/18 07:05 Hct 34.9 % (36.0-46.0) L 09/28/18 07:05 MCV 89.7 fL (80-95) 09/28/18 07:05 MCH 28.8 pg (27.0-33.0) 09/28/18 07:05 MCHC 32.1 g/dL (32.0-36.0) 09/28/18 07:05 RDW 13.4 % (11.7-14.6) 09/28/18 07:05 Plt Count 355 x1000/uL (130-400) 09/28/18 07:05 MPV 9.4 fL (8.0-11.0) 09/28/18 07:05 Immature Gran % 0.3 09/28/18 07:05 Neutrophils % 59.9 09/28/18 07:05 Lymphocytes % 16.0 09/28/18 07:05 Monocytes % 18.1 09/28/18 07:05 Eosinophils % 5.0 09/28/18 07:05 Basophils % 0.7 09/28/18 07:05 Absolute Neutrophils 4.04 k/cumm (1.2-6.7) 09/28/18 07:05 Absolute Lymphocytes 1.08 k/cumm (1.2-3.4) L 09/28/18 07:05 Absolute Monocytes 1.22 k/cumm (0.11-0.7) H 09/28/18 07:05 Absolute Eosinophils 0.34 k/cumm (0.0-0.7) 09/28/18 07:05 Absolute Basophils 0.05 k/cumm (0.0-0.2) 09/28/18 07:05 Differential Comment Diff reviewed 09/22/18 07:15 RBC Morphology Normal 09/22/18 07:15 Sodium 136 mmol/L (136-145) 09/27/18 06:38 Potassium 3.3 mmol/L (3.5-5.1) L 09/27/18 06:38 Chloride 99 mmol/L (98-107) 09/27/18 06:38 Carbon Dioxide 27.5 mmol/L (21.0-32.0) 09/27/18 06:38 Anion Gap 9.5 mmol/L (3-11) 09/27/18 06:38 BUN 10 mg/dL (7-18) 09/27/18 06:38 Creatinine 0.69 mg/dL (0.55-1.02) 09/27/18 06:38 Estimated GFR/1.73 m2 >= 60.00 (mL/min/1.73m2) 09/27/18 06:38 Glucose 88 mg/dL (70-100) 09/27/18 06:38 Calcium 8.7 mg/dL (8.5-10.1) 09/27/18 06:38 Magnesium 2.1 mg/dL (1.8-2.4) 09/27/18 06:38 Total Bilirubin 0.2 mg/dL (0.2-1.0) 09/28/18 16:35 Conjugated Bilirubin 0.10 mg/dL (0.00-0.20) 09/28/18 16:35 AST 31 U/L (15-37) 09/28/18 16:35 ALT 24 U/L (12-78) 09/28/18 16:35 Alkaline Phosphatase 99 U/L (46-116) 09/28/18 16:35 Troponin I 0.06 ng/mL (0.00-0.06) 09/22/18 07:15 Total Protein 6.8 g/dL (6.4-8.2) 09/28/18 16:35 Albumin 2.6 g/dL (3.4-5.0) L 09/28/18 16:35 Lipase 121 U/L (73-393) 09/28/18 16:35 Urine Color Yellow (Yellow) 09/23/18 14:45 Urine Clarity Clear 09/23/18 14:45 Urine pH 6.0 (5-8) 09/23/18 14:45 Ur Specific [place] 1.015 (1.005-1.025) 09/23/18 14:45 Urine Protein Negative mg/dL (Negative) 09/23/18 14:45 Urine Ketones Negative mg/dL (Negative) 09/23/18 14:45 Urine Blood Trace-intact (Negative) H 09/23/18 14:45 Urine Nitrite Negative (Negative) 09/23/18 14:45 Urine Bilirubin Negative (Negative) 09/23/18 14:45 Urine Urobilinogen 0.2 EU/dL (Up TO 0.2) 09/23/18 14:45 Ur Leukocyte Esterase Negative (Negative) 09/23/18 14:45 Urine RBC 0-2 (0-2) 09/23/18 14:45 Urine WBC Negative HPF (0-5) 09/23/18 14:45 Ur Epithelial Cells Rare HPF (Negative) 09/23/18 14:45 Urine Crystals Negative HPF (Negative) 09/23/18 14:45 Urine Bacteria Rare HPF (Negative) 09/23/18 14:45 Urine Casts Negative LPF (Negative) 09/23/18 14:45 Urine Mucus Negative (Negative) 09/23/18 14:45 Urine Other Negative (Negative) 09/23/18 14:45 Ur Culture Indicated? No 09/23/18 14:45 Urine Glucose Negative mg/dL (Negative) 09/23/18 14:45 Stl C.difficile Tox PCR Negative 09/22/18 07:05 C.difficile Tox Source Feces 09/22/18 07:05
[2018-09-29] MEDS: Mirtazapine 15 MG TAB 30 MG PO (20:59)
[2018-09-29 21:39] VITALS: BP 111/71; PULSE 95; RESP 17; TEMP 37.8; O2SAT 97
[2018-09-29 23:43] VITALS: BP 144/67; PULSE 90; RESP 17; TEMP 37; O2SAT 92
[2018-09-30] MEDS: Metoclopramide 10 MG/2 ML VIAL IVP ×3 (01:00→19:55)
[2018-09-30] MEDS: MetroNIDAZOLE 500 MG/100 ML BAG 100 MG IVPB (06:14)
[2018-09-30] MEDS: Normal Saline Flush 10 ML SYR IVP ×3 (06:14→19:55)
[2018-09-30 07:22] LABS: Anion Gap 12.6 mmol/L (3-11); BUN 8 mg/dL (7-18); CO2 27.4 mmol/L (21.0-32.0); CREATININE 0.87 mg/dL (0.55-1.02); Calcium 9.2 mg/dL (8.5-10.1); Chloride 96 mmol/L (98-107); Glucose 103 mg/dL (70-100); Sodium 136 mmol/L (136-145)
[2018-09-30 07:29] LABS: Potassium 2.8 mmol/L (3.5-5.1)
[2018-09-30 07:40] VITALS: BP 146/78; PULSE 111; RESP 18; TEMP 36.9; O2SAT 98
[2018-09-30] MEDS: Pantoprazole 40 MG TABCR PO ×2 (07:54→20:09)
[2018-09-30] MEDS: Metoprolol CR 100 MG TABCR PO (07:54)
[2018-09-30] MEDS: Potassium Chloride 20 MEQ TABCR PO ×3 (07:54→20:09)
[2018-09-30] MEDS: Mometasone 220 MCG 14 DOSE INHALER 1 PUFF IH (08:49)
[2018-09-30] MEDS: Clopidogrel 75 MG TAB PO (08:50)
[2018-09-30] MEDS: Losartan 50 MG TAB 100 MG PO (08:50)
[2018-09-30] MEDS: Ferrous Sulfate 325 MG TAB PO ×2 (08:50→20:09)
[2018-09-30] MEDS: Cyanocobalamin 500 MCG TAB 1000 MCG PO (08:50)
[2018-09-30] MEDS: Acetaminophen 325 MG TAB PO (08:50)
[2018-09-30] MEDS: Apixaban 5 MG TAB PO ×2 (08:50→20:09)
[2018-09-30] MEDS: ROSUVASTATIN 20 MG TAB 40 MG PO (08:50)
[2018-09-30] MEDS: Chlorthalidone 25 MG TAB PO (08:50)
[2018-09-30] MEDS: LEVOFLOXACIN 750 MG/150 ML BAG 100 MG IVPB (09:16)
[2018-09-30 09:33] VITALS: O2SAT 97
[2018-09-30] MEDS: Magnesium Chloride 64 MG TABCR PO ×2 (10:19→21:41)
--- NOTE | 2018-09-30 13:38 | PDOC.ANES ---
Date of service: 09/30/18 Time of Service: 13:03 Anesthesia Note Report Anesthesia Note: Consult for midline catheter insertion for IV access. Ultrasound used,vein identified. Attempts x 3 by two providers without success. Able to access vein all 3 times but unable to thread guide wire or catheter. Resistence encountered and patient had discomfort. An additional 20 ga. peripheral IV started in right hand.
--- NOTE | 2018-09-30 13:52 | PDOC.CMPRO ---
- If Service Date Differs Date of service: 09/30/18 Time of Service: 13:52 Care Management Progress Note S/O: Joselin is lying in bed this morning, pleasant and receptive to discussion. Midline consult this afternoon - midline was unable to be placed, therefore a new peripheral IV was started. Joselin continues to require IV antibiotics at this time. A: 73 yo female admitted for hypomagnesium, hypokalemia, colitis and currently being treated for head lice. P: Return to home with Son, DIL and 4 grandchildren when medically cleared for discharge.
--- NOTE | 2018-09-30 14:17 | PGE_ITS ---
Date of Service Date of service: 09/30/18 Time of Service: 10:30 Assessment and Plan (1) Nausea: Current visit: Yes Status: Acute Nausea persists although is taking some p.o. and has not had vomiting. Etiology is still not clear to me. Perhaps a medication side effect? She has had no objective findings of an intra-abdominal infection on repeat imaging. I am not sure metronidazole is adding anything and I am stopping it in the hopes that this will improve her nausea some. Recognizing that her nausea preceded hospital admission when she had not been adherent with oral ditazole, but may not be any connection with this med in her symptoms. Past history of hepatitis C, do not know if it is potentially playing a role in nausea. Concerning chest CT for malignancy which might be a cause of nausea. Doubtful that there is a central cause for her nausea, hold off on any brain imaging at this time. (2) Abnormal CT scan, chest: Current visit: Yes Status: Acute Possible infiltrate versus atelectasis justifies continuing antibiotics for possible pneumonia. More concerning are the R hilar and subcarinal masses. Discussion with her regarding the findings of the CT scan and further workup with the need for tissue diagnosis/biopsy. She is not opposed to invasive testing. I have initiated in order to contact [facility] providers to set up outpatient consultation and discussion regarding biopsy options?thoracoscopy versus bronchoscopy. (3) Diarrhea: Current visit: Yes Status: Acute This appears to be slowing down. Workup has been unrevealing. Negative PCR for C. difficile, prior negative Giardia and cryptosporidia antigen. I do not find bacterial culture/PC but given been improvement I am not going to pursue this now. Follow for worsening. (4) Atrial fibrillation: Current visit: Yes Status: Chronic Rate control adequate with present dose of metoprolol. Anticoagulated without bleeding complications using apixaban. (5) Hypokalemia: Current visit: Yes Status: Acute Probably due to chlorthalidone. Oral supplementation increased. If not improving consider switching to a potassium sparing diuretic. (6) ASCVD (arteriosclerotic cardiovascular disease): Current visit: Yes Status: Chronic No anginal type chest pain. Continues on beta-jose manuel, statin and clopidogrel. (7) Chronic obstructive lung disease: Current visit: Yes Status: Chronic No obvious exacerbation. As needed short acting beta agonist and duo nebs as needed. (8) Essential hypertension: Current visit: Yes Status: Chronic Stable on current combination of diuretic, beta-jose manuel, ARB. May need to change diuretic to potassium sparing diuretic based upon follow-up potassium level. (9) Viral hepatitis C: Current visit: Yes Status: Chronic Viral RNA titer positive in June of this year, untreated and chronic. At risk for hep C associated lymphoma. Subjective Interval history since last seen: Complains of continued nausea although taking some p.o. Diarrhea slowing down. Does not have much in the way of abdominal pain complaints today. I informed her of the results of her CT scan showing subcarinal and hilar mass. She denies any chest pain or increased shortness of breath. She has had no hemoptysis. She is willing to undergo invasive testing to find out the cause of these abnormalities on the CT scan. Exam Narrative Exam Narrative: Afebrile blood pressure 140s over 70s, SaO2 normal on room air. Looks chronically ill and a bit fatigued. No scleral icterus. Speech clear. No oral lesions visible. No JVD. Lungs slightly distant breath sounds no wheeze or crackles. Irregular heart rhythm no S3-S4 or murmur heard. Abdomen mildly tender to palpation in the upper quadrants bilaterally with no obvious enlargement of liver or spleen. No guarding or rebound. She sits up promptly without manifesting abdominal pain. 1+ pulses at the wrist have a hard time feeling a pulse in her right foot which is warm and there is no ulceration, barely perceptible dorsalis pedis pulse left foot. No ankle edema no calf tenderness. Objective Objective Clinical Data: Abnormal lab results 09/30/18 Range/Units 06:30 Potassium 2.8 L* (3.5-5.1) mmol/L Chloride 96 L (98-107) mmol/L Anion Gap 12.6 H (3-11) mmol/L Glucose 103 H (70-100) mg/dL Vital Signs Temperature 36.9 C 09/30/18 07:40 Temperature Source Tympanic 09/30/18 07:40 Pulse 111 H 09/30/18 07:40 Pulse Rhythm Regular 09/30/18 08:16 Pulse 113 H 09/22/18 09:20 Respiratory Rate 18 09/30/18 07:40 Respiratory Effort 09/30/18 08:16 Respiratory Depth Normal 09/30/18 08:16 Respiratory Pattern Normal 09/30/18 08:16 Blood Pressure 146/78 H 09/30/18 07:40 Blood Pressure Mean 117 09/22/18 09:16 Pulse Oximetry 97 09/30/18 09:33 Oxygen Delivery Method Room Air 09/30/18 09:33 Oxygen Flow Rate 0 09/30/18 09:33 Pain Level 5 09/30/18 07:40 Comment 09/26/18 16:43 Intake & Output 09/29/18 09/30/18 09/30/18 23:59 11:59 23:59 Intake Total 850 / 1490 440 / 680 240 / 680 Output Total 100 / 100 Balance 750 / 1390 440 / 680 240 / 680 Intake: IV 360 / 760 200 / 200 Oral 490 / 730 240 / 480 240 / 480 Output: Emesis 100 / 100 Other: Urine Appearance Clear Clear Comment pt gets up AD MARCELA to void. Stool Characteristics Soft Emesis Description Bile Voiding Methods Toilet Toilet Laboratory Results WBC 6.75 k/cumm (4.4-10.8) D 09/28/18 07:05 RBC 3.89 m/cumm (4.00-5.20) L 09/28/18 07:05 Hgb 11.2 g/dL (12.0-15.5) L 09/28/18 07:05 Hct 34.9 % (36.0-46.0) L 09/28/18 07:05 MCV 89.7 fL (80-95) 09/28/18 07:05 MCH 28.8 pg (27.0-33.0) 09/28/18 07:05 MCHC 32.1 g/dL (32.0-36.0) 09/28/18 07:05 RDW 13.4 % (11.7-14.6) 09/28/18 07:05 Plt Count 355 x1000/uL (130-400) 09/28/18 07:05 MPV 9.4 fL (8.0-11.0) 09/28/18 07:05 Immature Gran % 0.3 09/28/18 07:05 Neutrophils % 59.9 09/28/18 07:05 Lymphocytes % 16.0 09/28/18 07:05 Monocytes % 18.1 09/28/18 07:05 Eosinophils % 5.0 09/28/18 07:05 Basophils % 0.7 09/28/18 07:05 Absolute Neutrophils 4.04 k/cumm (1.2-6.7) 09/28/18 07:05 Absolute Lymphocytes 1.08 k/cumm (1.2-3.4) L 09/28/18 07:05 Absolute Monocytes 1.22 k/cumm (0.11-0.7) H 09/28/18 07:05 Absolute Eosinophils 0.34 k/cumm (0.0-0.7) 09/28/18 07:05 Absolute Basophils 0.05 k/cumm (0.0-0.2) 09/28/18 07:05 Differential Comment Diff reviewed 09/22/18 07:15 RBC Morphology Normal 09/22/18 07:15 Sodium 136 mmol/L (136-145) 09/30/18 06:30 Potassium 2.8 mmol/L (3.5-5.1) L* 09/30/18 06:30 Chloride 96 mmol/L (98-107) L 09/30/18 06:30 Carbon Dioxide 27.4 mmol/L (21.0-32.0) 09/30/18 06:30 Anion Gap 12.6 mmol/L (3-11) H 09/30/18 06:30 BUN 8 mg/dL (7-18) 09/30/18 06:30 Creatinine 0.87 mg/dL (0.55-1.02) 09/30/18 06:30 Estimated GFR/1.73 m2 >= 60.00 (mL/min/1.73m2) 09/30/18 06:30 Glucose 103 mg/dL (70-100) H 09/30/18 06:30 Calcium 9.2 mg/dL (8.5-10.1) 09/30/18 06:30 Magnesium 2.1 mg/dL (1.8-2.4) 09/27/18 06:38 Total Bilirubin 0.2 mg/dL (0.2-1.0) 09/28/18 16:35 Conjugated Bilirubin 0.10 mg/dL (0.00-0.20) 09/28/18 16:35 AST 31 U/L (15-37) 09/28/18 16:35 ALT 24 U/L (12-78) 09/28/18 16:35 Alkaline Phosphatase 99 U/L (46-116) 09/28/18 16:35 Troponin I 0.06 ng/mL (0.00-0.06) 09/22/18 07:15 Total Protein 6.8 g/dL (6.4-8.2) 09/28/18 16:35 Albumin 2.6 g/dL (3.4-5.0) L 09/28/18 16:35 Lipase 121 U/L (73-393) 09/28/18 16:35 Urine Color Yellow (Yellow) 09/23/18 14:45 Urine Clarity Clear 09/23/18 14:45 Urine pH 6.0 (5-8) 09/23/18 14:45 Ur Specific [place] 1.015 (1.005-1.025) 09/23/18 14:45 Urine Protein Negative mg/dL (Negative) 09/23/18 14:45 Urine Ketones Negative mg/dL (Negative) 09/23/18 14:45 Urine Blood Trace-intact (Negative) H 09/23/18 14:45 Urine Nitrite Negative (Negative) 09/23/18 14:45 Urine Bilirubin Negative (Negative) 09/23/18 14:45 Urine Urobilinogen 0.2 EU/dL (Up TO 0.2) 09/23/18 14:45 Ur Leukocyte Esterase Negative (Negative) 09/23/18 14:45 Urine RBC 0-2 (0-2) 09/23/18 14:45 Urine WBC Negative HPF (0-5) 09/23/18 14:45 Ur Epithelial Cells Rare HPF (Negative) 09/23/18 14:45 Urine Crystals Negative HPF (Negative) 09/23/18 14:45 Urine Bacteria Rare HPF (Negative) 09/23/18 14:45 Urine Casts Negative LPF (Negative) 09/23/18 14:45 Urine Mucus Negative (Negative) 09/23/18 14:45 Urine Other Negative (Negative) 09/23/18 14:45 Ur Culture Indicated? No 09/23/18 14:45 Urine Glucose Negative mg/dL (Negative) 09/23/18 14:45 Stl C.difficile Tox PCR Negative 09/22/18 07:05 C.difficile Tox Source Feces 09/22/18 07:05
[2018-09-30 15:53] VITALS: BP 132/79; PULSE 77; RESP 19; TEMP 36.3; O2SAT 97
[2018-09-30 20:16] VITALS: BP 133/80; PULSE 81; RESP 15; TEMP 37.7; O2SAT 95
[2018-09-30] MEDS: Mirtazapine 15 MG TAB 30 MG PO (21:41)
[2018-10-01 00:01] VITALS: BP 140/83; PULSE 100; RESP 17; TEMP 37.6; O2SAT 95
[2018-10-01 06:53] LABS: HCT 35.8 % (36.0-46.0); HGB 11.6 g/dL (12.0-15.5); Mean Corp. HGB Concentration 32.4 g/dL (32.0-36.0); Mean Corpuscular Hemoglobin 28.6 pg (27.0-33.0); Mean Corpuscular Volume 88.4 fL (80-95); Mean Platelet Volume 9.4 fL (8.0-11.0); Platelet Count 389 x1000/uL (130-400); RBC 4.05 m/cumm (4.00-5.20); RBC Distribution Width 13.6 % (11.7-14.6); White Blood Cell Count 7.43 k/cumm (4.4-10.8)
[2018-10-01 06:56] LABS: Anion Gap 13.6 mmol/L (3-11); BUN 6 mg/dL (7-18); CO2 26.4 mmol/L (21.0-32.0); CREATININE 0.95 mg/dL (0.55-1.02); Calcium 9.3 mg/dL (8.5-10.1); Chloride 96 mmol/L (98-107); Estimated GFR 57.99 (mL/min/1.73m2); Glucose 100 mg/dL (70-100); Potassium 3.3 mmol/L (3.5-5.1); Sodium 136 mmol/L (136-145)
[2018-10-01 07:42] VITALS: BP 115/57; PULSE 94; RESP 17; TEMP 37.8; O2SAT 94
[2018-10-01 08:45] VITALS: O2SAT 94
[2018-10-01] MEDS: Mometasone 220 MCG 14 DOSE INHALER 1 PUFF IH (08:45)
[2018-10-01] MEDS: Metoclopramide 10 MG/2 ML VIAL IVP (09:02)
[2018-10-01] MEDS: Normal Saline Flush 10 ML SYR IVP (09:03)
[2018-10-01] MEDS: Magnesium Chloride 64 MG TABCR PO ×2 (09:13→21:44)
[2018-10-01] MEDS: Metoprolol CR 100 MG TABCR PO (09:13)
[2018-10-01] MEDS: Cyanocobalamin 500 MCG TAB 1000 MCG PO (09:13)
[2018-10-01] MEDS: Clopidogrel 75 MG TAB PO (09:13)
[2018-10-01] MEDS: Apixaban 5 MG TAB PO ×2 (09:13→21:39)
[2018-10-01] MEDS: Losartan 50 MG TAB 100 MG PO (09:13)
[2018-10-01] MEDS: Ferrous Sulfate 325 MG TAB PO (09:13)
[2018-10-01] MEDS: Chlorthalidone 25 MG TAB PO (09:14)
[2018-10-01] MEDS: Potassium Chloride 20 MEQ TABCR PO ×3 (09:14→21:40)
[2018-10-01] MEDS: Pantoprazole 40 MG TABCR PO ×2 (09:14→21:39)
[2018-10-01] MEDS: ROSUVASTATIN 20 MG TAB 40 MG PO (09:14)
[2018-10-01] MEDS: LEVOFLOXACIN 750 MG/150 ML BAG 100 MG IVPB (09:54)
--- NOTE | 2018-10-01 11:50 | PGE_ITS ---
Date of Service Date of service: 10/01/18 Time of Service: 11:44 Assessment and Plan (1) Nausea: Current visit: Yes Status: Acute Nausea continues and does not seem to be much better compared to yesterday. Has not had observed vomiting. Differential continues to include med side effect, malignancy, possible emotional overlay? Current symptom management has been suboptimal. I am discontinuing Levaquin (see below) to allow the option for other anti-nausea/antiemetic medications and avoiding QT prolongation. I do not think there is a mechanical problem in terms of obstructive lesion as she has not had vomiting. I am discontinuing all nonessential medications. If symptoms do not seem to be improving over the next [address] of the brain. Oral intake marginal. I am adding back IV fluids. Nutrition consultation. (2) Abnormal CT scan, chest: Current visit: Yes Status: Acute Appointment has been made for outpatient evaluation with pulmonary on October 20 at [facility]. This point there is nothing going on that suggest to me the need for higher acuity visit. (3) Pneumonia: Current visit: Yes Status: Acute CT with infiltrate in the right lung field, consistent with current exam. I am switching Levaquin to ceftriaxone, I think it is unlikely that she has a pathogen for which Levaquin would be the preferred agent. (4) Diarrhea: Current visit: Yes Status: Acute Still having some low volume fairly infrequent loose to liquid stool but no blood. I do not think this is a manifestation of bacterial colitis. May have antibiotic induced change in micro-biome causing loose stool. Monitor but no specific intervention at this point. (5) Atrial fibrillation: Current visit: Yes Status: Chronic Rate control adequate with present dose of metoprolol. Anticoagulated without bleeding complications using apixaban. (6) Hypokalemia: Current visit: Yes Status: Acute Probably due to chlorthalidone. Possible GI loss as well. Oral supplementation increased. Slight improvement in the past 24 hours. I am switching chlorthalidone to spironolactone and decreasing her potassium supplementation and with that transition. Recheck potassium tomorrow. (7) ASCVD (arteriosclerotic cardiovascular disease): Current visit: Yes Status: Chronic No anginal type chest pain. Continues on beta-jose manuel, statin and clopidogrel. (8) Chronic obstructive lung disease: Current visit: Yes Status: Chronic No obvious exacerbation. As needed short acting beta agonist and duo nebs as needed. Antibiotic for pneumonia as above. (9) Essential hypertension: Current visit: Yes Status: Chronic Stable on current combination of diuretic, beta-jose manuel, ARB. Changing chlorthalidone to spironolactone as noted above. 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 This despite her report that she thinks she was treated for this years ago. If so, treatment failure. (11) Depressive disorder: Current visit: Yes Status: Chronic Unclear how much depression is contributing to her general sense of feeling unwell and nausea. Continue mirtazapine. I am reluctant to add any other medications at this time because of her ongoing nausea. Subjective Interval history since last seen: Continues to complain of nausea with poor oral intake, 20-25% at best of each meal. Still having loose stools but infrequent and small volume and no blood. Mild cough. States it is difficult to swallow tablets?not causing dysphasia but does provoke nausea. No documented vomiting since September 29. No complaints of abdominal pain today. Acknowledges that she is feeling a bit discouraged. Home can be chaotic but she does not find this overly stressful. I inquired whether or not she had been treated for hep C and she believes that she was many years ago. Exam Narrative Exam Narrative: Room darkened, awake alert, somewhat flat affect. Sclera anicteric. Neck veins flat. Lungs with diminished breath sounds at the bases, faint expiratory wheezing in the right midlung field, no rub, occasional crackle in the same area. Heart rhythm surprisingly regular today, no S3 or S4 heard. Normal bowel sounds with no apparent tenderness to palpation while distracted with conversation. No mass guarding or rebound appreciated. I cannot feel a pulse in either foot but her feet are warm. No pitting edema. Objective Objective Clinical Data: Abnormal lab results 10/01/18 10/01/18 Range/Units 06:20 06:20 Hgb 11.6 L (12.0-15.5) g/dL Hct 35.8 L (36.0-46.0) % Potassium 3.3 L (3.5-5.1) mmol/L Chloride 96 L (98-107) mmol/L Anion Gap 13.6 H (3-11) mmol/L BUN 6 L (7-18) mg/dL Vital Signs Temperature 37.8 C H 10/01/18 07:42 Temperature Source Tympanic 10/01/18 07:42 Pulse 94 H 10/01/18 07:42 Pulse Rhythm Regular 09/30/18 20:18 Pulse 113 H 09/22/18 09:20 Respiratory Rate 17 10/01/18 07:42 Respiratory Effort 10/01/18 08:49 Respiratory Depth Normal 10/01/18 08:49 Respiratory Pattern Normal 10/01/18 08:49 Blood Pressure 115/57 L 10/01/18 07:42 Blood Pressure Mean 117 09/22/18 09:16 Pulse Oximetry 94 L 10/01/18 08:45 Oxygen Delivery Method Room Air 10/01/18 08:45 Oxygen Flow Rate 0 10/01/18 08:45 Pain Level 0 10/01/18 07:42 Comment 09/26/18 16:43 Intake & Output 09/30/18 09/30/18 10/01/18 11:59 23:59 11:59 Intake Total 590 / 1330 740 / 1330 60 / 60 Balance 590 / 1330 740 / 1330 60 / 60 Intake: IV 350 / 360 10 / 360 Oral 240 / 970 730 / 970 60 / 60 Other: Urine Color Yellow Urine Appearance Clear Clear Clear Comment pt gets up AD MARCELA to void. independant to toilet indepandant to the toilet denies any urinary symptoms Stool Size Small Stool Characteristics Soft Liquid Voiding Methods Toilet Toilet Toilet Laboratory Results WBC 7.43 k/cumm (4.4-10.8) 10/01/18 06:20 RBC 4.05 m/cumm (4.00-5.20) 10/01/18 06:20 Hgb 11.6 g/dL (12.0-15.5) L 10/01/18 06:20 Hct 35.8 % (36.0-46.0) L 10/01/18 06:20 MCV 88.4 fL (80-95) 10/01/18 06:20 MCH 28.6 pg (27.0-33.0) 10/01/18 06:20 MCHC 32.4 g/dL (32.0-36.0) 10/01/18 06:20 RDW 13.6 % (11.7-14.6) 10/01/18 06:20 Plt Count 389 x1000/uL (130-400) 10/01/18 06:20 MPV 9.4 fL (8.0-11.0) 10/01/18 06:20 Immature Gran % 0.3 09/28/18 07:05 Neutrophils % 59.9 09/28/18 07:05 Lymphocytes % 16.0 09/28/18 07:05 Monocytes % 18.1 09/28/18 07:05 Eosinophils % 5.0 09/28/18 07:05 Basophils % 0.7 09/28/18 07:05 Absolute Neutrophils 4.04 k/cumm (1.2-6.7) 09/28/18 07:05 Absolute Lymphocytes 1.08 k/cumm (1.2-3.4) L 09/28/18 07:05 Absolute Monocytes 1.22 k/cumm (0.11-0.7) H 09/28/18 07:05 Absolute Eosinophils 0.34 k/cumm (0.0-0.7) 09/28/18 07:05 Absolute Basophils 0.05 k/cumm (0.0-0.2) 09/28/18 07:05 Differential Comment Diff reviewed 09/22/18 07:15 RBC Morphology Normal 09/22/18 07:15 Sodium 136 mmol/L (136-145) 10/01/18 06:20 Potassium 3.3 mmol/L (3.5-5.1) L 10/01/18 06:20 Chloride 96 mmol/L (98-107) L 10/01/18 06:20 Carbon Dioxide 26.4 mmol/L (21.0-32.0) 10/01/18 06:20 Anion Gap 13.6 mmol/L (3-11) H 10/01/18 06:20 BUN 6 mg/dL (7-18) L 10/01/18 06:20 Creatinine 0.95 mg/dL (0.55-1.02) 10/01/18 06:20 Estimated GFR/1.73 m2 57.99 (mL/min/1.73m2) 10/01/18 06:20 Glucose 100 mg/dL (70-100) 10/01/18 06:20 Calcium 9.3 mg/dL (8.5-10.1) 10/01/18 06:20 Magnesium 2.1 mg/dL (1.8-2.4) 09/27/18 06:38 Total Bilirubin 0.2 mg/dL (0.2-1.0) 09/28/18 16:35 Conjugated Bilirubin 0.10 mg/dL (0.00-0.20) 09/28/18 16:35 AST 31 U/L (15-37) 09/28/18 16:35 ALT 24 U/L (12-78) 09/28/18 16:35 Alkaline Phosphatase 99 U/L (46-116) 09/28/18 16:35 Troponin I 0.06 ng/mL (0.00-0.06) 09/22/18 07:15 Total Protein 6.8 g/dL (6.4-8.2) 09/28/18 16:35 Albumin 2.6 g/dL (3.4-5.0) L 09/28/18 16:35 Lipase 121 U/L (73-393) 09/28/18 16:35 Urine Color Yellow (Yellow) 09/23/18 14:45 Urine Clarity Clear 09/23/18 14:45 Urine pH 6.0 (5-8) 09/23/18 14:45 Ur Specific [place] 1.015 (1.005-1.025) 09/23/18 14:45 Urine Protein Negative mg/dL (Negative) 09/23/18 14:45 Urine Ketones Negative mg/dL (Negative) 09/23/18 14:45 Urine Blood Trace-intact (Negative) H 09/23/18 14:45 Urine Nitrite Negative (Negative) 09/23/18 14:45 Urine Bilirubin Negative (Negative) 09/23/18 14:45 Urine Urobilinogen 0.2 EU/dL (Up TO 0.2) 09/23/18 14:45 Ur Leukocyte Esterase Negative (Negative) 09/23/18 14:45 Urine RBC 0-2 (0-2) 09/23/18 14:45 Urine WBC Negative HPF (0-5) 09/23/18 14:45 Ur Epithelial Cells Rare HPF (Negative) 09/23/18 14:45 Urine Crystals Negative HPF (Negative) 09/23/18 14:45 Urine Bacteria Rare HPF (Negative) 09/23/18 14:45 Urine Casts Negative LPF (Negative) 09/23/18 14:45 Urine Mucus Negative (Negative) 09/23/18 14:45 Urine Other Negative (Negative) 09/23/18 14:45 Ur Culture Indicated? No 09/23/18 14:45 Urine Glucose Negative mg/dL (Negative) 09/23/18 14:45 Stl C.difficile Tox PCR Negative 09/22/18 07:05 C.difficile Tox Source Feces 09/22/18 07:05
--- NOTE | 2018-10-01 13:37 | PDOC.CMPRO ---
- If Service Date Differs Date of service: 10/01/18 Time of Service: 13:37 Care Management Progress Note S/O: Joselin is lying in bed this morning when this policy writer visits. She is pleasant and receptive to discussion. Joselin states that she is feeling nauseous this morning and that the Provider is aware of this. No change in current plan at this time. A: 73 yo female admitted for hypomagnesium, hypokalemia, colitis and currently being treated for head lice. P: Return to home with Son, DIL and 4 grandchildren when medically cleared for discharge.
--- NOTE | 2018-10-01 13:55 | CMPROGNOTE_ITS ---
- If Service Date Differs Date of service: 10/01/18 Time of Service: 13:37 Care Management Progress Note S/O: Joselin is lying in bed this morning when this ticket writer visits. She is pleasant and receptive to discussion. Joselin states that she is feeling nauseous this morning and that the Provider is aware of this. No change in current plan at this time. A: 73 yo female admitted for hypomagnesium, hypokalemia, colitis and currently being treated for head lice. P: Return to home with Son, DIL and 4 grandchildren when medically cleared for discharge.
[2018-10-01] MEDS: DEXTROSE 5%-0.45% SALINE 1,000 ML 75 ML IV (15:05)
[2018-10-01 15:45] VITALS: BP 133/81; PULSE 85; RESP 18; TEMP 37.1; O2SAT 98
[2018-10-01] MEDS: Ondansetron 4 MG TAB PO (20:37)
[2018-10-01] MEDS: Mirtazapine 15 MG TAB 30 MG PO (21:44)
[2018-10-01 23:01] VITALS: BP 136/68; PULSE 89; RESP 16; TEMP 37.7; O2SAT 96
[2018-10-02] MEDS: DEXTROSE 5%-0.45% SALINE 1,000 ML 75 ML IV (04:32)
[2018-10-02 07:01] LABS: Anion Gap 9.9 mmol/L (3-11); BUN 5 mg/dL (7-18); CO2 25.1 mmol/L (21.0-32.0); CREATININE 0.95 mg/dL (0.55-1.02); Calcium 8.8 mg/dL (8.5-10.1); Chloride 97 mmol/L (98-107); Estimated GFR 57.99 (mL/min/1.73m2); Glucose 122 mg/dL (70-100); Potassium 3.2 mmol/L (3.5-5.1); Sodium 132 mmol/L (136-145)
[2018-10-02] MEDS: Pantoprazole 40 MG TABCR PO ×2 (07:45→20:14)
[2018-10-02] MEDS: Metoclopramide 10 MG/2 ML VIAL IVP (07:46)
[2018-10-02] MEDS: Normal Saline Flush 10 ML SYR IVP ×2 (07:47→11:11)
[2018-10-02] MEDS: Mometasone 220 MCG 14 DOSE INHALER 1 PUFF IH (08:48)
[2018-10-02 08:50] VITALS: O2SAT 95
[2018-10-02] MEDS: Potassium Chloride 20 MEQ TABCR PO ×2 (09:12→20:14)
[2018-10-02] MEDS: Metoprolol CR 100 MG TABCR PO (09:12)
[2018-10-02] MEDS: Clopidogrel 75 MG TAB PO (09:12)
[2018-10-02] MEDS: Cyanocobalamin 500 MCG TAB 1000 MCG PO (09:13)
[2018-10-02] MEDS: Losartan 50 MG TAB 100 MG PO (09:13)
[2018-10-02] MEDS: Magnesium Chloride 64 MG TABCR PO (09:13)
[2018-10-02] MEDS: Spironolactone 25 MG TAB PO (09:13)
[2018-10-02] MEDS: Apixaban 5 MG TAB PO ×2 (09:13→20:14)
[2018-10-02] MEDS: DEXTROSE 5%-LACTATED RINGERS 1,000 ML 75 ML IV (09:22)
[2018-10-02 10:11] VITALS: BP 113/66; PULSE 84; RESP 24; TEMP 37.3; O2SAT 95
--- NOTE | 2018-10-02 10:31 | W.NUTCONSULT ---
Date of service: 10/02/18 Time of Service: 10:32 Nutritional Consult ASSESSMENT: Nutrition consult for poor po intake, nausea, lactose free supplements. Ms. Arrington has had poor po intake x 7 days. I can only find her admission weight of 57 kg. She is 60. Her BMI is 26 kg/m2 which is WNL for her age. She was sleeping soundly when I went to visit her however our CDMs have been visiting her twice daily. Today she has requested broth and gelatin and states she is willing to try some roast beef and mashed potato. Her estimated energy needs for weight maintenance are 1425 kcal/day (25 kcal/kg/day) and 57 g of protein per day (1.0g/kg/day). Based on the documentation in the EHR of 0 to 50% of her meals eaten, she is likely eating 500 calories per day 20 grams of protein on average. NUTRITIONAL DIAGNOSIS: Inadequate intake of oral foods and fluids related to nausea and decreased appetite as evidenced by meal percentages documented in EHR. INTERVENTION: CDM and/or RDN will continue to visit Ms. Arrington prior to meals to best assess her hunger and what she might tolerate at that meal. We will also try Ensure Clear supplement which is lactose free and generally well tolerated when patients are not tolerating other things. MONITORING AND EVALUATION: 1. Will monitor PO intake. Will monitor tolerance to Ensure Clear and will change it as needed. Please weigh patient at least every other day for now so we can better assess her nutritional status at this time. 2. Will evaluate nutrition care plan ongoing and adjust as needed. Time Spent in Nutritional Counseling and Treatment: STEPHANIE
--- NOTE | 2018-10-02 10:46 | PGE_ITS ---
Date of Service Date of service: 10/02/18 Time of Service: 09:30 Assessment and Plan (1) Nausea: Current visit: Yes Status: Acute Despite trimming back many medications, nausea continues. Have not explored all possible physical causes although I do not think there is a nickel obstruction causing her nausea. May be related to undiagnosed malignancy? May be psychological overlay? Now with slightly low sodium, possibility of adrenal insufficiency or central cause. Will check cortisol level and noncontrast head CT. Symptom management change?scheduled Phenergan before meals to see if this will improve symptoms sufficiently so that her oral intake will be adequate for maintaining fluid, protein and calorie needs as an outpatient. Current oral intake of either solids or liquids still insufficient so I am continuing IV fluids, changing to lactated Ringer's because of slightly low sodium. (2) Abnormal CT scan, chest: Current visit: Yes Status: Acute Appointment has been made for outpatient evaluation with pulmonary on October [address] [facility]. If I do not find any other explanation for her nausea other than concern regarding malignancy I will contact [facility] to see if this appointment can be moved up. (3) Pneumonia: Current visit: Yes Status: Acute Day 4 of antibiotics directed towards pneumonia (community-acquired). Remains afebrile, exam. No change in treatment plan for today. (4) Diarrhea: Current visit: Yes Status: Acute Diarrhea continues, she has been negative for C. difficile on several samples, negative for cryptosporidia and Giardia antigen. Was lactoferrin positive earlier during this admission. Will check for occult blood and send specimen for bacterial PCR. She had an unremarkable colonoscopy in 2016. Last magnesium level was in the normal range. I am backing off on her magnesium dose to see if this will help with diarrhea. (5) Atrial fibrillation: Current visit: Yes Status: Chronic Current exam suggest that she is in sinus, this may be paroxysmal A. fib but she still needs anticoagulation. No bleeding complications. (6) Hypokalemia: Current visit: Yes Status: Acute Potassium remains low diuretics changed to spironolactone and continues on oral potassium. No further changes planned for today. Recheck potassium tomorrow. (7) ASCVD (arteriosclerotic cardiovascular disease): Current visit: Yes Status: Chronic No anginal type chest pain. Continues on beta-jose manuel, statin and clopidogrel. (8) Chronic obstructive lung disease: Current visit: Yes Status: Chronic No obvious exacerbation. As needed short acting beta agonist, inhaled corticosteroid and duo nebs as needed. Antibiotic for pneumonia as above. (9) Essential hypertension: Current visit: Yes Status: Chronic Stable on current combination of diuretic, beta-jose manuel, ARB. Changed chlorthalidone to spironolactone as noted above. 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 This despite her report that she thinks she was treated for this years ago. If so, treatment failure. (11) Depressive disorder: Current visit: Yes Status: Chronic Unclear how much depression is contributing to her general sense of feeling unwell and nausea. Continue mirtazapine. I am reluctant to add any other medications at this time because of her ongoing nausea. Supportive listening, try to get her up and moving more. Subjective Interval history since last seen: No change in her nausea, poor oral intake. Still having some loose stools but no complaints of abdominal pain. Slight cough. States it is her usual. No chest pains. Mild headache which she also states is chronic and nothing different from her typical. Has not been out of bed much, states nausea is the reason. Exam Narrative Exam Narrative: Lying in darkened room she is a little more animated than yesterday. She is does not appear in any respiratory or gastrointestinal distress. Low-grade temperature elevations but nothing above 37.8. Blood pressures 1 teens to 130s, oxygen saturation on room air mid 90% range. Sclera anicteric. No JVD. Lungs no crackles or wheeze heard today anywhere. Heart rhythm regular, 1/6 systolic murmur right mid sternal border no diastolic murmur S3 or S4. Abdomen soft normal bowel sounds minimal tenderness in the upper quadrants no guarding or rebound. No ankle edema. Feet are warm. She is able to sit up unassisted and moves all extremities symmetrically. Affect flat. Objective Objective Clinical Data: Abnormal lab results 10/02/18 Range/Units 06:25 Sodium 132 L (136-145) mmol/L Potassium 3.2 L (3.5-5.1) mmol/L Chloride 97 L (98-107) mmol/L BUN 5 L (7-18) mg/dL Glucose 122 H (70-100) mg/dL Vital Signs Temperature 37.3 C 10/02/18 10:11 Temperature Source Tympanic 10/02/18 10:11 Pulse 84 10/02/18 10:11 Pulse Rhythm Regular 10/02/18 10:12 Pulse 113 H 09/22/18 09:20 Respiratory Rate 24 10/02/18 10:11 Respiratory Effort Non-Labored 10/02/18 10:12 Respiratory Depth Normal 10/02/18 10:12 Respiratory Pattern Normal 10/02/18 10:12 Blood Pressure 113/66 10/02/18 10:11 Blood Pressure Mean 117 09/22/18 09:16 Pulse Oximetry 95 10/02/18 10:11 Oxygen Delivery Method Room Air 10/02/18 10:11 Oxygen Flow Rate 0 10/02/18 10:11 Pain Level 0 10/01/18 15:45 Comment 09/26/18 16:43 Intake & Output 10/01/18 10/01/18 10/02/18 11:59 23:59 11:59 Intake Total 60 / 490 430 / 490 1542.5 / 1542.5 Balance 60 / 490 430 / 490 1542.5 / 1542.5 Intake: IV 1362.5 / 1362.5 Oral 60 / 480 420 / 480 180 / 180 Other: Urine Color Yellow Urine Appearance Clear Clear Clear Comment indepandant to the toilet denies any urinary symptoms pt reported toilet uop x 1 Stool Size Small Stool Characteristics Liquid Voiding Methods Toilet Toilet Laboratory Results WBC 7.43 k/cumm (4.4-10.8) 10/01/18 06:20 RBC 4.05 m/cumm (4.00-5.20) 10/01/18 06:20 Hgb 11.6 g/dL (12.0-15.5) L 10/01/18 06:20 Hct 35.8 % (36.0-46.0) L 10/01/18 06:20 MCV 88.4 fL (80-95) 10/01/18 06:20 MCH 28.6 pg (27.0-33.0) 10/01/18 06:20 MCHC 32.4 g/dL (32.0-36.0) 10/01/18 06:20 RDW 13.6 % (11.7-14.6) 10/01/18 06:20 Plt Count 389 x1000/uL (130-400) 10/01/18 06:20 MPV 9.4 fL (8.0-11.0) 10/01/18 06:20 Immature Gran % 0.3 09/28/18 07:05 Neutrophils % 59.9 09/28/18 07:05 Lymphocytes % 16.0 09/28/18 07:05 Monocytes % 18.1 09/28/18 07:05 Eosinophils % 5.0 09/28/18 07:05 Basophils % 0.7 09/28/18 07:05 Absolute Neutrophils 4.04 k/cumm (1.2-6.7) 09/28/18 07:05 Absolute Lymphocytes 1.08 k/cumm (1.2-3.4) L 09/28/18 07:05 Absolute Monocytes 1.22 k/cumm (0.11-0.7) H 09/28/18 07:05 Absolute Eosinophils 0.34 k/cumm (0.0-0.7) 09/28/18 07:05 Absolute Basophils 0.05 k/cumm (0.0-0.2) 09/28/18 07:05 Differential Comment Diff reviewed 09/22/18 07:15 RBC Morphology Normal 09/22/18 07:15 Sodium 132 mmol/L (136-145) L 10/02/18 06:25 Potassium 3.2 mmol/L (3.5-5.1) L 10/02/18 06:25 Chloride 97 mmol/L (98-107) L 10/02/18 06:25 Carbon Dioxide 25.1 mmol/L (21.0-32.0) 10/02/18 06:25 Anion Gap 9.9 mmol/L (3-11) 10/02/18 06:25 BUN 5 mg/dL (7-18) L 10/02/18 06:25 Creatinine 0.95 mg/dL (0.55-1.02) 10/02/18 06:25 Estimated GFR/1.73 m2 57.99 (mL/min/1.73m2) 10/02/18 06:25 Glucose 122 mg/dL (70-100) H 10/02/18 06:25 Calcium 8.8 mg/dL (8.5-10.1) 10/02/18 06:25 Magnesium 2.1 mg/dL (1.8-2.4) 09/27/18 06:38 Total Bilirubin 0.2 mg/dL (0.2-1.0) 09/28/18 16:35 Conjugated Bilirubin 0.10 mg/dL (0.00-0.20) 09/28/18 16:35 AST 31 U/L (15-37) 09/28/18 16:35 ALT 24 U/L (12-78) 09/28/18 16:35 Alkaline Phosphatase 99 U/L (46-116) 09/28/18 16:35 Troponin I 0.06 ng/mL (0.00-0.06) 09/22/18 07:15 Total Protein 6.8 g/dL (6.4-8.2) 09/28/18 16:35 Albumin 2.6 g/dL (3.4-5.0) L 09/28/18 16:35 Lipase 121 U/L (73-393) 09/28/18 16:35 Urine Color Yellow (Yellow) 09/23/18 14:45 Urine Clarity Clear 09/23/18 14:45 Urine pH 6.0 (5-8) 09/23/18 14:45 Ur Specific [place] 1.015 (1.005-1.025) 09/23/18 14:45 Urine Protein Negative mg/dL (Negative) 09/23/18 14:45 Urine Ketones Negative mg/dL (Negative) 09/23/18 14:45 Urine Blood Trace-intact (Negative) H 09/23/18 14:45 Urine Nitrite Negative (Negative) 09/23/18 14:45 Urine Bilirubin Negative (Negative) 09/23/18 14:45 Urine Urobilinogen 0.2 EU/dL (Up TO 0.2) 09/23/18 14:45 Ur Leukocyte Esterase Negative (Negative) 09/23/18 14:45 Urine RBC 0-2 (0-2) 09/23/18 14:45 Urine WBC Negative HPF (0-5) 09/23/18 14:45 Ur Epithelial Cells Rare HPF (Negative) 09/23/18 14:45 Urine Crystals Negative HPF (Negative) 09/23/18 14:45 Urine Bacteria Rare HPF (Negative) 09/23/18 14:45 Urine Casts Negative LPF (Negative) 09/23/18 14:45 Urine Mucus Negative (Negative) 09/23/18 14:45 Urine Other Negative (Negative) 09/23/18 14:45 Ur Culture Indicated? No 09/23/18 14:45 Urine Glucose Negative mg/dL (Negative) 09/23/18 14:45 Stl C.difficile Tox PCR Negative 09/22/18 07:05 C.difficile Tox Source Feces 09/22/18 07:05
--- NOTE | 2018-10-02 11:36 | PT.INIE ---
Date of service: 10/02/18 Time of Service: 11:36 PT Notes Inpatient Physical Therapy Evaluation Date: 10/02/2018 Referring Doctor: Vlad Morrow PT Orders: PT CONSULT: Prevent loss of functional mobility due to prolonged bedrest Precautions: Standard Patient Profile/Admitting Diagnosis: Patient is a 73-year-old female admitted with diarrhea, nausea, pneumonia and head lice PMHX: Non-ST elevation myocardial infarction, coronary artery disease, atrial fibrillation, supra ventricular tachycardia, hypertension, hyperlipidemia, severe peripheral artery disease, gastroesophageal reflux disease hypokalemia, hepatitis A, B C, alcoholism, cachexia, pneumonia, chronic obstructive pulmonary disease, emotionally labile, depression, anxiety disorder, peripheral arterial vascular disease, lung cancer s/p left upper lobectomy 2003, bilateral carotid endarterectomy, right leg endarterectomy, abdominal bruit, osteoporosis, vitamin D deficiency, vitamin B12 deficiency, head lice 3x in 2014, Wernicke's encephalopathy, hyperlipidemia Social History/Home Situation: Lives with son and son's girlfriend in apartment, 10 steps with right railing to enter, no steps inside. Baseline mobility is independent with no device, independent with ADLS Equipment Owned/DME: Cane, FWW, shower chair Subjective: Patient lying in bed, states she has been getting up and down in room with nursing program director front wheel walker. Agreeable to PT consult. Objective: Mental Status: A and O x3 Pain: No complaints of pain Bed Mobility/Transfers: Supine to sit: Independent Sit to stand: Independent Stand to sit: Independent Sit to supine: Independent Gait: Independent with FWW 200 feet, steady step through gait pattern no loss of balance. Stairs: Up/down 10 steps with railing, independent Therex: Patient issued lower extremity strengthening home exercise program for sitting and supine therex and instructed to perform daily 10-20 reps. Patient verbalized understanding. Balance: Static Sitting: Normal Dynamic Sitting: Normal Static Standing: Normal Dynamic Standing: Good Special Tests: Mobility Limitations Standardized Measure [facility] AM-PAC 6 clicks Basic Mobility Inpatient Short Form: Raw Score: 22 standardized Score: 53.28 CMS Score: 20.91% CMS Modifier: CJ Informed Consent/Education: Patient instructed in purpose of PT consult and plan of care. Assessment: Patient is a 73-year-old female admitted with diarrhea, nausea, pneumonia and head lice. Patient presents at her baseline level of functional mobility, independent with bed transfers, independent with standing transfers, independent with gait with front wheel walker 200 feet, independent up and down 10 steps with railing. Patient reports lower extremities feel slightly weak, patient issued and instructed in lower extremity strengthening program she can perform daily independently. Patient is not in need of skilled therapy services at this time and is at functional level to return to home setting when medically cleared. Recommend nursing mobilize patient in hallways 2 times per day until discharge to maintain her strength during hospitalization. Impairments are contributing to the following functional limitations: AMPAC score CMS Score: 20.91% Patient is assessed as a Low [id number] complexity based on the following: History: See above Examination: See above Presentation: Stable Decision Making: AMPAC score CMS Score: 20.91% Goals: Not applicable Plan of Care/Treatment Plan: PT eval only DISCHARGE RECOMMENDATIONS: Home, has all DME TREATMENT CODE/TIME: 26 minutes IE 11:35 AM G Codes in the area mobility of walking and moving around: current status [id number]; projected status GP [id number]. Discharge status (if discharging) GP [id number] -CJ based on AMPAC scores Jeannie Julio PT Disclaimer: This note was created using [employer] voice recognition software. It was reviewed for major content. However, there may be multiple small discrepancies and errors due to the voice recognition aspects of the software.
--- NOTE | 2018-10-02 13:12 | DI.CT_ITS ---
SYMPTOM/DIAGNOSIS: HEADACHE, PERSISTENT NAUSEA, HYPONATREMIA NONCONTRAST HEAD CT: The study was carried out without contrast enhancement according to the usual protocol. Atrophic changes consistent with age are demonstrated. There is no evidence of an intra/extracerebral hemorrhage, mass or fluid collection. The ventricles are normal. Note is made of what appears to represent an old right frontal lacune. There is no evidence of a territorial infarct. There are small regions of diminished absorption in the frontoparietal white matter bilaterally consistent with small vessel disease. No significant abnormality involving the bony calvarium is noted. There is a very small, well circumscribed calcification adjacent to the inner table in the right frontal region which could conceivably represent a tiny meningioma. The posterior fossa is intact. The midline is preserved throughout. There is no evidence of sinus disease. Symmetrical pneumatization of the mastoids is identified. SUMMARY: No acute abnormality is seen. There are findings consistent with the patient's age with mild cerebral atrophy. In addition, there is an apparent small right frontal lacune. Nil else.
--- NOTE | 2018-10-02 13:56 | PDOC.CMPRO ---
- If Service Date Differs Date of service: 10/02/18 Time of Service: 13:56 Care Management Progress Note S/O: Joselin is lying in bed this morning, her room is darkened when this senior underwriter visits. Joselin had a head CT today as well as a physical therapy consult. Joselin also continues on IV antibiotics at this time. No change in DC plan. A: 73 yo female admitted for hypomagnesium, hypokalemia, colitis and currently being treated for head lice. P: Return to home with Son, DIL and 4 grandchildren when medically cleared for discharge.
--- NOTE | 2018-10-02 14:17 | CMPROGNOTE_ITS ---
- If Service Date Differs Date of service: 10/02/18 Time of Service: 13:56 Care Management Progress Note S/O: Joselin is lying in bed this morning, her room is darkened when this typewriter assembly and parts inspector visits. Joselin had a head CT today as well as a physical therapy consult. Joselin also continues on IV antibiotics at this time. No change in DC plan. A: 73 yo female admitted for hypomagnesium, hypokalemia, colitis and currently being treated for head lice. P: Return to home with Son, DIL and 4 grandchildren when medically cleared for discharge.
--- NOTE | 2018-10-02 15:28 | CHAPLAIN ---
Joslein said she is still not feeling well, and struggles to eat. She expects some family members will be in to visit today. Her granddaughter was in the ER yesterday with respiratory issues, Joselin said. She continues to keep her room dark and the door closed.
[2018-10-02 15:56] VITALS: BP 123/74; PULSE 80; RESP 18; TEMP 37; O2SAT 96
[2018-10-02] MEDS: Promethazine 25 MG TAB PO (16:19)
[2018-10-02 20:05] VITALS: BP 143/79; PULSE 79; RESP 17; TEMP 36.7; O2SAT 97
[2018-10-02] MEDS: Mirtazapine 15 MG TAB 30 MG PO (21:08)
[2018-10-02 23:53] VITALS: BP 145/80; PULSE 85; RESP 18; TEMP 37; O2SAT 97
[2018-10-03 06:57] LABS: Anion Gap 9.5 mmol/L (3-11); BUN 5 mg/dL (7-18); CO2 27.5 mmol/L (21.0-32.0); CREATININE 0.89 mg/dL (0.55-1.02); Calcium 8.9 mg/dL (8.5-10.1); Chloride 101 mmol/L (98-107); Glucose 107 mg/dL (70-100); Potassium 3.2 mmol/L (3.5-5.1); Sodium 138 mmol/L (136-145)
[2018-10-03 07:02] LABS: Magnesium 1.3 mg/dL (1.8-2.4)
[2018-10-03 07:58] VITALS: BP 130/74; PULSE 72; RESP 14; TEMP 36.5; O2SAT 98
[2018-10-03] MEDS: Normal Saline 500 ML 100 ML IV (08:38)
[2018-10-03] MEDS: Clopidogrel 75 MG TAB PO (08:39)
[2018-10-03] MEDS: Apixaban 5 MG TAB PO (08:39)
[2018-10-03] MEDS: Losartan 50 MG TAB 100 MG PO (08:39)
[2018-10-03] MEDS: Metoprolol CR 100 MG TABCR PO (08:39)
[2018-10-03] MEDS: Promethazine 25 MG TAB PO ×2 (08:39→11:43)
[2018-10-03] MEDS: Potassium Chloride 20 MEQ TABCR PO ×2 (08:39→10:21)
[2018-10-03] MEDS: Spironolactone 25 MG TAB PO (08:40)
[2018-10-03] MEDS: Cyanocobalamin 500 MCG TAB 1000 MCG PO (08:40)
[2018-10-03] MEDS: Pantoprazole 40 MG TABCR PO (08:40)
[2018-10-03 09:40] VITALS: O2SAT 95
[2018-10-03] MEDS: Mometasone 220 MCG 14 DOSE INHALER 1 PUFF IH (09:43)
--- NOTE | 2018-10-03 09:48 | DSE_ITS ---
Date of service: 10/03/18 Time of Service: 09:46 DS: Diagnosis Discharge Diagnosis (1) Nausea: Status: Acute Asessment and Plan: Etiology of nausea, which was severe enough to interfere with adequate oral hydration and nutrition, never clearly defined, although it did resolve during hospitalization with treatment for possible pneumonia, withdrawal of several acute and chronic medications and initiation of scheduled Phenergan. (2) Abnormal CT scan, chest: Status: Acute Asessment and Plan: Right hilar and subcarinal masses identified on chest CT, not clear if these are playing any role in her nausea but they possibly may be. Outpatient pulmonary consultation has been requested. (3) Pneumonia: Status: Acute Asessment and Plan: Diagnosis based on CT scan showing left upper lobe infiltrate. She has a chronic cough. There was no pathogen identified during hospitalization. She never had an oxygen requirement and is being discharged to complete 7 days of antibiotics directed towards community-acquired pathogens. (4) Diarrhea: Status: Acute Asessment and Plan: More by history than observed, did have frequent loose stools initially which slowed during hospitalization. C. difficile negative twice, prior hospitalization with negative stool studies for Giardia and cryptosporidia. Stool ordered for bacterial pathogens but never had another episode of diarrhea subsequent to the order. Magnesium dose was decreased which seemed to help with slowing her diarrhea. (5) Atrial fibrillation: Status: Chronic Asessment and Plan: Presumably paroxysmal as on repeated exam she had a regular rhythm. She was maintained on chronic anticoagulation with no bleeding complications. (6) Hypokalemia: Status: Acute Asessment and Plan: Attributed to GI and renal losses with use of chlorthalidone which was discontinued and changed to Spironolactone. Potassium level still slightly low on discharge after receiving just 1 dose of spironolactone. Potassium supplementation reduced on discharge and will need to have follow-up as an outpatient. (7) ASCVD (arteriosclerotic cardiovascular disease): Status: Chronic Asessment and Plan: No exacerbations or anginal problems during this hospitalization. Statin was stopped during this hospitalization as part of the medication trimming to see if it would help with nausea. Decision will need to be made in follow-up as to when to resume this. (8) Chronic obstructive lung disease: Status: Chronic Asessment and Plan: Treated with her outpatient inhalers and no exacerbation during this hospitalization. (9) Essential hypertension: Status: Chronic Asessment and Plan: Blood pressure is stable during hospitalization, diuretic changed from chlorthalidone to spironolactone as noted above. (10) Viral hepatitis C: Status: Chronic Asessment and Plan: Noted that she had positive viral titer in June, raising concern about possible hep C associated lymphoma as cause of abnormal chest CT. No treatment directed towards this during hospitalization. (11) Depressive disorder: Status: Chronic Asessment and Plan: No change made to her outpatient dose of mirtazapine. Quetiapine was held during hospitalization and she did not seem to have worsening mood disorder. Discharge Plan Disposition Patient Disposition: HOME Condition: Improving Discharge Details Chief Complaint: Nausea/Vomit/Diar Reason For Visit: HYPOMAGNESIUM,HYPOKALEMIA,COLITIS Admit Date/Time: 09/22/18 08:17 Admit Provider: Seth Stephen Attending Provider: Seth Stephen Primary Care Provider: Dharmesh Huizar ED Provider: Evaristo Burns Hospital Course Hospital Course: 73-year-old Mrs. Aggarwal was admitted through the emergency room where she presented with recurrent nausea, diarrhea, generalized weakness, being found to have low potassium and magnesium. She had recently been discharged following hospitalization for colitis, infectious with Cipro and metronidazole. Because of her nausea she had not been able to be adherent with her regular medical re gimen for several days prior to presentation. She also was found to have recurrent lice infection. Hospital course: She was placed on IV fluids, given magnesium and potassium supplementation intravenously and orally and was continued on antibiotics directed towards diverticulitis/colitis. However, symptoms were not improving, repeat CT scan of the abdomen did not show any evidence of inflammation but did show, on chest CT, possible pneumonia. Antibiotics were tailored to pulmonary pathogens switching to Levaquin and metronidazole. She continued to have nausea and without evidence of anaerobic infection metronidazole was discontinued and she was transitioned to ceftriaxone. Her nausea continued to be the main limiting factor in discharge and further medications were discontinued and scheduled Phenergan was added with improvement in her nausea and ability to take adequate nutrients and fluids by the day of discharge. She was found to have head lice which was treated. Incidental finding of right hilar and subcarinal mass on CT scan led to initiating referral to [facility] pulmonary for further diagnostic studies. She was made aware of these abnormalities and the potential seriousness of them. The remainder of her problems are listed above with hospital course. She will need to have potassium and magnesium levels rechecked as an outpatient, blood pressure monitored and decision as to when to restart any of the chronic medications that were discontinued during this hospitalization including rosuvastatin and quetiapine Home Meds and New Rx's Prescriptions: New spironolactone 25 mg Tablet 25 mg PO DAILY Qty: 30 RF: 1 promethazine 25 mg Tablet 25 mg PO TID PRNQty: 15 RF: 1 magnesium chloride [Mag 64] 64 mg Tablet,Delayed Release (Dr/Ec) 64 mg PO DAILY@1000 Qty: 30 RF: 0 cefuroxime axetil 500 mg tablet 500 mg PO BID 2 Days Qty: 4 RF: 0 Continued mirtazapine 30 MG tablet 30 mg PO HS Qty: 90 RF: 3 fluticasone [Flovent HFA] 12 GM HFA aerosol inhaler 1 puff Inhalation BID Qty: 3 RF: 3 PROVENTIL HFA 18 GM HFA.AER.AD 1 - 2 puff Inhalation Q6H PRN Qty: 3 RF: 3 potassium chloride 20 MEQ tablet extended release 20 meq PO DAILY Qty: 90 RF: 3 metoprolol succinate 100 MG tablet extended release 24 hr 100 mg PO DAILY Qty: 90 RF: 3 clopidogrel 75 MG tablet 75 mg PO DAILY Qty: 90 RF: 3 pantoprazole 40 MG tablet,delayed release (DR/EC) 40 mg PO BID Qty: 60 RF: 11 apixaban [Eliquis] 5 MG tablet 5 mg PO BID Qty: 60 RF: 11 losartan 50 mg Tablet 100 mg PO DAILY RF: 0 cholecalciferol (vitamin D3) 50,000 unit Capsule 50,000 unit PO DIRECTED RF: 0 cyanocobalamin (vitamin B-12) 1,000 mcg Capsule 1,000 mcg PO DAILY RF: 0 lidocaine [Lidoderm] 5 % Adhesive Patch,Medicated 1 patch Topical HS 30 Days Qty: 30 RF: 0 Patch Removal [Remove Patch] 1 ea Topical DAILY@1000 Qty: 0 RF: 0 Discontinued ferrous sulfate [Feosol] 325 MG tablet 325 mg PO BID Qty: 60 RF: 3 quetiapine 25 MG tablet 12.5 mg PO DAILY Qty: 45 RF: 3 rosuvastatin [Crestor] 40 mg tablet 40 mg PO DAILY Qty: 90 RF: 3 chlorthalidone 25 mg Tablet 25 mg PO DAILY RF: 0 magnesium chloride [Mag 64] 64 mg Tablet,Delayed Release (Dr/Ec) 64 mg PO BID 30 Days Qty: 60 RF: 0 metronidazole 500 mg Tablet 500 mg PO TID RF: 0 ciprofloxacin HCl 500 mg Tablet 500 mg PO BID RF: 0 Discharge Instructions Instructions: Community Acquired Pneumonia (DC) Additional Instructions: Please review the medication list to be sure you understand which medicines have been temporarily stopped. Talk with Dr. Huizar at your follow-up appointment as to when you should restart any or all of these medications. Call your primary care doctor or return to the emergency room if you have increasing nausea vomiting or worsening diarrhea. Stand Alone Forms: Nursing Discharge Form [place] [place] 10/20/18 4:30 pm Ashlyn Skinner MD [ [facility] STAFF PHYSICIAN] - Dharmesh Huizar [Primary Care Provider] - 10/10/18 2:00 am Activity:: Activity as Tolerated Equipment/Supplies:: No Equipment Needed Diet:: As Tolerated Discharge Orders Discharge Orders: Discharge Order (Routine); Ordered 10/03/18 Ordered By: Vlad Morrow DS: Data Vitals/I&O Vitals and I&O: Vital Signs Temperature 36.5 C 10/03/18 07:58 Temperature Source Tympanic 10/03/18 07:58 Pulse 72 10/03/18 07:58 Pulse Rhythm Regular 10/02/18 20:15 Pulse 113 H 09/22/18 09:20 Respiratory Rate 14 10/03/18 07:58 Respiratory Effort Non-Labored 10/02/18 20:15 Respiratory Depth Normal 10/02/18 20:15 Respiratory Pattern Normal 10/02/18 20:15 Blood Pressure 130/74 10/03/18 07:58 Blood Pressure Mean 117 09/22/18 09:16 Pulse Oximetry 98 10/03/18 07:58 Oxygen Delivery Method Room Air 10/03/18 07:58 Oxygen Flow Rate 0 10/03/18 07:58 Pain Level 0 10/03/18 07:58 Comment 09/26/18 16:43 Intake & Output 10/02/18 10/02/18 10/03/18 11:59 23:59 11:59 Intake Total 1592.5 / 1832.5 240 / 1832.5 960 / 960 Output Total 750 / 750 400 / 400 Balance 1592.5 / 1082.5 -510 / 1082.5 560 / 560 Intake: IV 1412.5 / 1412.5 0 / 1412.5 720 / 720 Oral 180 / 420 240 / 420 240 / 240 Output: Urine 750 / 750 400 / 400 Other: Urine Color Yellow Yellow Urine Appearance Clear Clear Clear Urine Odor Normal None Comment Void x1 in the toilet. Stool Size Small Moderate Stool Characteristics Soft Soft Formed Formed Mucoid Brown Voiding Methods Toilet Toilet Labs on day of discharge: Labs from last 24 hours 10/03/18 10/03/18 10/02/18 06:20 06:20 15:50 Sodium 138 Potassium 3.2 L Chloride 101 Carbon Dioxide 27.5 Anion Gap 9.5 BUN 5 L Creatinine 0.89 Estimated GFR/1.73 m2 >= 60.00 Glucose 107 H Calcium 8.9 Magnesium 1.3 L Aidn-4-Prcsycifajlcu Cortisol Stool Campylobacter PCR Pending Stool Salmonella PCR Pending Stool Shigella PCR Pending Shiga Toxin (PCR) Pending 10/02/18 10/01/18 09:23 06:20 Sodium Potassium Chloride Carbon Dioxide Anion Gap BUN Creatinine Estimated GFR/1.73 m2 Glucose Calcium Magnesium Aoow-8-Ybvooypyrkqrb 4.50 H Cortisol 23 Stool Campylobacter PCR Stool Salmonella PCR Stool Shigella PCR Shiga Toxin (PCR) Imaging CT scan - chest: Lab and Radiology Reports: Patient Name: ADOLFO AGGARWAL AUnit #: [id number]: MS Ordering Provider: Noam Zhang M.D. : ADM IN Primary Care Provider: Dharmesh Huizar Date of Exam: 09/28/18ex: F : 1945ge: 73 Exam(s) a CT:CT chest/abd/pel w SYMPTOM/DIAGNOSIS: CHEST, ABDOMEN AND PELVIC CT: ABDOMEN AND PELVIS: Comparison is made with 09/10/18 and 09/18/17. The liver is normal in size. No hepatic mass is seen. There is a stone seen within the gallbladder. No biliary ductal dilatation is seen. There are multiple hypodense lesions seen within the spleen, the largest measuring .8 cm. 100 haunsfield units are noted. The pancreas and spleen are unremarkable. There is again seen atrophy of the right kidney with compensatory hypertrophy of the left kidney. No suspicious renal mass, calculus or obstruction is identifie d. The urinary bladder is intact. The reproductive organs are unremarkable. The bowel shows no evidence of obstruction or inflammation. No findings to suggest an acute appendicitis are present. The abdominal aorta shows atherosclerosis but no aneurysmal dilatation. There is a femoral femoral artery bypass again noted. There has been no change in size of the retroperitoneal lymph nodes. No significant abdominal or pelvic adenopathy is appreciated. The bones show no acute abnormality. There is grade I spondylolisthesis of L 4 on L 5. IMPRESSION: 1. Multiple low attenuation lesions in the spleen. These are nonspecific. The differential considerations include infection, lymphoma, leukemia, hematomas or hemangiomas. Follow up is recommended. This may include MRI and/or ultrasound. CHEST: There is atherosclerosis of the thoracic aorta but no aneurysmal dilatation is seen. Heart size is within normal limits. No significant pericardial effusion is seen. Coronary artery calcifications are present. There is thoracic adenopathy present. Subcarinal mass measures 2.8 by 2.1 cm. In the right hilum, there is a 2.8 by 1.9 cm. mass. There are several small ly mph nodes seen in the mediastinum including some calcified lymph nodes. No pleural effusion or pneumothorax is identified. Moderately severe emphysematous changes are present in the lungs. There is scarring or atelectasis seen in the lung bases. There is an area of consolidation involving the medial aspect of the right upper lobe. There is a 5 mm. nodule in the lateral aspect of the left lingula. No aggressive osseous lesion is identified. IMPRESSION: 1. 2.8 by 1.9 cm. right hilar mass. Neoplasm cannot be excluded. 2. Subcarinal soft tissue density measuring 2.8 by 2.1 cm. suspicious for metastatic disease. 3. Consolidation in the left upper lobe. This may represent atelectasis or pneumonia. 4. Pulmonary emphysema. PFSH Medical History Pneumonia (Acute) Nausea (Acute) Abnormal CT scan, chest (Acute) Diarrhea (Acute) Vitamin D deficiency (Chronic 09/07/14) Vitamin B 12 deficiency (Chronic 09/10/14) Viral hepatitis C (Chronic) SVT (supraventricular tachycardia) (Chronic 01/10/16) Peptic reflux disease (Chronic) Hyperlipidemia (Chronic) Essential hypertension (Chronic 07/27/13) Depressive disorder (Chronic) Chronic obstructive lung disease (Chronic) ASCVD (arteriosclerotic cardiovascular disease) (Chronic) Anemia (Chronic) PVD (peripheral vascular disease) (Chronic) Atrial fibrillation (Chronic) ASCVD (arteriosclerotic cardiovascular disease) Alcohol abuse COPD (chronic obstructive pulmonary disease) Essential hypertension Non-ST elevation ND (NSTEMI) PVD (peripheral vascular disease) Peptic reflux disease SVT (supraventricular tachycardia) Smoker Viral hepatitis C Vitamin D deficiency Surgical History History of angioplasty of peripheral vessel (Resolved 08/20/18) PROCEDURES Family History Mother Essential hypertension Personal history of malignant neoplasm Heart disease Hyperlipidemia Stroke Father Personal history of malignant neoplasm Brother Personal history of malignant neoplasm Grandfather No problems noted. Grandfather No problems noted. Grandmother No problems noted. Grandmother No problems noted. Medical History ASCVD (arteriosclerotic cardiovascular disease) Alcohol abuse COPD (chronic obstructive pulmonary disease) Essential hypertension Non-ST elevation ND (NSTEMI) PVD (peripheral vascular disease) Peptic reflux disease SVT (supraventricular tachycardia) Smoker Viral hepatitis C Vitamin D deficiency Social History Smoking/Tobacco Use Status: Former Tobacco Use Surgical History History of angioplasty of peripheral vessel (Resolved 08/20/18) PROCEDURES Social History Smoking/Tobacco Use Status: Former Tobacco Use
[2018-10-03] MEDS: Magnesium Chloride 64 MG TABCR PO (10:02)
[2018-10-03] MEDS: Ondansetron 4 MG TAB PO (10:21)
--- NOTE | 2018-10-03 11:00 | PDOC.CMDIS ---
- If Service Date Differs Date of service: 10/03/18 Time of Service: 11:00 LACE Index Scoring Tool - Questions: Length of Stay (in days): 7 - 13 Acuity (Admit via E.D.?): Yes Comorbidities: Chronic Pulmonary Disease E.D. Visits: 6 - Answers: Total Score: 14 Risk of Readmission: High Risk Care Management Discharge Reason for Hospitalization: Watery stool, hypomagnesium, hypokalemia, and colitis. Discharge Plan: Joselin will return home today with no services. She will F/U with PCP and plan of care. Joselin's family will transport today. Patient/Family Education Needs: Review DC instructions, any limitations, and discuss 'Ask Me Three'
[2018-10-04 11:49] LABS: Campylobacter PCR SEE COMMENTS; Salmonella PCR SEE COMMENTS; Shiga Toxin PCR SEE COMMENTS; Shigella/Enteroinvasive Ecoli SEE COMMENTS
== END 2018-10-03 14:35 | disposition home or self-care (01) | DRG 391 ==
LOC: ER 08:08 → MS 09:54
PROVIDERS: Family Medicine; Surgery; Admitting Provider Internal Medicine; Emergency Provider Student in an Organized Health Care Education/Training Program; PCP Family Medicine; Visit Provider Internal Medicine
PROC: 0DJD8ZZ Inspection of Lower Intestinal Tract, Via Natural or Artificial Opening Endoscopic (ICD-10-PCS; CPT 45330; principal; 2018-09-26 12:45)
DX: K52.9 Noninfective gastroenteritis and colitis, unspecified (principal); J18.9 Pneumonia, unspecified organism; R50.9 Fever, unspecified; R93.89 Abnormal findings on diagnostic imaging of other specified body structures; R11.0 Nausea; B85.0 Pediculosis due to Pediculus humanus capitis; E83.42 Hypomagnesemia; E87.6 Hypokalemia; J44.9 Chronic obstructive pulmonary disease, unspecified; I10 Essential (primary) hypertension; B19.20 Unspecified viral hepatitis C without hepatic coma; F32.9 Major depressive disorder, single episode, unspecified; I73.9 Peripheral vascular disease, unspecified; Z79.02 Long term (current) use of antithrombotics/antiplatelets; E78.5 Hyperlipidemia, unspecified; Z85.118 Personal history of other malignant neoplasm of bronchus and lung; I48.91 Unspecified atrial fibrillation; I25.10 Atherosclerotic heart disease of native coronary artery without angina pectoris
CPT/HCPCS: 45331; 36415; 74177; 80048; 80053; 80076; 82533; 83690; 85027; 87505; 88305; 93005; 94640; 96361; 96365; 97161; 99222; 99231; 99232; 99233; 99239; 99253; 99285; 70450; 71046; 71260; 81003; 81015; 82232; 82272; 83630; 83735; 84484; 85025; 87324; 87798; 93010; J0696; J0744; J1956; J2405; J2765; J3475; J3480; J3490; J8597

== ENCOUNTER 2018-12-10 08:29 | Inpatient (IN) | payer MEDICARE, MEDICAID, SELFPAY ==
[2018-12-10] VITALS (144 sets, daily range): BP systolic 53–161; BP diastolic 28–123; PULSE 56–194; RESP 4–44; TEMP 36.4–37.2; O2SAT 91–99
[2018-12-10 09:04] LABS: Abs Immature Grans 0.07 k/cumm (0.0-0.09); HCT 33.5 % (36.0-46.0); Mean Corp. HGB Concentration 32.8 g/dL (32.0-36.0); Mean Corpuscular Volume 76.1 fL (80-95); RBC Distribution Width 20.1 % (11.7-14.6); White Blood Cell Count 8.29 k/cumm (4.4-10.8)
[2018-12-10] MEDS: Metoprolol 5 MG/5 ML VIAL IVP (09:05)
[2018-12-10] MEDS: Normal Saline 250 ML IV (09:10)
--- NOTE | 2018-12-10 09:12 | ED.GENADUL_ITS ---
Discharge Plan Disposition Patient Disposition: [facility] INPATIENT Condition: Fair Discharge Details Chief Complaint: Palpitatns Clinical Impression: Atrial fibrillation with RVR, Hyponatremia, Thrombocytopenia, Elevated troponin, Splenomegaly, Dehydration Reason For Visit: AFIB W/RVR,HYPONATREMIA,THROMBOCYTOPENIA,DEHYDRATI Admit Date/Time: 12/10/18 11:27 Admit Provider: Seth Stephen Attending Provider: Seth Stephen Primary Care Provider: Dharmesh Huizar ED Provider: Lisandra Bender Medical Decision Making 73-year-old female with a history of atrial fibrillation, hypertension, NSTEMI, lung cancer, SVT, COPD, hepatitis C, CVA who presents for not feeling well, fatigue, weakness, dry cough, dyspnea on exertion for the past 6 days, and vomiting x1 this morning. Patient is a poor historian, and when initially asked her review of systems of her complaints, she denied everything. She states her main complaint was weakness but had denied nausea, vomiting, shortness of breath or abdominal pain. Upon further examination, she then did admit to intermittent shortness of breath over the past 4 days and vomiting 1 time this morning. Upon exam, she had significant tenderness to palpation diffusely, worse in the epigastric region but stated she did not know she had abdominal pain. Her heart rate on arrival 170s. She has not taken any of her medications including eliquis and metoprolol for the past 6 days due to all of the symptoms above. EKG noted a rate of 180, atrial fibrillation, no acute ST findings. She was given a dose of IV 5 mg Lopressor on arrival and heart rate decreased to 130s. Blood pressure stable. She has scattered wheezing left posterior chest. O2 sat 95% on RA. Differential diagnosis includes pneumonia, GA, UTI, electrolyte abnormality, acute abdominal process. Will place an IV, small bolus IV fluids, labs, urinalysis, chest x-ray, CT abdomen and pelvis. 1035 --labs and imaging reviewed. Normal white blood cell count. Platelets 66. Bands 1. Sodium 123. Troponin 0.07 which may be demand ischemia. Chest x-ray and CT abdomen and pelvis negative for acute process. CT abdomen did note splenomegaly, a right atrophic kidney and a left hypertrophic kidney but no other acute process. 1045 --discussed with hospitalist -patient for admission. With splenomegaly, thrombocytopenia, will check a mono screen. UA pending. Will start normal saline at 100 cc/hr. 1200 --UA notes 3-5 WBCs but negative leukocyte esterase, nitrate, does not appear consistent with obvious UTI, urine culture sent. Negative mono screen. Influenza negative. Medical Records Medical records reviewed: Yes I reviewed the patient's medical records. Imaging Data Radiologic Study: Radiologist's impression: ABDOMEN AND PELVIC CT: CT scan of the abdomen and pelvis was performed following intravenous and oral contrast material. There is patient motion artifact present. There do appear to be emphysematous changes seen in the lung bases. The liver is normal in size. No suspicious hepatic mass is seen. There are stones seen within the gallbladder. No biliary ductal dilatation is seen. The portal, superior mesenteric and splenic veins are patent. The spleen is enlarged measuring 14 cm. The pancreas is unremarkable as are the adrenal glands. There is atrophy of the right kidney with compensatory hypertrophy of the left kidney. The urinary bladder is intact. The reproductive organs are unremarkable as visualized. The bowel shows no evidence of obstruction or inflammation. No findings to suggest an acute appendicitis are present. No abdominal or pelvic adenopathy, ascites or pneumoperitoneum is present. There is a bi-femoral bypass. Degenerative changes are seen in the spine. Pseudospondylolisthesis is seen of L 4 on L 5 (grade 1). IMPRESSION: 1. No evidence of an acute abdomen. 2. Cholelithiasis. No biliary ductal dilatation. 3. Splenomegaly. 4. Right renal atrophy. 5. Atherosclerotic disease of the abdomen with a fem fem bypass. AP AND LATERAL CHEST: Comparison is made with 09/22/[address] scan is 09/28/18. Heart size is within normal limits. There is again seen prominence of the right hilum consistent with the patient's known right hilar mass seen on CT scan from 09/28/18. The lungs show no acute infiltrates or effusions. The lungs appear hyperinflated with flattened diaphragms suggesting underlying COPD. The bones are intact. IMPRESSION: No acute pulmonary process. Lab Data Lab results reviewed: Yes I reviewed the patient's lab results. HPI General Mode of arrival: wheelchair . Date/Time Provider Initiated Documentation: 12/10/18 08:39 . Limitations to Documentation: other (poor historian) . Information obtained by: patient . HPI Narrative: Pt is a 73yo F who presents to the ED w/ a c/o not feeling well x 6 days. Patient states she has had a dry cough, intermittent shortness of breath with exertion, decreased appetite and has not been sleeping well. She states she has not taken any of her medications for the past 6 days due to the symptoms. She states this morning she woke up and had nausea and vomited one time. She also admits to intermittent headache, dizziness, fatigue and weakness. She states her main complaint at this time is feeling generally weak. She denies chest pain, abdominal pain, diarrhea, fever, chills, urinary symptoms, recent travel, recent surgery or recent antibiotics. Related Data Home Medications Medication Instructions Recorded Confirmed potassium chloride 20 meq PO DAILY #90 tab-cap 01/16/18 12/10/18 Eliquis 5 mg PO BID #60 tab 03/31/18 12/10/18 clopidogrel 75 mg PO DAILY #90 tab-cap 03/31/18 12/10/18 metoprolol succinate 100 mg PO DAILY #90 tab-cap 03/31/18 12/10/18 pantoprazole 40 mg PO BID #60 tab-cap 03/31/18 12/10/18 cholecalciferol (vitamin D3) 50,000 unit PO DIRECTED 09/10/18 12/10/18 cyanocobalamin (vitamin B-12) 1,000 mcg PO DAILY #90 cap 10/10/18 12/10/18 1,000 mcg capsule fluticasone 110 mcg/actuation HFA 1 puff INHALATION BID #3 inhaler 10/10/18 12/10/18 aerosol inhaler losartan 50 mg tablet 100 mg PO DAILY #180 tab 10/10/18 12/10/18 promethazine 25 mg tablet 25 mg PO TID PRN #15 tab 10/10/18 12/10/18 spironolactone 25 mg tablet 25 mg PO DAILY #90 tab 10/10/18 12/10/18 mirtazapine 30 mg tablet 30 mg PO HS #90 tab-cap 10/24/18 12/10/18 aspirin [Aspirin Low Dose] 81 mg PO DAILY 12/10/18 12/10/18 ferrous sulfate 325 mg PO BID 12/10/18 12/10/18 magnesium chloride [Mag 64] 64 mg PO BID 12/10/18 12/10/18 rosuvastatin 40 mg PO DAILY 12/10/18 12/10/18 Previous Rx's Medication Instructions Recorded potassium chloride 20 meq PO DAILY #90 tab-cap 01/16/18 Eliquis 5 mg PO BID #60 tab 03/31/18 clopidogrel 75 mg PO DAILY #90 tab-cap 03/31/18 metoprolol succinate 100 mg PO DAILY #90 tab-cap 03/31/18 pantoprazole 40 mg PO BID #60 tab-cap 03/31/18 cyanocobalamin (vitamin B-12) 1,000 mcg PO DAILY #90 cap 10/10/18 1,000 mcg capsule fluticasone 110 mcg/actuation HFA 1 puff INHALATION BID #3 inhaler 10/10/18 aerosol inhaler losartan 50 mg tablet 100 mg PO DAILY #180 tab 10/10/18 promethazine 25 mg tablet 25 mg PO TID PRN #15 tab 10/10/18 spironolactone 25 mg tablet 25 mg PO DAILY #90 tab 10/10/18 mirtazapine 30 mg tablet 30 mg PO HS #90 tab-cap 10/24/18 Allergies Allergy/AdvReac Type Severity Reaction Status Date / Time chlorthalidone Allergy Intermediate chest pain Unverified 12/10/18 09:14 lactose AdvReac Severe DIARRHEA Unverified 12/10/18 09:14 mold, mildew AdvReac Unknown ?cough Uncoded 12/10/18 09:14 General Stated Complaint: Palpitatns ENZO: 1 Review of Systems Review of Systems All systems reviewed & are unremarkable except as noted in HPI and below Constitutional Reports as per HPI, Denies chills, Reports fatigue, Denies fever(s) and Reports weakness Eyes Denies blurry vision ENT Denies dizziness, Denies sore throat and Denies throat swelling Cardiovascular Denies chest pain and Reports dyspnea Respiratory Reports cough and Reports dyspnea Gastrointestinal Denies abdominal pain, Denies diarrhea and Denies vomiting Genitourinary Denies hematuria and Denies dysuria Musculoskeletal Denies back pain and Denies numbness Integumentary/Breasts Denies lesions and Denies rash Neurologic Denies dizziness, Denies focal weakness, Denies numbness and Reports weakness Endocrine Reports fatigue Allergic/Immunologic Denies throat swelling PFSH Medical History Thrombocytopenia (Acute) Splenomegaly (Acute) Mediastinal lymphadenopathy (Acute ~10/20/18) Pneumonia (Resolved) Nausea (Resolved) Abnormal CT scan, chest (Acute) Diarrhea (Resolved) Vitamin D deficiency (Chronic 09/07/14) Vitamin B 12 deficiency (Chronic 09/10/14) Viral hepatitis C (Chronic) SVT (supraventricular tachycardia) (Chronic 01/10/16) Peptic reflux disease (Chronic) Hyperlipidemia (Chronic) Essential hypertension (Chronic 07/27/13) Depressive disorder (Chronic) Chronic obstructive lung disease (Chronic) ASCVD (arteriosclerotic cardiovascular disease) (Chronic) Anemia (Chronic) PVD (peripheral vascular disease) (Chronic) Atrial fibrillation (Chronic) ASCVD (arteriosclerotic cardiovascular disease) Alcohol abuse COPD (chronic obstructive pulmonary disease) Essential hypertension Non-ST elevation GA (NSTEMI) PVD (peripheral vascular disease) Peptic reflux disease SVT (supraventricular tachycardia) Smoker Viral hepatitis C Vitamin D deficiency Surgical History History of angioplasty of peripheral vessel (Resolved 08/20/18) PROCEDURES Family History Mother Essential hypertension Personal history of malignant neoplasm Heart disease Hyperlipidemia Stroke Father Personal history of malignant neoplasm Brother Personal history of malignant neoplasm Grandfather No problems noted. Grandfather No problems noted. Grandmother No problems noted. Grandmother No problems noted. Social History Smoking and Tabacco status: Former Tobacco Use alcohol intake: former substance use type: does not use Exam Const General: cooperative and no acute distress Orientation: alert and awake HENMT Head: normal to inspection Ears: hearing grossly normal bilaterally, external ears normal and TM's normal bilaterally General nose exam: external nose normal Face and sinus: normal facial exam Mouth: mucous membranes dry Throat: posterior oropharynx normal Eyes General: appearance normal, both eyes and all related structures Pupils: PERRL EOM: EOM intact bilaterally Neck Neck: normal visual inspection and No submandibular swelling Lymphatic: no lymphadenopathy noted Chest Chest: normal inspection of the chest and no tenderness Resp Effort & Inspection: normal respiratory effort and able to speak in complete sentences Auscultation: clear to auscultation bilaterally Cardio Rate: tachycardic Rhythm: abnormal rhythm irregularly irregular GI Inspection: normal to inspection Palpation: soft, not firm, not rigid and tender (Diffuse, worse in upper abdomen) Auscultation: normal bowel sounds Back/Spine/Pelvis Thoracic/Lumbar Spine: thoracic and lumbar spine normal to inspection Skin General skin exam: no rashes or lesions noted Neuro General: alert, awake and oriented x3 Cranial Nerves: CN's II-XI intact bilaterally Cognition: normal cognition Speech: speech normal Motor: muscle tone normal throughout, strength 5/5 throughout and no pronator drift Sensory Exam: no sensory deficits noted Extrem General: normal to inspection, full ROM and no edema Psych Appearance: grossly normal Mental Status: mental status grossly normal Speech and Movement: speech and movement normal Affect: normal affect Course Vital Signs Temperature 99.0 F 12/10/18 08:56 Pulse 175 H 12/10/18 08:56 Respiratory Rate 27 H 12/10/18 08:56 Blood Pressure 128/66 12/10/18 08:56 Pulse Oximetry 95 12/10/18 08:56 Temperature 99.0 F 12/10/18 08:56 Temperature Source Skin 12/10/18 08:56 Pulse 175 H 12/10/18 08:56 Respiratory Rate 27 H 12/10/18 08:56 Blood Pressure 128/66 12/10/18 08:56 Blood Pressure Position Supine 12/10/18 08:56 Pulse Oximetry 95 12/10/18 08:56 Oxygen Delivery Method Room Air 12/10/18 08:56 Oxygen Flow Rate 0 12/10/18 08:56
[2018-12-10 09:22] LABS: ALT 11 U/L (12-78); AST 39 U/L (15-37); Alkaline Phosphatase 80 U/L (46-116); Anion Gap 11.8 mmol/L (3-11); BUN 25 mg/dL (7-18); Bilirubin, Total 1.2 mg/dL (0.2-1.0); CO2 23.2 mmol/L (21.0-32.0); CREATININE 0.94 mg/dL (0.55-1.02); Calcium 8.9 mg/dL (8.5-10.1); Chloride 88 mmol/L (98-107); Glucose 127 mg/dL (70-100); Magnesium 1.8 mg/dL (1.8-2.4); Potassium 4.2 mmol/L (3.5-5.1); Total Protein 7.2 g/dL (6.4-8.2)
[2018-12-10 09:25] LABS: Absolute Lymphocyte Count 0.75 k/cumm (1.2-3.4); Absolute Monocyte Count 0.91 k/cumm (0.11-0.7); Absolute Neutrophil Count 6.22 k/cumm (1.2-6.7); Atypical Lymphocytes % 3; Platelet Count 66 x1000/uL (130-400)
[2018-12-10 09:26] LABS: Diff Comment Manual Differential
[2018-12-10 09:27] LABS: Macrocytosis 2+; Polychromasia Present
--- NOTE | 2018-12-10 09:27 | DI.RAD_ITS ---
SYMPTOM/DIAGNOSIS: COUGH, SOB, ? PNEUMONIA AP AND LATERAL CHEST: Comparison is made with 09/22/[address] scan is 09/28/18. Heart size is within normal limits. There is again seen prominence of the right hilum consistent with the patient's known right hilar mass seen on CT scan from 09/28/18. The lungs show no acute infiltrates or effusions. The lungs appear hyperinflated with flattened diaphragms suggesting underlying COPD. The bones are intact. IMPRESSION: No acute pulmonary process.
[2018-12-10 09:30] LABS: Sodium 123 mmol/L (136-145); Troponin I 0.07 ng/mL (0.00-0.06)
[2018-12-10] MEDS: Normal Saline 1,000 ML 100 ML IV (10:10)
[2018-12-10] MEDS: Omnipaque 350 MG/ML 100 ML BTL IJ (10:15)
--- NOTE | 2018-12-10 10:17 | DI.CT_ITS ---
SYMPTOM/DIAGNOSIS: ABD PAIN, NAUSEA ABDOMEN AND PELVIC CT: CT scan of the abdomen and pelvis was performed following intravenous and oral contrast material. There is patient motion artifact present. There do appear to be emphysematous changes seen in the lung bases. The liver is normal in size. No suspicious hepatic mass is seen. There are stones seen within the gallbladder. No biliary ductal dilatation is seen. The portal, superior mesenteric and splenic veins are patent. The spleen is enlarged measuring 14 cm. The pancreas is unremarkable as are the adrenal glands. There is atrophy of the right kidney with compensatory hypertrophy of the left kidney. The urinary bladder is intact. The reproductive organs are unremarkable as visualized. The bowel shows no evidence of obstruction or inflammation. No findings to suggest an acute appendicitis are present. No abdominal or pelvic adenopathy, ascites or pneumoperitoneum is present. There is a bi-femoral bypass. Degenerative changes are seen in the spine. Pseudospondylolisthesis is seen of L 4 on L 5 (grade 1). IMPRESSION: 1. No evidence of an acute abdomen. 2. Cholelithiasis. No biliary ductal dilatation. 3. Splenomegaly. 4. Right renal atrophy. 5. Atherosclerotic disease of the abdomen with a fem fem bypass. The findings were discussed with Dr. Bender of the ER on the date of the examination.
[2018-12-10 10:57] LABS: Bilirubin Small (Negative); Blood Trace-lysed (Negative); Clarity Clear; Glucose Negative (Negative); Ketones 15 mg/dL (Negative); Leukocyte Esterase Negative (Negative); Nitrite Negative (Negative); Specific Gravity 1.025 (1.005-1.025); Urobilinogen 0.2 EU/dL (Up TO 0.2); pH 5.5 (5-8)
[2018-12-10 11:08] LABS: Mono Screening Negative (Negative)
[2018-12-10 11:10] LABS: Epithelial Cells Rare HPF (Negative); RBC 0-2 (0-2)
[2018-12-10 11:11] LABS: Bacteria Moderate HPF (Negative); C & S Indicated? Yes; Casts 3-5 Coarse Granular LPF (Negative); Crystals Negative HPF (Negative); Mucus Trace (Negative)
[2018-12-10] MEDS: Acetaminophen 500 MG TAB 1000 MG PO (13:03)
[2018-12-10] MEDS: Levalbuterol 1.25 MG/3 ML UPD VIAL UPD (13:18)
--- NOTE | 2018-12-10 15:58 | HPE_ITS ---
Assessment and Plan (1) Splenomegaly: Current visit: Yes Status: Acute Evidence of splenomegaly which is new in comparison to CT performed 09/2018, which showed multiple hypodense lesions. Now with clear enlargement on repeat CT scan. Unsure of etiology for this, but will check for potential etiology with the following: - Known history of HCV. Check viral load. - Will also check for EBV, CMV, and MAC. - No evidence of tuberculosis by prior CT, but will check a QuantiFERON TB Gold test. - Cannot definitively rule out a myeloproliferative neoplasm, such as a lymphoma or leukemia. Given evidence of hypodense lesions on prior CT may warrant conversation with a janitorial assistant pending outcome of other testing. - No history of cirrhosis or evidence of by imaging. Patient also has no evidence of congestion view of CHF, with a normal prior echo. Consider splenic or portal vein thrombosis part of differential. 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 Medication list reviewed and without offending agents. Also without a history of chronic liver disease, CLL, or lymphoma. DoubtTTP/HUS as there is no evidence of worsening anemia/MAHA, GLORIA, or altered mental status. Patient does complain of a recent illness with nausea, but source is uncertain at this time so cannot definitively rule out sepsis as pot ential etiology for thrombocytopenia. We will also check DIC labs with coags, fibrinogen, d-dimer, LDH, and haptoglobin. (3) Nausea: Current visit: Yes Status: Acute Onset of nausea approximately 5 days ago, with inability to tolerate oral intake. Also with subjective fevers at home, not confirmed here. No evidence of leukocytosis by labs. Influenza, urinalysis, chest x-ray all negative. Patient also with evidence of splenomegaly as potential reason for abdominal discomfort and nausea. However, evidence of cholelithiasis on CT scan, and RUQ tenderness on exam. Will check a liver ultrasound to evaluate gallbladder a little bit better. Monitor vitals, including temperature closely and if patient should begin to be febrile will consider broad-spectrum coverage. (4) Hyponatremia: Current visit: Yes Status: Acute Based on history of decreased oral intake, and hypochloremia, appears to be hypovolemic hyponatremia. Continue gentle IV fluids, and monitor sodium to ensure lack of aggressive correction. Current sodium with very slow and appropriate rise on recheck. (5) Atrial fibrillation: Current visit: No Status: Chronic Rate uncontrolled as patient had been off of her medications for a reported 5 or 6 days. Reinitiated beta-blockers, and will monitor heart rate closely while in the ICU. Also initiated Cardizem gtt. Continue anticoagulation with apixaban. (6) Mediastinal lymphadenopathy: Current visit: Yes Status: Chronic Potential for neoplastic process in patient with a history of lung CA s/p resection in the past. Records of pulmonary follow-up are missing at this time. Will attempt to procure, and check into attempted workup of this. (7) Pediculosis: Current visit: No Status: Acute Head lice noted again during hospitalization, in patient with history of recurrent pediculosis. Initiate treatment with topical lindane. Contact precautions in place. (8) ASCVD (arteriosclerotic cardiovascular disease): Current visit: No Status: Chronic Noted. Patient with a C 12/2015 showing nonobstructive CAD (LM 10%, LAD long prox 30% calcified, LCX prox 20%, RCA prox and mid calcified 40%). Asymptomatic with initial troponin minimally and equivocally elevated, and repeat negative. Continue Clopidogrel, BB, high potency statin. Also on Apixiban given underlying Afib - currently on hold for procedure. (9) PVD (peripheral vascular disease): Current visit: No Status: Chronic Continue Plavix, statin. Also on BB and ARB. (10) Chronic obstructive lung disease: Current visit: No Status: Chronic Noted. Appears quiescent. Duonebs prn. (11) DVT prophylaxis: Current visit: No Status: Acute On anticoagulation with Apixaban. PPI therapy as well given history of PUD and GERD. History of Present Illness Narrative: 73 yr old woman with recent hospitalizations at [facility] for Colitis, being admitted from the Emergency Department on 12/10 with a diagnosis of Hyponatremia, Thrombocytopenia, Decreased PO intake, Afib with RVR. Ms. Arrington has a history significant for severe PAD, Non-obstructive CAD, COPD, HTN, HCV, lung CA s/p lobectomy, PSVT, NSTEMI, PUD, GERD, and former alcohol abuse. She also has evidence of a right hilar mass by CT in September, with a Pulmonary follow-up with records unavailable at this time. The patient presented to the ED with complaints of fatigue, weakness, and feeling unwell. Specifically she reports onset of nausea without any significant vomiting, essentially prohibiting her from eating or drinking well over the course of the last few days. She also reported a dry cough over the same time course, without significant or purulent sputum production. Workup in the ED consisted of evidence of AFib with RVR, for which the patient reported noncompliance with her medications due to poor oral intake. She was noted to have evidence of an acute onset thrombocytopenia, never seen in the past. Also noted to be hyponatremic and hypochloremic. Her troponin was minimally and equivocally elevated, normalized on repeat check, and her urinalysis, mono check, and rapid influenza were all negative. Chest x-ray was obtained showing no acute abnormalities, a subsequent CT of the abdomen and pelvis showed evidence of splenomegaly not present by imaging just 2 months previous. She was also noted to have cholelith iasis. She was referred for admission at that time. At the time of exam Ms. Arrington was noted to have of pediculosis, which is a recurrent finding for her. Her physical exam was also significant for epigastric and RUQ tenderness. She has been afebrile since presentation to the hospital. Review of Systems Review of Systems All systems reviewed & are unremarkable except as noted in HPI and below [facility] Medical History Thrombocytopenia (Acute) Splenomegaly (Acute) Mediastinal lymphadenopathy (Acute ~10/20/18) Pneumonia (Resolved) Nausea (Resolved) Abnormal CT scan, chest (Acute) Diarrhea (Resolved) Vitamin D deficiency (Chronic 09/07/14) Vitamin B 12 deficiency (Chronic 09/10/14) Viral hepatitis C (Chronic) SVT (supraventricular tachycardia) (Chronic 01/10/16) Peptic reflux disease (Chronic) Hyperlipidemia (Chronic) Essential hypertension (Chronic 07/27/13) Depressive disorder (Chronic) Chronic obstructive lung disease (Chronic) ASCVD (arteriosclerotic cardiovascular disease) (Chronic) Anemia (Chronic) PVD (peripheral vascular disease) (Chronic) Atrial fibrillation (Chronic) ASCVD (arteriosclerotic cardiovascular disease) Alcohol abuse COPD (chronic obstructive pulmonary disease) Essential hypertension Non-ST elevation ME (NSTEMI) PVD (peripheral vascular disease) Peptic reflux disease SVT (supraventricular tachycardia) Smoker Viral hepatitis C Vitamin D deficiency Surgical History History of angioplasty of peripheral vessel (Resolved 08/20/18) PROCEDURES Family History Mother Essential hypertension Personal history of malignant neoplasm Heart disease Hyperlipidemia Stroke Father Personal history of malignant neoplasm Brother Personal history of malignant neoplasm Grandfather No problems noted. Grandfather No problems noted. Grandmother No problems noted. Grandmother No problems noted. Social History Smoking and Tabacco status: Former Tobacco Use alcohol intake: former substance use type: does not use Meds Home Medications Medication Instructions Recorded Confirmed Type Proventil Hfa 1 - 2 puff INHALATION Q6H PRN #3 09/16/17 12/10/18 Clinic inhaler potassium chloride 20 meq PO DAILY #90 tab-cap 01/16/18 12/10/18 Rx Eliquis 5 mg PO BID #60 tab 03/31/18 12/10/18 Rx clopidogrel 75 mg PO DAILY #90 tab-cap 03/31/18 12/10/18 Rx metoprolol succinate 100 mg PO DAILY #90 tab-cap 03/31/18 12/10/18 Rx pantoprazole 40 mg PO BID #60 tab-cap 03/31/18 12/10/18 Rx cholecalciferol (vitamin D3) 50,000 unit PO DIRECTED 09/10/18 12/10/18 Hi story cyanocobalamin (vitamin B-12) 1,000 mcg PO DAILY #90 cap 10/10/18 12/10/18 Rx 1,000 mcg capsule fluticasone 110 mcg/actuation HFA 1 puff INHALATION BID #3 inhaler 10/10/18 12/10/18 Rx aerosol inhaler losartan 50 mg tablet 100 mg PO DAILY #180 tab 10/10/18 12/10/18 Rx promethazine 25 mg tablet 25 mg PO TID PRN #15 tab 10/10/18 12/10/18 Rx spironolactone 25 mg tablet 25 mg PO DAILY #90 tab 10/10/18 12/10/18 Rx mirtazapine 30 mg tablet 30 mg PO HS #90 tab-cap 10/24/18 12/10/18 Rx aspirin [Aspirin Low Dose] 81 mg PO DAILY 12/10/18 12/10/18 History ferrous sulfate 325 mg PO BID 12/10/18 12/10/18 History magnesium chloride [Mag 64] 64 mg PO BID 12/10/18 12/10/18 History rosuvastatin 40 mg PO DAILY 12/10/18 12/10/18 History Allergies Allergy/AdvReac Type Severity Reaction Status Date / Time chlorthalidone Allergy Intermediate chest pain Unverified 12/10/18 09:14 lactose AdvReac Severe DIARRHEA Unverified 12/10/18 09:14 mold, mildew AdvReac Unknown ?cough Uncoded 12/10/18 09:14 Exam Narrative Exam Narrative: General: Patient appears comfortable, AAOX3, NAD Skin: Evidence of Pediculosis Capitis noted on exam. Neck: Supple CV: Irregular, mildly tachycardic, S1S2, No rubs, murmurs, or gallops. Pulmonary: Clear to auscultation bilaterally, no crackles, wheezing, or rhonchi Abdomen: + Bowel Sounds, soft, nondistended. Mild epigastric and moderate RUQ tenderness. Vascular: No lower extremity edema Neurologic: CN II-XII grossly intact. No focal deficits. Psych: Normal mood and affect. Results Imaging Additional studies: Exam(s) a RAD:XR chest 2V PA & lateral SYMPTOM/DIAGNOSIS: COUGH, SOB, ? PNEUMONIA AP AND LATERAL CHEST: Comparison is made with 09/22/[address] scan is 09/28/18. Heart size is within normal limits. There is again seen prominence of the right hilum consistent with the patient's known right hilar mass seen on CT scan from 09/28/18. The lungs show no acute infiltrates or effusions. The lungs appear hyperinflated with flattened diaphragms suggesting underlying COPD. The bones are intact. IMPRESSION: No acute pulmonary process. Exam(s) a CT:CT abdomen & pelvis w SYMPTOM/DIAGNOSIS: ABD PAIN, NAUSEA ABDOMEN AND PELVIC CT: CT scan of the abdomen and pelvis was performed following intravenous and oral contrast material. There is patient motion artifact present. There do appear to be emphysematous changes seen in the lung bases. The liver is normal in size. No suspicious hepatic mass is seen. There are stones seen within the gallbladder. No biliary ductal dilatation is seen. The portal, superior mesenteric and splenic veins are patent. The spleen is enlarged measuring 14 cm. The pancreas is unremarkable as are the adrenal glands. There is atrophy of the right kidney with compensatory hypertrophy of the left kidney. The urinary bladder is intact. The reproductive organs are unremarkable as visualized. The bowel shows no evidence of obstruction or inflammation. No findings to suggest an acute appendicitis are present. No abdominal or pelvic adenopathy, ascites or pneumoperitoneum is present. There is a bi-femoral bypass. Degenerative changes are seen in the spine. Pseudospondylolisthesis is seen of L 4 on L 5 (grade 1). IMPRESSION: 1. No evidence of an acute abdomen. 2. Cholelithiasis. No biliary ductal dilatation. 3. Splenomegaly. 4. Right renal atrophy. 5. Atherosclerotic disease of the abdomen with a fem fem bypass. Labs : 12/10/18 08:55 12/10/18 16:05 Laboratory Results - last 24 hr 12/10/18 12/10/18 12/10/18 08:55 08:55 08:55 WBC 8.29 RBC 4.40 Hgb 11.0 L Hct 33.5 L MCV 76.1 L MCH 25.0 L MCHC 32.8 RDW 20.1 H Plt Count 66 L MPV Immature Gran % See Differential Neutrophils % 74.0 Band Neutrophils % 1.0 Lymphocytes % 6.0 Atypical Lymphs % 3 Monocytes % 11.0 Eosinophils % 0.0 Basophils % 0.0 Metamyelocytes % 3.0 Myelocytes % 2.0 Absolute Neutrophils 6.22 Absolute Lymphocytes 0.75 L Absolute Monocytes 0.91 H Absolute Eosinophils 0.00 Absolute Basophils 0.00 Differential Comment Manual differential RBC Morphology See below Polychromasia Present Macrocytosis 2+ Sodium 123 L* Potassium 4.2 Chloride 88 L Carbon Dioxide 23.2 Anion Gap 11.8 H BUN 25 H Creatinine 0.94 Estimated GFR/1.73 m2 58.70 Glucose 127 H Calcium 8.9 Magnesium 1.8 Total Bilirubin 1.2 H AST 39 H ALT 11 L Alkaline Phosphatase 80 Troponin I 0.07 H Total Protein 7.2 Albumin 3.0 L Urine Color Urine Clarity Urine pH Ur Specific [place] Urine Protein Urine Ketones Urine Blood Urine Nitrite Urine Bilirubin Urine Urobilinogen Ur Leukocyte Esterase Urine RBC Urine WBC Ur Epithelial Cells Urine Crystals Urine Bacteria Urine Casts Urine Mucus Ur Culture Indicated? Urine Glucose Monoscreen Negative 12/10/18 12/10/18 10:45 15:41 WBC RBC Hgb Hct MCV MCH MCHC RDW Plt Count MPV Immature Gran % Neutrophils % Band Neutrophils % Lymphocytes % Atypical Lymphs % Monocytes % Eosinophils % Basophils % Metamyelocytes % Myelocytes % Absolute Neutrophils Absolute Lymphocytes Absolute Monocytes Absolute Eosinophils Absolute Basophils Differential Comment RBC Morphology Polychromasia Macrocytosis Sodium Cancelled Potassium Chloride Carbon Dioxide Anion Gap BUN Creatinine Estimated GFR/1.73 m2 Glucose Calcium Magnesium Total Bilirubin AST ALT Alkaline Phosphatase Troponin I Total Protein Albumin Urine Color [place] Urine Clarity Clear Urine pH 5.5 Ur Specific [place] 1.025 Urine Protein >=300 H Urine Ketones 15 H Urine Blood Trace-lysed H Urine Nitrite Negative Urine Bilirubin Small H Urine Urobilinogen 0.2 Ur Leukocyte Esterase Negative Urine RBC 0-2 Urine WBC 3-5 Ur Epithelial Cells Rare Urine Crystals Negative Urine Bacteria Moderate Urine Casts 3-5 coarse granular Urine Mucus Trace Ur Culture Indicated? Yes Urine Glucose Negative Monoscreen Last Vital Signs Temp 37.2 C 12/10/18 15:16 Pulse 76 12/10/18 15:16 Resp 34 H 12/10/18 15:16 BP 103/80 12/10/18 15:16 Pulse Ox 93 L 12/10/18 15:16
[2018-12-10 16:29] LABS: Anion Gap 7.4 mmol/L (3-11); BUN 25 mg/dL (7-18); CO2 25.6 mmol/L (21.0-32.0); CREATININE 0.86 mg/dL (0.55-1.02); Calcium 8.3 mg/dL (8.5-10.1); Chloride 94 mmol/L (98-107); Glucose 111 mg/dL (70-100); Potassium 3.5 mmol/L (3.5-5.1); Sodium 127 mmol/L (136-145)
[2018-12-10 16:39] LABS: Troponin I 0.06 ng/mL (0.00-0.06)
[2018-12-10] MEDS: Promethazine 25 MG TAB PO (17:46)
[2018-12-10] MEDS: Ferrous Sulfate 325 MG TAB PO (19:10)
[2018-12-10] MEDS: Apixaban 5 MG TAB PO (19:10)
[2018-12-10] MEDS: Normal Saline Flush 10 ML SYR IVP (19:10)
[2018-12-10] MEDS: Pantoprazole 40 MG VIAL IVP (19:11)
[2018-12-10] MEDS: Mometasone 220 MCG 14 DOSE INHALER 1 PUFF IH (19:12)
[2018-12-10] MEDS: Mirtazapine 15 MG TAB 30 MG PO (21:21)
[2018-12-10] MEDS: Magnesium Chloride 64 MG TABCR PO (21:21)
[2018-12-10] MEDS: Albuterol/Ipratropium 3 ML UPD VIAL UPD (23:14)
--- NOTE | 2018-12-10 23:41 | NUR.NOTE ---
1700-hair shampooed with lindane shampoo. patient's clothes placed in vinegar bag and sent to laundry. pt then sat on commode and entire bed was changed.
[2018-12-11] VITALS (29 sets, daily range): BP systolic 82–153; BP diastolic 52–96; PULSE 70–145; RESP 4–43; TEMP 31–37.8; O2SAT 89–100
[2018-12-11] MEDS: Metoprolol 25 MG TAB (00:16)
[2018-12-11] MEDS: Normal Saline 1,000 ML 100 ML IV ×2 (00:17→10:43)
[2018-12-11] MEDS: Metoprolol 25 MG TAB PO ×2 (01:15→08:41)
--- NOTE | 2018-12-11 07:08 | DI.US_ITS ---
SYMPTOM/DIAGNOSIS: RUQ PAIN, KNOWN CHOLELITHIASIS ABDOMEN ULTRASOUND: Comparison is made with 09/19/17 ultrasound and abdomen and pelvic CT dated 12/10/18. The liver is normal in size and echogenicity. No focal liver lesions or biliary dilatation is seen. The gallbladder again is noted to contain multiple stones. There is no gallbladder wall thickening or pericholecystic fluid. The spleen is again noted to be enlarged. There is a small accessory spleen. The right kidney is again noted to be atrophic. The left kidney shows compensatory hypertrophy. There is no hydronephrosis. The tail of the pancreas is not well seen. There are tiny bilateral pleural effusions. IMPRESSION: Cholelithiasis without evidence of cholecystitis or biliary dilatation. Atrophic right kidney. Splenomegaly.
[2018-12-11 07:54] LABS: Abs Immature Grans 0.05 k/cumm (0.0-0.09); Absolute Basophil Count 0.01 k/cumm (0.0-0.2); Absolute Lymphocyte Count 0.53 k/cumm (1.2-3.4); Absolute Monocyte Count 1.69 k/cumm (0.11-0.7); Absolute Neutrophil Count 5.01 k/cumm (1.2-6.7); Basophils % 0.1; HCT 26.9 % (36.0-46.0); HGB 8.7 g/dL (12.0-15.5); Immature Grans % 0.7; Lymphocytes % 7.3; Mean Corp. HGB Concentration 32.3 g/dL (32.0-36.0); Mean Corpuscular Volume 77.3 fL (80-95); Monocytes % 23.2; Neutrophils % 68.7; Platelet Count 58 x1000/uL (130-400); RBC 3.48 m/cumm (4.00-5.20); RBC Distribution Width 19.5 % (11.7-14.6); White Blood Cell Count 7.29 k/cumm (4.4-10.8)
[2018-12-11 08:13] LABS: ALT 12 U/L (12-78); AST 42 U/L (15-37); Albumin 2.4 g/dL (3.4-5.0); Alkaline Phosphatase 56 U/L (46-116); Anion Gap 8.7 mmol/L (3-11); BUN 16 mg/dL (7-18); Bilirubin, Total 0.8 mg/dL (0.2-1.0); CO2 25.3 mmol/L (21.0-32.0); CREATININE 0.62 mg/dL (0.55-1.02); Calcium 8.1 mg/dL (8.5-10.1); Chloride 96 mmol/L (98-107); Glucose 110 mg/dL (70-100); LDH 372 U/L (81-234); Magnesium 1.8 mg/dL (1.8-2.4); Potassium 3.5 mmol/L (3.5-5.1); Sodium 130 mmol/L (136-145); Total Protein 5.7 g/dL (6.4-8.2); Troponin I 0.04 ng/mL (0.00-0.06)
[2018-12-11 08:21] LABS: INR 1.2 (0.9-1.1); PTT Activated 29.4 sec (21.0-31.4); Prothrombin Time 12.2 sec (9.3-11.0)
[2018-12-11 08:35] LABS: D-Dimer 664 ng/mlFEU (<500)
[2018-12-11] MEDS: Cyanocobalamin 500 MCG TAB 1000 MCG PO (08:38)
[2018-12-11] MEDS: Potassium Chloride 20 MEQ TABCR PO (08:38)
[2018-12-11] MEDS: Apixaban 5 MG TAB PO ×2 (08:38→20:22)
[2018-12-11] MEDS: Metoprolol CR 100 MG TABCR PO (08:38)
[2018-12-11] MEDS: Clopidogrel 75 MG TAB PO (08:38)
[2018-12-11] MEDS: Aspirin E.C. 81 MG TABEC PO (08:41)
[2018-12-11] MEDS: Spironolactone 25 MG TAB PO (08:41)
[2018-12-11] MEDS: Losartan 50 MG TAB 100 MG PO (08:41)
[2018-12-11] MEDS: ROSUVASTATIN 20 MG TAB 40 MG PO (08:41)
[2018-12-11] MEDS: Ferrous Sulfate 325 MG TAB PO ×2 (08:43→20:22)
[2018-12-11 08:47] LABS: Anisocytosis 2+; Diff Comment Diff Reviewed; Microcytosis 1+; Polychromasia Present
[2018-12-11 08:48] LABS: Hypochromasia 2+
[2018-12-11] MEDS: Albuterol/Ipratropium 3 ML UPD VIAL UPD ×3 (09:06→21:36)
--- NOTE | 2018-12-11 09:52 | PDOC.CMIN ---
- If Service Date Differs Date of service: 12/11/18 Time of Service: 09:52 Care Management Initial Assess REASON FOR HOSPITALIZATION:: AFIB, splenomegaly PAST MEDICAL HISTORY/PAST SURGICAL HISTORY:: CAD, hypoxemic respiratory failure, cardiomyopathy, CHF, HTN, hyperlipidemia, severe carotid atherosclerosis, subclavian arterial stenosis, COPD, lung Ca, iron deficiency anemia, hep A/B/C, depression. Surgical: cardiac catheterization, R iliac stent, R carotid endarterectomy, s/p L upper lobectomy for lung Ca, cervical biopsy, EGD, ORIF cervical fx. PREVIOUS FUNCTIONAL STATUS/SOCIAL/FAMILY SUPPORTS:: Resides with her son Juan and his Kenia. Joselin is able to care for herself with assistance from her family she states she is independent with ADL's. She states that she no longer has any home services. CURRENT FUNCTIONAL STATUS:: Joselin is lying in bed she is resting at time of CM visit. She remians in the ICU receiving care, cardiac monitoring medications to control her afib. ADVANCE DIRECTIVES:: On file at [facility] agent Kanu (son) Has patient been provided with information about the portal?: Yes Did the patient sign up for the portal?: No CODE STATUS:: DNR/DNI INSURANCE COVERAGE / FINANCIAL ISSUES:: Medicare CURRENT HOME/COMMUNITY SERVICES/EQUIPMENT:: FWW, Cane, Shower chair and cane. PRIMARY CARE PHYSICIAN:: POTENTIAL DISCHARGE NEEDS:: Follow-up appointment scheduled with primary care prior to discharge. PATIENT/FAMILY EDUCATION NEEDS:: Discharge education, limitations, medication management, follow-up plan of care, ask me 3 education and self-management. ANTICIPATED BARRIERS TO DISCHARGE:: None identified TRANSPORTATION:: Via private car with family at time of discharge. PLAN:: Joselin is receiving care in the ICU, she is currently on a cardizem drip for uncontrolled afib. IV antibiotics and steroids and fluid replacment. Joselin will return home when medically ready per provider. Anticipate she will have follow with [place] [facility] [place]. CM to continue to provide support ongoing discharge planning and dispositon.
--- NOTE | 2018-12-11 10:01 | INITIAL_ITS ---
- If Service Date Differs Date of service: 12/11/18 Time of Service: 09:52 Care Management Initial Assess REASON FOR HOSPITALIZATION:: AFIB, splenomegaly PAST MEDICAL HISTORY/PAST SURGICAL HISTORY:: CAD, hypoxemic respiratory failure, cardiomyopathy, CHF, HTN, hyperlipidemia, severe carotid atherosclerosis, subclavian arterial stenosis, COPD, lung Ca, iron deficiency anemia, hep A/B/C, depression. Surgical: cardiac catheterization, R iliac stent, R carotid endarterectomy, s/p L upper lobectomy for lung Ca, cervical biopsy, EGD, ORIF cervical fx. PREVIOUS FUNCTIONAL STATUS/SOCIAL/FAMILY SUPPORTS:: Resides with her son Juan wagner nd his Kenia. Joselin is able to care for herself with assistance from her family she states she is independent with ADL's. She states that she no longer has any home services. CURRENT FUNCTIONAL STATUS:: Joselin is lying in bed she is resting at time of CM visit. She remians in the ICU receiving care, cardiac monitoring medications to control her afib. ADVANCE DIRECTIVES:: On file at [facility] agent Kanu (son) Has patient been provided with information about the portal?: Yes Did the patient sign up for the portal?: No CODE STATUS:: DNR/DNI INSURANCE COVERAGE / FINANCIAL ISSUES:: Medicare CURRENT HOME/COMMUNITY SERVICES/EQUIPMENT:: FWW, Cane, Shower chair and cane. PRIMARY CARE PHYSICIAN:: POTENTIAL DISCHARGE NEEDS:: Follow-up appointment scheduled with primary care prior to discharge. PATIENT/FAMILY EDUCATION NEEDS:: Discharge education, limitations, medication management, follow-up plan of care, ask me 3 education and self-management. ANTICIPATED BARRIERS TO DISCHARGE:: None identified TRANSPORTATION:: Via private car with family at time of discharge. PLAN:: Joselin is receiving care in the ICU, she is currently on a cardizem drip for uncontrolled afib. IV antibiotics and steroids and fluid replacment. Joselin will return home when medically ready per provider. Anticipate she will have follow with primary care on [facility] [place] at time of discharge. CM to continue to provide support ongoing discharge planning and dispositon.
--- NOTE | 2018-12-11 10:32 | PHARADMIT ---
Addendum entered by Tip Lee III 12/17/18 15:59: PATIENT TRANSITIONED TO LINK CUTTER AND PLACED ON MORPHINE CADD INFUSION IV ABX DC'D Original Note: Addendum entered by Tip Lee III 12/12/18 16:19: Pharmacy Note Subjective Patient has splenomegaly with Avid nodes in chest, neck abdomen & pelvis, indicating possible Lymphoma. [facility] [place]. Thrombocytopenia noted (Plts-75) Head lice noted again this admission-Bella Objective VS-OK Na-132 K+3.9 Mag-1.9, H&H-8.8/27.4 Wgt-51 kg Had BM yesterday Assessment On Apixaban-Dilt Drip-A-Fib, Levaquin- Plan needs work up. Original Note: Admission Pharmacy Clinical Review A-FIB w/RVR, HYPONATREMIA,THROMBOCYTOPENIA, DEHYDRATION Code Status DNR/DNI Current Weight Wgt-50.7 kg Renally Cleared and Narrow Therapeutic Index Meds CrCl~46.32 mL/min Meds-OK QTc Value / Action Taken QTc-374 na BP Control, Fever BP-113/77 Tmax- 37.5C Electrolytes reviewed Na- 130 K+3.0 Mag-1.8 DVT Prophylaxis Apixaban, Plavix, ASA-EC Opiate Usage / Scheduled Bowel Regimen Ordered No Yes Plt/SCr for Heparin / Enoxaparin Plts-58 SCr-0.62 INR for Warfarin inr-1.2 H/H stable, WBC/Bands H&H- 8.7/26.9 WBC- 7.29 Antibiotic appropriateness na Cultures and Sensitivities Flu-negative Surgical ABX d/c within 24 hr na DM control / Insulin Dosing BG-110 Heart Failure (Check EF%) (ROMEL's, B-Block, Diuretics) Diltiazem drip, Losartan, Lopressor, Toprol-XL ?? Called , Spironolactone IV to PO Switch No Home Meds Reviewed Yes Home Meds Not Ordered Clindamycin, Flovent, HCTZ, Seroquel, Comments
[2018-12-11] MEDS: Magnesium Chloride 64 MG TABCR PO ×2 (10:42→21:34)
--- NOTE | 2018-12-11 10:46 | PGE_ITS ---
Date of Service Date of service: 12/11/18 Time of Service: 10:43 Assessment and Plan (1) Splenomegaly: Current visit: Yes Status: Acute Evidence of splenomegaly which is new in comparison to CT performed 09/2018, which showed multiple hypodense lesions. Now with clear enlargement on repeat CT scan. PET CT reviewed and with evidence of Avid Nodes in the chest, abdomen, pelvis, and left neck - along with avid lesions in the spleen. Per discussion with Hematology at [facility], process likely represents Lymphoma. Patient is scheduled for a follow-up biopsy for definitive diagnosis. In the meantime, will await results for following: - Known history of HCV. Check viral load. - Will also check for EBV, CMV, and MAC. - No evidence of tuberculosis by prior CT, but will check a QuantiFERON TB Gold test. - No history of cirrhosis or evidence of by imaging. Patient also has no evidence of congestion or CHF, with a normal prior echo. Considered splenic or portal vein thrombosis part of differential, although more unlikely. 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 Medication list reviewed and without offending agents. Also without a history of chronic liver disease. DoubtTTP/HUS as there is no evidence of worsening anemia/MAHA, GLORAI, or altered mental status. Patient does complain of a recent illness with nausea, but source is uncertain at this time so cannot definitively rule out sepsis as potential etiology for thrombocytopenia. Also doubt DIC due to normal coags. LDH Mildly elevated. Fibrinogen and haptoglobin pending. (3) Anemia: Current visit: No Status: Chronic Worsening Hgb, now microcytic. May be part of above process with potential malignancy, but as patient is on DAPT and anticoagulation with Apixaban will check iron studies and continue PPI therapy. Stool described as loose and dark, Heme negative. (4) Nausea: Current visit: Yes Status: Acute Onset of nausea approximately 5 days ago, with inability to tolerate oral intake. Also with subjective fevers at home, not confirmed here. No evidence of leukocytosis by labs. Influenza, urinalysis, chest x-ray all negative. Patient also with evidence of splenomegaly as potential reason for abdominal discomfort and nausea. However, evidence of cholelithiasis on CT scan, and RUQ tenderness on exam. Will check a liver ultrasound to evaluate gallbladder a little bit better. Monitor vitals, including temperature closely and if patient should begin to be febrile will consider broad-spectrum coverage. (5) Hyponatremia: Current visit: Yes Status: Acute Based on history of decreased oral intake, and hypochloremia, appears to be hypovolemic hyponatremia. Continue gentle IV fluids, and monitor sodium to ensure lack of aggressive correction. Current sodium with very slow and appropriate rise. (6) Atrial fibrillation: Current visit: No Status: Chronic Intermittently tachycardic, but overall improved since admission. Reinitiated beta-blockers, and will monitor heart rate closely while in the ICU. Also maintain on Cardizem gtt as needed. Continue anticoagulation with apixaban. (7) Mediastinal lymphadenopathy: Current visit: Yes Status: Chronic As above. (8) Pediculosis: Current visit: No Status: Acute Head lice noted again during hospitalization, in patient with history of recurrent pediculosis. Underwent treatment with topical lindane. (9) ASCVD (arteriosclerotic cardiovascular disease): Current visit: No Status: Chronic Noted. Patient with a C 12/2015 showing non-obstructive CAD. Asymptomatic with initial troponin minimally and equivocally elevated, and repeat negative. Continue Clopidogrel, BB, high potency statin. Also on Apixiban given underlying Afib - currently on hold for procedure. (10) PVD (peripheral vascular disease): Current visit: No Status: Chronic Continue Plavix, statin. Also on BB and ARB. (11) Chronic obstructive lung disease: Current visit: No Status: Chronic Appears to have acute exacerbation, with wheezing now on exam as well as a new cough. Initial CXR negative. Initiate IV Steroids, antibiotics, and prn nebulizers. (12) DVT prophylaxis: Current visit: No Status: Acute On anticoagulation with Apixaban. PPI therapy as well given history of PUD and GERD. Subjective Interval history since last seen: 73 yr old woman with recent hospitalizations at [facility] for Colitis, being admitted from the Emergency Department on 12/10 with a diagnosis of Hyponatremia, Thrombocytopenia, Decreased PO intake, Afib with RVR. Ms. Arrington has a history significant for severe PAD, Non-obstructive CAD, COPD, HTN, HCV, lung CA s/p lobectomy, PSVT, NSTEMI, PUD, GERD, and former alcohol abuse. She also has evidence of a right hilar mass by CT in September, with a Pulmonary follow-up that recommended initial PET Scan. The patient presented to the ED with complaints of fatigue, weakness, and feeling unwell. Specifically she reports onset of nausea without any significant vomiting, essentially prohibiting her from eating or drinking well over the course of the last few days. She also reported a dry cough over the same time course, without significant or purulent sputum production. Workup in the ED consisted of evidence of AFib with RVR, for which the patient reported noncompliance with her medications due to poor oral intake. She was noted to have evidence of an acute onset thrombocytopenia, never seen in the past. Also noted to be hyponatremic and hypochloremic. Her troponin was minimally and equivocally elevated, normalized on repeat check, and her urinalysis, mono check, and rapid influenza were all negative. Chest x-ray was obtained showing no acute abnormalities, a subsequent CT of the abdomen and pelvis showed evidence of splenomegaly not present by imaging just 2 months previous. She was referred for admission at that time. Today the patient appears to have a worsening cough and dyspnea, along with wheezing. Both her Hemoglobin and Platelet counts also dropped. She continues to be intermittently hypotensive. Conversation with Hematology from [facility] revealed that PET CT performed on 11/19 showed evidence of multiple avid lesions in spleen, kathy sites in the chest, abdomen, pelvis, and left neck - potentially on the basis of Lymphoma. She is tentatively scheduled for an outpatient biopsy soon. Exam Narrative Exam Narrative: General: Patient appears comfortable, AAOX3, NAD Neck: Supple CV: Irregular, nontachycardic at time of exam, S1S2, No rubs, murmurs, or gallops. Pulmonary: Wheezing throughout, different than initial exam Abdomen: + Bowel Sounds, soft, nondistended. Mild continued epigastric and moderate RUQ tenderness. Vascular: No lower extremity edema Psych: Normal mood and affect. Objective Objective Clinical Data: Abnormal lab results 12/10/18 12/10/18 12/11/18 Range/Units 10:45 16:05 06:38 RBC (4.00-5.20) m/cumm Hgb (12.0-15.5) g/dL Hct (36.0-46.0) % MCV (80-95) fL MCH (27.0-33.0) pg RDW (11.7-14.6) % Plt Count (130-400) x1000/uL Absolute Lymphocytes (1.2-3.4) k/cumm Absolute Monocytes (0.11-0.7) k/cumm PT (9.3-11.0) sec INR (0.9-1.1) D-Dimer (<500) ng/mlFEU Sodium 127 L 130 L (136-145) mmol/L Chloride 94 L 96 L (98-107) mmol/L BUN 25 H (7-18) mg/dL Glucose 111 H 110 H (70-100) mg/dL Calcium 8.3 L 8.1 L (8.5-10.1) mg/dL AST 42 H (15-37) U/L Lactate Dehydrogenase 372 H (81-234) U/L Total Protein 5.7 L (6.4-8.2) g/dL Albumin 2.4 L (3.4-5.0) g/dL Urine Protein >=300 H (Negative) mg/dL Urine Ketones 15 H (Negative) mg/dL Urine Blood Trace-lysed H (Negative) Urine Bilirubin Small H (Negative) 12/11/18 12/11/18 Range/Units 06:38 06:38 RBC 3.48 L (4.00-5.20) m/cumm Hgb 8.7 L D (12.0-15.5) g/dL Hct 26.9 L (36.0-46.0) % MCV 77.3 L (80-95) fL MCH 25.0 L (27.0-33.0) pg RDW 19.5 H (11.7-14.6) % Plt Count 58 L (130-400) x1000/uL Absolute Lymphocytes 0.53 L (1.2-3.4) k/cumm Absolute Monocytes 1.69 H (0.11-0.7) k/cumm PT 12.2 H (9.3-11.0) sec INR 1.2 H (0.9-1.1) D-Dimer 664 H (<500) ng/mlFEU Sodium (136-145) mmol/L Chloride (98-107) mmol/L BUN (7-18) mg/dL Glucose (70-100) mg/dL Calcium (8.5-10.1) mg/dL AST (15-37) U/L Lactate Dehydrogenase (81-234) U/L Total Protein (6.4-8.2) g/dL Albumin (3.4-5.0) g/dL Urine Protein (Negative) mg/dL Urine Ketones (Negative) mg/dL Urine Blood (Negative) Urine Bilirubin (Negative) Vital Signs Temperature 37.5 C 12/11/18 04:36 Temperature Source Tympanic 12/10/18 23:45 Pulse 97 H 12/11/18 04:36 Pulse 150 H 12/10/18 23:30 Respiratory Rate 29 H 12/11/18 04:36 Respiratory Effort Incrsd Work of Breathing 12/11/18 04:36 Respiratory Depth Normal 12/11/18 04:36 Respiratory Pattern Tachypnea 12/11/18 04:36 Blood Pressure 113/77 12/11/18 04:36 Blood Pressure Mean 89 12/11/18 04:36 Blood Pressure Position Supine 12/10/18 15:00 Pulse Oximetry 94 L 12/11/18 09:15 Oxygen Delivery Method Nasal Cannula 12/11/18 09:15 Oxygen Flow Rate 3 12/11/18 09:15 Pain Level 0 12/11/18 04:36 Intake & Output 12/10/18 12/10/18 12/11/18 11:59 23:59 11:59 Intake Total 250 / 1567.50 1317.50 / 1567.50 Output Total 400 / 400 Balance 250 / 1167.50 917.50 / 1167.50 Weight 43.545 kg 50.2 kg 50.7 kg Intake: IV 250 / 1427.50 1177.50 / 1427.50 Oral 140 / 140 Output: Urine 400 / 400 Other: Comment voids to commode Stool Size Moderate Stool Characteristics Hard [place] Laboratory Results WBC 7.29 k/cumm (4.4-10.8) 12/11/18 06:38 RBC 3.48 m/cumm (4.00-5.20) L 12/11/18 06:38 Hgb 8.7 g/dL (12.0-15.5) L D 12/11/18 06:38 Hct 26.9 % (36.0-46.0) L 12/11/18 06:38 MCV 77.3 fL (80-95) L 12/11/18 06:38 MCH 25.0 pg (27.0-33.0) L 12/11/18 06:38 MCHC 32.3 g/dL (32.0-36.0) 12/11/18 06:38 RDW 19.5 % (11.7-14.6) H 12/11/18 06:38 Plt Count 58 x1000/uL (130-400) L 12/11/18 06:38 MPV fL (8.0-11.0) 12/11/18 06:38 Immature Gran % 0.7 12/11/18 06:38 Neutrophils % 68.7 12/11/18 06:38 Band Neutrophils % 1.0 % 12/10/18 08:55 Lymphocytes % 7.3 12/11/18 06:38 Atypical Lymphs % 3 12/10/18 08:55 Monocytes % 23.2 12/11/18 06:38 Eosinophils % 0.0 12/11/18 06:38 Basophils % 0.1 12/11/18 06:38 Metamyelocytes % 3.0 % 12/10/18 08:55 Myelocytes % 2.0 % 12/10/18 08:55 Absolute Neutrophils 5.01 k/cumm (1.2-6.7) 12/11/18 06:38 Absolute Lymphocytes 0.53 k/cumm (1.2-3.4) L 12/11/18 06:38 Absolute Monocytes 1.69 k/cumm (0.11-0.7) H 12/11/18 06:38 Absolute Eosinophils 0.00 k/cumm (0.0-0.7) 12/11/18 06:38 Absolute Basophils 0.01 k/cumm (0.0-0.2) 12/11/18 06:38 Differential Comment Diff reviewed 12/11/18 06:38 RBC Morphology See below 12/11/18 06:38 Polychromasia Present 12/11/18 06:38 Hypochromasia 2+ 12/11/18 06:38 Anisocytosis 2+ 12/11/18 06:38 Microcytosis 1+ 12/11/18 06:38 Macrocytosis 2+ 12/10/18 08:55 PT 12.2 sec (9.3-11.0) H 12/11/18 06:38 INR 1.2 (0.9-1.1) H 12/11/18 06:38 APTT 29.4 sec (21.0-31.4) 12/11/18 06:38 D-Dimer 664 ng/mlFEU (<500) H 12/11/18 06:38 Sodium 130 mmol/L (136-145) L 12/11/18 06:38 Potassium 3.5 mmol/L (3.5-5.1) 12/11/18 06:38 Chloride 96 mmol/L (98-107) L 12/11/18 06:38 Carbon Dioxide 25.3 mmol/L (21.0-32.0) 12/11/18 06:38 Anion Gap 8.7 mmol/L (3-11) 12/11/18 06:38 BUN 16 mg/dL (7-18) D 12/11/18 06:38 Creatinine 0.62 mg/dL (0.55-1.02) 12/11/18 06:38 Estimated GFR/1.73 m2 >= 60.00 (mL/min/1.73m2) 12/11/18 06:38 Glucose 110 mg/dL (70-100) H 12/11/18 06:38 Calcium 8.1 mg/dL (8.5-10.1) L 12/11/18 06:38 Magnesium 1.8 mg/dL (1.8-2.4) 12/11/18 06:38 Total Bilirubin 0.8 mg/dL (0.2-1.0) 12/11/18 06:38 AST 42 U/L (15-37) H 12/11/18 06:38 ALT 12 U/L (12-78) 12/11/18 06:38 Alkaline Phosphatase 56 U/L (46-116) 12/11/18 06:38 Lactate Dehydrogenase 372 U/L (81-234) H 12/11/18 06:38 Troponin I 0.04 ng/mL (0.00-0.06) 12/11/18 06:38 Total Protein 5.7 g/dL (6.4-8.2) L 12/11/18 06:38 Albumin 2.4 g/dL (3.4-5.0) L 12/11/18 06:38 Urine Color Spring (Yellow) 12/10/18 10:45 Urine Clarity Clear 12/10/18 10:45 Urine pH 5.5 (5-8) 12/10/18 10:45 Ur Specific Pray 1.025 (1.005-1.025) 12/10/18 10:45 Urine Protein >=300 mg/dL (Negative) H 12/10/18 10:45 Urine Ketones 15 mg/dL (Negative) H 12/10/18 10:45 Urine Blood Trace-lysed (Negative) H 12/10/18 10:45 Urine Nitrite Negative (Negative) 12/10/18 10:45 Urine Bilirubin Small (Negative) H 12/10/18 10:45 Urine Urobilinogen 0.2 EU/dL (Up TO 0.2) 12/10/18 10:45 Ur Leukocyte Esterase Negative (Negative) 12/10/18 10:45 Urine RBC 0-2 (0-2) 12/10/18 10:45 Urine WBC 3-5 HPF (0-5) 12/10/18 10:45 Ur Epithelial Cells Rare HPF (Negative) 12/10/18 10:45 Urine Crystals Negative HPF (Negative) 12/10/18 10:45 Urine Bacteria Moderate HPF (Negative) 12/10/18 10:45 Urine Casts 3-5 coarse granular LPF (Negative) 12/10/18 10:45 Urine Mucus Trace (Negative) 12/10/18 10:45 Ur Culture Indicated? Yes 12/10/18 10:45 Urine Glucose Negative mg/dL (Negative) 12/10/18 10:45 Monoscreen Negative (Negative) 12/10/18 08:55 HIV 1&2 Antibody Rapid Cancelled 12/11/18 05:35
[2018-12-11] MEDS: Magnesium Oxide 400 MG TAB PO (11:09)
[2018-12-11] MEDS: LEVOFLOXACIN 500 MG/100 ML BAG 100 MG IVPB (12:58)
[2018-12-11] MEDS: methylPREDNISolone SUCC 125 MG VIAL 60 MG IVP ×2 (12:58→20:22)
[2018-12-11] MEDS: Potassium Chloride 20 MEQ TABCR 40 MEQ PO (15:02)
[2018-12-11] MEDS: Mometasone 220 MCG 14 DOSE INHALER 1 PUFF IH (20:21)
[2018-12-11] MEDS: Pantoprazole 40 MG VIAL IVP (20:22)
[2018-12-11] MEDS: LORazepam 2 MG/ML VIAL 1 MG IVP (20:49)
[2018-12-11 21:23] LABS: Fibrinogen 300 mg/dl (171-384)
[2018-12-11] MEDS: Mirtazapine 15 MG TAB 30 MG PO (21:34)
[2018-12-12] VITALS (32 sets, daily range): BP systolic 94–162; BP diastolic 48–80; PULSE 66–111; RESP 19–37; TEMP 35.9–36.9; O2SAT 94–100
[2018-12-12] MEDS: methylPREDNISolone SUCC 125 MG VIAL 60 MG IVP ×2 (04:22→12:11)
[2018-12-12 07:15] LABS: Abs Immature Grans 0.04 k/cumm (0.0-0.09); Absolute Basophil Count 0.01 k/cumm (0.0-0.2); Absolute Lymphocyte Count 0.46 k/cumm (1.2-3.4); Absolute Neutrophil Count 4.58 k/cumm (1.2-6.7); Basophils % 0.2; HCT 27.4 % (36.0-46.0); HGB 8.8 g/dL (12.0-15.5); Immature Grans % 0.6; Lymphocytes % 7.4; Mean Corp. HGB Concentration 32.1 g/dL (32.0-36.0); Mean Corpuscular Hemoglobin 24.9 pg (27.0-33.0); Mean Corpuscular Volume 77.4 fL (80-95); Mean Platelet Volume 11.6 fL (8.0-11.0); Monocytes % 17.8; RBC 3.54 m/cumm (4.00-5.20); RBC Distribution Width 19.7 % (11.7-14.6); White Blood Cell Count 6.19 k/cumm (4.4-10.8)
[2018-12-12 07:51] LABS: Anisocytosis 2+; Diff Comment Manual Differential; Hypochromasia 2+; Platelet Count 75 x1000/uL (130-400)
[2018-12-12 07:52] LABS: Polychromasia Present
[2018-12-12 07:58] LABS: Folate 5.7 ng/mL (8.6-20.0); Vitamin B12 855 pg/mL (193-986)
[2018-12-12 08:10] LABS: ALT 13 U/L (12-78); AST 47 U/L (15-37); Albumin 2.2 g/dL (3.4-5.0); Alkaline Phosphatase 54 U/L (46-116); Anion Gap 6.6 mmol/L (3-11); BUN 16 mg/dL (7-18); Bilirubin, Total 0.8 mg/dL (0.2-1.0); CO2 25.4 mmol/L (21.0-32.0); CREATININE 0.56 mg/dL (0.55-1.02); Calcium 8.3 mg/dL (8.5-10.1); Chloride 100 mmol/L (98-107); Glucose 129 mg/dL (70-100); Magnesium 1.9 mg/dL (1.8-2.4); Potassium 3.9 mmol/L (3.5-5.1); Sodium 132 mmol/L (136-145); Total Protein 5.3 g/dL (6.4-8.2)
[2018-12-12 08:12] LABS: Ferritin 1624 ng/mL (8-388)
[2018-12-12] MEDS: Potassium Chloride 20 MEQ TABCR PO (09:31)
[2018-12-12] MEDS: Spironolactone 25 MG TAB PO (09:31)
[2018-12-12] MEDS: Cyanocobalamin 500 MCG TAB 1000 MCG PO (09:31)
[2018-12-12] MEDS: Metoprolol CR 100 MG TABCR PO (09:32)
[2018-12-12] MEDS: Ferrous Sulfate 325 MG TAB PO ×2 (09:32→21:35)
[2018-12-12] MEDS: Losartan 50 MG TAB 100 MG PO (09:32)
[2018-12-12] MEDS: Clopidogrel 75 MG TAB PO (09:32)
[2018-12-12] MEDS: Apixaban 5 MG TAB PO ×2 (09:32→21:35)
[2018-12-12] MEDS: ROSUVASTATIN 20 MG TAB 40 MG PO (09:33)
[2018-12-12] MEDS: Aspirin E.C. 81 MG TABEC PO (09:33)
[2018-12-12] MEDS: Magnesium Chloride 64 MG TABCR PO (09:33)
--- NOTE | 2018-12-12 09:57 | PDOC.CMPRO ---
- If Service Date Differs Date of service: 12/12/18 Time of Service: 09:57 Care Management Progress Note S/O: CM met with the patient at the bedside, she is complaining of pain, and shortness of breath primary nurse is aware. Per reports she had an adverse reaction to Lorazepam. She is not able to engage with CM at this time. Joselin remains ICU level of care anticipate no changes today. She continues to need respiratory support including oxygen, and IV antibiotics. Primary nurse states she spoke with family and provided update over the phone A:Joselin 73 year old female admitted with Afib, enlarged spleen P: Joselin is receiving care in the ICU and will have no change in status today and continues on IV antibiotics. Joselin will return home when medically ready per provider. Anticipate she will have follow with primary care on [facility] at time of discharge. Patient will be discharged home with her family and caregivers at the time of discharge via private vehicle. CM to continue to provide support ongoing discharge planning and disposition.
--- NOTE | 2018-12-12 10:01 | CMPROGNOTE_ITS ---
- If Service Date Differs Date of service: 12/12/18 Time of Service: 09:57 Care Management Progress Note S/O: CM met with the patient at the bedside, she is complaining of pain, and shortness of breath primary nurse is aware. Per reports she had an adverse reaction to Lorazepam. She is not able to engage with CM at this time. Joselin remains ICU level of care anticipate no changes today. She continues to need respiratory support including oxygen, and IV antibiotics. Primary nurse states she spoke with family and provided update over the phone A:Joselin 73 year old female admitted with Afib, enlarged spleen P: Joselin is receiving care in the ICU and will have no change in status today and continues on IV antibiotics. Joselin will return home when medically ready per provider. Anticipate she will have follow with primary care [place] [facility] [place] of discharge. Patient will be discharged home with her family and caregivers at the time of discharge via private vehicle. CM to continue to provide support ongoing discharge planning and disposition.
[2018-12-12 10:13] LABS: Haptoglobin 214 mg/dL (32-197)
[2018-12-12] MEDS: Potassium Chloride 10 MEQ TABCR PO (10:47)
[2018-12-12] MEDS: Magnesium Oxide 400 MG TAB PO (10:47)
[2018-12-12 11:26] LABS: HSV Type 1 Ab, IgG Positive; HSV Type 2 Ab, IgG Positive
[2018-12-12 12:00] LABS: HIV-1/2 Ag & Ab Screen Negative (NEGAT)
[2018-12-12 12:02] LABS: Hepatitis C Ab w Rflx HCV PCR Reactive (NEGAT)
[2018-12-12 12:02] LABS: Hepatitis A Antibody IgM Negative (NEGAT); Hepatitis B Core Antibody Negative (NEGAT); Hepatitis B surface Ag Negative (NEGAT); Hepatitis C Ab w Rflx HCV PCR Reactive (NEGAT)
[2018-12-12] MEDS: LEVOFLOXACIN 500 MG/100 ML BAG 100 MG IVPB (12:11)
[2018-12-12] MEDS: Normal Saline Flush 10 ML SYR IVP ×2 (12:26→21:37)
--- NOTE | 2018-12-12 14:26 | CHAPLAIN ---
I visited with Blanca yesterday. She was very tired and not interested in a longer conversation. I'll check in again with her later.
[2018-12-12 15:09] LABS: HCV RNA Detection Quantitative 12481 IU/mL (UNDECT)
--- NOTE | 2018-12-12 16:08 | PGE_ITS ---
Date of Service Date of service: 12/12/18 Time of Service: 16:06 Assessment and Plan (1) Chronic obstructive lung disease: Current visit: No Status: Chronic Appears to have acute exacerbation, with wheezing on exam as well as a new cough. Initial CXR negative. Continue IV Steroids, antibiotics, and prn nebulizers. (2) Splenomegaly: Current visit: Yes Status: Acute Evidence of splenomegaly which is new in comparison to CT performed 09/2018, which showed multiple hypodense lesions. Now with clear enlargement on repeat CT scan. PET CT reviewed and with evidence of Avid Nodes in the chest, abdomen, pelvis, and left neck - along with avid lesions in the spleen. [place] [facility] [place] process likely represents Lymphoma. Patient is scheduled for a follow-up biopsy for definitive diagnosis. In the meantime, will await results for following: - Known history of HCV. Check viral load. - Will also check for EBV, CMV, and MAC. - No evidence of tuberculosis by prior CT, but will check a QuantiFERON TB Gold test. - No history of cirrhosis or evidence of by imaging. Patient also has no evidence of congestion or CHF, with a normal prior echo. Considered splenic or portal vein thrombosis part of differential, although more unlikely. (3) Thrombocytopenia: Current visit: Yes Status: Acute New thrombocytopenia in the setting of splenomegaly, likely represents splenic sequestration. Medication list reviewed and without offending agents. Also without a history of chronic liver disease. Doubt TTP/HUS as there is no evidence of worsening anemia/MAHA, GLORIA, or altered mental status. Patient does complain of a recent illness with nausea, but source is uncertain at this time so cannot definitively rule out sepsis as potential etiology for thrombocytopenia. Also doubt DIC due to normal coags. LDH Mildly elevated. Fibrinogen and haptoglobin pending. Platelet count stable. (4) Anemia: Current visit: No Status: Chronic Worsening Hgb, now microcytic. May be part of above process with potential malignancy, but as patient is on DAPT and anticoagulation with Apixaban will check iron studies and continue PPI therapy. Stool described as loose and dark, Heme negative. Hgb stable. (5) Nausea: Current visit: Yes Status: Acute Onset of nausea approximately 5 days ago, with inability to tolerate oral intake. Also with subjective fevers at home, not confirmed here. No evidence of leukocytosis by labs. Influenza, urinalysis, chest x-ray all negative. Patient also with evidence of splenomegaly as potential reason for abdominal discomfort and nausea. However, evidence of cholelithiasis on CT scan, and RUQ tenderness on exam. Liver ultrasound without evidence of choleycystitis. Symptoms improved, and patient tolerating PO intake better. Continue to monitor. (6) Hyponatremia: Current visit: Yes Status: Acute Based on history of decreased oral intake, and hypochloremia, appears to be hypovolemic hyponatremia. Continue gentle IV fluids, and monitor sodium to ensure lack of aggressive correction. Current sodium with very slow and appropriate rise - nearly normalized today. IVFs discontinued. (7) Atrial fibrillation: Current visit: No Status: Chronic Intermittently tachycardic, but overall improved since admission. Reinitiated beta-blockers, and will monitor heart rate closely while in the ICU. Also maintain on Cardizem gtt as needed. Continue anticoagulation with apix aban. (8) Mediastinal lymphadenopathy: Current visit: Yes Status: Chronic As above. (9) Pediculosis: Current visit: No Status: Acute Head lice noted again during hospitalization, in patient with history of recurrent pediculosis. Underwent treatment with topical lindane. (10) ASCVD (arteriosclerotic cardiovascular disease): Current visit: No Status: Chronic Noted. Patient with a [facility] 12/2015 showing non-obstructive CAD. Asymptomatic with initial troponin minimally and equivocally elevated, and repeat negative. Continue Clopidogrel, BB, high potency statin. Also on Apixiban given underlying Afib. (11) PVD (peripheral vascular disease): Current visit: No Status: Chronic Continue Plavix, statin. Also on BB and ARB. (12) DVT prophylaxis: Current visit: No Status: Acute On anticoagulation with Apixaban. PPI therapy as well given history of PUD and GERD. Subjective Interval history since last seen: 73 yr old woman with recent hospitalizations at [facility] for Colitis, being admitted from the Emergency Department on 12/10 with a diagnosis of Hyponatremia, Thrombocytopenia, Decreased PO intake, Afib with RVR. Ms. Arrington has a history significant for severe PAD, Non-obstructive CAD, COPD, HTN, HCV, lung CA s/p lobectomy, PSVT, NSTEMI, PUD, GERD, and former alcohol abuse. She also has evidence of a right hilar mass by CT in September, with a Pulmonary follow-up that recommended initial PET Scan. The patient presented to the ED with complaints of fatigue, weakness, and feeling unwell. Specifically she reports onset of nausea without any significant vomiting, essentially prohibiting her from eating or drinking well over the course of the last few days. She also reported a dry cough over the same time course, without significant or purulent sputum production. Workup in the ED consisted of evidence of AFib with RVR, for which the patient reported noncompliance with her medications due to poor oral intake. She was noted to have evidence of an acute onset thrombocytopenia, never seen in the past. Also noted to be hyponatremic and hypochloremic. Her troponin was minimally and equivocally elevated, normalized on repeat check, and her urinalysis, mono check, and rapid influenza were all negative. Chest x-ray was obtained showing no acute abnormalities, a subsequent CT of the abdomen and pelvis showed evidence of splenomegaly not present by imaging just 2 months previous. She was referred for admission at that time. Following admission the patient appeared to have a worsening cough and dyspnea, along with wheezing. Both her Hemoglobin and Platelet counts also dropped. She continues to be intermittently hypotensive and tachycardic. Conversation with [place] [facility] that PET CT performed on 11/19 showed evidence of multiple avid lesions in spleen, kathy sites in the chest, abdomen, pelvis, and left neck - potentially on the basis of Lymphoma. She is tentatively scheduled for an outpatient biopsy soon. This morning the patient reports slight improvement in her symptoms. She continues to have uncontrolled HR with her Afib, but her blood pressure has improved. No other events repoted. Remains afebrile. Exam Narrative Exam Narrative: General: Patient appears comfortable, AAOX3, NAD Neck: Supple CV: Irregular, minimally tachycardic at time of exam. Pulmonary: Prior diffuse wheezing improved but not resolved. Abdomen: + Bowel Sounds, soft, nondistended. Mild continued epigastric and moderate RUQ tenderness has improved as well. Vascular: No lower extremity edema Psych: Normal mood and affect. Objective Objective Clinical Data: Abnormal lab results 12/11/18 12/11/18 12/11/18 Range/Units 06:38 06:50 06:50 RBC (4.00-5.20) m/cumm Hgb (12.0-15.5) g/dL Hct (36.0-46.0) % MCV (80-95) fL MCH (27.0-33.0) pg RDW (11.7-14.6) % Plt Count (130-400) x1000/uL MPV (8.0-11.0) fL Absolute Lymphocytes (1.2-3.4) k/cumm Absolute Monocytes (0.11-0.7) k/cumm Haptoglobin 214 H (32-197) mg/dL Sodium (136-145) mmol/L Glucose (70-100) mg/dL Calcium (8.5-10.1) mg/dL Ferritin (8-388) ng/mL AST (15-37) U/L Total Protein (6.4-8.2) g/dL Albumin (3.4-5.0) g/dL Folate (8.6-20.0) ng/mL Hepatitis C Antibody Reactive A Reactive A (NEGAT) HCV RNA Quant (PCR) (UNDECT) IU/mL 12/11/18 12/12/18 12/12/18 Range/Units 06:50 06:43 06:43 RBC 3.54 L (4.00-5.20) m/cumm Hgb 8.8 L (12.0-15.5) g/dL Hct 27.4 L (36.0-46.0) % MCV 77.4 L (80-95) fL MCH 24.9 L (27.0-33.0) pg RDW 19.7 H (11.7-14.6) % Plt Count 75 L (130-400) x1000/uL MPV 11.6 H (8.0-11.0) fL Absolute Lymphocytes 0.46 L (1.2-3.4) k/cumm Absolute Monocytes 1.10 H (0.11-0.7) k/cumm Haptoglobin (32-197) mg/dL Sodium 132 L (136-145) mmol/L Glucose 129 H (70-100) mg/dL Calcium 8.3 L (8.5-10.1) mg/dL Ferritin 1624 H (8-388) ng/mL AST 47 H (15-37) U/L Total Protein 5.3 L (6.4-8.2) g/dL Albumin 2.2 L (3.4-5.0) g/dL Folate (8.6-20.0) ng/mL Hepatitis C Antibody (NEGAT) HCV RNA Quant (PCR) [id number] A (UNDECT) IU/mL 12/12/18 Range/Units 06:43 RBC (4.00-5.20) m/cumm Hgb (12.0-15.5) g/dL Hct (36.0-46.0) % MCV (80-95) fL MCH (27.0-33.0) pg RDW (11.7-14.6) % Plt Count (130-400) x1000/uL MPV (8.0-11.0) fL Absolute Lymphocytes (1.2-3.4) k/cumm Absolute Monocytes (0.11-0.7) k/cumm Haptoglobin (32-197) mg/dL Sodium (136-145) mmol/L Glucose (70-100) mg/dL Calcium (8.5-10.1) mg/dL Ferritin (8-388) ng/mL AST (15-37) U/L Total Protein (6.4-8.2) g/dL Albumin (3.4-5.0) g/dL Folate 5.7 L (8.6-20.0) ng/mL Hepatitis C Antibody (NEGAT) HCV RNA Quant (PCR) (UNDECT) IU/mL Vital Signs Temperature 36.9 C 12/12/18 12:15 Temperature Source Temporal Artery Scan 12/12/18 12:15 Pulse 85 12/12/18 14:01 Pulse 92 H 12/12/18 14:02 Respiratory Rate 31 H 12/12/18 14:02 Respiratory Effort 12/12/18 12:15 Respiratory Depth Shallow 12/12/18 12:15 Respiratory Pattern Tachypnea 12/12/18 12:15 Blood Pressure 124/70 12/12/18 14:01 Blood Pressure Mean 81 12/12/18 14:01 Blood Pressure Position Sitting 12/12/18 12:15 Pulse Oximetry 98 12/12/18 14:25 Oxygen Delivery Method Nasal Cannula 12/12/18 14:25 Oxygen Flow Rate 2 12/12/18 14:25 Fraction of Inspired Oxygen (FIO2) 26 12/11/18 21:06 Pain Level 0 12/12/18 12:15 Intake & Output 02/12/12/18 12/12/18 23:59 11:59 23:59 Intake Total 858.333 / 2519.916 240 / 671.667 431.667 / 671.667 Output Total 400 / 750 400 / 400 Balance 458.333 / 1769.916 -160 / 271.667 431.667 / 271.667 Weight 51 kg Intake: IV 858.333 / 2009.916 341.667 / 341.667 Oral 240 / 330 90 / 330 Output: Urine 400 / 750 400 / 400 Other: Urine Color Light Spring Light Spring Urine Appearance Clear Clear Urine Odor Normal Normal Stool Occult Blood Negative Stool Size Small Stool Characteristics Soft Black Voiding Methods Bedside Commode Laboratory Results WBC 6.19 k/cumm (4.4-10.8) 12/12/18 06:43 RBC 3.54 m/cumm (4.00-5.20) L 12/12/18 06:43 Hgb 8.8 g/dL (12.0-15.5) L 12/12/18 06:43 Hct 27.4 % (36.0-46.0) L 12/12/18 06:43 MCV 77.4 fL (80-95) L 12/12/18 06:43 MCH 24.9 pg (27.0-33.0) L 12/12/18 06:43 MCHC 32.1 g/dL (32.0-36.0) 12/12/18 06:43 RDW 19.7 % (11.7-14.6) H 12/12/18 06:43 Plt Count 75 x1000/uL (130-400) L 12/12/18 06:43 MPV 11.6 fL (8.0-11.0) H 12/12/18 06:43 Immature Gran % 0.6 12/12/18 06:43 Neutrophils % 74.0 12/12/18 06:43 Band Neutrophils % 1.0 % 12/10/18 08:55 Lymphocytes % 7.4 12/12/18 06:43 Atypical Lymphs % 3 12/10/18 08:55 Monocytes % 17.8 12/12/18 06:43 Eosinophils % 0.0 12/12/18 06:43 Basophils % 0.2 12/12/18 06:43 Metamyelocytes % 3.0 % 12/10/18 08:55 Myelocytes % 2.0 % 12/10/18 08:55 Absolute Neutrophils 4.58 k/cumm (1.2-6.7) 12/12/18 06:43 Absolute Lymphocytes 0.46 k/cumm (1.2-3.4) L 12/12/18 06:43 Absolute Monocytes 1.10 k/cumm (0.11-0.7) H 12/12/18 06:43 Absolute Eosinophils 0.00 k/cumm (0.0-0.7) 12/12/18 06:43 Absolute Basophils 0.01 k/cumm (0.0-0.2) 12/12/18 06:43 Differential Comment Manual differential 12/12/18 06:43 RBC Morphology See below 12/12/18 06:43 Polychromasia Present 12/12/18 06:43 Hypochromasia 2+ 12/12/18 06:43 Anisocytosis 2+ 12/12/18 06:43 Microcytosis 1+ 12/11/18 06:38 Macrocytosis 2+ 12/10/18 08:55 Haptoglobin 214 mg/dL (32-197) H 12/11/18 06:50 PT 12.2 sec (9.3-11.0) H 12/11/18 06:38 INR 1.2 (0.9-1.1) H 12/11/18 06:38 APTT 29.4 sec (21.0-31.4) 12/11/18 06:38 Fibrinogen 300 mg/dL (171-384) 12/11/18 06:50 D-Dimer 664 ng/mlFEU (<500) H 12/11/18 06:38 Sodium 132 mmol/L (136-145) L 12/12/18 06:43 Potassium 3.9 mmol/L (3.5-5.1) 12/12/18 06:43 Chloride 100 mmol/L (98-107) 12/12/18 06:43 Carbon Dioxide 25.4 mmol/L (21.0-32.0) 12/12/18 06:43 Anion Gap 6.6 mmol/L (3-11) 12/12/18 06:43 BUN 16 mg/dL (7-18) 12/12/18 06:43 Creatinine 0.56 mg/dL (0.55-1.02) 12/12/18 06:43 Estimated GFR/1.73 m2 >= 60.00 (mL/min/1.73m2) 12/12/18 06:43 Glucose 129 mg/dL (70-100) H 12/12/18 06:43 Calcium 8.3 mg/dL (8.5-10.1) L 12/12/18 06:43 Magnesium 1.9 mg/dL (1.8-2.4) 12/12/18 06:43 Ferritin 1624 ng/mL (8-388) H 12/12/18 06:43 Total Bilirubin 0.8 mg/dL (0.2-1.0) 12/12/18 06:43 AST 47 U/L (15-37) H 12/12/18 06:43 ALT 13 U/L (12-78) 12/12/18 06:43 Alkaline Phosphatase 54 U/L (46-116) 12/12/18 06:43 Lactate Dehydrogenase 372 U/L (81-234) H 12/11/18 06:38 Troponin I 0.04 ng/mL (0.00-0.06) 12/11/18 06:38 Total Protein 5.3 g/dL (6.4-8.2) L 12/12/18 06:43 Albumin 2.2 g/dL (3.4-5.0) L 12/12/18 06:43 Vitamin B12 855 pg/mL (193-986) 12/12/18 06:43 Folate 5.7 ng/mL (8.6-20.0) L 12/12/18 06:43 Urine Color Spring (Yellow) 12/10/18 10:45 Urine Clarity Clear 12/10/18 10:45 Urine pH 5.5 (5-8) 12/10/18 10:45 Ur Specific Jones 1.025 (1.005-1.025) 12/10/18 10:45 Urine Protein >=300 mg/dL (Negative) H 12/10/18 10:45 Urine Ketones 15 mg/dL (Negative) H 12/10/18 10:45 Urine Blood Trace-lysed (Negative) H 12/10/18 10:45 Urine Nitrite Negative (Negative) 12/10/18 10:45 Urine Bilirubin Small (Negative) H 12/10/18 10:45 Urine Urobilinogen 0.2 EU/dL (Up TO 0.2) 12/10/18 10:45 Ur Leukocyte Esterase Negative (Negative) 12/10/18 10:45 Urine RBC 0-2 (0-2) 12/10/18 10:45 Urine WBC 3-5 HPF (0-5) 12/10/18 10:45 Ur Epithelial Cells Rare HPF (Negative) 12/10/18 10:45 Urine Crystals Negative HPF (Negative) 12/10/18 10:45 Urine Bacteria Moderate HPF (Negative) 12/10/18 10:45 Urine Casts 3-5 coarse granular LPF (Negative) 12/10/18 10:45 Urine Mucus Trace (Negative) 12/10/18 10:45 Ur Culture Indicated? Yes 12/10/18 10:45 Urine Glucose Negative mg/dL (Negative) 12/10/18 10:45 Hepatitis A IgM Ab Negative (NEGAT) 12/11/18 06:50 Hep Bs Antigen Negative (NEGAT) 12/11/18 06:50 Hep B Core Total Ab Negative (NEGAT) 12/11/18 06:50 Hepatitis C Antibody Reactive (NEGAT) A 12/11/18 06:50 HCV RNA Quant (PCR) 22883 IU/mL (UNDECT) A 12/11/18 06:50 HSV I IgG Ab Positive 12/11/18 06:50 HSV II IgG Positive 12/11/18 06:50 Monoscreen Negative (Negative) 12/10/18 08:55 HIV 1&2 Ag/Ab, 4th Gen Negative (NEGAT) 12/11/18 06:50 HIV 1&2 Antibody Rapid Cancelled 12/11/18 05:35
[2018-12-12] MEDS: Mylanta Suspension 30 ML CUP PO ×2 (18:28→22:15)
[2018-12-12] MEDS: Benzonatate 200 MG CAP PO (21:35)
[2018-12-12] MEDS: Mirtazapine 15 MG TAB 30 MG PO (21:35)
[2018-12-12] MEDS: Pantoprazole 40 MG VIAL IVP (21:36)
[2018-12-12] MEDS: Mometasone 220 MCG 14 DOSE INHALER 1 PUFF IH (21:36)
[2018-12-12] MEDS: methylPREDNISolone SUCC 40 MG VIAL IVP (21:36)
[2018-12-13] VITALS (52 sets, daily range): BP systolic 122–178; BP diastolic 56–82; PULSE 78–101; RESP 2–36; TEMP 35.8–36.9; O2SAT 90–100
[2018-12-13] MEDS: Magnesium Chloride 64 MG TABCR PO ×3 (00:02→23:08)
[2018-12-13] MEDS: Acetaminophen 325 MG TAB PO ×2 (00:37→23:10)
[2018-12-13] MEDS: Albuterol/Ipratropium 3 ML UPD VIAL UPD ×4 (00:44→23:08)
[2018-12-13] MEDS: Normal Saline Flush 10 ML SYR IVP ×2 (03:20→20:37)
[2018-12-13] MEDS: methylPREDNISolone SUCC 40 MG VIAL IVP ×3 (03:20→20:37)
[2018-12-13 06:02] LABS: Abs Immature Grans 0.03 k/cumm (0.0-0.09); Absolute Basophil Count 0.01 k/cumm (0.0-0.2); Absolute Lymphocyte Count 0.18 k/cumm (1.2-3.4); Absolute Monocyte Count 0.81 k/cumm (0.11-0.7); Absolute Neutrophil Count 4.52 k/cumm (1.2-6.7); Basophils % 0.2; HCT 24.3 % (36.0-46.0); Immature Grans % 0.5; Lymphocytes % 3.2; Mean Corp. HGB Concentration 32.9 g/dL (32.0-36.0); Mean Corpuscular Hemoglobin 25.4 pg (27.0-33.0); Mean Corpuscular Volume 77.1 fL (80-95); Mean Platelet Volume 11.8 fL (8.0-11.0); Monocytes % 14.6; Neutrophils % 81.5; RBC 3.15 m/cumm (4.00-5.20); RBC Distribution Width 19.9 % (11.7-14.6); White Blood Cell Count 5.55 k/cumm (4.4-10.8)
[2018-12-13 06:16] LABS: ALT 15 U/L (12-78); AST 45 U/L (15-37); Albumin 1.9 g/dL (3.4-5.0); Alkaline Phosphatase 62 U/L (46-116); Anion Gap 5.4 mmol/L (3-11); BUN 18 mg/dL (7-18); Bilirubin, Total 0.6 mg/dL (0.2-1.0); CO2 27.6 mmol/L (21.0-32.0); CREATININE 0.56 mg/dL (0.55-1.02); Calcium 8.6 mg/dL (8.5-10.1); Chloride 101 mmol/L (98-107); Glucose 131 mg/dL (70-100); Magnesium 2.1 mg/dL (1.8-2.4); Potassium 4.1 mmol/L (3.5-5.1); Sodium 134 mmol/L (136-145); Total Protein 5.1 g/dL (6.4-8.2)
[2018-12-13 07:01] LABS: Platelet Count 73 x1000/uL (130-400)
[2018-12-13 07:02] LABS: Diff Comment RBC Morph Reviewed; Hypochromasia 2+; Microcytosis 2+; Target Cells 2+
[2018-12-13] MEDS: Ferrous Sulfate 325 MG TAB PO ×2 (08:35→20:38)
[2018-12-13] MEDS: ROSUVASTATIN 20 MG TAB 40 MG PO (08:35)
[2018-12-13] MEDS: Metoprolol CR 100 MG TABCR PO (08:35)
[2018-12-13] MEDS: Aspirin 81 MG CHEW PO (08:35)
[2018-12-13] MEDS: Apixaban 5 MG TAB PO ×2 (08:35→20:38)
[2018-12-13] MEDS: Losartan 50 MG TAB 100 MG PO (08:35)
[2018-12-13] MEDS: Folic Acid 1 MG TAB PO (08:36)
[2018-12-13] MEDS: Potassium Chloride 20 MEQ TABCR PO (08:36)
[2018-12-13] MEDS: Spironolactone 25 MG TAB PO (08:36)
[2018-12-13] MEDS: Cyanocobalamin 500 MCG TAB 1000 MCG PO (08:36)
[2018-12-13] MEDS: Benzonatate 200 MG CAP PO ×3 (08:36→20:39)
[2018-12-13] MEDS: Clopidogrel 75 MG TAB PO (08:36)
[2018-12-13] MEDS: Mometasone 220 MCG 14 DOSE INHALER 1 PUFF IH ×2 (10:50→20:38)
[2018-12-13] MEDS: LEVOFLOXACIN 500 MG/100 ML BAG 100 MG IVPB (13:02)
--- NOTE | 2018-12-13 13:50 | CMPROGNOTE_ITS ---
- If Service Date Differs Date of service: 12/13/18 Time of Service: 13:48 Care Management Progress Note S/O: Joselin will transition to a Med/Surg level of care today with telemetry monitoring. She continues on IV steroids, a Diltiazem drip, and IV antibiotics at this time. No change in DC plan. A:Joselin 73 year old female admitted with Afib, enlarged spleen P: Joselin will return home when medically ready per provider. Anticipate she will have follow with primary care on [facility] [place] [place] at time of discharge. Patient will be discharged home with her family and caregivers at the time of discharge via private vehicle. CM to continue to provide support ongoing discharge planning and disposition.
--- NOTE | 2018-12-13 14:21 | PGE_ITS ---
Date of Service Date of service: 12/13/18 Time of Service: 14:09 Assessment and Plan (1) Chronic obstructive lung disease: Current visit: No Status: Chronic In acute exacerbation, improving. Continue IV Steroids (taper), levofloxacin, and prn nebulizers. (2) Splenomegaly: Current visit: Yes Status: Acute Evidence of splenomegaly which is new in comparison to CT performed 09/2018, which showed multiple hypodense lesions. Now with clear enlargement on repeat CT scan. PET CT reviewed and with evidence of Avid Nodes in the chest, abdomen, pelvis, and left neck - along with avid lesions in the spleen. Per discussion with Hematology at [facility], process likely represents Lymphoma. Patient is scheduled for a follow-up biopsy as outpatient for definitive diagnosis. In the meantime, will await results for following: - Hep C viral load. - EBV, CMV, and MAC. - QuantiFERON TB Gold test. - No evidence of splenic or portal vein thrombosis per CT abdomen/pelvis on 12/10/18. 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 Doubt TTP/HUS/DIC. LDH Mildly elevated. Fibrinogen and haptoglobin pending. Platelet count stable - continue to monitor. (4) Anemia: Current visit: No Status: Chronic Hgb continues to drop, no evidence of acute bleeding. Potential malignancy , but as patient is on aspirin, plavix, and Apixaban, will repeat hemoccult (originally negative) and continue PPI therapy. Continue to monitor H/H. Not requiring transfusion at this time. Iron studies are pending. Does have folic acid deficiency and is on repletion. (5) Nausea: Current visit: Yes Status: Acute Clinically resolved, but complaining of RUQ pain (not LUQ as reported to me this am). She states that this has been going on for months and she is able to tolerate this. This did not stop her from eating a good lunch. Influenza, urinalysis, chest x-ray all negative. Liver ultrasound without evidence of choleycystitis. (6) Hyponatremia: Current visit: Yes Status: Acute Improved off of IVF. Continue diuresis. Consider d/c'ing ARB. (7) Atrial fibrillation: Current visit: No Status: Chronic Paroxysmal, current in NSR, off diltiazem gtt since 1700. Continue toprol XL. Ok to transfer out of ICU to [facility] with tele. Continue anticoagulation with apixaban. (8) Mediastinal lymphadenopathy: Current visit: Yes Status: Chronic As above. (9) Pediculosis: Current visit: No Status: Acute Head lice noted again during hospitalization, in patient with history of recurrent pediculosis. Underwent treatment with topical lindane. (10) ASCVD (arteriosclerotic cardiovascular disease): Current visit: No Status: Chronic No ACS o this admission. 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 Continue Clopidogrel, BB, high potency statin. Also on Apixiban given underlying Afib. (11) PVD (peripheral vascular disease): Current visit: No Status: Chronic Continue Plavix, statin. Also on BB and ARB. (12) DVT prophylaxis: Current visit: No Status: Acute On anticoagulation with Apixaban. PPI therapy as well given history of PUD and GERD. Subjective Interval history since last seen: Ms Arrington has been off of diltiazem gtt since 1699 yesterday.She has remained in NSR with HR in 60's-80's. Nursing reports that the patient has had cough productive of thick green sputum. She is on room air. She complains of RUQ pain - for months. She denies dizziness, chest pain, shortness of breath, nausea. She feels full and tangled. Per nursing, she had significant difficulty swallowing pills this am - per patient, this is a long standing issue. Exam Narrative Exam Narrative: General: Very pleasant elderly female, laying comfortably in bed HEENT: EOMI, MMM Heart: RRR, no m/r/g Lungs: before coughing - rhonchi B, after coughing - coarse breath sounds, but mostly clear. GI: abdomen is soft, nontender, nondistended Extremities: no e/c/c BLE's, +1 BLE pedal pulses Objective Objective Clinical Data: Abnormal lab results 12/11/18 12/13/18 12/13/18 Range/Units 06:50 05:54 05:54 RBC 3.15 L (4.00-5.20) m/cumm Hgb 8.0 L (12.0-15.5) g/dL Hct 24.3 L (36.0-46.0) % MCV 77.1 L (80-95) fL MCH 25.4 L (27.0-33.0) pg RDW 19.9 H (11.7-14.6) % Plt Count 73 L (130-400) x1000/uL MPV 11.8 H (8.0-11.0) fL Absolute Lymphocytes 0.18 L (1.2-3.4) k/cumm Absolute Monocytes 0.81 H (0.11-0.7) k/cumm Sodium 134 L (136-145) mmol/L Glucose 131 H (70-100) mg/dL AST 45 H (15-37) U/L Total Protein 5.1 L (6.4-8.2) g/dL Albumin 1.9 L (3.4-5.0) g/dL HCV RNA Quant (PCR) 37312 A (UNDECT) IU/mL Vital Signs Temperature 36.3 C L 12/13/18 03:30 Temperature Source Temporal Artery Scan 12/13/18 03:30 Pulse 87 12/13/18 13:09 Pulse 86 12/13/18 13:09 Respiratory Rate 26 H 12/13/18 13:09 Respiratory Effort 12/13/18 03:30 Respiratory Depth Shallow 12/13/18 03:30 Respiratory Pattern Tachypnea 12/13/18 03:30 Blood Pressure 142/65 H 12/13/18 13:09 Blood Pressure Mean 85 12/13/18 13:09 Blood Pressure Position Supine 12/12/18 15:58 Pulse Oximetry 96 12/13/18 13:09 Oxygen Delivery Method Room Air 12/13/18 00:44 Oxygen Flow Rate 0 12/13/18 00:44 Fraction of Inspired Oxygen (FIO2) 26 12/11/18 21:06 Pain Level 0 12/13/18 03:30 Intake & Output 12/12/18 12/13/18 12/13/18 23:59 11:59 23:59 Intake Total 586.167 / 826.167 210 / 210 Output Total 400 / 800 Balance 186.167 / 26.167 210 / 210 Weight 52 kg Intake: IV 396.167 / 396.167 10 Oral 190 / 430 200 / 200 Output: Urine 400 / 800 Other: Urine Color [place] Urine Appearance Clear Urine Odor Strong Comment Pt had soaked bedding in urine. Pt had 200ml in commode and other 200 is estimated off of bladder scan of 430 Voiding Methods Bedside Commode Laboratory Results WBC 5.55 k/cumm (4.4-10.8) 12/13/18 05:54 RBC 3.15 m/cumm (4.00-5.20) L 12/13/18 05:54 Hgb 8.0 g/dL (12.0-15.5) L 12/13/18 05:54 Hct 24.3 % (36.0-46.0) L 12/13/18 05:54 MCV 77.1 fL (80-95) L 12/13/18 05:54 MCH 25.4 pg (27.0-33.0) L 12/13/18 05:54 MCHC 32.9 g/dL (32.0-36.0) 12/13/18 05:54 RDW 19.9 % (11.7-14.6) H 12/13/18 05:54 Plt Count 73 x1000/uL (130-400) L 12/13/18 05:54 MPV 11.8 fL (8.0-11.0) H 12/13/18 05:54 Immature Gran % 0.5 12/13/18 05:54 Neutrophils % 81.5 12/13/18 05:54 Band Neutrophils % 1.0 % 12/10/18 08:55 Lymphocytes % 3.2 12/13/18 05:54 Atypical Lymphs % 3 12/10/18 08:55 Monocytes % 14.6 12/13/18 05:54 Eosinophils % 0.0 12/13/18 05:54 Basophils % 0.2 12/13/18 05:54 Metamyelocytes % 3.0 % 12/10/18 08:55 Myelocytes % 2.0 % 12/10/18 08:55 Absolute Neutrophils 4.52 k/cumm (1.2-6.7) 12/13/18 05:54 Absolute Lymphocytes 0.18 k/cumm (1.2-3.4) L 12/13/18 05:54 Absolute Monocytes 0.81 k/cumm (0.11-0.7) H 12/13/18 05:54 Absolute Eosinophils 0.00 k/cumm (0.0-0.7) 12/13/18 05:54 Absolute Basophils 0.01 k/cumm (0.0-0.2) 12/13/18 05:54 Differential Comment Rbc morph reviewed 12/13/18 05:54 RBC Morphology See below 12/13/18 05:54 Polychromasia Present 12/12/18 06:43 Hypochromasia 2+ 12/13/18 05:54 Anisocytosis 2+ 12/12/18 06:43 Microcytosis 2+ 12/13/18 05:54 Macrocytosis 2+ 12/10/18 08:55 Target Cells 2+ 12/13/18 05:54 Haptoglobin 214 mg/dL (32-197) H 12/11/18 06:50 PT 12.2 sec (9.3-11.0) H 12/11/18 06:38 INR 1.2 (0.9-1.1) H 12/11/18 06:38 APTT 29.4 sec (21.0-31.4) 12/11/18 06:38 Fibrinogen 300 mg/dL (171-384) 12/11/18 06:50 D-Dimer 664 ng/mlFEU (<500) H 12/11/18 06:38 Sodium 134 mmol/L (136-145) L 12/13/18 05:54 Potassium 4.1 mmol/L (3.5-5.1) 12/13/18 05:54 Chloride 101 mmol/L (98-107) 12/13/18 05:54 Carbon Dioxide 27.6 mmol/L (21.0-32.0) 12/13/18 05:54 Anion Gap 5.4 mmol/L (3-11) 12/13/18 05:54 BUN 18 mg/dL (7-18) 12/13/18 05:54 Creatinine 0.56 mg/dL (0.55-1.02) 12/13/18 05:54 Estimated GFR/1.73 m2 >= 60.00 (mL/min/1.73m2) 12/13/18 05:54 Glucose 131 mg/dL (70-100) H 12/13/18 05:54 Calcium 8.6 mg/dL (8.5-10.1) 12/13/18 05:54 Magnesium 2.1 mg/dL (1.8-2.4) 12/13/18 05:54 Ferritin 1624 ng/mL (8-388) H 12/12/18 06:43 Total Bilirubin 0.6 mg/dL (0.2-1.0) 12/13/18 05:54 AST 45 U/L (15-37) H 12/13/18 05:54 ALT 15 U/L (12-78) 12/13/18 05:54 Alkaline Phosphatase 62 U/L (46-116) 12/13/18 05:54 Lactate Dehydrogenase 372 U/L (81-234) H 12/11/18 06:38 Troponin I 0.04 ng/mL (0.00-0.06) 12/11/18 06:38 Total Protein 5.1 g/dL (6.4-8.2) L 12/13/18 05:54 Albumin 1.9 g/dL (3.4-5.0) L 12/13/18 05:54 Vitamin B12 855 pg/mL (193-986) 12/12/18 06:43 Folate 5.7 ng/mL (8.6-20.0) L 12/12/18 06:43 Urine Color Spring (Yellow) 12/10/18 10:45 Urine Clarity Clear 12/10/18 10:45 Urine pH 5.5 (5-8) 12/10/18 10:45 Ur Specific [place] 1.025 (1.005-1.025) 12/10/18 10:45 Urine Protein >=300 mg/dL (Negative) H 12/10/18 10:45 Urine Ketones 15 mg/dL (Negative) H 12/10/18 10:45 Urine Blood Trace-lysed (Negative) H 12/10/18 10:45 Urine Nitrite Negative (Negative) 12/10/18 10:45 Urine Bilirubin Small (Negative) H 12/10/18 10:45 Urine Urobilinogen 0.2 EU/dL (Up TO 0.2) 12/10/18 10:45 Ur Leukocyte Esterase Negative (Negative) 12/10/18 10:45 Urine RBC 0-2 (0-2) 12/10/18 10:45 Urine WBC 3-5 HPF (0-5) 12/10/18 10:45 Ur Epithelial Cells Rare HPF (Negative) 12/10/18 10:45 Urine Crystals Negative HPF (Negative) 12/10/18 10:45 Urine Bacteria Moderate HPF (Negative) 12/10/18 10:45 Urine Casts 3-5 coarse granular LPF (Negative) 12/10/18 10:45 Urine Mucus Trace (Negative) 12/10/18 10:45 Ur Culture Indicated? Yes 12/10/18 10:45 Urine Glucose Negative mg/dL (Negative) 12/10/18 10:45 Hepatitis A IgM Ab Negative (NEGAT) 12/11/18 06:50 Hep Bs Antigen Negative (NEGAT) 12/11/18 06:50 Hep B Core Total Ab Negative (NEGAT) 12/11/18 06:50 Hepatitis C Antibody Reactive (NEGAT) A 12/11/18 06:50 HCV RNA Quant (PCR) [id number] IU/mL (UNDECT) A 12/11/18 06:50 HSV I IgG Ab Positive 12/11/18 06:50 HSV II IgG Positive 12/11/18 06:50 Monoscreen Negative (Negative) 12/10/18 08:55 HIV 1&2 Ag/Ab, 4th Gen Negative (NEGAT) 12/11/18 06:50 HIV 1&2 Antibody Rapid Cancelled 12/11/18 05:35
[2018-12-13] MEDS: Docusate Sodium 100 MG CAP PO (18:00)
[2018-12-13] MEDS: Pantoprazole 40 MG VIAL IVP (20:37)
[2018-12-13] MEDS: guaiFENesin 600 MG TABCR PO (20:38)
[2018-12-13] MEDS: Mirtazapine 15 MG TAB 30 MG PO (23:08)
[2018-12-14] VITALS (31 sets, daily range): BP systolic 158–176; BP diastolic 73–89; PULSE 81–105; RESP 2–34; TEMP 36–36.2; O2SAT 91–99
[2018-12-14] MEDS: methylPREDNISolone SUCC 40 MG VIAL IVP ×3 (04:31→21:25)
[2018-12-14] MEDS: Normal Saline Flush 10 ML SYR IVP ×2 (04:31→21:25)
[2018-12-14 06:08] LABS: Abs Immature Grans 0.04 k/cumm (0.0-0.09); Absolute Basophil Count 0.01 k/cumm (0.0-0.2); Absolute Lymphocyte Count 0.19 k/cumm (1.2-3.4); Absolute Monocyte Count 0.65 k/cumm (0.11-0.7); Absolute Neutrophil Count 4.44 k/cumm (1.2-6.7); Basophils % 0.2; HCT 25.4 % (36.0-46.0); HGB 8.2 g/dL (12.0-15.5); Immature Grans % 0.8; Lymphocytes % 3.6; Mean Corp. HGB Concentration 32.3 g/dL (32.0-36.0); Mean Corpuscular Volume 77.4 fL (80-95); Mean Platelet Volume 11.7 fL (8.0-11.0); Monocytes % 12.2; Neutrophils % 83.2; RBC 3.28 m/cumm (4.00-5.20); RBC Distribution Width 20.4 % (11.7-14.6); White Blood Cell Count 5.33 k/cumm (4.4-10.8)
[2018-12-14 06:19] LABS: Anion Gap 8.7 mmol/L (3-11); BUN 16 mg/dL (7-18); CO2 26.3 mmol/L (21.0-32.0); CREATININE 0.71 mg/dL (0.55-1.02); Calcium 8.7 mg/dL (8.5-10.1); Chloride 102 mmol/L (98-107); Glucose 120 mg/dL (70-100); Potassium 3.9 mmol/L (3.5-5.1); Sodium 137 mmol/L (136-145)
[2018-12-14 06:27] LABS: Iron 23 ug/dL (50-175); Total Iron Binding Capacity 319 ug/dL (250-450); Transferrin Sat 7 % (15-50)
[2018-12-14] MEDS: Albuterol/Ipratropium 3 ML UPD VIAL UPD ×3 (06:36→18:54)
[2018-12-14] MEDS: Acetaminophen 325 MG TAB PO ×2 (06:41→18:40)
[2018-12-14 06:44] LABS: Ferritin 652 ng/mL (8-388)
[2018-12-14 07:15] LABS: Diff Comment RBC Morph Reviewed; Platelet Count 60 x1000/uL (130-400)
[2018-12-14 07:16] LABS: Hypochromasia 2+; Microcytosis 2+; Target Cells 2+
[2018-12-14] MEDS: Losartan 50 MG TAB 100 MG PO (08:00)
[2018-12-14] MEDS: Cyanocobalamin 500 MCG TAB 1000 MCG PO (08:01)
[2018-12-14] MEDS: ROSUVASTATIN 20 MG TAB 40 MG PO (08:01)
[2018-12-14] MEDS: Clopidogrel 75 MG TAB PO (08:01)
[2018-12-14] MEDS: Spironolactone 25 MG TAB PO (08:02)
[2018-12-14] MEDS: Aspirin 81 MG CHEW PO (08:02)
[2018-12-14] MEDS: Potassium Chloride 20 MEQ TABCR PO (08:02)
[2018-12-14] MEDS: Apixaban 5 MG TAB PO ×2 (08:02→21:26)
[2018-12-14] MEDS: Ferrous Sulfate 325 MG TAB PO ×2 (08:02→21:25)
[2018-12-14] MEDS: guaiFENesin 600 MG TABCR PO ×2 (08:02→21:25)
[2018-12-14] MEDS: Metoprolol CR 100 MG TABCR PO (08:02)
[2018-12-14] MEDS: Benzonatate 200 MG CAP PO ×3 (08:02→21:25)
[2018-12-14] MEDS: Folic Acid 1 MG TAB PO (08:03)
--- NOTE | 2018-12-14 08:43 | EVALE_ITS ---
Date of service: 12/14/18 Time of Service: 07:10 Speech Therapy Evaluation Note: REFERREING PROVIDER: Dr. Lew BACKGROUND This is a 73 year old right-handed female who presented to the ED from home on 12/10/18 with a multi-day h/o fatigue, nausea and general weakness. A CXR of that date showed no acute findings. She was admitted for tx of hyponatremia, A-fib w/RVR and thrombocytopenia. Also, Dr. Lew reports that the PET CT findings likely represent lymphoma. On 12/13/18 nursing reported that it took a long time for patient (pt) to take her pills, resulting in the swallow consult request. This pt is known to me from her December 2015 admission during which it was re commended that she be on a Dysphagia Advanced diet with chopped meats, Thin liquids and whole pills in puree. Today the pt is able to provide additional background information regarding p.o. consistencies taken at home in the weeks prior to this admission. She state that she has been taking what, by description, are Thin liquids, a Dysphagia Advanced diet with fine-chopped meats and whole pills with a Thin liquid wash. However, she states that she has a 20+ year h/o difficulty taking her whole pills. She describes this as an aversion to whole pills and says that as soon as she feels the pill on her tongue, she begins to feel nauseous and sometimes gags. PMH: severe PAD, non-obstructive CAD, COPD, HTN, HCV, GERD, PSVT, NSTEMI, PUD, h/o ETOH abuse. OBJECTIVE - T: 36.0 - O2 sat: 97% on RA - LS: wheezes bilaterally (B) in the presence of ABX - Pt is currently on a Regular consistency diet, Thin liquids, whole pills with a liquid wash as tolerated and crushed pills in puree prn. - Pt is unaware of the possible dx of lymphoma. The pt is sitting up in bed and greets me with good direct eye contact, a smile and an intelligible verbal greeting. She converses well, both asking and answering questions, and shows good use of humor. She is agreeable to working with me this morning. She is A & O x 3 and able to follow 3-step directions. Oral Sensorimotor Exam The pt is totally edentulous on the upper ridge and has 5 remaining teeth on the lower ridge (all anterior). Dentition is stained; pt denies any dental discomfort. She states she does not have a full upper denture or a partial lower denture. Oral sensation is WNL for buccal, labial and lingual areas B. Motorically, the smile is symmetrical as are forehead wrinkles. Labial and buccal strength/coordination is WNL-B. No lingual deviation on protrusion is seen in a setting of good excursion. Lingual lateralization is WNL-B as are lingual rapid alternating movements. Mandibular lateralization is WNL-B. Velo pharyngeal elevation is strong and symmetrical. Volitional cough & throat-clear are both strong. Speech intelligibility to this remotely familiar listener in the absence of background noise is 100%. Vocal intensity and quality are both WNL. The pt is noted to produce an occasional spontaneous wet-sounding but nonproductive cough. Swallowing - Honey-thick liquid: Good bolus control and posterior oral transit (POT); no bryant signs/symptoms (s/s) of aspiration/penetration (A/P);oral clearance 100%; no oral escape. These results are true for both single and consecutive swallows by cup. - [place]-thick liquid: Results are the same as for Honey-thick liquid. These results are true for both single and consecutive swallows by both cup and straw. - Thin liquids: Results are the same as for Thin liquids. - Puree food: Good bolus control, linguopalatal bolus compression and POT; no bryant s/s A/P; oral clearance 100%; no oral escape. - Mechanically Altered food: Good mastication quality, bolus control & POT; no bryant s/s A/P; oral clearance 100%; no oral escape. - Dysphagia Advanced food: Use of increased mastication time but this does result in good mastication quality; bolus control & POT both WNL; no bryant s/s A/P; oral clearance 100%; no oral escape. -Whole pills: a) 2 small-sized whole pills taken 1 at a time with a Thin liquid wash: Good bolus control and POT; no bryant s/s A/P; oral clearance 100%; no oral escape. b) 1 medium-sized whole pills with a Thin liquid wash: Good bolus control & POT; no bryant s/s A/P; oral clearance 100%; no oral escape. c) 1 large-sized whole pill with a Thin liuqid wash: Pt refused and immediately c/o nausea. After some discussion, pt agreed to take pill in spoonful of Puree food: Good bolus control; slightly delayed POT; no bryant s/s A/P; oral clearance 100%; no oral escape. Pt had multiple additional whole pills to take but again c/o nausea. Discussed with pt & nursing, the option of staggering pill presentation, especially in the morning since that is when she has the largest number of pills to take. Pt & nursing agreeable. Also discussed with pt the options of a) taking small & medium-sized whole pills with a liquid wash but large whole pills in Puree food & b) taking all her whole pills in Puree food. She prefers to just take all her whole pills in Puree food. It should also be noted that the pt shows mild dyspnea during p.o. intake. Pt is observed to self-feed using her dominant RUE and a regular utensil. ASSESSMENT The pt shows a mild-moderate oral-prep dysphagia secondary to significant partial edentulousness. Additionally, she shows what are felt to be physiological responses (e.g., nausea) to item-specific (whole pills) anxiety in the absence of pharyngeal dysphagia. RECOMMENDATIONS 1. Change to: a) Dysphagia Advanced diet with moistened fine-chopped meats b) whole pills in Puree food, per pt's request 2. Continue Thin liquids 4. Independent self-feeding 5. No speech therapy is indicated at this time. Thank you for referring this pt.
[2018-12-14] MEDS: Mometasone 220 MCG 14 DOSE INHALER 1 PUFF IH ×2 (09:46→21:54)
[2018-12-14] MEDS: LEVOFLOXACIN 500 MG/100 ML BAG 100 MG IVPB (11:39)
[2018-12-14] MEDS: Magnesium Chloride 64 MG TABCR PO ×2 (11:40→21:25)
--- NOTE | 2018-12-14 14:37 | PDOC.CMPRO ---
- If Service Date Differs Date of service: 12/14/18 Time of Service: 14:37 Care Management Progress Note S/O: Joselin remains on telemetry monitoring at this time. She had a speech consult today. Joselin and her family are voicing interest in assistance with the lice in the home. CM to contact [facility] on Saturday to discuss options in regards to this. A:Joselin 73 year old female admitted with Afib, enlarged spleen P: Joselin will return home when medically ready per provider. Anticipate she will have follow with primary care on [facility] at time of discharge. Patient will be discharged home with her family and caregivers at the time of discharge via private vehicle. CM to continue to provide support ongoing discharge planning and disposition.
--- NOTE | 2018-12-14 18:03 | W.PM.PROGNOT ---
Date of Service Date of service: 12/14/18 Time of Service: 16:35 Assessment and Plan (1) Chronic obstructive lung disease: Current visit: No Status: Chronic In acute exacerbation, improving. Continue IV Steroids (taper), levofloxacin, and prn nebulizers. (2) Splenomegaly: Current visit: Yes Status: Acute Evidence of splenomegaly which is new in comparison to CT performed 09/2018, which showed multiple hypodense lesions. Now with clear enlargement on repeat CT scan. Likely a part of suspected lymphoma - reviewed imaging [place] [facility] Patient is scheduled for a follow-up biopsy as outpatient for definitive diagnosis. In the meantime, will await results for following: - Hep C viral load. - EBV, CMV, and MAC. - QuantiFERON TB Gold test. - No evidence of splenic or portal vein thrombosis per CT abdomen/pelvis on 12/10/18. 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 No active bleeding - continue monitoring. Doubt TTP/HUS/DIC. LDH Mildly elevated. Fibrinogen and haptoglobin pending. Platelet count stable - continue to monitor. (4) Anemia: Current visit: No Status: Chronic Hgb stable, no evidence of acute bleeding. Potential malignancy, but as patient is on aspirin, plavix, and Apixaban, Repeat hemoccult reordered. Continue PPI therapy. Continue to monitor H/H. Not requiring transfusion at this time. Not iron deficient. Does have folic acid deficiency and is on repletion. (5) Nausea: Current visit: Yes Status: Acute Clinically resolved, but complaining of RUQ pain (not LUQ as reported to me this am). She states that this has been going on for months and she is able to tolerate this. Influenza, urinalysis, chest x-ray all negative. Liver ultrasound without evidence of choleycystitis. (6) Hyponatremia: Current visit: Yes Status: Acute Improved off of IVF. Continue diuresis. (7) Atrial fibrillation: Current visit: No Status: Chronic Paroxysmal, current in NSR, off diltiazem gtt since 0. Continue toprol XL. Continue to monitor on tele. Continue anticoagulation with apixaban. (8) Mediastinal lymphadenopathy: Current visit: Yes Status: Chronic As above. (9) Pediculosis: Current visit: No Status: Acute Head lice noted again during hospitalization, in patient with history of recurrent pediculosis. Underwent treatment with topical lindane. The hospital is obtaining ivermectin to treat this especially resistant case of lice. (10) ASCVD (arteriosclerotic cardiovascular disease): Current visit: No Status: Chronic No ACS o this admission. 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 Continue Clopidogrel, BB, high potency statin. Also on Apixiban given underlying Afib. (11) PVD (peripheral vascular disease): Current visit: No Status: Chronic Continue Plavix, statin. Also on BB and ARB. (12) DVT prophylaxis: Current visit: No Status: Acute On anticoagulation with Apixaban. PPI therapy as well given history of PUD and GERD. Subjective Interval history since last seen: States she feels a little better as far as her breathing. No Afib noted on tele. Denies dizziness, chest pain, nausea, vomiting. On Room air, continues to cough. She states she was not told the results of her PET scan. We discussed that it was positive, but that I did not know what kind of cancer it was and that she would have to follow up with her [facility] providers to find out what her treatment options are and prognosis was. Exam Narrative Exam Narrative: General: Very pleasant elderly female, laying comfortably in bed HEENT: EOMI, MMM Heart: RRR, no m/r/g Lungs: before coughing - rhonchi B, after coughing - clear to auscultation GI: abdomen is soft, nontender, nondistended Extremities: no e/c/c BLE's, +1 BLE pedal pulses Objective Objective Clinical Data: Abnormal lab results 12/14/18 12/14/18 12/14/18 Range/Units 05:55 05:55 05:55 RBC 3.28 L (4.00-5.20) m/cumm Hgb 8.2 L (12.0-15.5) g/dL Hct 25.4 L (36.0-46.0) % MCV 77.4 L (80-95) fL MCH 25.0 L (27.0-33.0) pg RDW 20.4 H (11.7-14.6) % Plt Count 60 L (130-400) x1000/uL MPV 11.7 H (8.0-11.0) fL Absolute Lymphocytes 0.19 L (1.2-3.4) k/cumm Glucose 120 H (70-100) mg/dL Iron 23 L (50-175) ug/dL Transferrin % Sat 7 L (15-50) % Ferritin 652 H (8-388) ng/mL Vital Signs Temperature 36.2 C L 12/14/18 12:14 Temperature Source Temporal Artery Scan 12/14/18 12:14 Pulse 87 12/14/18 14:52 Pulse Rhythm Regular 12/14/18 12:07 Pulse 87 12/14/18 14:52 Respiratory Rate 20 12/14/18 14:52 Respiratory Effort 12/14/18 12:07 Respiratory Depth Shallow 12/13/18 23:08 Respiratory Pattern Normal 12/14/18 12:07 Blood Pressure 174/78 H 12/14/18 14:52 Blood Pressure Mean 101 12/14/18 14:52 Blood Pressure Position Sitting 12/13/18 08:34 Pulse Oximetry 96 12/14/18 13:00 Oxygen Delivery Method Room Air 12/14/18 06:36 Oxygen Flow Rate 0 12/14/18 06:36 Fraction of Inspired Oxygen (FIO2) 26 12/11/18 21:06 Pain Level 6 12/14/18 06:41 Intake & Output 12/13/18 12/14/18 12/14/18 23:59 11:59 23:59 Intake Total 950 / 1400 10 / 10 Output Total 550 / 925 1075 / 1075 Balance 400 / 475 -1065 / -1065 Weight 51.7 kg Intake: IV 150 / 160 10 / 10 Oral 800 / 1240 Output: Urine 550 / 925 1075 / 1075 Other: Urine Color [place] Yellow Urine Appearance Clear Clear Urine Odor None Normal Voiding Methods Bedside Commode Bedside Commode Laboratory Results WBC 5.33 k/cumm (4.4-10.8) 12/14/18 05:55 RBC 3.28 m/cumm (4.00-5.20) L 12/14/18 05:55 Hgb 8.2 g/dL (12.0-15.5) L 12/14/18 05:55 Hct 25.4 % (36.0-46.0) L 12/14/18 05:55 MCV 77.4 fL (80-95) L 12/14/18 05:55 MCH 25.0 pg (27.0-33.0) L 12/14/18 05:55 MCHC 32.3 g/dL (32.0-36.0) 12/14/18 05:55 RDW 20.4 % (11.7-14.6) H 12/14/18 05:55 Plt Count 60 x1000/uL (130-400) L 12/14/18 05:55 MPV 11.7 fL (8.0-11.0) H 12/14/18 05:55 Immature Gran % 0.8 12/14/18 05:55 Neutrophils % 83.2 12/14/18 05:55 Band Neutrophils % 1.0 % 12/10/18 08:55 Lymphocytes % 3.6 12/14/18 05:55 Atypical Lymphs % 3 12/10/18 08:55 Monocytes % 12.2 12/14/18 05:55 Eosinophils % 0.0 12/14/18 05:55 Basophils % 0.2 12/14/18 05:55 Metamyelocytes % 3.0 % 12/10/18 08:55 Myelocytes % 2.0 % 12/10/18 08:55 Absolute Neutrophils 4.44 k/cumm (1.2-6.7) 12/14/18 05:55 Absolute Lymphocytes 0.19 k/cumm (1.2-3.4) L 12/14/18 05:55 Absolute Monocytes 0.65 k/cumm (0.11-0.7) 12/14/18 05:55 Absolute Eosinophils 0.00 k/cumm (0.0-0.7) 12/14/18 05:55 Absolute Basophils 0.01 k/cumm (0.0-0.2) 12/14/18 05:55 Differential Comment Rbc morph reviewed 12/14/18 05:55 RBC Morphology See below 12/14/18 05:55 Polychromasia Present 12/12/18 06:43 Hypochromasia 2+ 12/14/18 05:55 Anisocytosis 2+ 12/12/18 06:43 Microcytosis 2+ 12/14/18 05:55 Macrocytosis 2+ 12/10/18 08:55 Target Cells 2+ 12/14/18 05:55 Haptoglobin 214 mg/dL (32-197) H 12/11/18 06:50 PT 12.2 sec (9.3-11.0) H 12/11/18 06:38 INR 1.2 (0.9-1.1) H 12/11/18 06:38 APTT 29.4 sec (21.0-31.4) 12/11/18 06:38 Fibrinogen 300 mg/dL (171-384) 12/11/18 06:50 D-Dimer 664 ng/mlFEU (<500) H 12/11/18 06:38 Sodium 137 mmol/L (136-145) 12/14/18 05:55 Potassium 3.9 mmol/L (3.5-5.1) 12/14/18 05:55 Chloride 102 mmol/L (98-107) 12/14/18 05:55 Carbon Dioxide 26.3 mmol/L (21.0-32.0) 12/14/18 05:55 Anion Gap 8.7 mmol/L (3-11) 12/14/18 05:55 BUN 16 mg/dL (7-18) 12/14/18 05:55 Creatinine 0.71 mg/dL (0.55-1.02) 12/14/18 05:55 Estimated GFR/1.73 m2 >= 60.00 (mL/min/1.73m2) 12/14/18 05:55 Glucose 120 mg/dL (70-100) H 12/14/18 05:55 Calcium 8.7 mg/dL (8.5-10.1) 12/14/18 05:55 Magnesium 2.0 mg/dL (1.8-2.4) 12/14/18 05:55 Iron 23 ug/dL (50-175) L 12/14/18 05:55 TIBC 319 ug/dL (250-450) 12/14/18 05:55 Transferrin % Sat 7 % (15-50) L 12/14/18 05:55 Ferritin 652 ng/mL (8-388) H 12/14/18 05:55 Total Bilirubin 0.6 mg/dL (0.2-1.0) 12/13/18 05:54 AST 45 U/L (15-37) H 12/13/18 05:54 ALT 15 U/L (12-78) 12/13/18 05:54 Alkaline Phosphatase 62 U/L (46-116) 12/13/18 05:54 Lactate Dehydrogenase 372 U/L (81-234) H 12/11/18 06:38 Troponin I 0.04 ng/mL (0.00-0.06) 12/11/18 06:38 Total Protein 5.1 g/dL (6.4-8.2) L 12/13/18 05:54 Albumin 1.9 g/dL (3.4-5.0) L 12/13/18 05:54 Vitamin B12 855 pg/mL (193-986) 12/12/18 06:43 Folate 5.7 ng/mL (8.6-20.0) L 12/12/18 06:43 Urine Color [place] (Yellow) 12/10/18 10:45 Urine Clarity Clear 12/10/18 10:45 Urine pH 5.5 (5-8) 12/10/18 10:45 Ur Specific [place] 1.025 (1.005-1.025) 12/10/18 10:45 Urine Protein >=300 mg/dL (Negative) H 12/10/18 10:45 Urine Ketones 15 mg/dL (Negative) H 12/10/18 10:45 Urine Blood Trace-lysed (Negative) H 12/10/18 10:45 Urine Nitrite Negative (Negative) 12/10/18 10:45 Urine Bilirubin Small (Negative) H 12/10/18 10:45 Urine Urobilinogen 0.2 EU/dL (Up TO 0.2) 12/10/18 10:45 Ur Leukocyte Esterase Negative (Negative) 12/10/18 10:45 Urine RBC 0-2 (0-2) 12/10/18 10:45 Urine WBC 3-5 HPF (0-5) 12/10/18 10:45 Ur Epithelial Cells Rare HPF (Negative) 12/10/18 10:45 Urine Crystals Negative HPF (Negative) 12/10/18 10:45 Urine Bacteria Moderate HPF (Negative) 12/10/18 10:45 Urine Casts 3-5 coarse granular LPF (Negative) 12/10/18 10:45 Urine Mucus Trace (Negative) 12/10/18 10:45 Ur Culture Indicated? Yes 12/10/18 10:45 Urine Glucose Negative mg/dL (Negative) 12/10/18 10:45 Hepatitis A IgM Ab Negative (NEGAT) 12/11/18 06:50 Hep Bs Antigen Negative (NEGAT) 12/11/18 06:50 Hep B Core Total Ab Negative (NEGAT) 12/11/18 06:50 Hepatitis C Antibody Reactive (NEGAT) A 12/11/18 06:50 HCV RNA Quant (PCR) [id number] IU/mL (UNDECT) A 12/11/18 06:50 HSV I IgG Ab Positive 12/11/18 06:50 HSV II IgG Positive 12/11/18 06:50 Monoscreen Negative (Negative) 12/10/18 08:55 HIV 1&2 Ag/Ab, 4th Gen Negative (NEGAT) 12/11/18 06:50 HIV 1&2 Antibody Rapid Cancelled 12/11/18 05:35
[2018-12-14] MEDS: Mirtazapine 15 MG TAB 30 MG PO (21:25)
[2018-12-14] MEDS: Pantoprazole 40 MG VIAL IVP (21:25)
[2018-12-15] VITALS (21 sets, daily range): BP systolic 161–180; BP diastolic 69–88; PULSE 72–160; RESP 5–29; TEMP 36.5–36.8; O2SAT 96–98
[2018-12-15] MEDS: Albuterol/Ipratropium 3 ML UPD VIAL UPD ×3 (06:59→21:43)
[2018-12-15 07:38] LABS: Abs Immature Grans 0.07 k/cumm (0.0-0.09); Absolute Basophil Count 0.01 k/cumm (0.0-0.2); Absolute Eosinophil Count 0.01 k/cumm (0.0-0.7); Absolute Monocyte Count 0.73 k/cumm (0.11-0.7); Absolute Neutrophil Count 4.68 k/cumm (1.2-6.7); Basophils % 0.2; Eosinophils % 0.2; HCT 28.4 % (36.0-46.0); Immature Grans % 1.2; Lymphocytes % 3.5; Mean Corp. HGB Concentration 31.7 g/dL (32.0-36.0); Mean Corpuscular Hemoglobin 24.7 pg (27.0-33.0); Monocytes % 12.8; Neutrophils % 82.1; RBC 3.64 m/cumm (4.00-5.20); RBC Distribution Width 21.1 % (11.7-14.6)
[2018-12-15 07:41] LABS: Anion Gap 6.3 mmol/L (3-11); BUN 18 mg/dL (7-18); CO2 29.7 mmol/L (21.0-32.0); CREATININE 0.78 mg/dL (0.55-1.02); Calcium 8.8 mg/dL (8.5-10.1); Chloride 101 mmol/L (98-107); Glucose 101 mg/dL (70-100); Magnesium 2.1 mg/dL (1.8-2.4); Sodium 137 mmol/L (136-145)
[2018-12-15 08:16] LABS: Anisocytosis 3+; Diff Comment RBC Morph Reviewed; Platelet Count 53 x1000/uL (130-400)
[2018-12-15 08:17] LABS: Hypochromasia 2+; Microcytosis 2+; Polychromasia Present; Target Cells 2+
--- NOTE | 2018-12-15 09:18 | CMPROGNOTE_ITS ---
- If Service Date Differs Date of service: 12/15/18 Time of Service: 09:18 Care Management Progress Note S/O:CM met with Joselin at the bedside she is alert and engaged. CM contacted interventional pulmonology she has an appointment with Dr. Meadows [phone]. Appointment is to discuss planned biopsy r/t possible lymphoma on 12/19/18 at 230. Once the biopsy is complete a referral will be sent to [facility]. CM notified provider of details related to appointment. Anticipate she will need home health service at time of discharge. A:Joselin 73 year old female admitted with Afib P: Joselin is receiving care in the ICU as a medical surgical patient and will have no change in status today. She continues on IV antibiotics. Joselin will return home when medically ready per provider. Anticipate she will have follow with [place] care [place] [facility] [place]. Patient will be discharged home with her family and caregivers at the time of discharge via private vehicle. CM to continue to provide support ongoing discharge planning and disposition.
[2018-12-15] MEDS: ROSUVASTATIN 20 MG TAB 40 MG PO (09:20)
[2018-12-15] MEDS: Folic Acid 1 MG TAB PO (09:20)
[2018-12-15] MEDS: guaiFENesin 600 MG TABCR PO ×2 (09:21→20:59)
[2018-12-15] MEDS: Clopidogrel 75 MG TAB PO (09:21)
[2018-12-15] MEDS: Potassium Chloride 20 MEQ TABCR PO (09:22)
[2018-12-15] MEDS: Losartan 50 MG TAB 100 MG PO (09:22)
[2018-12-15] MEDS: Metoprolol CR 100 MG TABCR PO (09:22)
[2018-12-15] MEDS: Apixaban 5 MG TAB PO (09:22)
[2018-12-15] MEDS: Benzonatate 200 MG CAP PO ×3 (09:22→21:45)
[2018-12-15] MEDS: Spironolactone 25 MG TAB PO (09:22)
[2018-12-15] MEDS: Milk of Magnesia 30 ML CUP PO (09:23)
[2018-12-15] MEDS: Ferrous Sulfate 325 MG TAB PO ×2 (09:23→21:45)
[2018-12-15] MEDS: Aspirin 81 MG CHEW PO (09:23)
[2018-12-15] MEDS: Mometasone 220 MCG 14 DOSE INHALER 1 PUFF IH ×2 (09:23→21:46)
[2018-12-15] MEDS: Docusate Sodium 100 MG CAP PO (09:23)
[2018-12-15] MEDS: Cyanocobalamin 500 MCG TAB 1000 MCG PO (09:30)
[2018-12-15] MEDS: Normal Saline Flush 10 ML SYR IVP (09:31)
[2018-12-15] MEDS: methylPREDNISolone SUCC 40 MG VIAL IVP (09:31)
[2018-12-15 13:35] LABS: TB Interpretation Negative (NEGAT); TB1 Ag minus Nil 0.02 IU/mL
[2018-12-15] MEDS: LEVOFLOXACIN 500 MG/100 ML BAG 100 MG IVPB (13:44)
[2018-12-15] MEDS: Magnesium Chloride 64 MG TABCR PO ×2 (13:44→21:45)
[2018-12-15] MEDS: Acetaminophen 325 MG TAB PO (15:15)
[2018-12-15] MEDS: Mylanta Suspension 30 ML CUP PO (15:17)
[2018-12-15 16:04] LABS: HCT 27.9 % (36.0-46.0)
--- NOTE | 2018-12-15 16:32 | W.PM.PROGNOT ---
Date of Service Date of service: 12/15/18 Time of Service: 12:30 Assessment and Plan (1) Blood in stool: Current visit: Yes Status: Acute Holding antiplatelet therapy and anticoagulation. Monitor H/H Q 8hrs. PPI doubled IV. General surgery consulted. (2) Chronic obstructive lung disease: Current visit: No Status: Chronic In acute exacerbation, improving. Continue IV Steroids (tapering), levofloxacin, and prn nebulizers. (3) Splenomegaly: Current visit: Yes Status: Acute Evidence of splenomegaly which is new in comparison to CT performed 09/2018, which showed multiple hypodense lesions. Now with clear enlargement on repeat CT scan. Likely a part of suspected lymphoma - reviewed imaging from [facility] [place] Patient is scheduled for a follow-up biopsy as outpatient for definitive diagnosis. In the meantime, will await results for following: - Hep C viral load. - EBV, CMV, and MAC. - QuantiFERON TB Gold test. - No evidence of splenic or portal vein thrombosis per CT abdomen/pelvis on 12/10/18. (4) Thrombocytopenia: Current visit: Yes Status: Acute Thrombocytopenia is likely due to splenic sequestration due to splenomegaly in a patient with suspected lymphoid malignancy. No active bleeding - continue monitoring. Doubt TTP/HUS/DIC. LDH Mildly elevated. Fibrinogen wnl and haptoglobin high. Platelet count stable - continue to monitor. Stopping antiplatelet therapy given Heme positive stools. (5) Anemia: Current visit: No Status: Chronic Hgb stable, now hemoccult positive. Hold aspirin, plavix, and Apixaban, PPI therapy doubled IV. Continue to monitor H/H Q8hrs. Consult general surgery. Not requiring transfusion at this time. Not iron deficient. Does have folic acid deficiency and is on repletion. (6) Nausea: Current visit: Yes Status: Resolved Clinically resolved, and no complaints of RUQ pain today. Influenza, urinalysis, chest x-ray all negative. Liver ultrasound without evidence of choleycystitis. (7) Hyponatremia: Current visit: Yes Status: Acute Improved off of IVF. Continue diuresis. (8) Atrial fibrillation: Current visit: No Status: Chronic Paroxysmal, current in NSR, off diltiazem gtt since 1700. Continue toprol XL. Continue to monitor on tele. Continue anticoagulation with apixaban. (9) Mediastinal lymphadenopathy: Current visit: Yes Status: Chronic As above. (10) Pediculosis: Current visit: No Status: Acute s/p ivermectin treatment today. (11) ASCVD (arteriosclerotic cardiovascular disease): Current visit: No Status: Chronic No ACS o this admission. 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 Holding Clopidogrel and asa due to antiplatelet tx. Continue BB, high potency statin. Hold eliquis. (12) PVD (peripheral vascular disease): Current visit: No Status: Chronic Hold asa, plavix. Continue statin. Also on BB and ARB. (13) DVT prophylaxis: Current visit: No Status: Acute Chemical DVT ppx on hold due to hem positive stools. PPI increased Subjective Interval history since last seen: Had a black stool today, heme (+). Denies dizziness, chest pain, abdominal pain, nausea, shortness of breath. Cough is better. Exam Narrative Exam Narrative: General: Very pleasant elderly female, laying comfortably in bed HEENT: EOMI, MMM Heart: RRR, no m/r/g Lungs: clear to auscultation bilaterally GI: abdomen is soft, nontender, nondistended Extremities: no e/c/c BLE's, +1 BLE pedal pulses Objective Objective Clinical Data: Abnormal lab results 12/15/18 12/15/18 12/15/18 Range/Units 07:07 07:07 15:55 RBC 3.64 L (4.00-5.20) m/cumm Hgb 9.0 L 9.0 L (12.0-15.5) g/dL Hct 28.4 L 27.9 L (36.0-46.0) % MCV 78.0 L (80-95) fL MCH 24.7 L (27.0-33.0) pg MCHC 31.7 L (32.0-36.0) g/dL RDW 21.1 H (11.7-14.6) % Plt Count 53 L (130-400) x1000/uL Absolute Lymphocytes 0.20 L (1.2-3.4) k/cumm Absolute Monocytes 0.73 H (0.11-0.7) k/cumm Glucose 101 H (70-100) mg/dL Vital Signs Temperature 36.5 C 12/15/18 07:40 Temperature Source Temporal Artery Scan 12/15/18 07:40 Pulse 97 H 12/15/18 15:16 Pulse Rhythm Regular 12/15/18 15:15 Pulse 100 H 12/15/18 15:16 Respiratory Rate 25 H 12/15/18 15:16 Respiratory Effort 12/15/18 15:15 Respiratory Depth Shallow 12/15/18 15:15 Respiratory Pattern Normal 12/15/18 15:15 Blood Pressure 172/69 H 12/15/18 15:16 Blood Pressure Mean 94 12/15/18 15:16 Blood Pressure Position Sitting 12/13/18 08:34 Pulse Oximetry 96 12/14/18 13:00 Oxygen Delivery Method Room Air 12/14/18 06:36 Oxygen Flow Rate 0 12/14/18 06:36 Fraction of Inspired Oxygen (FIO2) 26 12/11/18 21:06 Pain Level 6 12/15/18 15:15 Intake & Output 12/14/18 12/15/18 12/15/18 23:59 11:59 23:59 Intake Total 580 / 710 70 / 145 75 / 145 Output Total 675 / 1750 800 / 800 Balance -95 / -1040 -730 / -655 75 / -655 Intake: IV 100 / 110 20 / 20 Oral 480 / 600 50 / 125 75 / 125 Output: Urine 675 / 1750 800 / 800 Other: Urine Color Yellow Yellow Urine Appearance Clear Clear Clear Urine Odor None Normal Comment Measurement approximate. Need to dump urine quickly as pt needed to stool Stool Occult Blood Positive Stool Size Small Stool Characteristics Formed Black Voiding Methods Bedside Commode Bedside Commode Laboratory Results WBC 5.70 k/cumm (4.4-10.8) 12/15/18 07:07 RBC 3.64 m/cumm (4.00-5.20) L 12/15/18 07:07 Hgb 9.0 g/dL (12.0-15.5) L 12/15/18 15:55 Hct 27.9 % (36.0-46.0) L 12/15/18 15:55 MCV 78.0 fL (80-95) L 12/15/18 07:07 MCH 24.7 pg (27.0-33.0) L 12/15/18 07:07 MCHC 31.7 g/dL (32.0-36.0) L 12/15/18 07:07 RDW 21.1 % (11.7-14.6) H 12/15/18 07:07 Plt Count 53 x1000/uL (130-400) L 12/15/18 07:07 MPV fL (8.0-11.0) 12/15/18 07:07 Immature Gran % 1.2 12/15/18 07:07 Neutrophils % 82.1 12/15/18 07:07 Band Neutrophils % 1.0 % 12/10/18 08:55 Lymphocytes % 3.5 12/15/18 07:07 Atypical Lymphs % 3 12/10/18 08:55 Monocytes % 12.8 12/15/18 07:07 Eosinophils % 0.2 12/15/18 07:07 Basophils % 0.2 12/15/18 07:07 Metamyelocytes % 3.0 % 12/10/18 08:55 Myelocytes % 2.0 % 12/10/18 08:55 Absolute Neutrophils 4.68 k/cumm (1.2-6.7) 12/15/18 07:07 Absolute Lymphocytes 0.20 k/cumm (1.2-3.4) L 12/15/18 07:07 Absolute Monocytes 0.73 k/cumm (0.11-0.7) H 12/15/18 07:07 Absolute Eosinophils 0.01 k/cumm (0.0-0.7) 12/15/18 07:07 Absolute Basophils 0.01 k/cumm (0.0-0.2) 12/15/18 07:07 Differential Comment Rbc morph reviewed 12/15/18 07:07 RBC Morphology See below 12/15/18 07:07 Polychromasia Present 12/15/18 07:07 Hypochromasia 2+ 12/15/18 07:07 Anisocytosis 3+ 12/15/18 07:07 Microcytosis 2+ 12/15/18 07:07 Macrocytosis 2+ 12/10/18 08:55 Target Cells 2+ 12/15/18 07:07 Haptoglobin 214 mg/dL (32-197) H 12/11/18 06:50 PT 12.2 sec (9.3-11.0) H 12/11/18 06:38 INR 1.2 (0.9-1.1) H 12/11/18 06:38 APTT 29.4 sec (21.0-31.4) 12/11/18 06:38 Fibrinogen 300 mg/dL (171-384) 12/11/18 06:50 D-Dimer 664 ng/mlFEU (<500) H 12/11/18 06:38 Sodium 137 mmol/L (136-145) 12/15/18 07:07 Potassium 4.0 mmol/L (3.5-5.1) 12/15/18 07:07 Chloride 101 mmol/L (98-107) 12/15/18 07:07 Carbon Dioxide 29.7 mmol/L (21.0-32.0) 12/15/18 07:07 Anion Gap 6.3 mmol/L (3-11) 12/15/18 07:07 BUN 18 mg/dL (7-18) 12/15/18 07:07 Creatinine 0.78 mg/dL (0.55-1.02) 12/15/18 07:07 Estimated GFR/1.73 m2 >= 60.00 (mL/min/1.73m2) 12/15/18 07:07 Glucose 101 mg/dL (70-100) H 12/15/18 07:07 Calcium 8.8 mg/dL (8.5-10.1) 12/15/18 07:07 Magnesium 2.1 mg/dL (1.8-2.4) 12/15/18 07:07 Iron 23 ug/dL (50-175) L 12/14/18 05:55 TIBC 319 ug/dL (250-450) 12/14/18 05:55 Transferrin % Sat 7 % (15-50) L 12/14/18 05:55 Ferritin 652 ng/mL (8-388) H 12/14/18 05:55 Total Bilirubin 0.6 mg/dL (0.2-1.0) 12/13/18 05:54 AST 45 U/L (15-37) H 12/13/18 05:54 ALT 15 U/L (12-78) 12/13/18 05:54 Alkaline Phosphatase 62 U/L (46-116) 12/13/18 05:54 Lactate Dehydrogenase 372 U/L (81-234) H 12/11/18 06:38 Troponin I 0.04 ng/mL (0.00-0.06) 12/11/18 06:38 Total Protein 5.1 g/dL (6.4-8.2) L 12/13/18 05:54 Albumin 1.9 g/dL (3.4-5.0) L 12/13/18 05:54 Vitamin B12 855 pg/mL (193-986) 12/12/18 06:43 Folate 5.7 ng/mL (8.6-20.0) L 12/12/18 06:43 Urine Color [place] (Yellow) 12/10/18 10:45 Urine Clarity Clear 12/10/18 10:45 Urine pH 5.5 (5-8) 12/10/18 10:45 Ur Specific [place] 1.025 (1.005-1.025) 12/10/18 10:45 Urine Protein >=300 mg/dL (Negative) H 12/10/18 10:45 Urine Ketones 15 mg/dL (Negative) H 12/10/18 10:45 Urine Blood Trace-lysed (Negative) H 12/10/18 10:45 Urine Nitrite Negative (Negative) 12/10/18 10:45 Urine Bilirubin Small (Negative) H 12/10/18 10:45 Urine Urobilinogen 0.2 EU/dL (Up TO 0.2) 12/10/18 10:45 Ur Leukocyte Esterase Negative (Negative) 12/10/18 10:45 Urine RBC 0-2 (0-2) 12/10/18 10:45 Urine WBC 3-5 HPF (0-5) 12/10/18 10:45 Ur Epithelial Cells Rare HPF (Negative) 12/10/18 10:45 Urine Crystals Negative HPF (Negative) 12/10/18 10:45 Urine Bacteria Moderate HPF (Negative) 12/10/18 10:45 Urine Casts 3-5 coarse granular LPF (Negative) 12/10/18 10:45 Urine Mucus Trace (Negative) 12/10/18 10:45 Ur Culture Indicated? Yes 12/10/18 10:45 Urine Glucose Negative mg/dL (Negative) 12/10/18 10:45 Hepatitis A IgM Ab Negative (NEGAT) 12/11/18 06:50 Hep Bs Antigen Negative (NEGAT) 12/11/18 06:50 Hep B Core Total Ab Negative (NEGAT) 12/11/18 06:50 Hepatitis C Antibody Reactive (NEGAT) A 12/11/18 06:50 HCV RNA Quant (PCR) [id number] IU/mL (UNDECT) A 12/11/18 06:50 HSV I IgG Ab Positive 12/11/18 06:50 HSV II IgG Positive 12/11/18 06:50 Monoscreen Negative (Negative) 12/10/18 08:55 HIV 1&2 Ag/Ab, 4th Gen Negative (NEGAT) 12/11/18 06:50 HIV 1&2 Antibody Rapid Cancelled 12/11/18 05:35 TB Test Antigen - Nil 0.02 IU/mL 12/11/18 06:38 TB Test Antigen - Nil 0.00 IU/mL 12/11/18 06:38 TB Test (QFT) Interp Negative (NEGAT) 12/11/18 06:38
[2018-12-15] MEDS: Sucralfate 1 GM TAB PO (17:55)
[2018-12-15 20:02] LABS: EBV DNA Detect/Quant, P 215000 IU/mL (Undetected)
--- NOTE | 2018-12-15 20:09 | W.SURGCON ---
Date of service: 12/15/18 Time of Service: 20:09 Assessment and Plan (1) Anemia: Current visit: No Status: Chronic pt is currently hemodynamically stable adn no active gross bleeding. Is in isolation and not medically optimized for procedure. will follow peripherally if EGD b/c warranted. (2) Blood in stool: Current visit: No Status: Acute as above (3) Thrombocytopenia: Current visit: No Status: Acute as above (4) Mediastinal lymphadenopathy: Current visit: No Status: Chronic as above (5) Pneumonia: Current visit: No Status: Resolved as above (6) Diarrhea: Current visit: No Status: Resolved as above History of Present Illness Chief Complaint: anemia Narrative: anemia of unknown etiology. she has had a flex sig and bx last 09/30 for LLQ pain. Both and scope and Bx were unremarkable. She had no problems w/ anethesia. Hosp would like upper scope/EGD. However, her plt have dropped, and there is some question if this is a lymphoma. Will hold on procedure until meidcally stable. will follow proliferaly Consults Consult date: 12/15/18 Requesting physician: Arline Lew Review of Systems Review of Systems All systems reviewed & are unremarkable except as noted in HPI and below and Unobtainable due to (most information obtained from the chart ) Constitutional Reports poor appetite and Reports weakness Gastrointestinal Comments: no vomiting. no gross blood in stool per Rn's. Heme+ mild LLQ pain. no peritonitis Neurologic Reports weakness Hematologic/Lymphatic Comments: no prior Hx of low plt. pt has had lots of GI issues. also a vasculopath adn is on mult anti-plts meds [facility] Medical History Thrombocytopenia (Acute) Splenomegaly (Acute ~12/10/18) Mediastinal lymphadenopathy (Chronic ~10/20/18) Pneumonia (Resolved) Nausea (Resolved) Abnormal CT scan, chest (Acute) Diarrhea (Resolved) Vitamin D deficiency (Chronic 09/07/14) Vitamin B 12 deficiency (Chronic 09/10/14) Viral hepatitis C (Chronic) SVT (supraventricular tachycardia) (Chronic 01/10/16) Peptic reflux disease (Chronic) Hyperlipidemia (Chronic) Essential hypertension (Chronic 07/27/13) Depressive disorder (Chronic) Chronic obstructive lung disease (Chronic) ASCVD (arteriosclerotic cardiovascular disease) (Chronic) Anemia (Chronic) PVD (peripheral vascular disease) (Chronic) Atrial fibrillation (Chronic) ASCVD (arteriosclerotic cardiovascular disease) Alcohol abuse COPD (chronic obstructive pulmonary disease) Essential hypertension Non-ST elevation SD (NSTEMI) PVD (peripheral vascular disease) Peptic reflux disease SVT (supraventricular tachycardia) Smoker Viral hepatitis C Vitamin D deficiency Surgical History History of angioplasty of peripheral vessel (Resolved 08/20/18) PROCEDURES Family History Mother Essential hypertension Personal history of malignant neoplasm Heart disease Hyperlipidemia Stroke Father Personal history of malignant neoplasm Brother Personal history of malignant neoplasm Grandfather No problems noted. Grandfather No problems noted. Grandmother No problems noted. Grandmother No problems noted. Social History caregiver/support person: Yes household members: family and children housing: house marital status: lives independently: No highest education level completed: 10th grade financial difficulty paying for basics: very hard custodial: No current occupational status: retired pets and animals: Yes well-balanced diet: rarely or never caffeine: Yes eating out: rarely or never reads food labels: seldom or never during the past year weight has: decreased > 10 lbs what type of physical activity do you participate in: none Smoking and Tabacco status: Former Tobacco Use Tobacco: How many years used: 40 alcohol intake: former substance use type: does not use special russ needs: No agree to transfusion: Yes What is your relationship status?: How often do you talk on the phone with friends or family?: once per week How often do you get together with friends or relatives?: three or more times per week How often do you attend christian or yarsani services?: 1-3 times per year Panel score (0-1 are the most socially isolated patients): 1 Exam Const Other: pt is currently in isolation in ICU. only abdom exam is done GI Inspection: normal to inspection Auscultation: normal bowel sounds Other: no R/R/G. min LLQ pain. Results Last Vital Signs Temp 36.8 C 12/15/18 15:40 Pulse 97 H 12/15/18 15:16 Resp 25 H 12/15/18 15:16 BP 172/69 H 12/15/18 15:16 Pulse Ox 98 12/15/18 15:40 Labs : 12/17/18 06:35 12/17/18 06:35 Laboratory Results - last 24 hr 12/11/18 12/15/18 12/15/18 06:38 07:07 07:07 WBC 5.70 RBC 3.64 L Hgb 9.0 L Hct 28.4 L MCV 78.0 L MCH 24.7 L MCHC 31.7 L RDW 21.1 H Plt Count 53 L MPV Immature Gran % 1.2 Neutrophils % 82.1 Lymphocytes % 3.5 Monocytes % 12.8 Eosinophils % 0.2 Basophils % 0.2 Absolute Neutrophils 4.68 Absolute Lymphocytes 0.20 L Absolute Monocytes 0.73 H Absolute Eosinophils 0.01 Absolute Basophils 0.01 Differential Comment Rbc morph reviewed RBC Morphology See below Polychromasia Present Hypochromasia 2+ Anisocytosis 3+ Microcytosis 2+ Target Cells 2+ Sodium 137 Potassium 4.0 Chloride 101 Carbon Dioxide 29.7 Anion Gap 6.3 BUN 18 Creatinine 0.78 Estimated GFR/1.73 m2 >= 60.00 Glucose 101 H Calcium 8.8 Magnesium 2.1 TB Test Antigen - Nil 0.00 TB Test (QFT) Interp Negative 12/15/18 15:55 WBC RBC Hgb 9.0 L Hct 27.9 L MCV MCH MCHC RDW Plt Count MPV Immature Gran % Neutrophils % Lymphocytes % Monocytes % Eosinophils % Basophils % Absolute Neutrophils Absolute Lymphocytes Absolute Monocytes Absolute Eosinophils Absolute Basophils Differential Comment RBC Morphology Polychromasia Hypochromasia Anisocytosis Microcytosis Target Cells Sodium Potassium Chloride Carbon Dioxide Anion Gap BUN Creatinine Estimated GFR/1.73 m2 Glucose Calcium Magnesium TB Test Antigen - Nil TB Test (QFT) Interp
--- NOTE | 2018-12-15 20:19 | NUR.NOTE ---
Nickie Barnes RN combed out patient's hair and found the hair covered in eggs especially by the nape of the neck and ears. The head was very thoroughly lathered with sklice so that all the roots were saturated to the scalp and down to the ends of the hair. The patient sat with the medication soaking for 30 min as she needed to use the restroom multiple times before it could be rinsed. SAfter rinsing and drying the hair, it was combed with a lice comb where an approximated thousand + of eggs were removed. While some eggs can still be found, the hair was combed until there were not noticeable clumps of eggs. 1 bug was found and the eggs noted were only seen to be mature ones. The bedding was changed and the bed wiped down with sani-cloth, a clean gown and socks were placed, and the floor was cleaned by housekeeping. All excess stuff, bedding, and clutter was removed from the room to minimize transmission and cleaning difficulty. An increase in clumps of eggs would indicate that there are still live bugs. The hair needs to be combed 1 or more times a day to remove the remainder of the eggs as ordered.Nursing Note:
[2018-12-15] MEDS: Mirtazapine 15 MG TAB 30 MG PO (21:45)
[2018-12-15] MEDS: Pantoprazole 40 MG VIAL IVP (21:45)
[2018-12-15 22:22] LABS: HCT 27.9 % (36.0-46.0)
[2018-12-16] VITALS (27 sets, daily range): BP systolic 136–187; BP diastolic 73–133; PULSE 72–100; RESP 17–36; TEMP 35.9–36.8; O2SAT 91–95
[2018-12-16] MEDS: Sucralfate 1 GM TAB PO ×5 (02:28→22:41)
[2018-12-16] MEDS: Melatonin 3 MG TAB 9 MG PO ×2 (02:29→22:39)
[2018-12-16] MEDS: Mometasone 220 MCG 14 DOSE INHALER 1 PUFF IH ×2 (07:10→20:03)
[2018-12-16 07:24] LABS: Abs Immature Grans 0.12 k/cumm (0.0-0.09); Absolute Basophil Count 0.01 k/cumm (0.0-0.2); Absolute Lymphocyte Count 0.33 k/cumm (1.2-3.4); Absolute Monocyte Count 0.88 k/cumm (0.11-0.7); Absolute Neutrophil Count 4.85 k/cumm (1.2-6.7); Anion Gap 6.1 mmol/L (3-11); BUN 17 mg/dL (7-18); Basophils % 0.2; CO2 28.9 mmol/L (21.0-32.0); CREATININE 0.71 mg/dL (0.55-1.02); Calcium 8.6 mg/dL (8.5-10.1); Chloride 93 mmol/L (98-107); Glucose 82 mg/dL (70-100); HCT 30.3 % (36.0-46.0); HGB 9.8 g/dL (12.0-15.5); Immature Grans % 1.9; Lymphocytes % 5.3; Magnesium 1.9 mg/dL (1.8-2.4); Mean Corp. HGB Concentration 32.3 g/dL (32.0-36.0); Mean Corpuscular Hemoglobin 24.9 pg (27.0-33.0); Mean Corpuscular Volume 77.1 fL (80-95); Monocytes % 14.2; Neutrophils % 78.4; Potassium 4.1 mmol/L (3.5-5.1); RBC 3.93 m/cumm (4.00-5.20); RBC Distribution Width 20.7 % (11.7-14.6); Sodium 128 mmol/L (136-145); White Blood Cell Count 6.19 k/cumm (4.4-10.8)
--- NOTE | 2018-12-16 07:41 | W.PM.PROGNOT ---
Documented by User: THU Taveras 12/16/18 07:52 Date of Service Date of service: 12/16/18 Time of Service: 07:41 Assessment and Plan (1) Blood in stool: Current visit: Yes Status: Acute Morning labs pending. Flexible sigmoidoscopy with biopsies was performed 09/26/18, at which time the patient was having heme (-) diarrhea. DIET- NPO since midnight for possible EGD PAIN- Comfortable at this time, abdominal tenderness with palpation ACTIVITY- As tolerated, encouraged her to sit in a chair if tolerated. P// Possible EGD for further evaluation for heme (+) stools. Subjective Patient reports: voiding w/o difficulty; denies fever Interval history since last seen: Ms. Gusman'saw reports some concern regarding possible EGD today. She reports mild abdominal pain in the epigastric region. BM last evening was heme positive. She denies nausea or vomiting. Exam Const General: cooperative and comfortable Orientation: alert and awake GI Inspection: non-distended Palpation: soft and tender in the epigastrum, in the LLQ and in the RLQ Auscultation: normal bowel sounds Objective Objective Clinical Data: Abnormal lab results 12/15/18 12/15/18 12/15/18 Range/Units 07:07 07:07 10:12 RBC 3.64 L (4.00-5.20) m/cumm Hgb 9.0 L 9.0 L (12.0-15.5) g/dL Hct 28.4 L 27.9 L (36.0-46.0) % MCV 78.0 L (80-95) fL MCH 24.7 L (27.0-33.0) pg MCHC 31.7 L (32.0-36.0) g/dL RDW 21.1 H (11.7-14.6) % Plt Count 53 L (130-400) x1000/uL Absolute Lymphocytes 0.20 L (1.2-3.4) k/cumm Absolute Monocytes 0.73 H (0.11-0.7) k/cumm Sodium (136-145) mmol/L Chloride (98-107) mmol/L Glucose 101 H (70-100) mg/dL 12/15/18 12/16/18 Range/Units 15:55 06:38 RBC (4.00-5.20) m/cumm Hgb 9.0 L (12.0-15.5) g/dL Hct 27.9 L (36.0-46.0) % MCV (80-95) fL MCH (27.0-33.0) pg MCHC (32.0-36.0) g/dL RDW (11.7-14.6) % Plt Count (130-400) x1000/uL Absolute Lymphocytes (1.2-3.4) k/cumm Absolute Monocytes (0.11-0.7) k/cumm Sodium 128 L (136-145) mmol/L Chloride 93 L (98-107) mmol/L Glucose (70-100) mg/dL Vital Signs Temperature 36.8 C 12/16/18 02:30 Temperature Source Tympanic 12/16/18 02:30 Pulse 96 H 12/16/18 06:17 Pulse Rhythm Regular 12/16/18 03:11 Pulse 96 H 12/16/18 07:00 Respiratory Rate 30 H 12/16/18 07:00 Respiratory Effort 12/16/18 03:11 Respiratory Depth Shallow 12/16/18 03:11 Respiratory Pattern Normal 12/16/18 03:11 Blood Pressure 161/82 H 12/16/18 06:17 Blood Pressure Mean 102 12/16/18 06:17 Blood Pressure Position Sitting 12/13/18 08:34 Pulse Oximetry 94 L 12/16/18 06:17 Oxygen Delivery Method Room Air 12/15/18 15:40 Oxygen Flow Rate 0 12/15/18 15:40 Fraction of Inspired Oxygen (FIO2) 26 12/11/18 21:06 Pain Level 6 12/15/18 15:15 Intake & Output 12/15/18 12/15/18 12/16/18 11:59 23:59 11:59 Intake Total 70 / 245 175 / 245 120 / 120 Output Total 800 / 1500 700 / 1500 1500 / 1500 Balance -730 / -1255 -525 / -1255 -1380 / -1380 Intake: IV 20 / 120 100 / 120 Oral 50 / 125 75 / 125 120 / 120 Output: Urine 800 / 1500 700 / 1500 1500 / 1500 Other: Urine Color Yellow Yellow Urine Appearance Clear Clear Clear Urine Odor Normal None Comment Measurement approximate. Need to dump urine quickly as pt needed to stool mixed in stool Stool Occult Blood Positive Positive Stool Size Small Small Stool Characteristics Formed Soft Black Formed Voiding Methods Bedside Commode Bedside Commode Bedside Commode Laboratory Results WBC 5.70 k/cumm (4.4-10.8) 12/15/18 07:07 RBC 3.64 m/cumm (4.00-5.20) L 12/15/18 07:07 Hgb 9.0 g/dL (12.0-15.5) L 12/15/18 15:55 Hct 27.9 % (36.0-46.0) L 12/15/18 15:55 MCV 78.0 fL (80-95) L 12/15/18 07:07 MCH 24.7 pg (27.0-33.0) L 12/15/18 07:07 MCHC 31.7 g/dL (32.0-36.0) L 12/15/18 07:07 RDW 21.1 % (11.7-14.6) H 12/15/18 07:07 Plt Count 53 x1000/uL (130-400) L 12/15/18 07:07 MPV fL (8.0-11.0) 12/15/18 07:07 Immature Gran % 1.2 12/15/18 07:07 Neutrophils % 82.1 12/15/18 07:07 Band Neutrophils % 1.0 % 12/10/18 08:55 Lymphocytes % 3.5 12/15/18 07:07 Atypical Lymphs % 3 12/10/18 08:55 Monocytes % 12.8 12/15/18 07:07 Eosinophils % 0.2 12/15/18 07:07 Basophils % 0.2 12/15/18 07:07 Metamyelocytes % 3.0 % 12/10/18 08:55 Myelocytes % 2.0 % 12/10/18 08:55 Absolute Neutrophils 4.68 k/cumm (1.2-6.7) 12/15/18 07:07 Absolute Lymphocytes 0.20 k/cumm (1.2-3.4) L 12/15/18 07:07 Absolute Monocytes 0.73 k/cumm (0.11-0.7) H 12/15/18 07:07 Absolute Eosinophils 0.01 k/cumm (0.0-0.7) 12/15/18 07:07 Absolute Basophils 0.01 k/cumm (0.0-0.2) 12/15/18 07:07 Differential Comment Rbc morph reviewed 12/15/18 07:07 RBC Morphology See below 12/15/18 07:07 Polychromasia Present 12/15/18 07:07 Hypochromasia 2+ 12/15/18 07:07 Anisocytosis 3+ 12/15/18 07:07 Microcytosis 2+ 12/15/18 07:07 Macrocytosis 2+ 12/10/18 08:55 Target Cells 2+ 12/15/18 07:07 Haptoglobin 214 mg/dL (32-197) H 12/11/18 06:50 PT 12.2 sec (9.3-11.0) H 12/11/18 06:38 INR 1.2 (0.9-1.1) H 12/11/18 06:38 APTT 29.4 sec (21.0-31.4) 12/11/18 06:38 Fibrinogen 300 mg/dL (171-384) 12/11/18 06:50 D-Dimer 664 ng/mlFEU (<500) H 12/11/18 06:38 Sodium 128 mmol/L (136-145) L 12/16/18 06:38 Potassium 4.1 mmol/L (3.5-5.1) 12/16/18 06:38 Chloride 93 mmol/L (98-107) L 12/16/18 06:38 Carbon Dioxide 28.9 mmol/L (21.0-32.0) 12/16/18 06:38 Anion Gap 6.1 mmol/L (3-11) 12/16/18 06:38 BUN 17 mg/dL (7-18) 12/16/18 06:38 Creatinine 0.71 mg/dL (0.55-1.02) 12/16/18 06:38 Estimated GFR/1.73 m2 >= 60.00 (mL/min/1.73m2) 12/16/18 06:38 Glucose 82 mg/dL (70-100) 12/16/18 06:38 Calcium 8.6 mg/dL (8.5-10.1) 12/16/18 06:38 Magnesium 1.9 mg/dL (1.8-2.4) 12/16/18 06:38 Iron 23 ug/dL (50-175) L 12/14/18 05:55 TIBC 319 ug/dL (250-450) 12/14/18 05:55 Transferrin % Sat 7 % (15-50) L 12/14/18 05:55 Ferritin 652 ng/mL (8-388) H 12/14/18 05:55 Total Bilirubin 0.6 mg/dL (0.2-1.0) 12/13/18 05:54 AST 45 U/L (15-37) H 12/13/18 05:54 ALT 15 U/L (12-78) 12/13/18 05:54 Alkaline Phosphatase 62 U/L (46-116) 12/13/18 05:54 Lactate Dehydrogenase 372 U/L (81-234) H 12/11/18 06:38 Troponin I 0.04 ng/mL (0.00-0.06) 12/11/18 06:38 Total Protein 5.1 g/dL (6.4-8.2) L 12/13/18 05:54 Albumin 1.9 g/dL (3.4-5.0) L 12/13/18 05:54 Vitamin B12 855 pg/mL (193-986) 12/12/18 06:43 Folate 5.7 ng/mL (8.6-20.0) L 12/12/18 06:43 Urine Color [place] (Yellow) 12/10/18 10:45 Urine Clarity Clear 12/10/18 10:45 Urine pH 5.5 (5-8) 12/10/18 10:45 Ur Specific [place] 1.025 (1.005-1.025) 12/10/18 10:45 Urine Protein >=300 mg/dL (Negative) H 12/10/18 10:45 Urine Ketones 15 mg/dL (Negative) H 12/10/18 10:45 Urine Blood Trace-lysed (Negative) H 12/10/18 10:45 Urine Nitrite Negative (Negative) 12/10/18 10:45 Urine Bilirubin Small (Negative) H 12/10/18 10:45 Urine Urobilinogen 0.2 EU/dL (Up TO 0.2) 12/10/18 10:45 Ur Leukocyte Esterase Negative (Negative) 12/10/18 10:45 Urine RBC 0-2 (0-2) 12/10/18 10:45 Urine WBC 3-5 HPF (0-5) 12/10/18 10:45 Ur Epithelial Cells Rare HPF (Negative) 12/10/18 10:45 Urine Crystals Negative HPF (Negative) 12/10/18 10:45 Urine Bacteria Moderate HPF (Negative) 12/10/18 10:45 Urine Casts 3-5 coarse granular LPF (Negative) 12/10/18 10:45 Urine Mucus Trace (Negative) 12/10/18 10:45 Ur Culture Indicated? Yes 12/10/18 10:45 Urine Glucose Negative mg/dL (Negative) 12/10/18 10:45 Hepatitis A IgM Ab Negative (NEGAT) 12/11/18 06:50 Hep Bs Antigen Negative (NEGAT) 12/11/18 06:50 Hep B Core Total Ab Negative (NEGAT) 12/11/18 06:50 Hepatitis C Antibody Reactive (NEGAT) A 12/11/18 06:50 HCV RNA Quant (PCR) 06520 IU/mL (UNDECT) A 12/11/18 06:50 HSV I IgG Ab Positive 12/11/18 06:50 HSV II IgG Positive 12/11/18 06:50 Monoscreen Negative (Negative) 12/10/18 08:55 HIV 1&2 Ag/Ab, 4th Gen Negative (NEGAT) 12/11/18 06:50 HIV 1&2 Antibody Rapid Cancelled 12/11/18 05:35 TB Test Antigen - Nil 0.02 IU/mL 12/11/18 06:38 TB Test Antigen - Nil 0.00 IU/mL 12/11/18 06:38 TB Test (QFT) Interp Negative (NEGAT) 12/11/18 06:38 Documented by User: Eri Lombardi DO 12/16/18 16:12 Assessment and Plan (1) Blood in stool: Current visit: Yes Status: Acute (2) Thrombocytopenia: Current visit: Yes Status: Acute D/w Dr. Vipin -anti plt agents were just dc'ed yest afternoon -pt now c/o abdominal pain/LLQ again- had flex sig and Bx done last admission (09/30) which were nl. -will hold on EGD until plt improve. -Poss EGD on Saturday. will follow (3) Anemia: Current visit: Yes Status: Chronic holding on EGD at this time. Subjective Interval history since last seen: pt not having grossly bloody stools. hemodynamically stable.
[2018-12-16 07:44] LABS: Anisocytosis 3+; Diff Comment RBC Morph Reviewed
[2018-12-16 07:45] LABS: Hypochromasia 2+; Microcytosis 2+; Polychromasia Present; Target Cells 3+
[2018-12-16 07:47] LABS: Platelet Count 36 x1000/uL (130-400)
--- NOTE | 2018-12-16 09:06 | PDOC.CMPRO ---
- If Service Date Differs Date of service: 12/16/18 Time of Service: 09:06 Care Management Progress Note S/O Joselin is alert and engaged. She states she is feeling nervous about her diagnosis and being in the hospital in general. CM reviewed her appointment at [facility] for Saturday she states that she is aware of the appointment and provider. She states her family will bring her to the appointment. Joselin states she does not want home health services. She is unsure of how she will feel when she is discharged and does not want to have services at this time. A:Joselin 73 year old female admitted with Afib P:Joselin continues on IV antibiotics. Consults include surgery, and speech. She has an appointment scheduled at [facility] on 12/19/18 at 1430 to discuss biopsy. Joselin will return home when medically ready per provider. She will transport home via private vehicle with family. CM to continue to provide support ongoing discharge planning and disposition.
[2018-12-16] MEDS: Normal Saline Flush 10 ML SYR IVP ×2 (10:22→20:02)
[2018-12-16] MEDS: Pantoprazole 40 MG VIAL IVP ×2 (10:22→20:02)
[2018-12-16] MEDS: Ferrous Sulfate 325 MG TAB PO ×2 (10:23→20:01)
[2018-12-16] MEDS: Metoprolol CR 100 MG TABCR PO (10:23)
[2018-12-16] MEDS: ROSUVASTATIN 20 MG TAB 40 MG PO (10:23)
[2018-12-16] MEDS: guaiFENesin 600 MG TABCR PO ×2 (10:23→20:01)
[2018-12-16] MEDS: Benzonatate 200 MG CAP PO ×3 (10:23→20:01)
[2018-12-16] MEDS: Losartan 50 MG TAB 100 MG PO (10:23)
[2018-12-16] MEDS: Potassium Chloride 20 MEQ TABCR PO (10:23)
[2018-12-16] MEDS: Magnesium Chloride 64 MG TABCR PO ×2 (10:23→22:38)
[2018-12-16] MEDS: methylPREDNISolone SUCC 40 MG VIAL IVP (10:23)
[2018-12-16] MEDS: Cyanocobalamin 500 MCG TAB 1000 MCG PO (10:24)
[2018-12-16] MEDS: Spironolactone 25 MG TAB PO (10:24)
[2018-12-16] MEDS: Folic Acid 1 MG TAB PO (10:24)
[2018-12-16] MEDS: Ondansetron 4 MG/2 ML VIAL IVP (10:53)
[2018-12-16] MEDS: Acetaminophen 325 MG TAB PO (10:54)
[2018-12-16] MEDS: LEVOFLOXACIN 500 MG/100 ML BAG 100 MG IVPB (11:34)
[2018-12-16] MEDS: Albuterol/Ipratropium 3 ML UPD VIAL UPD ×2 (12:16→17:38)
[2018-12-16] MEDS: oxyCODONE 5 MG TAB PO ×2 (13:29→20:01)
--- NOTE | 2018-12-16 15:14 | DI.RAD_ITS ---
SYMPTOMS/DIAGNOSIS: ABDOMINAL PAIN ABDOMEN FLAT PLATE: Comparison is made with CT dated November,. A right iliac stent and left upper quadrant vascular clip are again noted. The bowel gas pattern is unremarkable. Degenerative changes are seen in the spine. IMPRESSION: No acute abnormality.
[2018-12-16 16:31] LABS: HCT 30.4 % (36.0-46.0); HGB 9.8 g/dL (12.0-15.5)
--- NOTE | 2018-12-16 17:31 | PGE_ITS ---
Date of Service Date of service: 12/16/18 Time of Service: 13:00 Assessment and Plan (1) Blood in stool: Current visit: Yes Status: Acute Holding antiplatelet therapy and anticoagulation. H/H is stable. Continue protonix 40 mg IV BID and carafate. Patient did not go for EGD today due to a low plt count. (2) Chronic obstructive lung disease: Current visit: No Status: Chronic In acute exacerbation, improving. Continue IV Steroids (tapering), levofloxacin, and prn nebulizers. (3) Splenomegaly: Current visit: Yes Status: Acute Evidence of splenomegaly which is new in comparison to CT performed 09/2018, which showed multiple hypodense lesions. Now with clear enlargement on repeat CT scan. Likely a part of suspected lymphoma - reviewed PET CT from [facility] Patient is scheduled for a follow-up biopsy as outpatient for definitive diagnosis. - HIV negative - Hep C viral load is 12,481 - EBV DNA quant is 215,000 - CMV and MAC results are not available for my review - will research - QuantiFERON TB Gold test negative - No evidence of splenic or portal vein thrombosis per CT abdomen/pelvis on 12/10/18. (4) Thrombocytopenia: Current visit: Yes Status: Acute Worse today, but not actively bleeding (hemoccult positive, but H/H is stable), so no indication for a plt transfusion at this time. Thrombocytopenia is likely due to splenic sequestration due to splenomegaly in a patient with suspected lymphoid malignancy. Doubt TTP/HUS/DIC. LDH Mildly elevated. Fibrinogen wnl and haptoglobin high. Platelet count stable - continue to monitor. Stopping antiplatelet therapy given Heme positive stools. (5) Anemia: Current visit: No Status: Chronic Hgb stable, now hemoccult positive. Holding aspirin, plavix, and Apixaban. Continue to monitor. Planned for EGD once plts are better. Not requiring transfusion at this time. Not iron deficient. Does have folic acid deficiency and is on repletion. (6) Nausea: Current visit: Yes Status: Acute Clinically resolved, and no complaints of RUQ pain today. Influenza, urinalysis, chest x-ray all negative. Liver ultrasound without evidence of choleycystitis. KUB is showing mild constipation, so will treat that. Continue prn zofran. (7) Hyponatremia: Current visit: Yes Status: Acute significantly worse today. Unclear why. Recheck now and in am. (8) Atrial fibrillation: Current visit: No Status: Chronic Paroxysmal, current in NSR, off diltiazem gtt on 12/12/18. Continue toprol XL. Continue to monitor on tele. Continue anticoagulation with apixaban. (9) Mediastinal lymphadenopathy: Current visit: Yes Status: Chronic As above. (10) Pediculosis: Current visit: No Status: Acute s/p ivermectin treatment (11) ASCVD (arteriosclerotic cardiovascular disease): Current visit: No Status: Chronic No ACS o this admission. 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 Holding Clopidogrel and asa due to antiplatelet tx. Continue BB, high potency statin. Hold eliquis. (12) PVD (peripheral vascular disease): Current visit: No Status: Chronic Hold asa, plavix. Continue statin. Also on BB and ARB. (13) DVT prophylaxis: Current visit: No Status: Acute Chemical DVT ppx on hold due to hem positive stools. PPI increased Subjective Interval history since last seen: Patient complains of LLQ pain. Was found to be retaining urine - 376 cc - gu catheter inserted. This did not relieve her pain. No BM today. Denies dizziness, chest pain, shortness of breath. Did have nausea today, but no vomiting. Exam Narrative Exam Narrative: General: Very pleasant elderly female, looks uncomfortable today HEENT: EOMI, MMM Heart: RRR, no m/r/g Lungs: clear to auscultation bilaterally GI: abdomen is soft, mildly distended, tender in LLQ Extremities: no e/c/c BLE's, +1 BLE pedal pulses Objective Objective Clinical Data: Abnormal lab results 12/11/18 12/15/18 12/15/18 Range/Units 06:50 10:12 15:55 RBC (4.00-5.20) m/cumm Hgb 9.0 L 9.0 L (12.0-15.5) g/dL Hct 27.9 L 27.9 L (36.0-46.0) % MCV (80-95) fL MCH (27.0-33.0) pg RDW (11.7-14.6) % Plt Count (130-400) x1000/uL Absolute Lymphocytes (1.2-3.4) k/cumm Absolute Monocytes (0.11-0.7) k/cumm Sodium (136-145) mmol/L Chloride (98-107) mmol/L EBV DNA, Quant [id number] (Undetected) IU/mL 12/16/18 12/16/18 12/16/18 Range/Units 06:38 06:38 16:20 RBC 3.93 L (4.00-5.20) m/cumm Hgb 9.8 L 9.8 L (12.0-15.5) g/dL Hct 30.3 L 30.4 L (36.0-46.0) % MCV 77.1 L (80-95) fL MCH 24.9 L (27.0-33.0) pg RDW 20.7 H (11.7-14.6) % Plt Count 36 L (130-400) x1000/uL Absolute Lymphocytes 0.33 L (1.2-3.4) k/cumm Absolute Monocytes 0.88 H (0.11-0.7) k/cumm Sodium 128 L (136-145) mmol/L Chloride 93 L (98-107) mmol/L EBV DNA, Quant (Undetected) IU/mL Vital Signs Temperature 36.7 C 12/16/18 10:00 Temperature Source Tympanic 12/16/18 10:00 Pulse 73 12/16/18 16:00 Pulse Rhythm Regular 12/16/18 10:00 Pulse 76 12/16/18 16:00 Respiratory Rate 18 12/16/18 16:00 Respiratory Effort Non-Labored 12/16/18 10:00 Respiratory Depth Shallow 12/16/18 10:00 Respiratory Pattern Normal 12/16/18 10:00 Blood Pressure 147/74 H 12/16/18 16:00 Blood Pressure Mean 90 12/16/18 16:00 Blood Pressure Position Sitting 12/13/18 08:34 Pulse Oximetry 93 L 12/16/18 16:00 Oxygen Delivery Method Room Air 12/16/18 07:10 Oxygen Flow Rate 0 12/16/18 07:10 Fraction of Inspired Oxygen (FIO2) 26 12/11/18 21:06 Pain Level 6 12/16/18 15:55 Intake & Output 12/15/18 12/16/18 12/16/18 23:59 11:59 23:59 Intake Total 175 / 245 360 / 460 100 / 460 Output Total 700 / 1500 1625 / 1625 Balance -525 / -1255 -1265 / -1165 100 / -1165 Weight 51.2 kg Intake: IV 100 / 120 100 / 100 Oral 75 / 125 360 / 360 Output: Urine 700 / 1500 1625 / 1625 Other: Urine Color Yellow Yellow Urine Appearance Clear Clear Urine Odor None Normal Comment mixed in stool Stool Occult Blood Positive Stool Size Small Stool Characteristics Soft Formed Voiding Methods Bedside Commode Bedside Commode Laboratory Results WBC 6.19 k/cumm (4.4-10.8) 12/16/18 06:38 RBC 3.93 m/cumm (4.00-5.20) L 12/16/18 06:38 Hgb 9.8 g/dL (12.0-15.5) L 12/16/18 16:20 Hct 30.4 % (36.0-46.0) L 12/16/18 16:20 MCV 77.1 fL (80-95) L 12/16/18 06:38 MCH 24.9 pg (27.0-33.0) L 12/16/18 06:38 MCHC 32.3 g/dL (32.0-36.0) 12/16/18 06:38 RDW 20.7 % (11.7-14.6) H 12/16/18 06:38 Plt Count 36 x1000/uL (130-400) L 12/16/18 06:38 MPV fL (8.0-11.0) 12/16/18 06:38 Immature Gran % 1.9 12/16/18 06:38 Neutrophils % 78.4 12/16/18 06:38 Band Neutrophils % 1.0 % 12/10/18 08:55 Lymphocytes % 5.3 12/16/18 06:38 Atypical Lymphs % 3 12/10/18 08:55 Monocytes % 14.2 12/16/18 06:38 Eosinophils % 0.0 12/16/18 06:38 Basophils % 0.2 12/16/18 06:38 Metamyelocytes % 3.0 % 12/10/18 08:55 Myelocytes % 2.0 % 12/10/18 08:55 Absolute Neutrophils 4.85 k/cumm (1.2-6.7) 12/16/18 06:38 Absolute Lymphocytes 0.33 k/cumm (1.2-3.4) L 12/16/18 06:38 Absolute Monocytes 0.88 k/cumm (0.11-0.7) H 12/16/18 06:38 Absolute Eosinophils 0.00 k/cumm (0.0-0.7) 12/16/18 06:38 Absolute Basophils 0.01 k/cumm (0.0-0.2) 12/16/18 06:38 Differential Comment Rbc morph reviewed 12/16/18 06:38 RBC Morphology See below 12/16/18 06:38 Polychromasia Present 12/16/18 06:38 Hypochromasia 2+ 12/16/18 06:38 Anisocytosis 3+ 12/16/18 06:38 Microcytosis 2+ 12/16/18 06:38 Macrocytosis 2+ 12/10/18 08:55 Target Cells 3+ 12/16/18 06:38 Haptoglobin 214 mg/dL (32-197) H 12/11/18 06:50 PT 12.2 sec (9.3-11.0) H 12/11/18 06:38 INR 1.2 (0.9-1.1) H 12/11/18 06:38 APTT 29.4 sec (21.0-31.4) 12/11/18 06:38 Fibrinogen 300 mg/dL (171-384) 12/11/18 06:50 D-Dimer 664 ng/mlFEU (<500) H 12/11/18 06:38 Sodium 128 mmol/L (136-145) L 12/16/18 06:38 Potassium 4.1 mmol/L (3.5-5.1) 12/16/18 06:38 Chloride 93 mmol/L (98-107) L 12/16/18 06:38 Carbon Dioxide 28.9 mmol/L (21.0-32.0) 12/16/18 06:38 Anion Gap 6.1 mmol/L (3-11) 12/16/18 06:38 BUN 17 mg/dL (7-18) 12/16/18 06:38 Creatinine 0.71 mg/dL (0.55-1.02) 12/16/18 06:38 Estimated GFR/1.73 m2 >= 60.00 (mL/min/1.73m2) 12/16/18 06:38 Glucose 82 mg/dL (70-100) 12/16/18 06:38 Calcium 8.6 mg/dL (8.5-10.1) 12/16/18 06:38 Magnesium 1.9 mg/dL (1.8-2.4) 12/16/18 06:38 Iron 23 ug/dL (50-175) L 12/14/18 05:55 TIBC 319 ug/dL (250-450) 12/14/18 05:55 Transferrin % Sat 7 % (15-50) L 12/14/18 05:55 Ferritin 652 ng/mL (8-388) H 12/14/18 05:55 Total Bilirubin 0.6 mg/dL (0.2-1.0) 12/13/18 05:54 AST 45 U/L (15-37) H 12/13/18 05:54 ALT 15 U/L (12-78) 12/13/18 05:54 Alkaline Phosphatase 62 U/L (46-116) 12/13/18 05:54 Lactate Dehydrogenase 372 U/L (81-234) H 12/11/18 06:38 Troponin I 0.04 ng/mL (0.00-0.06) 12/11/18 06:38 Total Protein 5.1 g/dL (6.4-8.2) L 12/13/18 05:54 Albumin 1.9 g/dL (3.4-5.0) L 12/13/18 05:54 Vitamin B12 855 pg/mL (193-986) 12/12/18 06:43 Folate 5.7 ng/mL (8.6-20.0) L 12/12/18 06:43 Urine Color [place] (Yellow) 12/10/18 10:45 Urine Clarity Clear 12/10/18 10:45 Urine pH 5.5 (5-8) 12/10/18 10:45 Ur Specific [place] 1.025 (1.005-1.025) 12/10/18 10:45 Urine Protein >=300 mg/dL (Negative) H 12/10/18 10:45 Urine Ketones 15 mg/dL (Negative) H 12/10/18 10:45 Urine Blood Trace-lysed (Negative) H 12/10/18 10:45 Urine Nitrite Negative (Negative) 12/10/18 10:45 Urine Bilirubin Small (Negative) H 12/10/18 10:45 Urine Urobilinogen 0.2 EU/dL (Up TO 0.2) 12/10/18 10:45 Ur Leukocyte Esterase Negative (Negative) 12/10/18 10:45 Urine RBC 0-2 (0-2) 12/10/18 10:45 Urine WBC 3-5 HPF (0-5) 12/10/18 10:45 Ur Epithelial Cells Rare HPF (Negative) 12/10/18 10:45 Urine Crystals Negative HPF (Negative) 12/10/18 10:45 Urine Bacteria Moderate HPF (Negative) 12/10/18 10:45 Urine Casts 3-5 coarse granular LPF (Negative) 12/10/18 10:45 Urine Mucus Trace (Negative) 12/10/18 10:45 Ur Culture Indicated? Yes 12/10/18 10:45 Urine Glucose Negative mg/dL (Negative) 12/10/18 10:45 EBV DNA, Quant [id number] IU/mL (Undetected) A 12/11/18 06:50 Hepatitis A IgM Ab Negative (NEGAT) 12/11/18 06:50 Hep Bs Antigen Negative (NEGAT) 12/11/18 06:50 Hep B Core Total Ab Negative (NEGAT) 12/11/18 06:50 Hepatitis C Antibody Reactive (NEGAT) A 12/11/18 06:50 HCV RNA Quant (PCR) [id number] IU/mL (UNDECT) A 12/11/18 06:50 HSV I IgG Ab Positive 12/11/18 06:50 HSV II IgG Positive 12/11/18 06:50 Monoscreen Negative (Negative) 12/10/18 08:55 HIV 1&2 Ag/Ab, 4th Gen Negative (NEGAT) 12/11/18 06:50 HIV 1&2 Antibody Rapid Cancelled 12/11/18 05:35 TB Test Antigen - Nil 0.02 IU/mL 12/11/18 06:38 TB Test Antigen - Nil 0.00 IU/mL 12/11/18 06:38 TB Test (QFT) Interp Negative (NEGAT) 12/11/18 06:38 KUB: No acute abnormality. (per my read, there is a significant stool burden).
[2018-12-16 18:51] LABS: BUN 22 mg/dL (7-18); CREATININE 0.78 mg/dL (0.55-1.02); Calcium 8.4 mg/dL (8.5-10.1); Chloride 94 mmol/L (98-107); Glucose 153 mg/dL (70-100); Potassium 4.8 mmol/L (3.5-5.1); Sodium 128 mmol/L (136-145)
[2018-12-16] MEDS: Docusate Sodium 100 MG CAP PO (20:01)
[2018-12-16] MEDS: Milk of Magnesia 30 ML CUP PO (20:02)
[2018-12-16] MEDS: Mirtazapine 15 MG TAB 30 MG PO (22:39)
[2018-12-17] VITALS (29 sets, daily range): BP systolic 122–191; BP diastolic 63–161; PULSE 72–102; RESP 16–33; TEMP 35.8–36.7; O2SAT 81–95
[2018-12-17] MEDS: Sucralfate 1 GM TAB PO ×3 (07:04→23:44)
[2018-12-17 07:09] LABS: Abs Immature Grans 0.15 k/cumm (0.0-0.09); HCT 30.8 % (36.0-46.0); HGB 9.8 g/dL (12.0-15.5); Mean Corp. HGB Concentration 31.8 g/dL (32.0-36.0); Mean Corpuscular Hemoglobin 24.7 pg (27.0-33.0); Mean Corpuscular Volume 77.8 fL (80-95); RBC 3.96 m/cumm (4.00-5.20); RBC Distribution Width 21.4 % (11.7-14.6); White Blood Cell Count 6.59 k/cumm (4.4-10.8)
[2018-12-17 07:23] LABS: Anion Gap 7.5 mmol/L (3-11); BUN 23 mg/dL (7-18); CO2 26.5 mmol/L (21.0-32.0); CREATININE 0.72 mg/dL (0.55-1.02); Calcium 8.5 mg/dL (8.5-10.1); Chloride 94 mmol/L (98-107); Glucose 84 mg/dL (70-100); Magnesium 2.4 mg/dL (1.8-2.4); Potassium 4.7 mmol/L (3.5-5.1); Sodium 128 mmol/L (136-145)
[2018-12-17 07:57] LABS: Platelet Count 31 x1000/uL (130-400)
[2018-12-17 08:00] LABS: Absolute Monocyte Count 0.72 k/cumm (0.11-0.7); Anisocytosis 3+; Diff Comment Manual Differential
[2018-12-17 08:01] LABS: Hypochromasia 1+; Polychromasia Present; Target Cells 3+
[2018-12-17] MEDS: Pantoprazole 40 MG VIAL IVP (09:41)
[2018-12-17] MEDS: Normal Saline Flush 10 ML SYR IVP ×2 (09:42→13:13)
[2018-12-17] MEDS: methylPREDNISolone SUCC 40 MG VIAL IVP (09:43)
[2018-12-17] MEDS: Mometasone 220 MCG 14 DOSE INHALER 1 PUFF IH ×2 (09:55→21:15)
[2018-12-17 10:54] LABS: TSH 2.94 uIU/mL (0.358-3.74)
[2018-12-17] MEDS: Cyanocobalamin 500 MCG TAB 1000 MCG PO (11:10)
[2018-12-17] MEDS: Ferrous Sulfate 325 MG TAB PO (11:10)
[2018-12-17] MEDS: Folic Acid 1 MG TAB PO (11:10)
[2018-12-17] MEDS: Losartan 50 MG TAB 100 MG PO (11:10)
[2018-12-17] MEDS: Spironolactone 25 MG TAB PO (11:10)
[2018-12-17] MEDS: ROSUVASTATIN 20 MG TAB 40 MG PO (11:10)
[2018-12-17] MEDS: Magnesium Chloride 64 MG TABCR PO ×2 (11:11→21:15)
[2018-12-17] MEDS: Benzonatate 200 MG CAP PO ×2 (11:11→21:16)
[2018-12-17] MEDS: Potassium Chloride 20 MEQ TABCR PO (11:11)
[2018-12-17] MEDS: guaiFENesin 600 MG TABCR PO ×2 (11:11→21:16)
[2018-12-17] MEDS: oxyCODONE 5 MG TAB PO (11:17)
[2018-12-17] MEDS: Metoprolol CR 100 MG TABCR PO (11:55)
[2018-12-17 12:08] LABS: HCV RNA Detection Quantitative 13128 IU/mL (UNDECT)
[2018-12-17] MEDS: LEVOFLOXACIN 500 MG/100 ML BAG 100 MG IVPB (12:09)
[2018-12-17 12:39] LABS: Bilirubin Negative (Negative); Blood Large (Negative); Clarity Sl Cloudy; Glucose Negative (Negative); Ketones Negative (Negative); Leukocyte Esterase Negative (Negative); Nitrite Negative (Negative); Specific Gravity 1.025 (1.005-1.025); Urobilinogen 0.2 EU/dL (Up TO 0.2)
[2018-12-17] MEDS: Albuterol/Ipratropium 3 ML UPD VIAL UPD (12:45)
[2018-12-17 12:47] LABS: Bacteria Rare HPF (Negative); C & S Indicated? C&S Done As Ordered; Casts Negative LPF (Negative); Crystals Negative HPF (Negative); Epithelial Cells Rare HPF (Negative); Mucus Negative (Negative); RBC >50 (0-2); WBC 0-2 HPF (0-5)
--- NOTE | 2018-12-17 15:38 | PDOC.CMPRO ---
- If Service Date Differs Date of service: 12/17/18 Time of Service: 15:39 Care Management Progress Note S/O Joselin is alert she is having pain at the time of CM visit. She states to she would like pain control and comfort measures only. She requested her family not be contacted at this time she is feeling overwhelmed. Once her pain is controlled with the new CADD pump CM will review contacting her family with her. CM will continue to provide support to patient discharge planning and disposition. If Joselin is determine to have no further treatment she will have the option of returning home on hospice vs SNF. A:Joselin 73 year old female admitted with Afib P:Joselin to comfort measures only. She remains in the ICU. CADD pump started to today to provide pain control. CM will meet with Joselin again once her pain is controlled and discuss options for discharge plan and disposition. CM to continue to provide support to patient, family and care team.
--- NOTE | 2018-12-17 15:54 | W.PALLCONSUL ---
Date of service: 12/17/18 History of Present Illness Chief Complaint: likely new diagnosis of lymphoma; help with decision making, [facility] Narrative: I am familiar with Joselin from caring for her 3 years ago, soon after she moved in with her son and [id number]. She has lived with them since. She has had multiple admissions over the last 9 months. This is her fifth. She was admitted on 12/10/18 with mediastinal lymphadenopathy, following an admission in September for anemia. She has had persistent splenomegaly. It is thought she has a lymphoma now. She doesn't want any further workup. She doesn't want to see oncology. She is exhausted. She understands that this disease will likely lead to her . She says she is ready to . She hates being sick. She hasn't had quality of life for about a year now, she says. She's too weak to do anything. She has night sweats and weight loss. She is very clear that her son and his cannot care for her at home. She did not want me to call him to include him in our GOC/EOL discussion. She also is very clear that she does not want to be transferred to a halfway. She would like to stay at [facility]. We discussed [facility] ANALYS[facility] status and she said she is interested in that. She doesn't want any more treatments other than those that are directed at keeping her comfortable. She will let me know when/if she is ready for me to share her decisions with her family. Hopefully, she will be able to do so tomorrow. I am concerned that her life is very limited in length--days only. Consults Consult date: 12/17/18 Requesting physician: Arline Lew Assessment and Plan (1) Palliative care patient: Current visit: No Status: Acute Joselin is exhausted. Sick of being sick. Doesn't want to have chemo or radiation or go through further workup and treatment for her suspected lymphoma. She thinks she's had it for a while, and Dr. Lew, hospitalist, agrees. Joselin is interested in DATA ANALYSIS INTERN care. She is not surprised by my worry that she has a very short time left to live. She doesn't want to return to her son's home nor does she want to go to a SNF. She'd like to stay at [facility] and if possible here. I think this is likely. Dr Lew entered all DATA ANALYSIS [facility] orders. Joselin will be transferred to the PC room, 218. Will keep close tabs on her to see if her pain increases. She is very afraid of being in pain at the time of her . Wants to be as painfree as possible. (2) Lymphoma: Current visit: No Status: Suspected Not interested in definitive work up nor in any treatment. (3) Dying care: Current visit: No Status: Acute Will see if she wants me to discuss her prognosis and desires with her family tomorrow. She didn't want me to contact them today. She was quite clear about this. Review of Systems Constitutional Reports anorexia, Reports body ache(s), Reports fatigue, Reports fever(s), Reports night sweats, Reports poor appetite, Reports weakness and Reports weight loss Eyes Reports requires corrective lenses ENT Reports bleeding gums, Reports dysphagia, Reports dizziness, Reports dry mouth, Reports hoarseness and Reports disequilibrium Cardiovascular Reports diaphoresis, Reports lightheadedness, Reports palpitations, Reports dyspnea and Reports dyspnea on exertion Respiratory Reports cough, Reports dyspnea and Reports dyspnea on exertion Gastrointestinal Reports abdominal pain, Reports dysphagia, Reports early satiety and Reports dyspepsia Genitourinary Reports urinary incontinence Musculoskeletal Reports back pain and Reports muscle weakness Integumentary/Breasts Reports dry skin and Reports unusual bruising Neurologic Reports dizziness, Reports disequilibrium and Reports weakness Psychiatric Reports change in appetite and Reports difficulty concentrating Endocrine Reports fatigue, Reports heat intolerance and Reports palpitations Hematologic/Lymphatic Reports easy bleeding, Reports easy bruising and Reports lymphadenopathy [facility] History Thrombocytopenia (Acute) Splenomegaly (Acute ~12/10/18) Mediastinal lymphadenopathy (Chronic ~10/20/18) Pneumonia (Resolved) Nausea (Resolved) Abnormal CT scan, chest (Acute) Diarrhea (Resolved) Vitamin D deficiency (Chronic 09/07/14) Vitamin B 12 deficiency (Chronic 09/10/14) Viral hepatitis C (Chronic) SVT (supraventricular tachycardia) (Chronic 01/10/16) Peptic reflux disease (Chronic) Hyperlipidemia (Chronic) Essential hypertension (Chronic 07/27/13) Depressive disorder (Chronic) Chronic obstructive lung disease (Chronic) ASCVD (arteriosclerotic cardiovascular disease) (Chronic) Anemia (Chronic) PVD (peripheral vascular disease) (Chronic) Atrial fibrillation (Chronic) ASCVD (arteriosclerotic cardiovascular disease) Alcohol abuse COPD (chronic obstructive pulmonary disease) Essential hypertension Non-ST elevation IA (NSTEMI) PVD (peripheral vascular disease) Peptic reflux disease SVT (supraventricular tachycardia) Smoker Viral hepatitis C Vitamin D deficiency Surgical History History of angioplasty of peripheral vessel (Resolved 08/20/18) PROCEDURES Family History Mother Essential hypertension Personal history of malignant neoplasm Heart disease Hyperlipidemia Stroke Father Personal history of malignant neoplasm Brother Personal history of malignant neoplasm Grandfather No problems noted. Grandfather No problems noted. Grandmother No problems noted. Grandmother No problems noted. Social History caregiver/support person: Yes household members: family and children housing: house marital status: lives independently: No highest education level completed: 10th grade financial difficulty paying for basics: very hard halfway: No current occupational status: retired pets and animals: Yes well-balanced diet: rarely or never caffeine: Yes eating out: rarely or never reads food labels: seldom or never during the past year weight has: decreased > 10 lbs what type of physical activity do you participate in: none Smoking and Tabacco status: Former Tobacco Use Tobacco: How many years used: 40 alcohol intake: former substance use type: does not use special russ needs: No agree to transfusion: Yes What is your relationship status?: How often do you talk on the phone with friends or family?: once per week How often do you get together with friends or relatives?: three or more times per week How often do you attend religious or gnosticism services?: 1-3 times per year Panel score (0-1 are the most socially isolated patients): 1 Exam Const General: cooperative, no acute distress, frail appearing and ill appearing Nutritional Appearance: thin Orientation: alert, awake and oriented x3 HENMT Head: normal to inspection, normocephalic and atraumatic Ears: hearing grossly normal bilaterally Face and sinus: dry mucous membranes Teeth and gingiva: edentulous Eyes General: appearance normal, both eyes and all related structures Conjunctivae: conjunctivae normal Sclera: scleral abnormality (slightly jaundiced?) Neck Neck: lymphadenopathy and no JVD Thyroid: thyroid normal Resp Effort & Inspection: able to speak in complete sentences and tachypneic Auscultation: clear to auscultation bilaterally Cardio Rate: regular rate Rhythm: regular rhythm Heart Sounds: S1 normal and S2 normal GI Inspection: scaphoid Palpation: firm, splenomegaly and tender Auscultation: hypoactive bowel sounds Skin General skin exam: ecchymosis and pallor Hair: brittle and general thinning Neuro General: alert, awake and oriented x3 Cognition: normal cognition Speech: speech normal Extrem General: clubbing Psych Appearance: grossly normal Mental Status: mental status grossly normal Speech and Movement: speech clear and delayed speech Mood: dysthymic mood Affect: sad Attitude: cooperative Thought Process: normal Thought Content: normal Insight: insight good (recognizes that she is dying) Judgment: judgment good Results Last Vital Signs Temp 97.7 F 12/17/18 23:53 Pulse 72 12/17/18 23:53 Resp 26 H 12/18/18 08:17 BP 122/79 12/17/18 23:53 Pulse Ox 96 12/18/18 05:09 Labs : 12/17/18 06:35 12/17/18 06:35
[2018-12-17] MEDS: MORPHine 1,000 MG in CADD PUMP CASSETTE 1 EACH, Normal Saline 80 ML 0.1 MG SC ×2 (16:29→19:15)
--- NOTE | 2018-12-17 17:46 | CHAPLAIN ---
Nurse Prabha asked me to visit with Joselin following Joselin's palliative care consult with Dr. Lombardo, during which Joselin decided to be on comfort measures only. Joselin told Prabha that she was scared. During our conversation she said that as well. When I asked to find out if she could be more specific or if she had a overall general feeling of being scared, Joselin said she is concerned about how this will play out, how long will it take? She also said she is worried about pain and that she would like to in her sleep. I assured her that Dr. Lombardo's priority is to keep her comfortable, both physically and emotionally. Another concerns of Joselin's is that she will be a burden to her family. Because Joselin said a few times that she has more questions, I encouraged her to let Prabha know that she may want to speak with Dr. Lombardo again. Joselin told me that God is a source of comfort to her. She finds tv watching to be a good distraction in the hospital, but also seemed interested in the idea that music might be soothing. She said it's been hard to quiet her mind. I let her know that the ICU has an iPad with joiz stations for music if she would like to choose some music to hear. Joselin shared some person history and told me about her 21 year old son who of a drug overdose. She has outlived her siblings. Her family includes her son, daughter in law and their three kids.
--- NOTE | 2018-12-17 19:02 | W.PM.PROGNOT ---
Date of Service Date of service: 12/17/18 Time of Service: 12:30 Assessment and Plan (1) Lymphoma: Current visit: Yes Status: Suspected Initiated comfort measures with morphine Cadd pump, prn ativan, etc. The patient is no longer receiving antibiotics. She does not desire further workup. (2) Uncontrolled pain: Current visit: Yes Status: Acute As above (3) Blood in stool: Current visit: Yes Status: Acute Antiplatelet therapy and anticoagulation d/c'ed No plans for EGD anymore. Continue protonix 40 mg IV BID and carafate. (4) Chronic obstructive lung disease: Current visit: No Status: Chronic In acute exacerbation, improving. Continue IV Steroids (tapering) and prn nebulizers. Abx d/c'ed. (5) Splenomegaly: Current visit: Yes Status: Acute Read above - likely part of lymphoma. (6) Thrombocytopenia: Current visit: Yes Status: Acute Due to splenic sequestration. No further monitoring on comfort care. (7) Anemia: Current visit: No Status: Chronic As above (8) Nausea: Current visit: Yes Status: Acute prn antiemetics (9) Hyponatremia: Current visit: Yes Status: Acute No further workup. ?SIADH due to nausea. (10) Atrial fibrillation: Current visit: No Status: Chronic Paroxysmal, no longer on anticoagulation or being monitored as now on comfort measures. (11) Mediastinal lymphadenopathy: Current visit: Yes Status: Chronic As above. (12) Pediculosis: Current visit: No Status: Acute s/p ivermectin treatment (13) ASCVD (arteriosclerotic cardiovascular disease): Current visit: No Status: Chronic No ACS o this admission. 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 Holding Clopidogrel, eliquis, and asa. Continue BB. (14) PVD (peripheral vascular disease): Current visit: No Status: Chronic Hold asa, plavix. Continue statin. Also on BB and ARB. (15) DVT prophylaxis: Current visit: No Status: Acute Chemical DVT ppx on hold due to hem positive stools. No SCD's on comfort measures. Subjective Interval history since last seen: Patient met with palliative care today (Dr Lombardo) and expressed that she is more interested in comfort care than she is in workup of her malignancy. She wants her pain controlled. She did not want Dr Lombardo to reach out to the family to talk about this. To me, she complains of diffuse abdominal pain, and not so much LLQ pain today. She denied dizziness, chest pain, shortness of breath, but complained of nausea. Exam Narrative Exam Narrative: General: ill appearing/anxious fraild female HEENT: EOMI, MMM Heart: RRR, no m/r/g Lungs: clear to auscultation bilaterally GI: abdomen is soft, diffusely tender; lymphadenopathy is palpable Extremities: no e/c/c BLE's, +1 BLE pedal pulses Objective Objective Clinical Data: Abnormal lab results 12/11/18 12/17/18 12/17/18 Range/Units 06:38 06:35 06:35 RBC 3.96 L (4.00-5.20) m/cumm Hgb 9.8 L (12.0-15.5) g/dL Hct 30.8 L (36.0-46.0) % MCV 77.8 L (80-95) fL MCH 24.7 L (27.0-33.0) pg MCHC 31.8 L (32.0-36.0) g/dL RDW 21.4 H (11.7-14.6) % Plt Count 31 L (130-400) x1000/uL Absolute Lymphocytes 0.20 L (1.2-3.4) k/cumm Absolute Monocytes 0.72 H (0.11-0.7) k/cumm Sodium 128 L (136-145) mmol/L Chloride 94 L (98-107) mmol/L BUN 23 H (7-18) mg/dL Urine Protein (Negative) mg/dL Urine Blood (Negative) Urine RBC (0-2) Hepatitis C Antibody Reactive A (NEGAT) HCV RNA Quant (PCR) [id number] A (UNDECT) IU/mL 12/17/18 Range/Units 11:27 RBC (4.00-5.20) m/cumm Hgb (12.0-15.5) g/dL Hct (36.0-46.0) % MCV (80-95) fL MCH (27.0-33.0) pg MCHC (32.0-36.0) g/dL RDW (11.7-14.6) % Plt Count (130-400) x1000/uL Absolute Lymphocytes (1.2-3.4) k/cumm Absolute Monocytes (0.11-0.7) k/cumm Sodium (136-145) mmol/L Chloride (98-107) mmol/L BUN (7-18) mg/dL Urine Protein 30 H (Negative) mg/dL Urine Blood Large H (Negative) Urine RBC >50 H (0-2) Hepatitis C Antibody (NEGAT) HCV RNA Quant (PCR) (UNDECT) IU/mL Vital Signs Temperature 35.8 C L 12/17/18 11:58 Temperature Source Tympanic 12/17/18 11:58 Pulse 88 12/17/18 12:13 Pulse Rhythm Regular 12/17/18 08:15 Pulse 83 12/17/18 15:00 Respiratory Rate 21 12/17/18 15:00 Respiratory Effort 12/17/18 08:15 Respiratory Depth Normal 12/17/18 08:15 Respiratory Pattern Normal 12/17/18 08:15 Blood Pressure 179/161 H 12/17/18 12:13 Blood Pressure Mean 165 12/17/18 12:13 Blood Pressure Position Sitting 12/13/18 08:34 Pulse Oximetry 95 12/17/18 11:58 Oxygen Delivery Method Room Air 12/17/18 11:58 Oxygen Flow Rate 0 12/17/18 11:58 Fraction of Inspired Oxygen (FIO2) 26 12/11/18 21:06 Pain Level 7 12/17/18 17:58 Comment 12/17/18 08:15 Intake & Output 12/16/18 12/17/18 12/17/18 23:59 11:59 23:59 Intake Total 300 / 660 230 / 340 110 / 340 Output Total 500 / 2125 500 / 1225 725 / 1225 Balance -200 / -1465 -270 / -885 -615 / -885 Weight 47.2 kg Intake: IV 100 / 100 10 / 120 110 / 120 Oral 200 / 560 220 / 220 0 / 220 Output: Urine 500 / 2125 500 / 1225 725 / 1225 Other: Urine Color Yellow [place] Yellow Urine Appearance Clear Clear Clear Urine Odor Normal Stool Occult Blood Positive Stool Size Small Stool Characteristics Soft Black Voiding Methods Urinal Laboratory Results WBC 6.59 k/cumm (4.4-10.8) 12/17/18 06:35 RBC 3.96 m/cumm (4.00-5.20) L 12/17/18 06:35 Hgb 9.8 g/dL (12.0-15.5) L 12/17/18 06:35 Hct 30.8 % (36.0-46.0) L 12/17/18 06:35 MCV 77.8 fL (80-95) L 12/17/18 06:35 MCH 24.7 pg (27.0-33.0) L 12/17/18 06:35 MCHC 31.8 g/dL (32.0-36.0) L 12/17/18 06:35 RDW 21.4 % (11.7-14.6) H 12/17/18 06:35 Plt Count 31 x1000/uL (130-400) L 12/17/18 06:35 MPV fL (8.0-11.0) 12/17/18 06:35 Immature Gran % See Differential 12/17/18 06:35 Neutrophils % 85.0 12/17/18 06:35 Band Neutrophils % 1.0 % 12/10/18 08:55 Lymphocytes % 3.0 12/17/18 06:35 Atypical Lymphs % 3 12/10/18 08:55 Monocytes % 11.0 12/17/18 06:35 Eosinophils % 0.0 12/17/18 06:35 Basophils % 0.0 12/17/18 06:35 Metamyelocytes % 3.0 % 12/10/18 08:55 Myelocytes % 1.0 % 12/17/18 06:35 Absolute Neutrophils 5.60 k/cumm (1.2-6.7) 12/17/18 06:35 Absolute Lymphocytes 0.20 k/cumm (1.2-3.4) L 12/17/18 06:35 Absolute Monocytes 0.72 k/cumm (0.11-0.7) H 12/17/18 06:35 Absolute Eosinophils 0.00 k/cumm (0.0-0.7) 12/17/18 06:35 Absolute Basophils 0.00 k/cumm (0.0-0.2) 12/17/18 06:35 Differential Comment Manual differential 12/17/18 06:35 RBC Morphology See below 12/17/18 06:35 Polychromasia Present 12/17/18 06:35 Hypochromasia 1+ 12/17/18 06:35 Anisocytosis 3+ 12/17/18 06:35 Microcytosis 2+ 12/16/18 06:38 Macrocytosis 2+ 12/10/18 08:55 Target Cells 3+ 12/17/18 06:35 Haptoglobin 214 mg/dL (32-197) H 12/11/18 06:50 PT 12.2 sec (9.3-11.0) H 12/11/18 06:38 INR 1.2 (0.9-1.1) H 12/11/18 06:38 APTT 29.4 sec (21.0-31.4) 12/11/18 06:38 Fibrinogen 300 mg/dL (171-384) 12/11/18 06:50 D-Dimer 664 ng/mlFEU (<500) H 12/11/18 06:38 Sodium 128 mmol/L (136-145) L 12/17/18 06:35 Potassium 4.7 mmol/L (3.5-5.1) 12/17/18 06:35 Chloride 94 mmol/L (98-107) L 12/17/18 06:35 Carbon Dioxide 26.5 mmol/L (21.0-32.0) 12/17/18 06:35 Anion Gap 7.5 mmol/L (3-11) 12/17/18 06:35 BUN 23 mg/dL (7-18) H 12/17/18 06:35 Creatinine 0.72 mg/dL (0.55-1.02) 12/17/18 06:35 Estimated GFR/1.73 m2 >= 60.00 (mL/min/1.73m2) 12/17/18 06:35 Glucose 84 mg/dL (70-100) D 12/17/18 06:35 Calcium 8.5 mg/dL (8.5-10.1) 12/17/18 06:35 Magnesium 2.4 mg/dL (1.8-2.4) 12/17/18 06:35 Iron 23 ug/dL (50-175) L 12/14/18 05:55 TIBC 319 ug/dL (250-450) 12/14/18 05:55 Transferrin % Sat 7 % (15-50) L 12/14/18 05:55 Ferritin 652 ng/mL (8-388) H 12/14/18 05:55 Total Bilirubin 0.6 mg/dL (0.2-1.0) 12/13/18 05:54 AST 45 U/L (15-37) H 12/13/18 05:54 ALT 15 U/L (12-78) 12/13/18 05:54 Alkaline Phosphatase 62 U/L (46-116) 12/13/18 05:54 Lactate Dehydrogenase 372 U/L (81-234) H 12/11/18 06:38 Troponin I 0.04 ng/mL (0.00-0.06) 12/11/18 06:38 Total Protein 5.1 g/dL (6.4-8.2) L 12/13/18 05:54 Albumin 1.9 g/dL (3.4-5.0) L 12/13/18 05:54 Vitamin B12 855 pg/mL (193-986) 12/12/18 06:43 Folate 5.7 ng/mL (8.6-20.0) L 12/12/18 06:43 TSH 2.94 uIU/mL (0.358-3.74) 12/17/18 06:35 Urine Color Yellow (Yellow) 12/17/18 11:27 Urine Clarity Sl cloudy 12/17/18 11:27 Urine pH 6.0 (5-8) 12/17/18 11:27 Ur Specific [place] 1.025 (1.005-1.025) 12/17/18 11:27 Urine Protein 30 mg/dL (Negative) H 12/17/18 11:27 Urine Ketones Negative mg/dL (Negative) 12/17/18 11:27 Urine Blood Large (Negative) H 12/17/18 11:27 Urine Nitrite Negative (Negative) 12/17/18 11:27 Urine Bilirubin Negative (Negative) 12/17/18 11:27 Urine Urobilinogen 0.2 EU/dL (Up TO 0.2) 12/17/18 11:27 Ur Leukocyte Esterase Negative (Negative) 12/17/18 11:27 Urine RBC >50 (0-2) H 12/17/18 11:27 Urine WBC 0-2 HPF (0-5) 12/17/18 11:27 Ur Epithelial Cells Rare HPF (Negative) 12/17/18 11:27 Urine Crystals Negative HPF (Negative) 12/17/18 11:27 Urine Bacteria Rare HPF (Negative) 12/17/18 11:27 Urine Casts Negative LPF (Negative) 12/17/18 11:27 Urine Mucus Negative (Negative) 12/17/18 11:27 Ur Culture Indicated? C&s done as ordered 12/17/18 11:27 Urine Glucose Negative mg/dL (Negative) 12/17/18 11:27 EBV DNA, Quant [id number] IU/mL (Undetected) A 12/11/18 06:50 Hepatitis A IgM Ab Negative (NEGAT) 12/11/18 06:50 Hep Bs Antigen Negative (NEGAT) 12/11/18 06:50 Hep B Core Total Ab Negative (NEGAT) 12/11/18 06:50 Hepatitis C Antibody Reactive (NEGAT) A 12/11/18 06:50 HCV RNA Quant (PCR) [id number] IU/mL (UNDECT) A 12/11/18 06:50 HSV I IgG Ab Positive 12/11/18 06:50 HSV II IgG Positive 12/11/18 06:50 Monoscreen Negative (Negative) 12/10/18 08:55 HIV 1&2 Ag/Ab, 4th Gen Negative (NEGAT) 12/11/18 06:50 HIV 1&2 Antibody Rapid Cancelled 12/11/18 05:35 TB Test Antigen - Nil 0.02 IU/mL 12/11/18 06:38 TB Test Antigen - Nil 0.00 IU/mL 12/11/18 06:38 TB Test (QFT) Interp Negative (NEGAT) 12/11/18 06:38
[2018-12-17] MEDS: Mirtazapine 15 MG TAB 30 MG PO (21:16)
[2018-12-17] MEDS: Melatonin 3 MG TAB 9 MG PO (21:21)
[2018-12-18 05:09] VITALS: RESP 18; O2SAT 96
[2018-12-18] MEDS: Sucralfate 1 GM TAB PO (05:09)
[2018-12-18] MEDS: LORazepam 1 MG TAB PO (07:35)
[2018-12-18] MEDS: Albuterol/Ipratropium 3 ML UPD VIAL UPD (07:44)
[2018-12-18 08:17] VITALS: RESP 26
--- NOTE | 2018-12-18 08:49 | PDOC.CMPRO ---
- If Service Date Differs Date of service: 12/18/18 Time of Service: 08:49 Care Management Progress Note Joselin this morning. CM contacted the family prior to her passing and notified them of change in clinical status. CM met Son and Daughter in Law and reviewed options including direct cremation or home. Family would like CM to contact [facility] and request they pick Joselin up and make the arrangements. Kanu (son) did take Joselin's belongings with him when he left. CM provided contact information for questions or concerns. CM contacted [facility], and provided home with updated information to contact the family. CM updated the RN flight attendant/inflight supervisor.
--- NOTE | 2018-12-18 10:21 | W.PALPGNOTE ---
Date of service: 12/18/18 Assessment and Plan (1) Uncontrolled pain: Current visit: No Status: Acute Increased her CADD pump from 1-2 mg /hr and bolus the same, q 15 minutes. appeared comfortable/out of pain at time of her dying/ (2) Lymphoma: Current visit: No Status: Suspected highly suspected did not want further workup for cancer too weak to tolerate any treatment (3) Palliative care patient: Current visit: No Status: Acute Initially seen 3 years prior to this admission Chronically ill at that time lived longer than expected comfortable at time of (4) Dying care: Current visit: No Status: Acute Joselin was in palliative care room at time of her . She had been transferred out of the ICU to room 218 one day prior to her . Nursing was activated to provide excellent palliative care All necessary orders were in. Foundation Drill Operator Helper available. Passed as comfortably as possible; only problem was inability to contact family, though Joselin had clearly stated day prior to her that she did NOT want me to call her son and let him know that she was choosing to go on HAIR DRYER status. Perhaps she did not wish to have him with her at the time of her ; mothers often try to protect their children from their --dying without their kids present. Bushra Roberto with help from Dr Lew did certificate. Subjective Patient reports: still having pain and shortness of breath Interval history since last seen: Called emergently early this am by nursing staff to let me know that Joselin seemed very uncomfortable. She was short of breath, grimacing, moaning, confused. I asked that they go up on her morphine CADD pump from 1 mg per hour to 2 mg per hour and increase the bolus to same. Went in to see her belinda. She looked to be actively dying. Her color was ladd. She had cold feet and mottling of all extremities. She was minimally responsive, though sitting up. Primary nurse reported that she was much more comfortable now than she had been. With tachypnea but no increased WOB. No tachycardia. Asked if she wanted her family called. She was unable to respond. Did call and leave message on phone number listed. Apparently, it was wrong number. CM tried also. Were finally able to reach [id number]. I was in and out of the room several times over the course of 2+ hours. Foundation Drill Operator Helper called; she was with Joselin at one visit. student services rep in the room nearly continuously. Did advise hospitalist Bushra Roberto, FRONT END DRIVER, that I thought Joselin was dying, and had only hours at most to live. She concurred. All comfort measures are in place. Exam Const General: frail appearing and ill appearing Nutritional Appearance: underweight Orientation: confused Limitations: altered mental status [facility] Head: normocephalic and atraumatic Ears: hearing grossly normal bilaterally Face and sinus: dry mucous membranes Eyes General: appearance normal, both eyes and all related structures Conjunctivae: conjunctivae normal Sclera: sclerae normal Neck Neck: no lymphadenopathy and no JVD Resp Effort & Inspection: abnormal respiratory pattern, tachypneic and other (developed periods of apnea before her ; initially, per nursing, + WOB) Auscultation: crackles and diminished lung sounds Cardio Jugular venous pressure: no JVD Rate: tachycardic Rhythm: regular rhythm GI Inspection: normal to inspection and scaphoid Palpation: firm and splenomegaly Skin General skin exam: dry skin, mottling and other (ladd tone) Hair: general thinning Nails: clubbing Neuro General: not alert, awake, not oriented x3 and confused Cognition: abnormal cognition Speech: expressive aphasia Pupils: Sluggish: bilateral Extrem General: capillary refill delayed, cyanosis and muscle atrophy Psych Appearance: grossly normal Speech and Movement: delayed speech, restless (had been restless upon waking; not at times of my visit) and slowed movement Affect: blunted Thought Process: impoverished Insight: poor Judgment: poor Objective Objective Clinical Data: Vital Signs Temperature 97.7 F 12/17/18 23:53 Temperature Source Tympanic 12/17/18 23:53 Pulse 72 12/17/18 23:53 Pulse Rhythm Regular 12/17/18 08:15 Pulse 83 12/17/18 15:00 Respiratory Rate 26 H 12/18/18 08:17 Respiratory Effort Non-Labored 12/18/18 00:32 Respiratory Depth Normal 12/18/18 00:32 Respiratory Pattern Normal 12/18/18 00:32 Blood Pressure 122/79 12/17/18 23:53 Blood Pressure Mean 165 12/17/18 12:13 Blood Pressure Position Sitting 12/13/18 08:34 Pulse Oximetry 96 12/18/18 05:09 Oxygen Delivery Method Room Air 12/18/18 05:09 Oxygen Flow Rate 0 12/18/18 05:09 Fraction of Inspired Oxygen (FIO2) 26 12/11/18 21:06 Pain Level 2 12/18/18 05:09 Comment 12/17/18 08:15 Intake & Output 12/18/18 12/18/18 12/19/18 11:59 23:59 11:59 Intake Total 400 / 400 Output Total 250 / 250 Balance 150 / 150 Intake: Oral 400 / 400 Output: Urine 250 / 250 Other: Urine Color [place] Urine Appearance Clear Laboratory Results WBC 6.59 k/cumm (4.4-10.8) 12/17/18 06:35 RBC 3.96 m/cumm (4.00-5.20) L 12/17/18 06:35 Hgb 9.8 g/dL (12.0-15.5) L 12/17/18 06:35 Hct 30.8 % (36.0-46.0) L 12/17/18 06:35 MCV 77.8 fL (80-95) L 12/17/18 06:35 MCH 24.7 pg (27.0-33.0) L 12/17/18 06:35 MCHC 31.8 g/dL (32.0-36.0) L 12/17/18 06:35 RDW 21.4 % (11.7-14.6) H 12/17/18 06:35 Plt Count 31 x1000/uL (130-400) L 12/17/18 06:35 MPV fL (8.0-11.0) 12/17/18 06:35 Immature Gran % See Differential 12/17/18 06:35 Neutrophils % 85.0 12/17/18 06:35 Band Neutrophils % 1.0 % 12/10/18 08:55 Lymphocytes % 3.0 12/17/18 06:35 Atypical Lymphs % 3 12/10/18 08:55 Monocytes % 11.0 12/17/18 06:35 Eosinophils % 0.0 12/17/18 06:35 Basophils % 0.0 12/17/18 06:35 Metamyelocytes % 3.0 % 12/10/18 08:55 Myelocytes % 1.0 % 12/17/18 06:35 Absolute Neutrophils 5.60 k/cumm (1.2-6.7) 12/17/18 06:35 Absolute Lymphocytes 0.20 k/cumm (1.2-3.4) L 12/17/18 06:35 Absolute Monocytes 0.72 k/cumm (0.11-0.7) H 12/17/18 06:35 Absolute Eosinophils 0.00 k/cumm (0.0-0.7) 12/17/18 06:35 Absolute Basophils 0.00 k/cumm (0.0-0.2) 12/17/18 06:35 Differential Comment Manual differential 12/17/18 06:35 RBC Morphology See below 12/17/18 06:35 Polychromasia Present 12/17/18 06:35 Hypochromasia 1+ 12/17/18 06:35 Anisocytosis 3+ 12/17/18 06:35 Microcytosis 2+ 12/16/18 06:38 Macrocytosis 2+ 12/10/18 08:55 Target Cells 3+ 12/17/18 06:35 Haptoglobin 214 mg/dL (32-197) H 12/11/18 06:50 PT 12.2 sec (9.3-11.0) H 12/11/18 06:38 INR 1.2 (0.9-1.1) H 12/11/18 06:38 APTT 29.4 sec (21.0-31.4) 12/11/18 06:38 Fibrinogen 300 mg/dL (171-384) 12/11/18 06:50 D-Dimer 664 ng/mlFEU (<500) H 12/11/18 06:38 Sodium 128 mmol/L (136-145) L 12/17/18 06:35 Potassium 4.7 mmol/L (3.5-5.1) 12/17/18 06:35 Chloride 94 mmol/L (98-107) L 12/17/18 06:35 Carbon Dioxide 26.5 mmol/L (21.0-32.0) 12/17/18 06:35 Anion Gap 7.5 mmol/L (3-11) 12/17/18 06:35 BUN 23 mg/dL (7-18) H 12/17/18 06:35 Creatinine 0.72 mg/dL (0.55-1.02) 12/17/18 06:35 Estimated GFR/1.73 m2 >= 60.00 (mL/min/1.73m2) 12/17/18 06:35 Glucose 84 mg/dL (70-100) D 12/17/18 06:35 Calcium 8.5 mg/dL (8.5-10.1) 12/17/18 06:35 Magnesium 2.4 mg/dL (1.8-2.4) 12/17/18 06:35 Iron 23 ug/dL (50-175) L 12/14/18 05:55 TIBC 319 ug/dL (250-450) 12/14/18 05:55 Transferrin % Sat 7 % (15-50) L 12/14/18 05:55 Ferritin 652 ng/mL (8-388) H 12/14/18 05:55 Total Bilirubin 0.6 mg/dL (0.2-1.0) 12/13/18 05:54 AST 45 U/L (15-37) H 12/13/18 05:54 ALT 15 U/L (12-78) 12/13/18 05:54 Alkaline Phosphatase 62 U/L (46-116) 12/13/18 05:54 Lactate Dehydrogenase 372 U/L (81-234) H 12/11/18 06:38 Troponin I 0.04 ng/mL (0.00-0.06) 12/11/18 06:38 Total Protein 5.1 g/dL (6.4-8.2) L 12/13/18 05:54 Albumin 1.9 g/dL (3.4-5.0) L 12/13/18 05:54 Vitamin B12 855 pg/mL (193-986) 12/12/18 06:43 Folate 5.7 ng/mL (8.6-20.0) L 12/12/18 06:43 TSH 2.94 uIU/mL (0.358-3.74) 12/17/18 06:35 Urine Color Yellow (Yellow) 12/17/18 11:27 Urine Clarity Sl cloudy 12/17/18 11:27 Urine pH 6.0 (5-8) 12/17/18 11:27 Ur Specific [place] 1.025 (1.005-1.025) 12/17/18 11:27 Urine Protein 30 mg/dL (Negative) H 12/17/18 11:27 Urine Ketones Negative mg/dL (Negative) 12/17/18 11:27 Urine Blood Large (Negative) H 12/17/18 11:27 Urine Nitrite Negative (Negative) 12/17/18 11:27 Urine Bilirubin Negative (Negative) 12/17/18 11:27 Urine Urobilinogen 0.2 EU/dL (Up TO 0.2) 12/17/18 11:27 Ur Leukocyte Esterase Negative (Negative) 12/17/18 11:27 Urine RBC >50 (0-2) H 12/17/18 11:27 Urine WBC 0-2 HPF (0-5) 12/17/18 11:27 Ur Epithelial Cells Rare HPF (Negative) 12/17/18 11:27 Urine Crystals Negative HPF (Negative) 12/17/18 11:27 Urine Bacteria Rare HPF (Negative) 12/17/18 11:27 Urine Casts Negative LPF (Negative) 12/17/18 11:27 Urine Mucus Negative (Negative) 12/17/18 11:27 Ur Culture Indicated? C&s done as ordered 12/17/18 11:27 Urine Glucose Negative mg/dL (Negative) 12/17/18 11:27 EBV DNA, Quant [id number] IU/mL (Undetected) A 12/11/18 06:50 Hepatitis A IgM Ab Negative (NEGAT) 12/11/18 06:50 Hep Bs Antigen Negative (NEGAT) 12/11/18 06:50 Hep B Core Total Ab Negative (NEGAT) 12/11/18 06:50 Hepatitis C Antibody Reactive (NEGAT) A 12/11/18 06:50 HCV RNA Quant (PCR) [id number] IU/mL (UNDECT) A 12/11/18 06:50 HSV I IgG Ab Positive 12/11/18 06:50 HSV II IgG Positive 12/11/18 06:50 Monoscreen Negative (Negative) 12/10/18 08:55 HIV 1&2 Ag/Ab, 4th Gen Negative (NEGAT) 12/11/18 06:50 HIV 1&2 Antibody Rapid Cancelled 12/11/18 05:35 TB Test Antigen - Nil 0.02 IU/mL 12/11/18 06:38 TB Test Antigen - Nil 0.00 IU/mL 12/11/18 06:38 TB Test (QFT) Interp Negative (NEGAT) 12/11/18 06:38
--- NOTE | 2018-12-18 13:42 | W.PM.DDS ---
Discharge Sum: Prov Provider Consults: 12/15/18 11:27 Surgical Consult [CONS] Routine Consulting Provider: Eri Lombardi Consultation Status:: Follow-up needed Clarification:: Manage/follow per spec. Reason for consult:: Hem + stools (melena); patient with thrombocytopenia on aspirin/plavix for CAD and eliquis for Afib; hemodynamically stable and on PPI IV BID 12/17/18 12:31 Palliative Care Consult [CONS] Routine Consultation Status:: Follow-up needed Clarification:: Manage/follow per spec. Reason for consult:: suspected lymphoma; discuss goals of care Discharge Sum: Diag Contributing Factors (1) Lymphoma: (2) Uncontrolled pain: (3) Blood in stool: (4) Chronic obstructive lung disease: (5) Splenomegaly: (6) Thrombocytopenia: (7) Anemia: (8) Nausea: (9) Hyponatremia: (10) Atrial fibrillation: (11) Mediastinal lymphadenopathy: (12) Pediculosis: (13) ASCVD (arteriosclerotic cardiovascular disease): (14) PVD (peripheral vascular disease): (15) DVT prophylaxis:
--- NOTE | 2018-12-18 15:37 | NUR.NOTE ---
Nursing Note: Rounded on CADD pump with off going nurse @ 0720, Pt awoke, incredibly anxious. Trying to climb out of bed, pull out gu and IV's. Pt RR in the 30's, stating she needs breath and help me. PO ativan and morphine given. Updraft given. Fan to face. Sat with Pt until she calmed down. notified. CC notified. nursing home assistant administrator sat with Patient until she passed at 1034.
--- NOTE | 2018-12-19 10:23 | PCPN_ITS ---
Date of service: 12/18/18 Assessment and Plan (1) Uncontrolled pain: Current visit: No Status: Acute Increased her CADD pump from 1-2 mg /hr and bolus the same, q 15 minutes. appeared comfortable/out of pain at time of her dying/ (2) Lymphoma: Current visit: No Status: Suspected highly suspected did not want further workup for cancer too weak to tolerate any treatment (3) Palliative care patient: Current visit: No Status: Acute Initially seen 3 years prior to this admission Chronically ill at that time lived longer than expected comfortable at time of (4) Dying care: Current visit: No Status: Acute Joselin was in palliative care room at time of her . She had been transferred out of the ICU to room 218 one day prior to her . Nursing was activated to provide excellent palliative care All necessary orders were in. Sustainability Engineer available. 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 Perhaps she did not wish to have him with her at the time of her ; mothers often try to protect their children from their --dying without their kids present. Bushra Roberto with help from Dr Lew did certificate. Subjective Patient reports: still having pain and shortness of breath Interval history since last seen: Called emergently early this am by nursing staff to let me know that Joselin seemed very uncomfortable. She was short of breath, grimacing, moaning, confused. I asked that they go up on her morphine CADD pump from 1 mg per hour to 2 mg per hour and increase the bolus to same. Went in to see her belinda. She looked to be actively dying. Her color was ladd. She had cold feet and mottling of all extremities. She was minimally responsive, though sitting up. Primary nurse reported that she was much more comfortable now than she had been. With tachypnea but no increased WOB. No tachycardia. Asked if she wanted her family called. She was unable to respond. Did call and leave message on phone number listed. Apparently, it was wrong number. CM tried also. Were finally able to reach [id number]. I was in and out of the room several times over the course of 2+ hours. Sustainability Engineer called; she was with Joselin at one visit. student admissions clerk in the room nearly continuously. Did advise hospitalist Bushra Roberto, FORMULATION CHEMIST, that I thought Joselin was dying, and had only hours at most to live. She concurred. All comfort measures are in place. Exam Const General: frail appearing and ill appearing Nutritional Appearance: underweight Orientation: confused Limitations: altered mental status [facility] Head: normocephalic and atraumatic Ears: hearing grossly normal bilaterally Face and sinus: dry mucous membranes Eyes General: appearance normal, both eyes and all related structures Conjunctivae: conjunctivae normal Sclera: sclerae normal Neck Neck: no lymphadenopathy and no JVD Resp Effort & Inspection: abnormal respiratory pattern, tachypneic and other (developed periods of apnea before her ; initially, per nursing, + WOB) Auscultation: crackles and diminished lung sounds Cardio Jugular venous pressure: no JVD Rate: tachycardic Rhythm: regular rhythm GI Inspection: normal to inspection and scaphoid Palpation: firm and splenomegaly Skin General skin exam: dry skin, mottling and other (ladd tone) Hair: general thinning Nails: clubbing Neuro General: not alert, awake, not oriented x3 and confused Cognition: abnormal cognition Speech: expressive aphasia Pupils: Sluggish: bilateral Extrem General: capillary refill delayed, cyanosis and muscle atrophy Psych Appearance: grossly normal Speech and Movement: delayed speech, restless (had been restless upon waking; not at times of my visit) and slowed movement Affect: blunted Thought Process: impoverished Insight: poor Judgment: poor Objective Objective Clinical Data: Vital Signs Temperature 97.7 F 12/17/18 23:53 Temperature Source Tympanic 12/17/18 23:53 Pulse 72 12/17/18 23:53 Pulse Rhythm Regular 12/17/18 08:15 Pulse 83 12/17/18 15:00 Respiratory Rate 26 H 12/18/18 08:17 Respiratory Effort Non-Labored 12/18/18 00:32 Respiratory Depth Normal 12/18/18 00:32 Respiratory Pattern Normal 12/18/18 00:32 Blood Pressure 122/79 12/17/18 23:53 Blood Pressure Mean 165 12/17/18 12:13 Blood Pressure Position Sitting 12/13/18 08:34 Pulse Oximetry 96 12/18/18 05:09 Oxygen Delivery Method Room Air 12/18/18 05:09 Oxygen Flow Rate 0 12/18/18 05:09 Fraction of Inspired Oxygen (FIO2) 26 12/11/18 21:06 Pain Level 2 12/18/18 05:09 Comment 12/17/18 08:15 Intake & Output 12/18/18 12/18/18 12/19/18 11:59 23:59 11:59 Intake Total 400 / 400 Output Total 250 / 250 Balance 150 / 150 Intake: Oral 400 / 400 Output: Urine 250 / 250 Other: Urine Color Dark [place] Urine Appearance Clear Laboratory Results WBC 6.59 k/cumm (4.4-10.8) 12/17/18 06:35 RBC 3.96 m/cumm (4.00-5.20) L 12/17/18 06:35 Hgb 9.8 g/dL (12.0-15.5) L 12/17/18 06:35 Hct 30.8 % (36.0-46.0) L 12/17/18 06:35 MCV 77.8 fL (80-95) L 12/17/18 06:35 MCH 24.7 pg (27.0-33.0) L 12/17/18 06:35 MCHC 31.8 g/dL (32.0-36.0) L 12/17/18 06:35 RDW 21.4 % (11.7-14.6) H 12/17/18 06:35 Plt Count 31 x1000/uL (130-400) L 12/17/18 06:35 MPV fL (8.0-11.0) 12/17/18 06:35 Immature Gran % See Differential 12/17/18 06:35 Neutrophils % 85.0 12/17/18 06:35 Band Neutrophils % 1.0 % 12/10/18 08:55 Lymphocytes % 3.0 12/17/18 06:35 Atypical Lymphs % 3 12/10/18 08:55 Monocytes % 11.0 12/17/18 06:35 Eosinophils % 0.0 12/17/18 06:35 Basophils % 0.0 12/17/18 06:35 Metamyelocytes % 3.0 % 12/10/18 08:55 Myelocytes % 1.0 % 12/17/18 06:35 Absolute Neutrophils 5.60 k/cumm (1.2-6.7) 12/17/18 06:35 Absolute Lymphocytes 0.20 k/cumm (1.2-3.4) L 12/17/18 06:35 Absolute Monocytes 0.72 k/cumm (0.11-0.7) H 12/17/18 06:35 Absolute Eosinophils 0.00 k/cumm (0.0-0.7) 12/17/18 06:35 Absolute Basophils 0.00 k/cumm (0.0-0.2) 12/17/18 06:35 Differential Comment Manual differential 12/17/18 06:35 RBC Morphology See below 12/17/18 06:35 Polychromasia Present 12/17/18 06:35 Hypochromasia 1+ 12/17/18 06:35 Anisocytosis 3+ 12/17/18 06:35 Microcytosis 2+ 12/16/18 06:38 Macrocytosis 2+ 12/10/18 08:55 Target Cells 3+ 12/17/18 06:35 Haptoglobin 214 mg/dL (32-197) H 12/11/18 06:50 PT 12.2 sec (9.3-11.0) H 12/11/18 06:38 INR 1.2 (0.9-1.1) H 12/11/18 06:38 APTT 29.4 sec (21.0-31.4) 12/11/18 06:38 Fibrinogen 300 mg/dL (171-384) 12/11/18 06:50 D-Dimer 664 ng/mlFEU (<500) H 12/11/18 06:38 Sodium 128 mmol/L (136-145) L 12/17/18 06:35 Potassium 4.7 mmol/L (3.5-5.1) 12/17/18 06:35 Chloride 94 mmol/L (98-107) L 12/17/18 06:35 Carbon Dioxide 26.5 mmol/L (21.0-32.0) 12/17/18 06:35 Anion Gap 7.5 mmol/L (3-11) 12/17/18 06:35 BUN 23 mg/dL (7-18) H 12/17/18 06:35 Creatinine 0.72 mg/dL (0.55-1.02) 12/17/18 06:35 Estimated GFR/1.73 m2 >= 60.00 (mL/min/1.73m2) 12/17/18 06:35 Glucose 84 mg/dL (70-100) D 12/17/18 06:35 Calcium 8.5 mg/dL (8.5-10.1) 12/17/18 06:35 Magnesium 2.4 mg/dL (1.8-2.4) 12/17/18 06:35 Iron 23 ug/dL (50-175) L 12/14/18 05:55 TIBC 319 ug/dL (250-450) 12/14/18 05:55 Transferrin % Sat 7 % (15-50) L 12/14/18 05:55 Ferritin 652 ng/mL (8-388) H 12/14/18 05:55 Total Bilirubin 0.6 mg/dL (0.2-1.0) 12/13/18 05:54 AST 45 U/L (15-37) H 12/13/18 05:54 ALT 15 U/L (12-78) 12/13/18 05:54 Alkaline Phosphatase 62 U/L (46-116) 12/13/18 05:54 Lactate Dehydrogenase 372 U/L (81-234) H 12/11/18 06:38 Troponin I 0.04 ng/mL (0.00-0.06) 12/11/18 06:38 Total Protein 5.1 g/dL (6.4-8.2) L 12/13/18 05:54 Albumin 1.9 g/dL (3.4-5.0) L 12/13/18 05:54 Vitamin B12 855 pg/mL (193-986) 12/12/18 06:43 Folate 5.7 ng/mL (8.6-20.0) L 12/12/18 06:43 TSH 2.94 uIU/mL (0.358-3.74) 12/17/18 06:35 Urine Color Yellow (Yellow) 12/17/18 11:27 Urine Clarity Sl cloudy 12/17/18 11:27 Urine pH 6.0 (5-8) 12/17/18 11:27 Ur Specific Stanley 1.025 (1.005-1.025) 12/17/18 11:27 Urine Protein 30 mg/dL (Negative) H 12/17/18 11:27 Urine Ketones Negative mg/dL (Negative) 12/17/18 11:27 Urine Blood Large (Negative) H 12/17/18 11:27 Urine Nitrite Negative (Negative) 12/17/18 11:27 Urine Bilirubin Negative (Negative) 12/17/18 11:27 Urine Urobilinogen 0.2 EU/dL (Up TO 0.2) 12/17/18 11:27 Ur Leukocyte Esterase Negative (Negative) 12/17/18 11:27 Urine RBC >50 (0-2) H 12/17/18 11:27 Urine WBC 0-2 HPF (0-5) 12/17/18 11:27 Ur Epithelial Cells Rare HPF (Negative) 12/17/18 11:27 Urine Crystals Negative HPF (Negative) 12/17/18 11:27 Urine Bacteria Rare HPF (Negative) 12/17/18 11:27 Urine Casts Negative LPF (Negative) 12/17/18 11:27 Urine Mucus Negative (Negative) 12/17/18 11:27 Ur Culture Indicated? C&s done as ordered 12/17/18 11:27 Urine Glucose Negative mg/dL (Negative) 12/17/18 11:27 EBV DNA, Quant [id number] IU/mL (Undetected) A 12/11/18 06:50 Hepatitis A IgM Ab Negative (NEGAT) 12/11/18 06:50 Hep Bs Antigen Negative (NEGAT) 12/11/18 06:50 Hep B Core Total Ab Negative (NEGAT) 12/11/18 06:50 Hepatitis C Antibody Reactive (NEGAT) A 12/11/18 06:50 HCV RNA Quant (PCR) [id number] IU/mL (UNDECT) A 12/11/18 06:50 HSV I IgG Ab Positive 12/11/18 06:50 HSV II IgG Positive 12/11/18 06:50 Monoscreen Negative (Negative) 12/10/18 08:55 HIV 1&2 Ag/Ab, 4th Gen Negative (NEGAT) 12/11/18 06:50 HIV 1&2 Antibody Rapid Cancelled 12/11/18 05:35 TB Test Antigen - Nil 0.02 IU/mL 12/11/18 06:38 TB Test Antigen - Nil 0.00 IU/mL 12/11/18 06:38 TB Test (QFT) Interp Negative (NEGAT) 12/11/18 06:38
--- NOTE | 2018-12-19 15:55 | PCNE_ITS ---
Date of service: 12/17/18 History of Present Illness Chief Complaint: likely new diagnosis of lymphoma; help with decision making, [place] Narrative: I am familiar with Joselin from caring for her 3 years ago, soon after she moved in with her son and [id number]. She has lived with them since. She has had multiple admissions over the last 9 months. This is her fifth. She was admitted on 12/10/18 with mediastinal lymphadenopathy, following an admission in September for anemia. She has had persistent splenomegaly. It is thought she has a lymphoma now. She doesn't want any further workup. She doesn't want to see oncology. She is exhausted. She understands that this disease will likely lead to her . She says she is ready to . She hates being sick. She hasn't had quality of life for about a year now, she says. She's too weak to do anything. She has night sweats and weight loss. She is very clear that her son and his cannot care for her at home. She did not want me to call him to include him in our GOC/EOL discussion. She also is very clear that she does not want to be transferred to a fci. She would like to stay at [facility]. We discussed RN OFFICE status and she said she is interested in that. She doesn't want any more treatments other than those that are directed at keeping her comfortable. She will let me know when/if she is ready for me to share her decisions with her family. Hopefully, she will be able to do so tomorrow. I am concerned that her life is very limited in length--days only. Consults Consult date: 12/17/18 Requesting physician: Arline Lew Assessment and Plan (1) Palliative care patient: Current visit: No Status: Acute Joselin is exhausted. Sick of being sick. Doesn't want to have chemo or radiation or go through further workup and treatment for her suspected lymphoma. She thinks she's had it for a while, and Dr. Lew, hospitalist, agrees. Joselin is interested in RN OFFICE care. She is not surprised by my worry that she has a very short time left to live. She doesn't want to return to her son's home nor does she want to go to a SNF. She'd like to stay at [facility] and if possible here. I think this is likely. Dr Lew entered all RN OFFICE orders. Joselin will be transferred to the PC room, 218. Will keep close tabs on her to see if her pain increases. She is very afraid of being in pain at the time of her . Wants to be as painfree as possible. (2) Lymphoma: Current visit: No Status: Suspected Not interested in definitive work up nor in any treatment. (3) Dying care: Current visit: No Status: Acute Will see if she wants me to discuss her prognosis and desires with her family tomorrow. She didn't want me to contact them today. She was quite clear about this. Review of Systems Constitutional Reports anorexia, Reports body ache(s), Reports fatigue, Reports fever(s), Reports night sweats, Reports poor appetite, Reports weakness and Reports weight loss Eyes Reports requires corrective lenses ENT Reports bleeding gums, Reports dysphagia, Reports dizziness, Reports dry mouth, Reports hoarseness and Reports disequilibrium Cardiovascular Reports diaphoresis, Reports lightheadedness, Reports palpitations, Reports dyspnea and Reports dyspnea on exertion Respiratory Reports cough, Reports dyspnea and Reports dyspnea on exertion Gastrointestinal Reports abdominal pain, Reports dysphagia, Reports early satiety and Reports dyspepsia Genitourinary Reports urinary incontinence Musculoskeletal Reports back pain and Reports muscle weakness Integumentary/Breasts Reports dry skin and Reports unusual bruising Neurologic Reports dizziness, Reports disequilibrium and Reports weakness Psychiatric Reports change in appetite and Reports difficulty concentrating Endocrine Reports fatigue, Reports heat intolerance and Reports palpitations Hematologic/Lymphatic Reports easy bleeding, Reports easy bruising and Reports lymphadenopathy [facility] Medical History Thrombocytopenia (Acute) Splenomegaly (Acute ~12/10/18) Mediastinal lymphadenopathy (Chronic ~10/20/18) Pneumonia (Resolved) Nausea (Resolved) Abnormal CT scan, chest (Acute) Diarrhea (Resolved) Vitamin D deficiency (Chronic 09/07/14) Vitamin B 12 deficiency (Chronic 09/10/14) Viral hepatitis C (Chronic) SVT (supraventricular tachycardia) (Chronic 01/10/16) Peptic reflux disease (Chronic) Hyperlipidemia (Chronic) Essential hypertension (Chronic 07/27/13) Depressive disorder (Chronic) Chronic obstructive lung disease (Chronic) ASCVD (arteriosclerotic cardiovascular disease) (Chronic) Anemia (Chronic) PVD (peripheral vascular disease) (Chronic) Atrial fibrillation (Chronic) ASCVD (arteriosclerotic cardiovascular disease) Alcohol abuse COPD (chronic obstructive pulmonary disease) Essential hypertension Non-ST elevation MT (NSTEMI) PVD (peripheral vascular disease) Peptic reflux disease SVT (supraventricular tachycardia) Smoker Viral hepatitis C Vitamin D deficiency Surgical History History of angioplasty of peripheral vessel (Resolved 08/20/18) PROCEDURES Family History Mother Essential hypertension Personal history of malignant neoplasm Heart disease Hyperlipidemia Stroke Father Personal history of malignant neoplasm Brother Personal history of malignant neoplasm Grandfather No problems noted. Grandfather No problems noted. Grandmother No problems noted. Grandmother No problems noted. Social History caregiver/support person: Yes household members: family and children housing: house marital status: lives independently: No highest education level completed: 10th grade financial difficulty paying for basics: very hard fci: No current occupational status: retired pets and animals: Yes well-balanced diet: rarely or never caffeine: Yes eating out: rarely or never reads food labels: seldom or never during the past year weight has: decreased > 10 lbs what type of physical activity do you participate in: none Smoking and Tabacco status: Former Tobacco Use Tobacco: How many years used: 40 alcohol intake: former substance use type: does not use special russ needs: No agree to transfusion: Yes What is your relationship status?: How often do you talk on the phone with friends or family?: once per week How often do you get together with friends or relatives?: three or more times per week How often do you attend rastafarian or amish services?: 1-3 times per year Panel score (0-1 are the most socially isolated patients): 1 Exam Const General: cooperative, no acute distress, frail appearing and ill appearing Nutritional Appearance: thin Orientation: alert, awake and oriented x3 HENMT Head: normal to inspection, normocephalic and atraumatic Ears: hearing grossly normal bilaterally Face and sinus: dry mucous membranes Teeth and gingiva: edentulous Eyes General: appearance normal, both eyes and all related structures Conjunctivae: conjunctivae normal Sclera: scleral abnormality (slightly jaundiced?) Neck Neck: lymphadenopathy and no JVD Thyroid: thyroid normal Resp Effort & Inspection: able to speak in complete sentences and tachypneic Auscultation: clear to auscultation bilaterally Cardio Rate: regular rate Rhythm: regular rhythm Heart Sounds: S1 normal and S2 normal GI Inspection: scaphoid Palpation: firm, splenomegaly and tender Auscultation: hypoactive bowel sounds Skin General skin exam: ecchymosis and pallor Hair: brittle and general thinning Neuro General: alert, awake and oriented x3 Cognition: normal cognition Speech: speech normal Extrem General: clubbing Psych Appearance: grossly normal Mental Status: mental status grossly normal Speech and Movement: speech clear and delayed speech Mood: dysthymic mood Affect: sad Attitude: cooperative Thought Process: normal Thought Content: normal Insight: insight good (recognizes that she is dying) Judgment: judgment good Results Last Vital Signs Temp 97.7 F 12/17/18 23:53 Pulse 72 12/17/18 23:53 Resp 26 H 12/18/18 08:17 BP 122/79 12/17/18 23:53 Pulse Ox 96 12/18/18 05:09 Labs : 12/17/18 06:35 12/17/18 06:35
== END 2018-12-18 11:30 | disposition expired | DRG 841 ==
LOC: ER 10:57 → ICU 15:16 → MS 12-26 14:13
PROVIDERS: Nurse Practitioner Family; Admitting Provider Internal Medicine; Emergency Provider Physician Assistant; PCP Family Medicine; Visit Provider Internal Medicine
DX: C85.98 Non-Hodgkin lymphoma, unspecified, lymph nodes of multiple sites (principal); E87.1 Hypo-osmolality and hyponatremia; J44.1 Chronic obstructive pulmonary disease with (acute) exacerbation; K92.1 Melena; R16.1 Splenomegaly, not elsewhere classified; D69.6 Thrombocytopenia, unspecified; R11.10 Vomiting, unspecified; I48.0 Paroxysmal atrial fibrillation; Z85.118 Personal history of other malignant neoplasm of bronchus and lung; B85.2 Pediculosis, unspecified; I10 Essential (primary) hypertension; K21.9 Gastro-esophageal reflux disease without esophagitis; R52 Pain, unspecified; D50.9 Iron deficiency anemia, unspecified; I25.10 Atherosclerotic heart disease of native coronary artery without angina pectoris; I73.9 Peripheral vascular disease, unspecified; Z79.02 Long term (current) use of antithrombotics/antiplatelets; B18.2 Chronic viral hepatitis C; Z79.82 Long term (current) use of aspirin; R13.11 Dysphagia, oral phase; Z51.5 Encounter for palliative care
CPT/HCPCS: 36410; 36415; 80048; 80053; 85384; 86704; 86709; 86803; 87340; 87389; 87449; 87799; 92610; 93005; 94640; 96361; 96365; 96366; 96375; 99223; 99232; 99233; 99239; 99252; 99255; 99285; G8996; 71046; 74018; 74177; 76700; 81003; 81015; 82607; 82728; 82746; 83010; 83540; 83550; 83615; 83735; 84295; 84443; 84484; 85014; 85018; 85025; 85379; 85610; 85730; 86308; 86480; 86695; 86696; 87086; 87522; 93010; 99238; J1956; J2060; J2405; J2930; J3490; J7614; J7620